=== PATIENT | male | born 1940 | race Caucasian/White ===

== ENCOUNTER 2022-02-28 14:50 | Emergency (ER) | payer MEDICARE, OTHER, SELFPAY ==
--- NOTE | ~2022-02-28 | XR_ITS ---
EXAMINATION: XR chest 2V DATE: 02/28/2022 16:00 INDICATION: Shortness of breath. TECHNIQUE: Frontal and lateral views of the chest were obtained. COMPARISON: Chest 2 views 06/04/2018, chest CT 06/19/2012 FINDINGS: There are airspace opacities in the lower lung zones. No pleural effusion or pneumothorax. The heart size is normal. IMPRESSION: 1. Airspace opacities in the lower lung zones, consistent with atelectasis/scarring versus pneumonia. Reviewed, dictated and finalized at location A. IMPRESSION: 1. Airspace opacities in the lower lung zones, consistent with atelectasis/scar ring versus pneumonia.
[2022-02-28 14:57] VITALS: BP 132/72; PULSE 86; RESP 20; TEMP 36.8; O2SAT 97
--- NOTE | 2022-02-28 15:02 | ECG_ITS ---
Measurements Intervals [place] Rate: 76 P: 51 MS: 159 QRS: -28 QRSD: 90 T: 28 QT: 392 QTc: 441 Interpretive Statements SINUS RHYTHM ATRIAL PREMATURE COMPLEXES BORDERLINE R WAVE PROGRESSION, ANTERIOR LEADS BASELINE WANDER- II, III, AVF, V1 BORDERLINE ECG NO PREVIOUS ECG AVAILABLE FOR COMPARISON Electronically Signed On 02-28-2022 21:31:55 CDT by Ed Ozuna D.O.
[2022-02-28 15:17] LABS: Basophils Percent Auto 0.5 % (0.2-1.2); Eosinophils Absolute Auto 0.5 K/mm3 (0-0.3); Eosinophils Percent Auto 7.2 % (0-4.4); Hematocrit 31.9 % (42.0-52.0); Hemoglobin 9.6 g/dL (14.0-18.0); Immature Granulocyte Absolute 0.03 K/mm3 (0.00-0.031); Immature Granulocyte Percent A 0.4 % (0-0.5); Lymphocytes Absolute Auto 1.89 K/mm3 (0.9-3.2); Lymphocytes Percent Auto 25.3 % (18.3-44.2); Mean Corpuscular HGB Conc 30.1 g/dl (32-36); Mean Corpuscular Hemoglobin 26.4 pg (26-34); Mean Corpuscular Volume 87.6 fl (80-100); Mean Platelet Volume 9.7 fl (7.4-10.4); Monocytes Absolute Auto 0.6 K/mm3 (0.1-0.6); Monocytes Percent Auto 7.6 % (2.6-8.5); Neutrophils Absolute Auto 4.4 K/mm3 (1.3-6.7); Platelet Count Result 254 k/mm3 (150-375); Red Blood Count 3.64 M/mm3 (4.6-6.20); Red Cell Distribution Width 15.7 % (11.5-14.5); White Blood Count 7.5 K/mm3 (4.5-10.0)
[2022-02-28 15:30] LABS: Alanine Aminotransferase 26 U/L (6-50); Albumin Level 3.5 g/dL (3.5-5.1); Alkaline Phosphatase 77 U/L (38-126); Anion Gap 11 mmol/L (8-16); Aspartate Amino Transferase 28 U/L (17-59); Bilirubin,Total 0.3 mg/dL (0.2-1.3); Blood Urea Nitrogen 19 mg/dL (9-20); Carbon Dioxide 23 mmol/L (22-30); Chloride 109 mmol/L (98-107); Estimated CRCL calculation 33 ml/min; Estimated Glomerular Filt Rate 34; Glucose 143 mg/dL (65-110); Potassium 4.4 mmol/L (3.4-5.0); Sodium 143 mmol/L (137-145)
--- NOTE | 2022-02-28 16:27 | ED.SOB ---
HPI - SOB/Dyspnea General Chief Complaint: Shortness of Breath/Dyspnea Stated Complaint: covid + with shortness of breath Time Seen by Provider: 02/28/22 16:27 History of Present Illness HPI Narrative: Patient is an 81-year-old male with a history of COPD (on 2L O2), hypertension, hyperlipidemia, CKD presenting with COVID-19. Patient states that he experienced nasal congestion yesterday so he tested himself for COVID-19 at home. This test came back positive. He tested himself again this morning and it was again positive so he called his PCP who advised he come in for evaluation. Other than nasal congestion and a scratchy throat, the patient denies complaints. States he is not more short of breath than normal. He denies cough or chest pain. No fevers. No lightheadedness. No headache, abdominal pain, nausea or vomiting, leg swelling, diarrhea, dysuria. Related Data Home Medications Medication Instructions Recorded Confirmed aripiprazole 2 mg tablet (Abilify) 2 mg PO DAILY 05/26/19 02/25/22 guaifenesin 600 mg tablet, 600 mg PO BID 05/26/19 02/25/22 extended release 12 hr (Mucinex) wheat dextrin 3 gram/3.8 gram oral 1.5 gm PO BID 05/26/19 02/25/22 powder (Benefiber Sugar Free (dextrin)) aspirin 81 mg tablet,delayed 81 mg PO DAILY 11/29/19 02/25/22 release (Adult Low Dose Aspirin) cholecalciferol (vitamin D3) 25 1,000 unit PO DAILY 06/04/20 02/25/22 mcg (1,000 unit) capsule (Vitamin D3) duloxetine 20 mg capsule,delayed 20 mg PO DAILY 12/12/20 02/25/22 release propylene glycol 0.6 % eye drops 1 drp EACH EYE DAILY PRN 08/16/21 02/25/22 (Systane Balance) Allergies Allergy/AdvReac Type Severity Reaction Status Date / Time No Known Allergies Allergy Verified 02/25/22 09:50 Review of Systems Review of Systems: All systems reviewed & are unremarkable except as noted in HPI and below PMFSH Past Medical History Medical History Colonoscopy planned Coronary stent patent Gastric ulcer Impaired glucose tolerance Sleep apnea Surgical History Surgical History H/O hernia repair H/O oral surgery Family History Family History Mother Family history of respiratory disorder, Onset Age: 82 Family history of diabetes mellitus in first degree relative Diabetes mellitus Father Malignant neoplasm of prostate, Onset Age: 83 Patient's father is Sibling Family history of heart disease in male family member before age 55 Family history of cardiovascular disease Social History Social History Smoking status: Former smoker Smoking end date: 06/15/79 Alcohol intake: never Exam Narrative: GENERAL: Well-appearing, well-nourished, and in no acute distress. HEAD: Normocephalic, atraumatic. EYES: PERRLA and EOMI. ENT: Nares clear, no rhinorrhea or epistaxis. Mucous membranes moist. NECK: Supple. CHEST: On 2L NC, diminished breath sounds bilaterally. No wheezing, crackles. HEART: Regular rate and rhythm. No murmur heard. Normal peripheral pulses. ABDOMEN: Soft, nontender, nondistended, normal active bowel sounds. EXTREMITIES: Normal range of motion. No edema. SKIN: Warm, dry, no rash. NEURO: No focal deficits. Alert and oriented x3. PSYCH: Normal mood and affect. Course Vital Signs Vital signs: Vital Signs Temperature 98.2 F 02/28/22 14:57 Pulse Rate 86 02/28/22 14:57 Respiratory Rate 02/28/22 14:57 Blood Pressure 132/72 02/28/22 14:57 Pulse Oximetry 97 02/28/22 14:57 Oxygen Delivery Nasal Cannula 02/28/22 14:57 Oxygen Flow Rate 2 02/28/22 14:57 Temperature 97.9 F 02/28/22 19:04 Pulse Rate 87 02/28/22 19:04 Respiratory Rate 20 02/28/22 19:04 Blood Pressure 133/89 02/28/22 19:04 Pulse Oximetry 95 09
[2022-02-28 17:52] VITALS: BP 127/65; PULSE 86; RESP 16; TEMP 36.6; O2SAT 99
[2022-02-28 18:18] VITALS: PULSE 73; O2SAT 96
[2022-02-28 19:04] VITALS: BP 133/89; PULSE 87; RESP 20; TEMP 36.6; O2SAT 95
== END 2022-02-28 19:07 | disposition home or self-care (01) ==
PROVIDERS: Emergency Provider Emergency Medicine; PCP Internal Medicine
DX: U07.1 COVID-19 (principal); J44.9 Chronic obstructive pulmonary disease, unspecified; I12.9 Hypertensive chronic kidney disease with stage 1 through stage 4 chronic kidney disease, or unspecified chronic kidney disease; N18.9 Chronic kidney disease, unspecified; E78.5 Hyperlipidemia, unspecified; G47.30 Sleep apnea, unspecified; Z99.81 Dependence on supplemental oxygen; Z95.5 Presence of coronary angioplasty implant and graft; Z79.82 Long term (current) use of aspirin; Z87.891 Personal history of nicotine dependence; I49.1 Atrial premature depolarization; R94.31 Abnormal electrocardiogram [ECG] [EKG]
CPT/HCPCS: 36415; 71046; 80053; 85025; 93005; 99284

== ENCOUNTER 2022-04-11 09:59 | Inpatient (IN) | payer MEDICARE, OTHER, SELFPAY ==
[2022-04-11] VITALS (20 sets, daily range): BP systolic 101–135; BP diastolic 34–91; PULSE 76–94; RESP 14–30; TEMP 36.1–36.8; O2SAT 94–100; BMI 38.5
--- NOTE | ~2022-04-11 | XR_ITS ---
EXAMINATION: XR chest 1V portable DATE: 04/11/2022 10:21 INDICATION: COPD. Shortness of breath, pale and weak. TECHNIQUE: frontal view of the chest was obtained. COMPARISON: Chest radiograph dated 02/28/2022 FINDINGS: Pulmonary vascular congestion and increased interstitial pattern in the bilateral lower lung zones co nsistent with mild pulmonary edema. Blunting at costophrenic angles consistent with small bilateral p leural effusions. The cardiomediastinal silhouette is normal. IMPRESSION: 1. Mild interstitial pattern in the bilateral lower lung zones in favor mild pulmonary edema over pne umonia. 2. Small bilateral pleural effusions. Reviewed, dictated and finalized at location A. IMPRESSION: 1. Mild interstitial pattern in the bilateral lower lung zones in favor mild pu lmonary edema over pneumonia. 2. Small bilateral pleural effusions.
--- NOTE | 2022-04-11 10:10 | ECG_ITS ---
Measurements Intervals [place] Rate: 81 P: 47 ND: 174 QRS: -15 QRSD: 85 T: 176 QT: 331 QTc: 385 Interpretive Statements SINUS RHYTHM ST DEVIATION AND MODERATE T-WAVE ABNORMALITY, CONSIDER ANTEROLATERAL ISCHEMIA ABNORMAL ECG COMPARED TO ECG 02/28/2022 18:01:34 NO SIGNIFICANT CHANGES Electronically Signed On 04-11-2022 16:46:08 CDT by Stephen Sevilla M.D.
[2022-04-11 10:23] LABS: Basophils Absolute Auto 0.1 K/mm3 (0.0-0.1); Basophils Percent Auto 0.6 % (0.2-1.2); Eosinophils Absolute Auto 0.2 K/mm3 (0-0.3); Eosinophils Percent Auto 1.2 % (0-4.4); Immature Granulocyte Absolute 0.06 K/mm3 (0.00-0.031); Immature Granulocyte Percent A 0.5 % (0-0.5); Lymphocytes Absolute Auto 1.56 K/mm3 (0.9-3.2); Lymphocytes Percent Auto 11.8 % (18.3-44.2); Mean Corpuscular HGB Conc 28.2 g/dl (32-36); Mean Corpuscular Hemoglobin 22.9 pg (26-34); Mean Platelet Volume 9.4 fl (7.4-10.4); Monocytes Absolute Auto 1.2 K/mm3 (0.1-0.6); Monocytes Percent Auto 9.1 % (2.6-8.5); Neutrophils Absolute Auto 10.2 K/mm3 (1.3-6.7); Neutrophils Percent Auto 76.8 % (45.5-73.1); Nucleated Red Blood Cells Perc 0.2 % (0.0-0.2); Platelet Count Result 314 k/mm3 (150-375); Red Blood Count 2.58 M/mm3 (4.6-6.20); Red Cell Distribution Width 17.2 % (11.5-14.5); White Blood Count 13.3 K/mm3 (4.5-10.0)
[2022-04-11 10:37] LABS: Alanine Aminotransferase 20 U/L (6-50); Albumin Level 3.7 g/dL (3.5-5.1); Alkaline Phosphatase 84 U/L (38-126); Anion Gap 9 mmol/L (8-16); Aspartate Amino Transferase 26 U/L (17-59); Bilirubin,Total 0.4 mg/dL (0.2-1.3); Blood Urea Nitrogen 31 mg/dL (9-20); Calcium 8.1 mg/dL (8.4-10.2); Carbon Dioxide 23 mmol/L (22-30); Chloride 110 mmol/L (98-107); Estimated CRCL calculation 29 ml/min; Estimated Glomerular Filt Rate 29; Glucose 114 mg/dL (65-110); Potassium 4.5 mmol/L (3.4-5.0); Sodium 142 mmol/L (137-145)
--- NOTE | 2022-04-11 10:45 | ED.SOB ---
HPI - SOB/Dyspnea General Chief Complaint: Shortness of Breath/Dyspnea Stated Complaint: sob, gi bleed? Time Seen by Provider: 04/11/22 10:40 Source: patient and family Mode of arrival: ambulatory Limitations: no limitations History of Present Illness HPI Narrative: 81 years old white male presents with increased shortness of breath over the last 3 weeks. Patient noticed that his stool is black 1 week ago. Patient had COVID February 2022, used to be on oxygen 2 L/min for COPD, has been on 3 L since been having COVID. Patient on aspirin and Plavix. Last colonoscopy [address] Vasquez, polypectomy Related Data Home Medications Medication Instructions Recorded Confirmed aripiprazole 2 mg tablet (Abilify) 2 mg PO DAILY 05/26/19 02/25/22 guaifenesin 600 mg tablet, 600 mg PO BID 05/26/19 02/25/22 extended release 12 hr (Mucinex) wheat dextrin 3 gram/3.8 gram oral 1.5 gm PO BID 05/26/19 02/25/22 powder (Benefiber Sugar Free (dextrin)) aspirin 81 mg tablet,delayed 81 mg PO DAILY 11/29/19 02/25/22 release (Adult Low Dose Aspirin) cholecalciferol (vitamin D3) 25 1,000 unit PO DAILY 06/04/20 02/25/22 mcg (1,000 unit) capsule (Vitamin D3) duloxetine 20 mg capsule,delayed 20 mg PO DAILY 12/12/20 02/25/22 release propylene glycol 0.6 % eye drops 1 drp EACH EYE DAILY PRN Dry Eye(S) 08/16/21 02/25/22 (Systane Balance) Allergies Allergy/AdvReac Type Severity Reaction Status Date / Time No Known Allergies Allergy Verified 04/11/22 08:55 Review of Systems Review of Systems: All systems reviewed & are unremarkable except as noted in HPI and below PMFSH Past Medical History Medical History Colonoscopy planned Coronary stent patent Gastric ulcer Impaired glucose tolerance Sleep apnea Surgical History Surgical History H/O hernia repair H/O oral surgery Family History Family History Mother Family history of respiratory disorder, Onset Age: 82 Family history of diabetes mellitus in first degree relative Diabetes mellitus Father Malignant neoplasm of prostate, Onset Age: 83 Patient's father is Sibling Family history of heart disease in male family member before age 55 Family history of cardiovascular disease Social History Social History Smoking status: Former smoker Smoking end date: 06/15/79 Alcohol intake: never Exam Narrative: General appearance: Well-developed, well-nourished Skin: Normal color Head: Normocephalic, nontraumatic Eyes: Clear conjunctiva ENT: Oropharynx normal, ears normal, nose normal Neck: Supple, nontender Chest and respiratory: Airway patent, no respiratory distress, no accessory muscle use Heart: Regular rate/rhythm Abdomen: Soft, nontender, no organomegaly, quiet bowel sounds, rectal exam showed dark stool, guaiac positive, no gross bleeding Vascular: Normal peripheral pulses, normal capillary refill. 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 Patient will be admitted, GI consult, blood transfusion. Consultations Consultation #1: Dr. Gupta Date: 04/11/22 Time: 11:04 Consultation #2: Dr. Brooke Date: 04/11/22 Time: 11:04 Vital Signs Vital signs: Vital Signs Temperature 36.5 C 04/11/22 10:07
[2022-04-11 10:50] LABS: Hematocrit 20.9 % (42.0-52.0); Hemoglobin 5.9 g/dL (14.0-18.0)
[2022-04-11 11:26] LABS: INR 1.4; Prothrombin Time 16.5 Seconds (11.1-14.7)
[2022-04-11] MEDS: TUBING, BLOOD PLUM PUMP TUBING 1 EACH XX ×2 (11:49→14:00)
[2022-04-11] MEDS: PANTOPRAZOLE SODIUM IV 40 MG VIAL IV PUSH ×2 (11:49→21:58)
[2022-04-11] MEDS: SODIUM CHLORIDE 0.9% IV 250 ML 30 ML IV CONT (11:49)
[2022-04-11 11:57] LABS: SARS-CoV-2 RNA PCR Positive
--- NOTE | 2022-04-11 12:29 | PM.IMHP ---
H&P: HPI History of Present Illness Date/Time: 04/11/22 12:29 Chief Complaint: Shortness of breath-dyspnea Narrative: This is an 81-year-old male patient who does have a history of having a anemia any is also chronically on oxygen at 2 L per nasal cannula for his COPD. The patient had an office visit today pulmonology today for increased worsening shortness of breath. The patient has a chronic cough since he has had COVID on 02/27/2022. There was some discussion in the office about his hemoglobin being 9.6 on his last ER visit and the patient stated that he had black stool Sheng's this morning with further prompting. Last colonoscopy was [address] Dorantes which showed some hemorrhoids at that time. The patient tells me also had some polyps removed in the past. His H&H today was 5.9 and 20.9 last month was 9.6 and 31.9. It was reported that the patient was guaiac positive he had a unit of packed red blood cells and his H&H come up to 6.[address] Gupta has been consulted. IV Protonix has been started. The patient's oxygen level was increased to 3 L per nasal cannula. Chest x-ray was read as mild interstitial pattern in the bilateral lower lungs and they for pulmonary edema over pneumonia. Patient's BUN is 31 creatinine 2.2. GFR is 29. His baseline GFR is typically in the 30s. Creatinine is typically 1.6-1.9. Small bilateral pleural effusions. The patient is being admitted to inpatient status on 04/11/2022. Review of Systems Review of Systems: See HPI All systems reviewed & are unremarkable except as noted in HPI and below Constitutional: Constitutional: Reports as per HPI and Reports no additional constitutional complaints Eyes: Eyes: Reports as per HPI and Reports no additional eye complaints ENT: Reports system reviewed and no additional complaints, except as documented and Reports Normal hearing present Cardiovascular: Cardiovascular: Reports no additional cardiovascular complaints Respiratory: Respiratory: Reports no additional respiratory complaints and Reports no additional respiratory complaints Gastrointestinal: Gastrointestinal: Reports as per HPI and Reports no additional gastrointestinal complaints Musculoskeletal: Musculoskeletal: Reports no additional musculoskeletal complaints Integumentary/Breasts: Skin/Breast: Reports system reviewed and no additional complaints, except as docu and Reports as per HPI Neurologic: Reports system reviewed and no additional complaints, except as documented, Reports as per HPI and Reports Normal hearing present Psychiatric: Psychiatric: Reports no additional psychiatric complaints and Reports as per HPI Endocrine: Endocrine: Reports no additional endocrine complaints Hematologic/Lymphatic: Hematologic/Lymphatic: Reports no additional hematologic/lymphatic complaints Allergic/Immunologic: Allergic/Immunologic: Reports no additional allergic/immunologic complaints [facility] Past Medical History Medical History (Updated 04/11/22 @ 15:25 by Marcy Gramajo NP) Acne rosacea CHF (congestive heart failure) Chronic heart failure with preserved ejection fraction Chronic hypoxemic respiratory failure CKD (chronic kidney disease) Colonoscopy planned COPD (chronic obstructive pulmonary disease) COPD (chronic obstructive pulmonary disease) Coronary stent patent COVID-19 Depression Enlarged prostate without lower urinary tract symptoms (luts) Essential (primary) hypertension Gastric ulcer Gastro-esophageal reflux disease without esophagitis GERD (gastroesophageal reflux disease) Heart failure Hypernatremia Impacted cerumen of both ears Impaired glucose tolerance Mixed hyperlipidemia Obstructive sleep apnea Sleep apnea Surgical History Surgical History H/O cataract extraction H/O heart artery stent H/O hernia repair H/O oral surgery History of removal of pigmented skin lesion Family History Family History (
[2022-04-11 13:20] LABS: Hematocrit 22.5 % (42.0-52.0)
[2022-04-11 13:25] LABS: Hemoglobin 6.4 g/dL (14.0-18.0)
[2022-04-11] MEDS: SODIUM CHLORIDE 0.9% IV 250 ML 30 ML (14:01)
[2022-04-11] MEDS: FUROSEMIDE INJ 40 MG/4 ML VIAL 20 MG IV PUSH (16:32)
[2022-04-11 18:38] LABS: Hematocrit 24.7 % (42.0-52.0); Hemoglobin 7.4 g/dL (14.0-18.0)
[2022-04-11] MEDS: FLUTICASONE/SALMETEROL 45-21 MCG INHALER 1 PUFF 2 PUFF INHALATION (21:10)
[2022-04-11] MEDS: IPRATROPIUM BR 0.02% INH SOLN 0.5 MG/2.5 ML VIAL 1 MG INHALATION (21:40)
[2022-04-11] MEDS: ALBUTEROL SULFATE NEB 2.5 MG/3 ML INH INHALATION (21:40)
[2022-04-11] MEDS: carvediloL 6.25 MG TABLET PO (21:58)
[2022-04-12] VITALS (17 sets, daily range): BP systolic 106–135; BP diastolic 47–59; PULSE 64–86; RESP 16–24; TEMP 36.3–37.1; O2SAT 90–97
--- NOTE | 2022-04-12 | ECHO_ITS ---
Patient Info Name: Zaheer Camarillo Age: 81 years : 1940 Gender: Male Ht: 68 in Wt: 253 lbs BSA: 2.40 m2 HR: 76 bpm BP: 106 / 59 mmHg Heart Rhythm: Sinus Rhythm Technical Quality: Fair Exam Date: 04/12/2022 2:02 PM Exam Location: [facility] Pul[facility] Patient Status: Inpatient Admit Date: 04/11/2022 Staff Ordering Physician: Marcy Gramajo NP Outside Machinist Apprentice: Sweta Darnell RDCS Attending Provider: Keegan Brooke MD Referring Physician: Rox NOVOA; Exam Type: CA echo dop color flow w con Study Info Indications I50.20 - Unspecified systolic (congestive) heart failure Complete two-dimensional, color flow and Doppler transthoracic echocardiogram is performed with contrast to opacify the left ventricle and to improve the deliniation of the left ventricle endocardial borders. Contrast/Agitated Saline Contrast/Ag. Saline: Definity Amount: 4.00 ml Administered By: Sweta Darnell [facility] Summary 1. Left ventricular systolic function is normal, estimated at 55-60%. 2. There is mildly increased left ventricular wall thickness. 3. The left ventricular diastolic function is grade I diastolic dysfunction. 4. Right ventricular systolic function is normal. 5. There is moderate aortic valve stenosis with a peak velocity of 345.09 cm/s, mean gradient of 33 mmHg, and aortic valve area of 1.37 cm2. 6. There is mild aortic valve calcification. 7. There is mild tricuspid valve regurgitation. Left Ventricle Left ventricular chamber dimension is normal. Left ventricular systolic function is normal, estimated at 55-60%. There is mildly increased left ventricular wall thickness. The left ventricular diastolic function is grade I diastolic dysfunction. Right Ventricle Right ventricular chamber dimension is normal. Right ventricular systolic function is normal. Left Atria Left atrial chamber dimension is normal. Right Atria Right atrial chamber dimension is normal. Atrial Septum Intact interatrial septum visualized by color flow imaging. Aortic Valve The aortic valve is not well visualized. There is moderate aortic valve stenosis with a peak velocity of 345.09 cm/s, mean gradient of 33 mmHg, and aortic valve area of 1.37 cm2. There is no aortic valve regurgitation. There is mild aortic valve calcification. Pulmonic Valve The pulmonic valve is not well visualized. Mitral Valve The mitral valve has normal leaflets. There is no mitral valve stenosis. There is no mitral valve regurgitation. The mitral valve annulus is mildly calcified. Tricuspid Valve The tricuspid valve leaflets are not well visualized. There is no significant tricuspid valve stenosis. There is mild tricuspid valve regurgitation. Pericardium/Pleural There is no pericardial effusion. Inferior Vena Cava Dilated inferior vena cava with <50% collapse upon inspiration consistent with elevated right atrial pressure, 15 mmHg. Left Ventricular Outflow Tract Name Value Normal LVOT 2D LVOT Diameter 2.22 cm LVOT Doppler LVOT Peak Gradient 7 mmHg LVOT Rachelle
[2022-04-12 06:50] LABS: Basophils Absolute Auto 0.1 K/mm3 (0.0-0.1); Basophils Percent Auto 0.7 % (0.2-1.2); Eosinophils Absolute Auto 0.2 K/mm3 (0-0.3); Eosinophils Percent Auto 2.3 % (0-4.4); Hematocrit 24.8 % (42.0-52.0); Hemoglobin 7.4 g/dL (14.0-18.0); Immature Granulocyte Absolute 0.03 K/mm3 (0.00-0.031); Immature Granulocyte Percent A 0.3 % (0-0.5); Lymphocytes Absolute Auto 1.53 K/mm3 (0.9-3.2); Lymphocytes Percent Auto 15.9 % (18.3-44.2); Mean Corpuscular HGB Conc 29.8 g/dl (32-36); Mean Corpuscular Hemoglobin 24.3 pg (26-34); Mean Corpuscular Volume 81.6 fl (80-100); Mean Platelet Volume 9.9 fl (7.4-10.4); Monocytes Percent Auto 10.3 % (2.6-8.5); Neutrophils Absolute Auto 6.8 K/mm3 (1.3-6.7); Neutrophils Percent Auto 70.5 % (45.5-73.1); Platelet Count Result 284 k/mm3 (150-375); Red Blood Count 3.04 M/mm3 (4.6-6.20); Red Cell Distribution Width 16.9 % (11.5-14.5); White Blood Count 9.6 K/mm3 (4.5-10.0)
[2022-04-12 07:04] LABS: Alanine Aminotransferase 16 U/L (6-50); Albumin Level 3.5 g/dL (3.5-5.1); Alkaline Phosphatase 86 U/L (38-126); Anion Gap 13 mmol/L (8-16); Aspartate Amino Transferase 27 U/L (17-59); Bilirubin,Total 0.6 mg/dL (0.2-1.3); Blood Urea Nitrogen 28 mg/dL (9-20); Calcium 8.3 mg/dL (8.4-10.2); Carbon Dioxide 25 mmol/L (22-30); Chloride 108 mmol/L (98-107); Estimated CRCL calculation 28 ml/min; Estimated Glomerular Filt Rate 27; Glucose 100 mg/dL (65-110); Magnesium 1.9 mg/dL (1.6-2.3); Potassium 3.9 mmol/L (3.4-5.0); Sodium 146 mmol/L (137-145)
[2022-04-12] MEDS: lamoTRIgine 50 MG TABLET PO (08:01)
[2022-04-12] MEDS: ARIPiprazole 2 MG TABLET PO (08:01)
[2022-04-12] MEDS: ATORVASTATIN 40 MG TABLET PO (08:01)
[2022-04-12] MEDS: amLODIPine BESYLATE 2.5 MG TABLET PO (08:01)
[2022-04-12] MEDS: PANTOPRAZOLE SODIUM IV 40 MG VIAL IV PUSH ×2 (08:01→21:23)
[2022-04-12] MEDS: carvediloL 6.25 MG TABLET PO ×2 (08:01→21:16)
[2022-04-12] MEDS: guaiFENesin 12 HR 600 MG TABCR PO ×2 (08:01→21:15)
[2022-04-12] MEDS: CHOLECALCIFEROL 1,000 UNITS TABLET 1000 UNITS PO (08:01)
[2022-04-12] MEDS: DULoxetine HCL 20 MG CAPSULE.DR PO (08:01)
[2022-04-12] MEDS: ALBUTEROL SULFATE NEB 2.5 MG/3 ML INH INHALATION ×2 (08:23→19:56)
[2022-04-12] MEDS: IPRATROPIUM BR 0.02% INH SOLN 0.5 MG/2.5 ML VIAL 1 MG INHALATION ×2 (08:23→19:58)
--- NOTE | 2022-04-12 08:23 | PM.IMPN ---
Progress Note: A&P Assessment and Plan (1) GI bleed: Code(s): K92.2 - Gastrointestinal hemorrhage, unspecified Status: Acute Assessment and Plan: monitor hemoglobin and fluid status closely, continue Protonix, GI consult appreciated plan is for EGD in the morning (2) (HFpEF) heart failure with preserved ejection fraction: Code(s): I50.30 - Unspecified diastolic (congestive) heart failure Status: Acute Assessment and Plan: repeat echo pending (3) Atherosclerotic heart disease of [place] coronary artery with angina pectoris: Code(s): I25.119 - Atherosclerotic heart disease of [place] coronary artery with unspecified angina pectoris Status: Acute Assessment and Plan: hold aspirin Plavix, restart when okay with GI (4) Chronic hypoxemic respiratory failure: Code(s): J96.11 - Chronic respiratory failure with hypoxia Status: Acute Assessment and Plan: 2 L at baseline, currently on 3 L, likely secondary to anemia, anticipate this will resolve with transfusion, do not suspect underlying exacerbation of COPD (5) CKD (chronic kidney disease): Code(s): N18.9 - Chronic kidney disease, unspecified Status: Acute Assessment and Plan: gentle IVF d/t worsening kidney function without fluid overload status (6) COPD (chronic obstructive pulmonary disease): Code(s): J44.9 - Chronic obstructive pulmonary disease, unspecified Status: Acute Assessment and Plan: continue home medications, stable (7) Depression: Code(s): F32.A - Depression, unspecified Status: Acute Assessment and Plan: continue home medications, stable (8) Essential (primary) hypertension: Code(s): I10 - Essential (primary) hypertension Status: Acute Assessment and Plan: somewhat on the low side, would consider discontinuing amlodipine, will reassess prior to discharge (9) Mixed hyperlipidemia: Code(s): E78.2 - Mixed hyperlipidemia Status: Acute Assessment and Plan: continue statin (10) Obstructive sleep apnea: Code(s): G47.33 - Obstructive sleep apnea (adult) (pediatric) Status: Acute Assessment and Plan: titrate CPAP to home setting. The patient has supplemental oxygen 24/7 he has CPAP settings 12 cm of water with the 3 liters/minute O2 bleed in. Plan DVT prophylaxis with SCDs GI prophylaxis with PPI Code status full code Subjective Date/time seen: 04/12/22 08:23 Interval history: No overnight events noted. No chest pain or shortness of breath. No nausea, vomiting or diarrhea. No fevers or chills. Patient states he does get dyspneic with exertion, worsening over the last 2-3 weeks. Denies blood in his stool or melena, although H&P does mention some black in his stools. Review of Systems Review of Systems: 12 point review of systems was assessed and was negative except as noted in the HPI Exam Narrative: General: No acute distress, alert and oriented per baseline, stable on 3 L nasal cannula HEENT: Atraumatic, normocephalic, mucous membranes moist CV: Regular rate and rhythm, S1, S2 Lungs: Clear to auscultation bilaterally, no rales or crackles noted, no wheezes, good air entry Abdomen: Soft, nontender, nondistended Extremities: Normal to inspection Skin: No rashes noted, no lesions or wounds seen Psych: Euthymic, normal affect Objective Data Vital Signs Vital Signs: Vital Signs - 24 hr 04/11/22 10:07 04/11/22 10:13 04/11/22 10:07 Temperature 97.7 F Pulse Rate 78 77 82 Respiratory Rate 18 29 H Blood Pressure 135/91 H 135/91 H Pulse Oximetry 99 99 Oxygen Delivery Nasal Cannula Oxygen Flow Rate 3 Fraction of Inspired Oxygen 04/11/22 11:07 04/11/22 11:46 04/11/22 12:02 Temperature 98.0 F 97 F L Pulse Rate 77 79 80 Respiratory Rate 19 21 H 22 H Blood Pressure 105/72 127/71 115/72 Pulse Oximetry 100 98 97 Oxygen Delivery
[2022-04-12] MEDS: FLUTICASONE/SALMETEROL 45-21 MCG INHALER 1 PUFF 2 PUFF INHALATION ×2 (08:24→19:59)
[2022-04-12] MEDS: SODIUM CHLORIDE 0.9% IV 1,000 ML 75 ML IV CONT (08:39)
--- NOTE | 2022-04-12 12:43 | WPDGICN ---
Assessment and Plan Assessment and plan (1) GI bleed: Code(s): K92.2 - Gastrointestinal hemorrhage, unspecified Status: Acute Assessment and Plan: melena and worsening anemia requiring blood transfusion he is hemodynamically stable egd in am iv protonix (2) Melena: Code(s): K92.1 - Melena Status: Acute Assessment and Plan: monitor for more signs of bleeding (3) Acute on chronic blood loss anemia: Code(s): D62 - Acute posthemorrhagic anemia Status: Acute Assessment and Plan: s/p prbc trend h/h (4) Gastro-esophageal reflux disease without esophagitis: Code(s): K21.9 - Gastro-esophageal reflux disease without esophagitis Status: Acute Assessment and Plan: never had egd (5) Chronic hypoxemic respiratory failure: Code(s): J96.11 - Chronic respiratory failure with hypoxia Status: Acute (6) Essential (primary) hypertension: Code(s): I10 - Essential (primary) hypertension Status: Acute (7) Acute on chronic renal failure: Code(s): N17.9 - Acute kidney failure, unspecified; N18.9 - Chronic kidney disease, unspecified Status: Acute Assessment and Plan: monitor (8) Blood thinned due to long-term anticoagulant use: Code(s): Z79.01 - half-way (current) use of anticoagulants Status: Acute Assessment and Plan: plavix on hold GI Consult Note Consult date/time: 04/12/22 12:43 Reason for consult: melena HPI: Zaheer Camarillo is a 81 year old male with history of CKD baseline creatinine 1.6-1.9, chronic anemia with last hb 9.6, last colonoscopy was [address] Dorantes which showed some hemorrhoids at that time.?Also HTN on baby aspirin and plavix, GERD on protonix daily but never had EGD. He came here with last few days noted dark stools and also more indigestion using tums but denies abdominal pain or nausea. noted that he has been more fatigue than usual and also getting dyspnea on exertion. His H&H was 5.9 and 20.9, given blood transfusion and IV Protonix.?Chest x-ray reviewed, mild interstitial pattern in the bilateral lower lungs. BUN 31 creatinine 2.2.?He is feeling better after transfusion. Review of Systems Constitutional: Constitutional: Reports fatigue Eyes: Eyes: Denies blurry vision ENT: Reports Normal hearing present Cardiovascular: Cardiovascular: Denies chest pain Respiratory: Respiratory: Reports dyspnea on exertion Gastrointestinal: Gastrointestinal: Reports melena Genitourinary: Genitourinary: Denies hematuria Musculoskeletal: Musculoskeletal: Denies back pain Integumentary/Breasts: Skin/Breast: Denies rash Neurologic: Denies Abnormal speech present Psychiatric: Psychiatric: Denies anxiety [facility] Past Medical History Medical History (Updated 04/12/22 @ 12:48 by Bharath Bourne MD) Acne rosacea Acute on chronic blood loss anemia Acute on chronic renal failure Blood thinned due to long-term anticoagulant use CHF (congestive heart failure) Chronic heart failure with preserved ejection fraction Chronic hypoxemic respiratory failure CKD (chronic kidney disease) Colonoscopy planned COPD (chronic obstructive pulmonary disease) COPD (chronic obstructive pulmonary disease) Coronary stent patent COVID-19 Depression Enlarged prostate without lower urinary tract symptoms (luts) Essential (primary) hypertension Gastric ulcer Gastro-esophageal reflux disease without esophagitis GERD (gastroesophageal reflux disease) Heart failure Hypernatremia Impacted cerumen of both ears Impaired glucose tolerance Melena Mixed hyperlipidemia Obstructive sleep apnea Sleep apnea Surgical History Surgical History H/O cataract extraction H/O heart artery stent H/O hernia repair H/O oral surgery History of removal of pigmented skin lesion Family History Family History (Reviewed 04/11/22 @ 15:09 b
[2022-04-12] MEDS: PERFLUTREN LIPID MICROSPHERES 1.5 ML VIAL DILUTED TO 10 ML TOTAL VOLUME IV PUSH (13:50)
[2022-04-13] VITALS (20 sets, daily range): BP systolic 104–147; BP diastolic 47–69; PULSE 66–90; RESP 18–22; TEMP 36.3–36.8; O2SAT 90–97
[2022-04-13 06:07] LABS: Basophils Absolute Auto 0.1 K/mm3 (0.0-0.1); Basophils Percent Auto 0.6 % (0.2-1.2); Eosinophils Absolute Auto 0.2 K/mm3 (0-0.3); Eosinophils Percent Auto 2.5 % (0-4.4); Hematocrit 25.4 % (42.0-52.0); Hemoglobin 7.7 g/dL (14.0-18.0); Immature Granulocyte Absolute 0.03 K/mm3 (0.00-0.031); Immature Granulocyte Percent A 0.3 % (0-0.5); Lymphocytes Absolute Auto 1.21 K/mm3 (0.9-3.2); Lymphocytes Percent Auto 13.8 % (18.3-44.2); Mean Corpuscular HGB Conc 30.3 g/dl (32-36); Mean Corpuscular Hemoglobin 24.4 pg (26-34); Mean Corpuscular Volume 80.6 fl (80-100); Mean Platelet Volume 9.8 fl (7.4-10.4); Monocytes Absolute Auto 0.8 K/mm3 (0.1-0.6); Monocytes Percent Auto 8.6 % (2.6-8.5); Neutrophils Absolute Auto 6.5 K/mm3 (1.3-6.7); Neutrophils Percent Auto 74.2 % (45.5-73.1); Platelet Count Result 302 k/mm3 (150-375); Red Blood Count 3.15 M/mm3 (4.6-6.20); Red Cell Distribution Width 17.3 % (11.5-14.5); White Blood Count 8.8 K/mm3 (4.5-10.0)
[2022-04-13 06:18] LABS: Alanine Aminotransferase 16 U/L (6-50); Albumin Level 3.4 g/dL (3.5-5.1); Alkaline Phosphatase 85 U/L (38-126); Anion Gap 15 mmol/L (8-16); Aspartate Amino Transferase 27 U/L (17-59); Bilirubin,Total 0.6 mg/dL (0.2-1.3); Blood Urea Nitrogen 23 mg/dL (9-20); Calcium 8.2 mg/dL (8.4-10.2); Carbon Dioxide 24 mmol/L (22-30); Chloride 111 mmol/L (98-107); Estimated CRCL calculation 29 ml/min; Estimated Glomerular Filt Rate 29; Glucose 116 mg/dL (65-110); Potassium 3.9 mmol/L (3.4-5.0); Sodium 150 mmol/L (137-145)
--- NOTE | 2022-04-13 07:38 | PC.NURSE ---
pt off floor at this time for procedure.
[2022-04-13] MEDS: LACTATED RINGERS 1,000 ML 150 ML IV CONT (07:58)
--- NOTE | 2022-04-13 08:17 | WPDANESEPPF ---
Anes - Initial Pre Proc Eval Procedure: Operation Date: 04/13/22 08:00 Proposed Procedures p Esophagogastroduodenoscopy - Bharath Bourne MD Date/Time: 04/13/22 08:17 Surgeon: Keegan Brooke MD Pre Op Diagnosis: GI Bleed/Anemia/COPD Patient Data Age: 81 Gender: M Height: 1.73 m Weight: 115 kg Last Vital Signs Temp 36.6 C 04/13/22 07:47 Pulse 90 04/13/22 07:47 Resp 22 H 04/13/22 07:47 BP 147/65 H 04/13/22 07:47 Pulse Ox 97 04/13/22 07:47 O2 Del Method Nasal Cannula 04/13/22 07:47 O2 Flow Rate 3 04/13/22 07:47 FiO2 32 04/12/22 20:40 Allergies Allergy/AdvReac Type Severity Reaction Status Date / Time No Known Allergies Allergy Verified 04/13/22 07:43 Home Medications Medication Instructions Recorded Confirmed Type aripiprazole 2 mg tablet (Abilify) 2 mg PO DAILY 05/26/19 04/11/22 History guaifenesin 600 mg tablet, 600 mg PO BID 05/26/19 04/11/22 History extended release 12 hr (Mucinex) wheat dextrin 3 gram/3.8 gram oral 1.5 gm PO BID 05/26/19 04/11/22 History powder (Benefiber Sugar Free (dextrin)) aspirin 81 mg tablet,delayed 81 mg PO DAILY 11/29/19 04/11/22 History release (Adult Low Dose Aspirin) lamotrigine 25 mg tablet 50 mg PO DAILY #30 tabs 11/29/19 04/11/22 Rx cholecalciferol (vitamin D3) 25 1,000 unit PO DAILY 06/04/20 04/11/22 History mcg (1,000 unit) capsule (Vitamin D3) duloxetine 20 mg capsule,delayed 20 mg PO DAILY 12/12/20 04/11/22 History release albuterol sulfate 2.5 mg/3 mL See Rx Instructions .Route 08/16/21 04/11/22 Rx (0.083 %) solution for nebulization .COMPLEX #60 vials pantoprazole 40 mg tablet,delayed 40 mg PO .COMPLEX #90 tabs 08/16/21 04/11/22 Rx release propylene glycol 0.6 % eye drops 1 drp EACH EYE DAILY PRN Dry Eye(S) 08/16/21 04/11/22 History (Systane Balance) clopidogrel 75 mg tablet See Rx Instructions .Route 11/05/21 04/11/22 Rx .COMPLEX #90 tabs atorvastatin 40 mg tablet 40 mg PO DAILY #90 tabs 11/18/21 04/11/22 Rx carvedilol 6.25 mg tablet 6.25 mg PO Q12H #180 tabs 11/18/21 04/11/22 Rx amlodipine 2.5 mg tablet 2.5 mg PO DAILY 04/11/22 04/11/22 History budesonide-formoterol HFA 80 2 puff inhalation Q12H 04/11/22 04/11/22 History mcg-4.5 mcg/actuation aerosol inhaler (Symbicort) ipratropium bromide 0.02 % 1 mg inhalation BID 04/11/22 04/11/22 History solution for inhalation Laboratory Tests 04/13/22 04/13/22 05:47 05:47 WBC 8.8 K/mm3 K/mm3 (4.5-10.0) RBC 3.15 M/mm3 L M/mm3 (4.6-6.20) Hgb 7.7 g/dL L g/dL (14.0-18.0) Hct 25.4 % L % (42.0-52.0) MCV 80.6 fl fl (80-100) MCH 24.4 pg L pg (26-34) MCHC 30.3 g/dl L g/dl (32-36) RDW 17.3 % H % (11.5-14.5) Plt Count 302 k/mm3 k/mm3 (150-375) MPV 9.8 fl fl (7.4-10.4) Immature Gran % (Auto) 0.3 % % (0-0.5) Neut % (Auto) 74.2 % H % (45.5-73.1) Lymph % (Auto) 13.8 % L % (18.3-44.2) [place] % (Auto) 8.6 % H % (2.6-8.5) Eos % (Auto) 2.5 % % (0-4.4) Baso % (Auto) 0.6 % % (0.2-1.2) Lymph # (Auto) 1.21 K/mm3 K/mm3 (0.9-3.2) [place] # (Auto) 0.8 K/mm3 H K/mm3 (0.1-0.6) Eos # (Auto) 0.2 K/mm3 K/mm3 (0-0.3) Baso # (Auto) 0.1 K/mm3 K/mm3 (0.0-0.1) Abs Immat Gran (auto) 0.03 K/mm3 K/mm3 (0.00-0.031) Absolute Neuts (auto) 6.5 K/mm3 K/mm3 (1.3-6.7) Absolute Nucleated RBC 0.0 K/mm3 K/mm3 (0.0-0.012) Nucleated RBC % 0.0 % % (0.0-0.2) Sodium 150 mmol/L H mmol/L (137-145) Potassium 3.9 mmol/L mmol/L (3.4-5.0) Chloride 111 mmol/L H mmol/L (98-107) Carbon Dioxide 24 mmol/L mmol/L (22-30) Anion Gap 15 mmol/L mmol/L (8-16) BUN 23 mg/dL H mg/dL (9-20) Creatinine 2.20 mg/dL H mg/dL (0.7-1.3) Estim Creat Clear Calc 29 ml/min ml/min Estimated GFR 29 L (59 - ) Glucose
--- NOTE | 2022-04-13 09:00 | PC.NURSE ---
pt back from procedure at this time.
[2022-04-13] MEDS: DULoxetine HCL 20 MG CAPSULE.DR PO (09:02)
[2022-04-13] MEDS: carvediloL 6.25 MG TABLET PO ×2 (09:02→20:26)
[2022-04-13] MEDS: lamoTRIgine 50 MG TABLET PO (09:02)
[2022-04-13] MEDS: ATORVASTATIN 40 MG TABLET PO (09:02)
[2022-04-13] MEDS: ARIPiprazole 2 MG TABLET PO (09:02)
[2022-04-13] MEDS: guaiFENesin 12 HR 600 MG TABCR PO ×2 (09:02→20:26)
[2022-04-13] MEDS: CHOLECALCIFEROL 1,000 UNITS TABLET 1000 UNITS PO (09:02)
[2022-04-13] MEDS: amLODIPine BESYLATE 2.5 MG TABLET PO (09:02)
[2022-04-13] MEDS: PANTOPRAZOLE SODIUM IV 40 MG VIAL IV PUSH (09:03)
--- NOTE | 2022-04-13 11:30 | PM.IMPN ---
Progress Note: A&P Assessment and Plan (1) GI bleed: Code(s): K92.2 - Gastrointestinal hemorrhage, unspecified Status: Acute Assessment and Plan: EGD today, hemoglobin is 7.7 today status post transfusion, continue to monitor Update: EGD report showed duodenal ulcer, okay to resume diet, will continue PPI twice daily, avoid NSAIDs, hold Plavix x1 week, monitor hemoglobin (2) (HFpEF) heart failure with preserved ejection fraction: Code(s): I50.30 - Unspecified diastolic (congestive) heart failure Status: Acute Assessment and Plan: repeat echo pending (3) Atherosclerotic heart disease of [place] coronary artery with angina pectoris: Code(s): I25.119 - Atherosclerotic heart disease of [place] coronary artery with unspecified angina pectoris Status: Acute Assessment and Plan: hold aspirin + Plavix x1 week (4) Chronic hypoxemic respiratory failure: Code(s): J96.11 - Chronic respiratory failure with hypoxia Status: Acute Assessment and Plan: 2 L at baseline, currently on 3 L, likely secondary to anemia, anticipate this will resolve with transfusion, do not suspect underlying exacerbation of COPD will transfuse 1 unit of pRBCs as patient's hgb is only 7.7 and unable to wean off 3L as well as h/o heart failure, not unreasonable to transfuse to a goal around 9 instead and see if resp failure improves (5) CKD (chronic kidney disease): Code(s): N18.9 - Chronic kidney disease, unspecified Status: Acute Assessment and Plan: creatinine and BUN improved with gentle IV fluid hydration, IV fluids now discontinued, appears to be fairly close to baseline (6) COPD (chronic obstructive pulmonary disease): Code(s): J44.9 - Chronic obstructive pulmonary disease, unspecified Status: Chronic Assessment and Plan: continue home medications, stable (7) Depression: Code(s): F32.A - Depression, unspecified Status: Chronic Assessment and Plan: continue home medications, stable (8) Essential (primary) hypertension: Code(s): I10 - Essential (primary) hypertension Status: Chronic Assessment and Plan: somewhat on the low side, would consider discontinuing amlodipine, will reassess prior to discharge (9) Mixed hyperlipidemia: Code(s): E78.2 - Mixed hyperlipidemia Status: Chronic Assessment and Plan: continue statin (10) Obstructive sleep apnea: Code(s): G47.33 - Obstructive sleep apnea (adult) (pediatric) Status: Chronic Assessment and Plan: titrate CPAP to home setting. The patient has supplemental oxygen 24/ he has CPAP settings 12 cm of water with the 3 liters/minute O2 bleed in. (11) Hypernatremia: Code(s): E87.0 - Hyperosmolality and hypernatremia Status: Acute Assessment and Plan: sodium worsened to 150 today, up from 146 yesterday, baseline appears to be on the higher side as patient runs between 141 and 145, will monitor for now, would give half-normal saline in the future if patient appears dehydrated Plan DVT prophylaxis with SCDs GI prophylaxis with PPI Code status full code Subjective Date/time seen: 04/13/22 11:30 Interval history: No overnight events noted. No chest pain or shortness of breath. No nausea, vomiting or diarrhea. No fevers or chills. Patient states he feels still is more short of breath with exertion than before. Review of Systems Review of Systems: 12 point review of systems was assessed and was negative except as noted in the HPI Exam Narrative: General: No acute distress, alert and oriented per baseline, stable on 3 L nasal cannula HEENT: Atraumatic, normocephalic, mucous membranes moist CV: Regular rate and rhythm, S1, S2 Lungs: Clear to auscultation bilaterally, no rales or crackles noted, no wheezes, good air entry Abdomen: Soft, nontender, nondistended Extremities: Normal to ins
[2022-04-13 12:11] LABS: Hematocrit 27.8 % (42.0-52.0); Hemoglobin 8.1 g/dL (14.0-18.0); Mean Corpuscular HGB Conc 29.1 g/dl (32-36); Mean Corpuscular Hemoglobin 24.1 pg (26-34); Mean Corpuscular Volume 82.7 fl (80-100); Mean Platelet Volume 9.6 fl (7.4-10.4); Platelet Count Result 302 k/mm3 (150-375); Red Blood Count 3.36 M/mm3 (4.6-6.20); Red Cell Distribution Width 17.2 % (11.5-14.5); White Blood Count 10.1 K/mm3 (4.5-10.0)
[2022-04-13] MEDS: SODIUM CHLORIDE 0.9% IV 250 ML 30 ML IV CONT (15:59)
[2022-04-13] MEDS: TUBING, BLOOD PLUM PUMP TUBING 1 EACH XX (15:59)
[2022-04-13 21:00] LABS: Hematocrit 28.6 % (42.0-52.0); Hemoglobin 8.6 g/dL (14.0-18.0); Mean Corpuscular HGB Conc 30.1 g/dl (32-36); Mean Corpuscular Hemoglobin 24.7 pg (26-34); Mean Corpuscular Volume 82.2 fl (80-100); Mean Platelet Volume 9.9 fl (7.4-10.4); Platelet Count Result 285 k/mm3 (150-375); Red Blood Count 3.48 M/mm3 (4.6-6.20); Red Cell Distribution Width 16.9 % (11.5-14.5); White Blood Count 10.2 K/mm3 (4.5-10.0)
[2022-04-13] MEDS: ALBUTEROL SULFATE NEB 2.5 MG/3 ML INH INHALATION (21:07)
[2022-04-13] MEDS: IPRATROPIUM BR 0.02% INH SOLN 0.5 MG/2.5 ML VIAL INHALATION (21:07)
[2022-04-13] MEDS: FLUTICASONE/SALMETEROL 45-21 MCG INHALER 1 PUFF 2 PUFF INHALATION (21:08)
[2022-04-14] VITALS (16 sets, daily range): BP systolic 93–134; BP diastolic 63–84; PULSE 70–93; RESP 18–20; TEMP 36.1–37; O2SAT 86–100
[2022-04-14] MEDS: PANTOPRAZOLE 40 MG TABLET PO ×2 (01:09→21:17)
[2022-04-14 07:02] LABS: Alanine Aminotransferase 20 U/L (6-50); Albumin Level 3.5 g/dL (3.5-5.1); Alkaline Phosphatase 87 U/L (38-126); Anion Gap 11 mmol/L (8-16); Aspartate Amino Transferase 30 U/L (17-59); Bilirubin,Total 0.7 mg/dL (0.2-1.3); Blood Urea Nitrogen 25 mg/dL (9-20); Calcium 8.1 mg/dL (8.4-10.2); Carbon Dioxide 26 mmol/L (22-30); Chloride 113 mmol/L (98-107); Estimated CRCL calculation 29 ml/min; Estimated Glomerular Filt Rate 29; Glucose 103 mg/dL (65-110); Potassium 3.8 mmol/L (3.4-5.0); Sodium 150 mmol/L (137-145)
[2022-04-14 07:09] LABS: Basophils Absolute Auto 0.1 K/mm3 (0.0-0.1); Basophils Percent Auto 0.6 % (0.2-1.2); Eosinophils Absolute Auto 0.3 K/mm3 (0-0.3); Eosinophils Percent Auto 3.1 % (0-4.4); Hemoglobin 8.5 g/dL (14.0-18.0); Immature Granulocyte Absolute 0.04 K/mm3 (0.00-0.031); Immature Granulocyte Percent A 0.4 % (0-0.5); Lymphocytes Absolute Auto 1.46 K/mm3 (0.9-3.2); Lymphocytes Percent Auto 14.5 % (18.3-44.2); Mean Corpuscular HGB Conc 29.3 g/dl (32-36); Mean Corpuscular Hemoglobin 24.2 pg (26-34); Mean Corpuscular Volume 82.6 fl (80-100); Mean Platelet Volume 9.8 fl (7.4-10.4); Monocytes Percent Auto 9.6 % (2.6-8.5); Neutrophils Absolute Auto 7.2 K/mm3 (1.3-6.7); Neutrophils Percent Auto 71.8 % (45.5-73.1); Platelet Count Result 292 k/mm3 (150-375); Red Blood Count 3.51 M/mm3 (4.6-6.20); Red Cell Distribution Width 17.2 % (11.5-14.5)
[2022-04-14] MEDS: ARIPiprazole 2 MG TABLET PO (08:15)
[2022-04-14] MEDS: ATORVASTATIN 40 MG TABLET PO (08:15)
[2022-04-14] MEDS: carvediloL 6.25 MG TABLET PO ×2 (08:15→21:17)
[2022-04-14] MEDS: lamoTRIgine 50 MG TABLET PO (08:15)
[2022-04-14] MEDS: amLODIPine BESYLATE 2.5 MG TABLET PO (08:15)
[2022-04-14] MEDS: guaiFENesin 12 HR 600 MG TABCR PO ×2 (08:15→21:17)
[2022-04-14] MEDS: PANTOPRAZOLE SODIUM IV 40 MG VIAL IV PUSH (08:15)
[2022-04-14] MEDS: DULoxetine HCL 20 MG CAPSULE.DR PO (08:15)
[2022-04-14] MEDS: CHOLECALCIFEROL 1,000 UNITS TABLET 1000 UNITS PO (08:15)
[2022-04-14 08:33] LABS: Platelet Estimate Adequate (Adequate); Target Cells 1+ (NORMAL)
[2022-04-14 08:34] LABS: Large Platelets Present; Platelet Clumps Present
[2022-04-14 08:35] LABS: Schistocytes None Seen (NORMAL); Spherocytes 1+ (NORMAL)
--- NOTE | 2022-04-14 08:43 | PCOTNOTE ---
Pt. is currently on Bedrest orders. Attempted to contact both hospitalist, Dr. Brooke and Nurse, Anita Junior, both unavailable at this time to discuss. Following.
--- NOTE | 2022-04-14 10:04 | PM.DS ---
DS: Admitting Diagnosis Discharge Date 04/14/22 Admitting Diagnosis GI bleed DS: Discharge Diagnosis Discharge Diagnosis (1) GI bleed: Code(s): K92.2 - Gastrointestinal hemorrhage, unspecified Status: Acute Assessment and Plan: EGD report showed duodenal ulcer, okay to resume diet, continue PPI, avoid NSAIDs, hold Plavix x1 week, monitor hemoglobin Hb was low yesterday. patient received 1 unit PRBC transfusion. Hb 8.6 this AM. (2) (HFpEF) heart failure with preserved ejection fraction: Code(s): I50.30 - Unspecified diastolic (congestive) heart failure Status: Acute Assessment and Plan: stable (3) Atherosclerotic heart disease of [place] coronary artery with angina pectoris: Code(s): I25.119 - Atherosclerotic heart disease of [place] coronary artery with unspecified angina pectoris Status: Acute Assessment and Plan: hold Plavix x1 week cont ASA (4) Chronic hypoxemic respiratory failure: Code(s): J96.11 - Chronic respiratory failure with hypoxia Status: Acute Assessment and Plan: 2 L at baseline (5) CKD (chronic kidney disease): Code(s): N18.9 - Chronic kidney disease, unspecified Status: Acute Assessment and Plan: creatinine and BUN improved with gentle IV fluid hydration, IV fluids now discontinued, appears to be fairly close to baseline (6) COPD (chronic obstructive pulmonary disease): Code(s): J44.9 - Chronic obstructive pulmonary disease, unspecified Status: Chronic Assessment and Plan: continue home medications, stable (7) Depression: Code(s): F32.A - Depression, unspecified Status: Chronic Assessment and Plan: continue home medications, stable (8) Essential (primary) hypertension: Code(s): I10 - Essential (primary) hypertension Status: Chronic Assessment and Plan: stable (9) Mixed hyperlipidemia: Code(s): E78.2 - Mixed hyperlipidemia Status: Chronic Assessment and Plan: continue statin (10) Obstructive sleep apnea: Code(s): G47.33 - Obstructive sleep apnea (adult) (pediatric) Status: Chronic Assessment and Plan: titrate CPAP to home setting. The patient has supplemental oxygen 24/7 he has CPAP settings 12 cm of water with the 3 liters/minute O2 bleed in. (11) Hypernatremia: Code(s): E87.0 - Hyperosmolality and hypernatremia Status: Acute Plan DVT prophylaxis with SCDs GI prophylaxis with PPI Code status full code DS: Summary Time Spent with Patient Time attestation: Total time spent providing and/or coordinating discharge services: Exam Narrative: General: No acute distress, alert and oriented per baseline, stable on 3 L nasal cannula HEENT: Atraumatic, normocephalic, mucous membranes moist CV: Regular rate and rhythm, S1, S2 Lungs: Clear to auscultation bilaterally, no rales or crackles noted, no wheezes, good air entry Abdomen: Soft, nontender, nondistended Extremities: Normal to inspection Skin: No rashes noted, no lesions or wounds seen Psych: Euthymic, normal affect DS: Data Data Completed and Pending Pending studies at discharge: Pending at discharge 04/13/22 08:20 Surgical [PTH] Routine Labs on day of discharge: Labs from last 24 hours 04/14/22 04/14/22 04/13/22 06:38 06:38 20:16 WBC 10.0 10.2 H RBC 3.51 L 3.48 L Hgb 8.5 L 8.6 L Hct 29.0 L 28.6 L MCV 82.6 82.2 MCH 24.2 L 24.7 L MCHC 29.3 L 30.1 L RDW 17.2 H 16.9 H Plt Count 292 285 MPV 9.8 9.9 Immature Gran % (Auto) 0.4 Neut % (Auto) 71.8 Lymph % (Auto) 14.5 L [place] % (Auto) 9.6 H Eos % (Auto) 3.1 Baso % (Auto) 0.6 Lymph # (Auto) 1.46 [place] # (Auto) 1.0 H Eos # (Auto) 0.3 Baso # (Auto) 0.1 Abs Immat Gran (auto) 0.04 H Absolute Neuts (auto) 7.2 H Absolute Nucleated RBC 0.0 Nucleated RBC % 0.0 Platelet Estimate Adequate
[2022-04-14] MEDS: DEXTROSE 5% 1,000 ML 1,000 ML 50 ML IV CONT (10:51)
--- NOTE | 2022-04-14 11:08 | PM.IMPN ---
Progress Note: A&P Assessment and Plan (1) GI bleed: Code(s): K92.2 - Gastrointestinal hemorrhage, unspecified Status: Acute Assessment and Plan: resolved. Hemoglobin stable after 1 unit PRBC transfusion. continue PPI oral (2) (HFpEF) heart failure with preserved ejection fraction: Code(s): I50.30 - Unspecified diastolic (congestive) heart failure Status: Acute Assessment and Plan: stable (3) Atherosclerotic heart disease of [place] coronary artery with angina pectoris: Code(s): I25.119 - Atherosclerotic heart disease of [place] coronary artery with unspecified angina pectoris Status: Acute Assessment and Plan: stable. Hold Plavix (4) Chronic hypoxemic respiratory failure: Code(s): J96.11 - Chronic respiratory failure with hypoxia Status: Acute Assessment and Plan: stable. Not on oxygen currently (5) CKD (chronic kidney disease): Code(s): N18.9 - Chronic kidney disease, unspecified Status: Acute Assessment and Plan: at baseline (6) COPD (chronic obstructive pulmonary disease): Code(s): J44.9 - Chronic obstructive pulmonary disease, unspecified Status: Chronic Assessment and Plan: at baseline (7) Depression: Code(s): F32.A - Depression, unspecified Status: Chronic (8) Essential (primary) hypertension: Code(s): I10 - Essential (primary) hypertension Status: Chronic (9) Hypernatremia: Code(s): E87.0 - Hyperosmolality and hypernatremia Status: Acute Assessment and Plan: will start on D5w. monitor BMP. Subjective Date/time seen: 04/14/22 11:08 Interval history: No overnight events noted. No chest pain or shortness of breath. No nausea, vomiting or diarrhea. No fevers or chills. no bleeding per rectum Exam Const: General: cooperative and comfortable Orientation/consciousness: patient oriented x3 HENMT: Head: normal to inspection Mouth: Yes Normal oral and palatal mucosa present Eyes: General: appearance normal, both eyes and all related structures Resp: Effort & Inspection: normal respiratory effort Auscultation: clear to auscultation bilaterally Cardio: Rate: regular rate Rhythm: regular rhythm Heart sounds: S1 normal heart sound present and S2 normal heart sound present GI: GI Palp: Yes Soft to palpation Auscultation: normal bowel sounds Skin: General skin exam: normal color and no rashes or lesions noted Neuro: General: patient oriented x3, no focal motor deficits and CN's II-XI intact bilaterally Speech: normal speech Extrem: General: full ROM Psych: Appearance: grossly normal Objective Data Vital Signs Vital Signs: Vital Signs - 24 hr 04/13/22 14:21 04/13/22 16:02 04/13/22 16:20 Temperature 98.3 F 97.4 F L 97.4 F L Pulse Rate 79 79 79 Respiratory Rate 18 20 20 Blood Pressure 104/69 126/65 126/65 Pulse Oximetry 90 93 93 Oxygen Delivery Oxygen Flow Rate 04/13/22 16:20 04/13/22 17:20 04/13/22 18:20 Temperature 97.4 F L 97.7 F 97.5 F L Pulse Rate 75 80 71 Respiratory Rate 20 22 H 20 Blood Pressure 130/68 123/52 L 108/55 L Pulse Oximetry 92 94 93 Oxygen Delivery Oxygen Flow Rate 04/13/22 20:26 04/13/22 21:10 04/13/22 21:10 Temperature Pulse Rate 80 78 Respiratory Rate 18 Blood Pressure Pulse Oximetry 91 Oxygen Delivery Nasal Cannula Oxygen Flow Rate 3 04/13/22 22:00 04/13/22 21:28 04/13/22 21:07 Temperature 97.8 F Pulse Rate 78 79 Respiratory Rate 20 18 Blood Pressure 113/54 L Pulse Oximetry 92 95 Oxygen Delivery High Flow Nasal Cannula Oxygen Flow Rate 3 04/13/22 21:30 04/14/22 02:20 04/14/22 05:00 Temperature 98.6 F Pulse Rate 78 74 80 Respiratory Rate 19 Blood Pressure 93/63 L Pulse Oximetry 92 92 95 Oxygen Delivery Autopap Autopap Oxygen Flow Rate 04/14/22 05:50 04/14/22 08:15 04/14/22 08:35 Temperature Pulse R
--- NOTE | 2022-04-14 14:27 | WPDANESPN ---
Anes - Prog Note Post-Op Date/Time: 04/14/22 14:27 Cardiovascular status: normal Respiratory status: normal Airway patency: baseline Mental status: baseline Post-Op hydration status: normal Vital Signs: Last Vital Signs Temp 36.2 C L 04/14/22 14:17 Pulse 74 04/14/22 14:17 Resp 18 04/14/22 14:17 BP 106/72 04/14/22 14:17 Pulse Ox 97 04/14/22 14:17 O2 Del Method Nasal Cannula 04/14/22 11:20 O2 Flow Rate 3 04/14/22 11:20 FiO2 32 04/12/22 20:40 Pain Score (VAS): 0 I/O: Intake & Output 04/13/22 04/14/22 04/14/22 23:59 07:59 15:59 Intake Total 1550 200 240 Output Total 1450 350 350 Balance 100 -150 -110 Laboratory Tests 04/14/22 06:38 04/14/22 06:38 04/11/22 04/13/22 04/14/22 10:15 20:16 06:38 WBC 10.2 H 10.0 RBC 3.48 L 3.51 L Hgb 8.6 L 8.5 L Hct 28.6 L 29.0 L MCV 82.2 82.6 MCH 24.7 L 24.2 L MCHC 30.1 L 29.3 L RDW 16.9 H 17.2 H Plt Count 285 292 MPV 9.9 9.8 Immature Gran % (Auto) 0.4 Neut % (Auto) 71.8 Lymph % (Auto) 14.5 L [place] % (Auto) 9.6 H Eos % (Auto) 3.1 Baso % (Auto) 0.6 Lymph # (Auto) 1.46 [place] # (Auto) 1.0 H Eos # (Auto) 0.3 Baso # (Auto) 0.1 Abs Immat Gran (auto) 0.04 H Absolute Neuts (auto) 7.2 H Absolute Nucleated RBC 0.0 Nucleated RBC % 0.0 Platelet Estimate Adequate Clumped Platelets Present Large Platelets Present Spherocytes 1+ Target Cells 1+ Schistocytes None seen Sodium Potassium Chloride Carbon Dioxide Anion Gap BUN Creatinine Estim Creat Clear Calc Estimated GFR Glucose Calcium Total Bilirubin AST ALT Alkaline Phosphatase Total Protein Albumin Blood Type A Positive Antibody Screen Negative Crossmatch See Detail 04/14/22 06:38 WBC RBC Hgb Hct MCV MCH MCHC RDW Plt Count MPV Immature Gran % (Auto) Neut % (Auto) Lymph % (Auto) [place] % (Auto) Eos % (Auto) Baso % (Auto) Lymph # (Auto) [place] # (Auto) Eos # (Auto) Baso # (Auto) Abs Immat Gran (auto) Absolute Neuts (auto) Absolute Nucleated RBC Nucleated RBC % Platelet Estimate Clumped Platelets Large Platelets Spherocytes Target Cells Schistocytes Sodium 150 H Potassium 3.8 Chloride 113 H Carbon Dioxide 26 Anion Gap 11 BUN 25 H Creatinine 2.20 H Estim Creat Clear Calc 29 Estimated GFR 29 L Glucose 103 Calcium 8.1 L Total Bilirubin 0.7 AST 30 ALT 20 Alkaline Phosphatase 87 Total Protein 7.0 Albumin 3.5 Blood Type Antibody Screen Crossmatch Post-procedural complaints: none Patient Feedback: Patient satisfied with anesthetic care. pt sitting up in a chair, denies any problems with anesthesia.
--- NOTE | 2022-04-14 14:56 | WPDGIPROGNO ---
Progress Note: A&P Assessment and Plan (1) GI bleed: Code(s): K92.2 - Gastrointestinal hemorrhage, unspecified Status: Acute Assessment and Plan: resolved h/h stable now (2) Melena: Code(s): K92.1 - Melena Status: Acute Assessment and Plan: egd yesterday stigmata of previous bleeding on duodenum ppi twice daily, hold plavix (3) Duodenal ulcer: Code(s): K26.9 - Duodenal ulcer, unspecified as acute or chronic, without hemorrhage or perforation Status: Acute Assessment and Plan: ppi (4) Hypernatremia: Code(s): E87.0 - Hyperosmolality and hypernatremia Status: Acute Assessment and Plan: by primary team (5) (HFpEF) heart failure with preserved ejection fraction: Code(s): I50.30 - Unspecified diastolic (congestive) heart failure Status: Acute (6) Acute on chronic renal failure: Code(s): N17.9 - Acute kidney failure, unspecified; N18.9 - Chronic kidney disease, unspecified Status: Acute (7) Acute on chronic blood loss anemia: Code(s): D62 - Acute posthemorrhagic anemia Status: Acute Subjective Date/time seen: 04/14/22 14:56 Interval history: egd yesterday found hematin in small bowel but no active bleeding, also duodenal ulcer. He has not had BM since admission Review of Systems Review of Systems: All systems reviewed & are unremarkable except as noted in HPI and below Exam Const: General: comfortable and no acute distress HENMT: Face/Nose/Sinus: Normal nares present Eyes: General: appearance normal, both eyes and all related structures Neck: Neck: no JVD Resp: Auscultation: clear to auscultation bilaterally Cardio: Rate: regular rate Rhythm: regular rhythm GI: Inspection: non-distended GI Palp: Yes Soft to palpation and No Tenderness to palpation present (GI) Auscultation: normal bowel sounds Skin: Other: pale Neuro: Speech: normal speech Motor exam (neuro): 5/5 motor strength present throughout Extrem: Other: leg edema Psych: Mental Status: mental status grossly normal Objective Data Vital Signs Vital Signs: Vital Signs - 24 hr 04/13/22 16:02 04/13/22 16:20 04/13/22 16:20 Temperature 97.4 F L 97.4 F L 97.4 F L Pulse Rate 79 79 75 Respiratory Rate 20 20 20 Blood Pressure 126/65 126/65 130/68 Pulse Oximetry 93 93 92 Oxygen Delivery Oxygen Flow Rate 04/13/22 17:20 04/13/22 18:20 04/13/22 20:26 Temperature 97.7 F 97.5 F L Pulse Rate 80 71 80 Respiratory Rate 22 H 20 Blood Pressure 123/52 L 108/55 L Pulse Oximetry 94 93 Oxygen Delivery Oxygen Flow Rate 04/13/22 21:10 04/13/22 21:10 04/13/22 22:00 Temperature 97.8 F Pulse Rate 78 78 Respiratory Rate 18 20 Blood Pressure 113/54 L Pulse Oximetry 91 92 Oxygen Delivery Nasal Cannula Oxygen Flow Rate 3 04/13/22 21:28 04/13/22 21:07 04/13/22 21:30 Temperature Pulse Rate 79 78 Respiratory Rate 18 Blood Pressure Pulse Oximetry 95 92 Oxygen Delivery High Flow Nasal Cannula Autopap Oxygen Flow Rate 3 04/14/22 02:20 04/14/22 05:00 04/14/22 05:50 Temperature 98.6 F Pulse Rate 74 80 Respiratory Rate 19 Blood Pressure 93/63 L 134/77 Pulse Oximetry 92 95 Oxygen Delivery Autopap Oxygen Flow Rate 04/14/22 08:15 04/14/22 08:35 04/14/22 10:50 Temperature Pulse Rate 84 Respiratory Rate Blood Pressure Pulse Oximetry 93 Oxygen Delivery Nasal Cannula Nasal Cannula Oxygen Flow Rate 3 3 04/14/22 11:20 04/14/22 14:17 Temperature 97.2 F L Pulse Rate 74 Respiratory Rate 18 Blood Pressure 106/72 Pulse Oximetry 97 Oxygen Delivery Nasal Cannula Oxygen Flow Rate 3 Intake/Output Intake/Output: Intake & Output 04/11/22 04/12/22 04/13/22 04/14/22 23:59 23:59 23:59 23:59 Intake Total 1300 3102 3950 440 Output Total 400 4130 2650 700 Balance 900 1027 1300 -260 Meds/Results Medications: Active Medications
--- NOTE | 2022-04-14 15:19 | HOMEO2EVAL ---
Evaluation was performed at [facility] Home Oxygen Evaluation RC: Home Oxygen (O2) Evaluation Start: 04/13/22 17:15 Freq: ONCE Status: Active Protocol: RPE Activity Type Activity Date Activity User E-sign Co-sign Detail Recorded Client Recorded Date Recorded By Document 04/14/22 15:00 MARQUES [email or web address] 04/14/22 15:19 MARQUES Document 04/14/22 15:01 MARQUES [email or web address] 04/14/22 15:19 MARQUES Document 04/14/22 15:05 MARQUES [email or web address] 04/14/22 15:19 MARQUES Document 04/14/22 15:06 MARQUES [email or web address] 04/14/22 15:19 MARQUES Document 04/14/22 15:15 MARQUES [email or web address] 04/14/22 15:19 MARQUES 04/14/22 04/14/22 04/14/22 15:00 15:01 15:05 Home O2 Evaluation [Oxygen] -Test Phase Resting Resting Exercise -Oxygen Delivery Room Air Nasal Cannula Nasal Cannula -Oxygen Flow Rate (L/min) 2 2 [Pulse Oximetry] -Pulse Oximetry (90-100 %) 87 L 94 86 L [Pulse Rate] -Pulse Rate (60-100 beats/min) 75 [Comments] -Home Oxygen Evaluation Comments [Charges] -Treatment Charges O2 Evaluation - Inpatient 04/14/22 04/14/22 15:06 15:15 Home O2 Evaluation [Oxygen] -Test Phase Exercise Resting -Oxygen Delivery Nasal Cannula Nasal Cannula -Oxygen Flow Rate (L/min) 3 2 [Pulse Oximetry] -Pulse Oximetry (90-100 %) 89 L 94 [Pulse Rate] -Pulse Rate (60-100 beats/min) 93 78 [Comments] -Home Oxygen Evaluation Comments PT REQUIRES 2 L AT REST AND 3 L WITH ACTIVITY [Charges] -Treatment Charges
--- NOTE | 2022-04-14 15:20 | PCRCNOTE ---
HOME O2 EVAL DONE, PT REQUIRES 2 L AT REST AND 3 L WITH ACTIVITY. PT HAS HOME O2 WITH [facility]. PT HAS ALL O2 EQUIPMENT FOR ACTIVITY. NO ADDITIONAL O2 NEEDED.
[2022-04-14 18:28] LABS: Anion Gap 16 mmol/L (8-16); Blood Urea Nitrogen 23 mg/dL (9-20); Calcium 7.9 mg/dL (8.4-10.2); Carbon Dioxide 24 mmol/L (22-30); Chloride 106 mmol/L (98-107); Estimated CRCL calculation 30 ml/min; Estimated Glomerular Filt Rate 30; Glucose 141 mg/dL (65-110); Potassium 3.9 mmol/L (3.4-5.0); Sodium 146 mmol/L (137-145)
[2022-04-14] MEDS: IPRATROPIUM BR 0.02% INH SOLN 0.5 MG/2.5 ML VIAL INHALATION (19:57)
[2022-04-14] MEDS: ALBUTEROL SULFATE NEB 2.5 MG/3 ML INH INHALATION (19:57)
[2022-04-14] MEDS: FLUTICASONE/SALMETEROL 45-21 MCG INHALER 1 PUFF 2 PUFF INHALATION (19:57)
[2022-04-15] VITALS (11 sets, daily range): BP systolic 125–144; BP diastolic 60–73; PULSE 72–94; RESP 18–20; TEMP 36.1–36.7; O2SAT 93–100
[2022-04-15 06:22] LABS: Basophils Absolute Auto 0.1 K/mm3 (0.0-0.1); Basophils Percent Auto 0.7 % (0.2-1.2); Eosinophils Absolute Auto 0.4 K/mm3 (0-0.3); Eosinophils Percent Auto 3.6 % (0-4.4); Hematocrit 29.3 % (42.0-52.0); Hemoglobin 8.6 g/dL (14.0-18.0); Immature Granulocyte Absolute 0.04 K/mm3 (0.00-0.031); Immature Granulocyte Percent A 0.4 % (0-0.5); Lymphocytes Absolute Auto 1.37 K/mm3 (0.9-3.2); Lymphocytes Percent Auto 14.2 % (18.3-44.2); Mean Corpuscular HGB Conc 29.4 g/dl (32-36); Mean Corpuscular Hemoglobin 24.6 pg (26-34); Mean Corpuscular Volume 83.7 fl (80-100); Mean Platelet Volume 9.5 fl (7.4-10.4); Monocytes Percent Auto 9.9 % (2.6-8.5); Neutrophils Absolute Auto 6.9 K/mm3 (1.3-6.7); Neutrophils Percent Auto 71.2 % (45.5-73.1); Platelet Count Result 296 k/mm3 (150-375); Red Cell Distribution Width 17.4 % (11.5-14.5); White Blood Count 9.7 K/mm3 (4.5-10.0)
[2022-04-15 06:41] LABS: Alanine Aminotransferase 17 U/L (6-50); Albumin Level 3.3 g/dL (3.5-5.1); Alkaline Phosphatase 80 U/L (38-126); Anion Gap 13 mmol/L (8-16); Aspartate Amino Transferase 24 U/L (17-59); Bilirubin,Total 0.6 mg/dL (0.2-1.3); Blood Urea Nitrogen 22 mg/dL (9-20); Calcium 7.8 mg/dL (8.4-10.2); Carbon Dioxide 25 mmol/L (22-30); Chloride 110 mmol/L (98-107); Estimated CRCL calculation 30 ml/min; Estimated Glomerular Filt Rate 30; Glucose 116 mg/dL (65-110); Potassium 3.9 mmol/L (3.4-5.0); Sodium 148 mmol/L (137-145)
[2022-04-15] MEDS: guaiFENesin 12 HR 600 MG TABCR PO ×2 (08:24→20:08)
[2022-04-15] MEDS: CHOLECALCIFEROL 1,000 UNITS TABLET 1000 UNITS PO (08:24)
[2022-04-15] MEDS: lamoTRIgine 50 MG TABLET PO (08:24)
[2022-04-15] MEDS: PANTOPRAZOLE 40 MG TABLET PO ×2 (08:24→20:08)
[2022-04-15] MEDS: ARIPiprazole 2 MG TABLET PO (08:25)
[2022-04-15] MEDS: DULoxetine HCL 20 MG CAPSULE.DR PO (08:25)
[2022-04-15] MEDS: amLODIPine BESYLATE 2.5 MG TABLET PO (08:25)
[2022-04-15] MEDS: ATORVASTATIN 40 MG TABLET PO (08:25)
[2022-04-15] MEDS: carvediloL 6.25 MG TABLET PO ×2 (08:25→20:08)
[2022-04-15] MEDS: ARTIFICIAL TEARS OPHTH SOLN 15 ML BOTTLE 1 DROP EACH EYE (08:25)
[2022-04-15] MEDS: IPRATROPIUM BR 0.02% INH SOLN 0.5 MG/2.5 ML VIAL INHALATION ×2 (09:02→22:35)
[2022-04-15] MEDS: ALBUTEROL SULFATE NEB 2.5 MG/3 ML INH INHALATION ×2 (09:03→22:35)
[2022-04-15] MEDS: FLUTICASONE/SALMETEROL 45-21 MCG INHALER 1 PUFF 2 PUFF INHALATION ×2 (09:13→22:35)
--- NOTE | 2022-04-15 12:46 | WPDGIPROGNO ---
Progress Note: A&P Assessment and Plan (1) GI bleed: Code(s): K92.2 - Gastrointestinal hemorrhage, unspecified Status: Acute Assessment and Plan: resolved h/h stable now on ppi daily path pending will follow from [place], call if questions (2) Melena: Code(s): K92.1 - Melena Status: Acute Assessment and Plan: egd with stigmata of previous bleeding on duodenum ppi twice daily, hold plavix for at least 1 week h/h stable (3) Duodenal ulcer: Code(s): K26.9 - Duodenal ulcer, unspecified as acute or chronic, without hemorrhage or perforation Status: Acute Assessment and Plan: ppi (4) Hypernatremia: Code(s): E87.0 - Hyperosmolality and hypernatremia Status: Acute Assessment and Plan: by primary team (5) (HFpEF) heart failure with preserved ejection fraction: Code(s): I50.30 - Unspecified diastolic (congestive) heart failure Status: Acute (6) Acute on chronic renal failure: Code(s): N17.9 - Acute kidney failure, unspecified; N18.9 - Chronic kidney disease, unspecified Status: Acute Assessment and Plan: monitor (7) Acute on chronic blood loss anemia: Code(s): D62 - Acute posthemorrhagic anemia Status: Acute Subjective Date/time seen: 04/15/22 12:46 Interval history: no report of more bleeding, he still has not had BM Review of Systems Review of Systems: All systems reviewed & are unremarkable except as noted in HPI and below Exam Const: General: comfortable and no acute distress Other: obese HENMT: Face/Nose/Sinus: Normal nares present Eyes: General: appearance normal, both eyes and all related structures Neck: Neck: no JVD Resp: Auscultation: clear to auscultation bilaterally Cardio: Rate: regular rate Rhythm: regular rhythm GI: Inspection: non-distended GI Palp: Yes Soft to palpation and No Tenderness to palpation present (GI) Auscultation: normal bowel sounds Neuro: Speech: normal speech Motor exam (neuro): 5/5 motor strength present throughout Extrem: Other: leg edema Psych: Mental Status: mental status grossly normal Objective Data Vital Signs Vital Signs: Vital Signs - 24 hr 04/14/22 14:17 04/14/22 15:00 04/14/22 15:01 Temperature 97.2 F L Pulse Rate 74 75 Respiratory Rate 18 Blood Pressure 106/72 Pulse Oximetry 97 87 L 94 Oxygen Delivery Room Air Nasal Cannula Oxygen Flow Rate 2 04/14/22 15:05 04/14/22 15:06 04/14/22 15:15 Temperature Pulse Rate 93 78 Respiratory Rate Blood Pressure Pulse Oximetry 86 L 89 L 94 Oxygen Delivery Nasal Cannula Nasal Cannula Nasal Cannula Oxygen Flow Rate 2 3 2 04/14/22 19:55 04/14/22 19:55 04/14/22 20:13 Temperature Pulse Rate 78 78 82 Respiratory Rate 20 20 Blood Pressure Pulse Oximetry 95 Oxygen Delivery Nasal Cannula Oxygen Flow Rate 3 04/14/22 21:17 04/14/22 22:00 04/14/22 22:55 Temperature 97 F L Pulse Rate 70 81 72 Respiratory Rate 20 Blood Pressure 119/84 Pulse Oximetry 100 98 Oxygen Delivery Autopap Oxygen Flow Rate 04/14/22 21:17 04/15/22 06:00 04/15/22 09:04 Temperature 96.9 F L Pulse Rate 80 83 Respiratory Rate 20 Blood Pressure 144/73 H Pulse Oximetry 96 95 Oxygen Delivery Nasal Cannula Oxygen Flow Rate 3 04/15/22 09:09 04/15/22 09:15 Temperature Pulse Rate 94 93 Respiratory Rate 20 Blood Pressure Pulse Oximetry 93 Oxygen Delivery Nasal Cannula Oxygen Flow Rate 3 Intake/Output Intake/Output: Intake & Output 04/12/22 04/13/22 04/14/22 04/15/22 23:59 23:59 23:59 23:59 Intake Total 3102 3950 1230 640 Output Total 4130 2650 1550 700 Balance -1028 1300 -320 -60 Meds/Results Medications: Active Medications Generic Name Dose Route Start Last Admin Trade Name Freq PRN Reason Stop Dose Admin Albuterol 2.5 mg 04/11/22 20:40 04/15/22 09:03 Albuterol Sulfate Neb 2.5 Mg/3 Ml Inh INHAL
--- NOTE | 2022-04-15 13:59 | PM.IMPN ---
Progress Note: A&P Assessment and Plan (1) GI bleed: Code(s): K92.2 - Gastrointestinal hemorrhage, unspecified Status: Acute Assessment and Plan: Resolved. Hemoglobin stable after 1 unit PRBC transfusion. continue PPI oral, Dc tomorrow (2) (HFpEF) heart failure with preserved ejection fraction: Code(s): I50.30 - Unspecified diastolic (congestive) heart failure Status: Acute Assessment and Plan: Stable (3) Atherosclerotic heart disease of [place] coronary artery with angina pectoris: Code(s): I25.119 - Atherosclerotic heart disease of [place] coronary artery with unspecified angina pectoris Status: Acute Assessment and Plan: Stable. Hold Plavix for 1 week (4) Chronic hypoxemic respiratory failure: Code(s): J96.11 - Chronic respiratory failure with hypoxia Status: Acute Assessment and Plan: Stable. Not on oxygen currently (5) CKD (chronic kidney disease): Code(s): N18.9 - Chronic kidney disease, unspecified Status: Acute Assessment and Plan: at baseline (6) COPD (chronic obstructive pulmonary disease): Code(s): J44.9 - Chronic obstructive pulmonary disease, unspecified Status: Chronic Assessment and Plan: at baseline (7) Depression: Code(s): F32.A - Depression, unspecified Status: Chronic (8) Essential (primary) hypertension: Code(s): I10 - Essential (primary) hypertension Status: Chronic (9) Hypernatremia: Code(s): E87.0 - Hyperosmolality and hypernatremia Status: Acute Assessment and Plan: sodium is 148 continue to monitor bmp Plan PT/ OT advance diet Subjective Date/time seen: 04/15/22 13:59 81-year-old male patient who does have a history of having a anemia any is also chronically on oxygen at 2 L per nasal cannula for his COPD.? The patient had an office visit today pulmonology today for increased worsening shortness of breath.? The patient has a chronic cough since he has had COVID on 02/27/2022.? There was some discussion in the office about his hemoglobin being 9.6 on his last ER visit and the patient stated that he had black stool Sheng's this morning with further prompting.? Last colonoscopy was [address] Dorantes which showed some hemorrhoids at that time.? The patient tells me also had some polyps removed in the past.? His H&H today was 5.9 and 20.9 last month was 9.6 and 31.9.? It was reported that the patient was guaiac positive he had a unit of packed red blood cells and his H&H come up to 6.4 and 22.5.? Dr. Gupta has been consulted.? IV Protonix has been started.? Pt had Egd seen by gi - pt to hold plavix for 1 week, Egd showed with stigmata of previous bleeding on duodenum transitioned to oral protonix Pt feels weak today wants to Dc tomorrow Exam Const: General: cooperative and comfortable Orientation/consciousness: patient oriented x3 HENMT: Head: normal to inspection Mouth: Yes Normal oral and palatal mucosa present Eyes: General: appearance normal, both eyes and all related structures Resp: Effort & Inspection: normal respiratory effort Auscultation: clear to auscultation bilaterally Cardio: Rate: regular rate Rhythm: regular rhythm Heart sounds: S1 normal heart sound present and S2 normal heart sound present GI: Auscultation: normal bowel sounds Skin: General skin exam: normal color and no rashes or lesions noted Neuro: General: patient oriented x3, no focal motor deficits and CN's II-XI intact bilaterally Speech: normal speech Extrem: General: full ROM Psych: Appearance: grossly normal Objective Data Vital Signs Vital Signs: Vital Signs - 24 hr 04/14/22 14:17 04/14/22 15:00 04/14/22 15:01 Temperature 36.2 C L Pulse Rate 74 75 Respiratory Rate 18 Blood Pressure 106/72 Pulse Oximetry 97 87 L 94 Oxygen Delivery Room Air Nasal Cannula Oxygen Flow Rate 2 04/14/22 15:05 04/14/22 15:06
--- NOTE | 2022-04-15 14:28 | P.CDI_ITS ---
CDI Query Clarification Request Please clarify the status of the patient's COVID-19 infection, if known. Risk Factors: initial positive COVID on 02/27/22. Retested on 04/11 and resulted positive Clinical Indicators: chronic cough, oxygen requirement. * COVID-19 is a current/active infection * Current condition is a sequela of COVID-19 * Past history of COVID-19 * Other explanation of clinical findings (please specify) * Unable to determine
--- NOTE | 2022-04-15 14:28 | WPDCDIQUERY2 ---
CDI Query Clarification Request Please clarify the status of the patient's COVID-19 infection, if known. Risk Factors: initial positive COVID on 02/27/22. Retested on 04/11 and resulted positive Clinical Indicators: chronic cough, oxygen requirement. COVID-19 is a current/active infection Current condition is a sequela of COVID-19 Past history of COVID-19 Other explanation of clinical findings (please specify) Unable to determine
[2022-04-15] MEDS: DEXTROSE 5% 1,000 ML 1,000 ML 100 ML IV CONT (16:49)
[2022-04-15] MEDS: SENNA/DOCUSATE SODIUM TABLET 1 TAB PO (16:49)
[2022-04-15 18:32] LABS: Appearance Urine Clear (Clear); Bilirubin Urine Negative (Negative); Blood Urine Negative (Negative); Color Urine Yellow (Yellow); Glucose Urine UA Negative (Negative); Ketones Urine Negative (Negative); Leukocyte Esterase Ur Negative LEU/UL (NEGATIVE); Nitrate Urine Negative (Negative); Protein Urine Negative (Negative)
[2022-04-15 18:34] LABS: Add Urine Microscopic? NO
[2022-04-16] MEDS: DEXTROSE 5% 1,000 ML 1,000 ML 100 ML IV CONT ×2 (02:16→11:44)
[2022-04-16 06:20] VITALS: BP 126/67; PULSE 84; RESP 18; TEMP 36.4; O2SAT 97
[2022-04-16 07:39] LABS: Basophils Absolute Auto 0.1 K/mm3 (0.0-0.1); Basophils Percent Auto 0.6 % (0.2-1.2); Eosinophils Absolute Auto 0.4 K/mm3 (0-0.3); Eosinophils Percent Auto 4.4 % (0-4.4); Hematocrit 29.8 % (42.0-52.0); Hemoglobin 8.6 g/dL (14.0-18.0); Immature Granulocyte Absolute 0.05 K/mm3 (0.00-0.031); Immature Granulocyte Percent A 0.5 % (0-0.5); Lymphocytes Absolute Auto 1.63 K/mm3 (0.9-3.2); Lymphocytes Percent Auto 16.7 % (18.3-44.2); Mean Corpuscular HGB Conc 28.9 g/dl (32-36); Mean Corpuscular Hemoglobin 23.8 pg (26-34); Mean Corpuscular Volume 82.3 fl (80-100); Mean Platelet Volume 9.7 fl (7.4-10.4); Monocytes Percent Auto 10.3 % (2.6-8.5); Neutrophils Absolute Auto 6.6 K/mm3 (1.3-6.7); Neutrophils Percent Auto 67.5 % (45.5-73.1); Platelet Count Result 310 k/mm3 (150-375); Red Blood Count 3.62 M/mm3 (4.6-6.20); Red Cell Distribution Width 17.7 % (11.5-14.5); White Blood Count 9.7 K/mm3 (4.5-10.0)
[2022-04-16 07:45] LABS: Alanine Aminotransferase 18 U/L (6-50); Albumin Level 3.5 g/dL (3.5-5.1); Alkaline Phosphatase 77 U/L (38-126); Anion Gap 12 mmol/L (8-16); Aspartate Amino Transferase 27 U/L (17-59); Bilirubin,Total 0.5 mg/dL (0.2-1.3); Blood Urea Nitrogen 23 mg/dL (9-20); Carbon Dioxide 27 mmol/L (22-30); Chloride 108 mmol/L (98-107); Estimated CRCL calculation 29 ml/min; Estimated Glomerular Filt Rate 29; Glucose 120 mg/dL (65-110); Phosphorus 4.3 mg/dL (2.5-4.5); Potassium 4.3 mmol/L (3.4-5.0); Sodium 147 mmol/L (137-145)
[2022-04-16 08:15] VITALS: PULSE 82; RESP 18; O2SAT 94
[2022-04-16 08:27] VITALS: PULSE 86; RESP 18
[2022-04-16] MEDS: FLUTICASONE/SALMETEROL 45-21 MCG INHALER 1 PUFF 2 PUFF INHALATION (08:30)
[2022-04-16] MEDS: ALBUTEROL SULFATE NEB 2.5 MG/3 ML INH INHALATION (08:30)
[2022-04-16] MEDS: IPRATROPIUM BR 0.02% INH SOLN 0.5 MG/2.5 ML VIAL INHALATION (08:30)
[2022-04-16 08:32] VITALS: O2SAT 94
[2022-04-16 08:37] VITALS: PULSE 82; RESP 18
[2022-04-16] MEDS: DULoxetine HCL 20 MG CAPSULE.DR PO (09:08)
[2022-04-16] MEDS: ATORVASTATIN 40 MG TABLET PO (09:08)
[2022-04-16] MEDS: CHOLECALCIFEROL 1,000 UNITS TABLET 1000 UNITS PO (09:08)
[2022-04-16 09:09] VITALS: PULSE 82
[2022-04-16] MEDS: amLODIPine BESYLATE 2.5 MG TABLET PO (09:09)
[2022-04-16] MEDS: lamoTRIgine 50 MG TABLET PO (09:09)
[2022-04-16] MEDS: ARIPiprazole 2 MG TABLET PO (09:09)
[2022-04-16] MEDS: guaiFENesin 12 HR 600 MG TABCR PO (09:09)
[2022-04-16] MEDS: SENNA/DOCUSATE SODIUM TABLET 1 TAB PO (09:09)
[2022-04-16] MEDS: carvediloL 6.25 MG TABLET PO (09:09)
[2022-04-16] MEDS: PANTOPRAZOLE 40 MG TABLET PO (09:09)
[2022-04-16 10:31] LABS: Large Platelets Present; Platelet Estimate Adequate (Adequate)
[2022-04-16 10:32] LABS: Anisocytosis 1+ (NORMAL); Hypochromasia 1+ (NORMAL)
[2022-04-16 10:34] LABS: Schistocytes None Seen (NORMAL)
--- NOTE | 2022-04-16 11:44 | PM.IMPN ---
Progress Note: A&P Assessment and Plan (1) GI bleed: Code(s): K92.2 - Gastrointestinal hemorrhage, unspecified Status: Acute Assessment and Plan: Resolved. Hemoglobin stable after 1 unit PRBC transfusion. continue PPI oral, Dc tomorrow (2) (HFpEF) heart failure with preserved ejection fraction: Code(s): I50.30 - Unspecified diastolic (congestive) heart failure Status: Acute Assessment and Plan: Stable (3) Atherosclerotic heart disease of [place] coronary artery with angina pectoris: Code(s): I25.119 - Atherosclerotic heart disease of [place] coronary artery with unspecified angina pectoris Status: Acute Assessment and Plan: Stable. Hold Plavix for 1 week (4) Chronic hypoxemic respiratory failure: Code(s): J96.11 - Chronic respiratory failure with hypoxia Status: Acute Assessment and Plan: Stable. Not on oxygen currently (5) CKD (chronic kidney disease): Code(s): N18.9 - Chronic kidney disease, unspecified Status: Acute Assessment and Plan: at baseline (6) COPD (chronic obstructive pulmonary disease): Code(s): J44.9 - Chronic obstructive pulmonary disease, unspecified Status: Chronic Assessment and Plan: at baseline (7) Depression: Code(s): F32.A - Depression, unspecified Status: Chronic (8) Essential (primary) hypertension: Code(s): I10 - Essential (primary) hypertension Status: Chronic (9) Hypernatremia: Code(s): E87.0 - Hyperosmolality and hypernatremia Status: Acute Assessment and Plan: sodium is 148 continue to monitor bmp Plan PT/ OT advance diet Subjective Date/time seen: 04/16/22 11:44 Interval history: No overnight events noted. No chest pain or shortness of breath. No nausea, vomiting or diarrhea. No fevers or chills. no bleeding per rectum Review of Systems Review of Systems: All systems reviewed & are unremarkable except as noted in HPI and below Objective Data Vital Signs Vital Signs: Vital Signs - 24 hr 04/15/22 14:15 04/15/22 20:08 04/15/22 22:37 Temperature 98.0 F Pulse Rate 72 87 81 Respiratory Rate 20 20 Blood Pressure 138/60 Pulse Oximetry 100 Oxygen Delivery Oxygen Flow Rate Fraction of Inspired Oxygen 04/15/22 22:38 04/15/22 22:52 04/15/22 22:54 Temperature Pulse Rate 88 88 Respiratory Rate 20 Blood Pressure Pulse Oximetry 93 93 Oxygen Delivery Nasal Cannula Autopap Oxygen Flow Rate 3 Fraction of Inspired Oxygen 04/15/22 22:59 04/16/22 03:04 04/16/22 06:20 Temperature 97.6 F 97.6 F Pulse Rate 83 84 Respiratory Rate 18 18 Blood Pressure 125/67 126/67 Pulse Oximetry 95 97 Oxygen Delivery Autopap Oxygen Flow Rate Fraction of Inspired Oxygen 04/16/22 08:27 04/16/22 08:32 04/16/22 08:37 Temperature Pulse Rate 86 82 Respiratory Rate 18 18 Blood Pressure Pulse Oximetry 94 Oxygen Delivery Nasal Cannula Oxygen Flow Rate 3 Fraction of Inspired Oxygen 04/16/22 09:09 04/16/22 08:15 Temperature Pulse Rate 82 82 Respiratory Rate 18 Blood Pressure Pulse Oximetry 94 Oxygen Delivery Nasal Cannula Oxygen Flow Rate 3 Fraction of Inspired Oxygen 32 Intake/Output Intake/Output: Intake & Output 04/13/22 04/14/22 04/15/22 04/16/22 23:59 23:59 23:59 23:59 Intake Total 3950 1230 2250 1490 Output Total 2650 1550 2350 2250 Balance 6556 -192 -429 -250 Meds/Results Medications: Active Medications Generic Name Dose Route Start Last Admin Trade Name Davidq PRN Reason Stop Dose Admin Albuterol 2.5 mg 04/11/22 20:40 04/16/22 08:30 Albuterol Sulfate Neb 2.5 Mg/3 Ml Inh INHALATION 2.5 mg Q12HRT ABELINO Administration Amlodipine Besylate 2.5 mg 04/12/22 09:00 04/16/22 09:09 Amlodipine Besylate 2.5 Mg Tablet PO 2.5 mg DAILY ABELINO Administration Aripiprazole 2 mg 04/12/22 09:00
--- NOTE | 2022-04-16 12:06 | PM.DS ---
DS: Admitting Diagnosis Discharge Date 04/16/2022 Admitting Diagnosis GI bleed DS: Discharge Diagnosis Discharge Diagnosis (1) GI bleed: Code(s): K92.2 - Gastrointestinal hemorrhage, unspecified Status: Acute (2) (HFpEF) heart failure with preserved ejection fraction: Code(s): I50.30 - Unspecified diastolic (congestive) heart failure Status: Acute (3) Atherosclerotic heart disease of [place] coronary artery with angina pectoris: Code(s): I25.119 - Atherosclerotic heart disease of [place] coronary artery with unspecified angina pectoris Status: Acute (4) Chronic hypoxemic respiratory failure: Code(s): J96.11 - Chronic respiratory failure with hypoxia Status: Acute (5) CKD (chronic kidney disease): Code(s): N18.9 - Chronic kidney disease, unspecified Status: Acute (6) COPD (chronic obstructive pulmonary disease): Code(s): J44.9 - Chronic obstructive pulmonary disease, unspecified Status: Chronic (7) Depression: Code(s): F32.A - Depression, unspecified Status: Chronic (8) Essential (primary) hypertension: Code(s): I10 - Essential (primary) hypertension Status: Chronic (9) Hypernatremia: Code(s): E87.0 - Hyperosmolality and hypernatremia Status: Acute DS: Summary Hospital Course Reason for hospitalization: This is an 81-year-old male patient who does have a history of having a anemia any is also chronically on oxygen at 2 L per nasal cannula for his COPD.? The patient had an office visit today pulmonology today for increased worsening shortness of breath.? The patient has a chronic cough since he has had COVID on 02/27/2022.? There was some discussion in the office about his hemoglobin being 9.6 on his last ER visit and the patient stated that he had black stool Sheng's this morning with further prompting.? Last colonoscopy was [address] Dorantes which showed some hemorrhoids at that time.? The patient tells me also had some polyps removed in the past.? His H&H today was 5.9 and 20.9 last month was 9.6 and 31.9.? It was reported that the patient was guaiac positive he had a unit of packed red blood cells and his H&H come up to 6.4 and 22.5.? Dr. Gupta has been consulted.? IV Protonix has been started.? The patient's oxygen level was increased to 3 L per nasal cannula.? Chest x-ray was read as mild interstitial pattern in the bilateral lower lungs and they for pulmonary edema over pneumonia.? Patient's BUN is 31 creatinine 2.2.? GFR is 29.? His baseline GFR is typically in the 30s.? Creatinine is typically 1.6-1.9.? Small bilateral pleural effusions.? The patient is being admitted to inpatient status on 04/11/2022. Hospital Course: # acute on chronic anemia hemoglobin on admission 5.9. Transfused. And continue to monitor. He noted dark stool which was guaiac positive in the ER. The started on Protonix IV b.i.d.. Last colonoscopy in 2014 with polyps and hemorrhoids. GI was consulted underwent EGD which showed duodenal ulcer without active bleeding. His lab Hold okay for aspirin but hold Plavix for 1 more week. #GI bleed EGD with duodenal ulcer on Protonix b.i.d. #Chronic hypoxemic respiratory failure 2 L at rest and 3 L with activity #CKD stage 3 baseline creatinine during the hospital stay #COPD: On albuterol Symbicort and Atrovent #Depression on Lamictal Abilify and duloxetine which was continued during the hospital stay #Hypertension on amlodipine Coreg which was continue #Hyperlipidemia: Atorvastatin #obstructive sleep apnea: On CPAP at night with 12 cm water with 3 liter/minute oxygen bled in. # hyponatremia: Sodium as high as 150 during the hospital stay. Was treated with D5 water with improvement. Continue to drink water and encouraged this at home discharge. Follow-up BMP in 1 week. Asymptomatic. Time Spent with Patient Time attestation: Total time spent providing and/or coordinating discharge ser
--- NOTE | 2022-04-16 16:36 | PM.CNNEP ---
Assessment and Plan Assessment and plan (1) Hypernatremia: Code(s): E87.0 - Hyperosmolality and hypernatremia Status: Acute Assessment and Plan: The patient has hypernatremia. The patient does make some urine, 2-3 L per day. He probably would not have central diabetes insipidus because his urine output would be much higher. He has been sick for a while and so may just be dehydrated and have pre water depletion. I suppose he could have partial diabetes insipidus. This could give him on higher than usual urine output and this could be why they told him to drink lots of fluid in the past. Then when NPO his sodium goes up because of the decreased intake verses the high output. He was placed on D5W last evening by Dr Bolton. will see how his labs look today. Will check urine and serum osmolality as well. (2) Duodenal ulcer: Code(s): K26.9 - Duodenal ulcer, unspecified as acute or chronic, without hemorrhage or perforation Status: Acute Assessment and Plan: The patient is getting a PPI (3) (HFpEF) heart failure with preserved ejection fraction: Code(s): I50.30 - Unspecified diastolic (congestive) heart failure Status: Acute Assessment and Plan: no sign of heart failure (4) Coronary artery disease: Code(s): I25.10 - Atherosclerotic heart disease of [place] coronary artery without angina pectoris Status: Acute Assessment and Plan: no chest pain (5) Chronic kidney disease, stage 3: Code(s): N18.3 - Chronic kidney disease, stage 3 (moderate) Status: Acute Assessment and Plan: his baseline creatinine seems to be anywhere from 1.7-2. It does rise and fall quite a bit. (6) Mixed hyperlipidemia: Code(s): E78.2 - Mixed hyperlipidemia Status: Chronic Assessment and Plan: He is on atorvastatin at home (7) Essential (primary) hypertension: Code(s): I10 - Essential (primary) hypertension Status: Chronic Assessment and Plan: he takes blood pressure medications. His blood pressure is under good control History of Present Illness Reason for Consult Consult date: 04/16/22 Chief Complaint Chief complaint: GI Bleed/Anemia/COPD History of Present Illness Narrative: The patient was seen this morning at 7:30 a.m. Mr. Camarillo is a very pleasant 81-year-old gentleman who Has multiple medical problems including congestive heart failure, coronary artery disease status post 2 stents many years ago, hyperlipidemia, sleep apnea, hypertension, GERD, CKD, BPH, and impaired glucose tolerance. He came in the hospital because of shortness of breath. He was evaluated in the emergency room.He was found to have black stools. Stool was guaiac positive. His hemoglobin was low. The patient was admitted. Dr. Gupta saw him. EGD was done; it was done which showed a duodenal ulcer. In the meantime the patient's labs showed that his sodium was elevated. Renal consultation was requested. The patient does not think he has had high sodium in the past. He says he is thirsty currently. He says that he was told by his doctors to drink plenty of fluid. Although he does not drink because of thirst at home. Review of Systems Constitutional: Constitutional: Reports no additional constitutional complaints Eyes: Eyes: Reports no additional eye complaints ENT: Reports system reviewed and no additional complaints, except as documented Cardiovascular: Cardiovascular: Reports no additional cardiovascular complaints Respiratory: Respiratory: Reports no additional respiratory complaints Gastrointestinal: Gastrointestinal: Reports no additional gastrointestinal complaints Genitourinary: Genitourinary: Reports no additional male genitourinary complaints Musculoskeletal: Musculoskeletal: Reports no additional musculoskeletal complaints Integumentary/Breasts: Skin/Breast: Reports system reviewed and
[2022-04-19 21:01] LABS: Osmolality, Urine 272 mOsm/kg (50-1200)
== END 2022-04-16 15:45 | disposition home or self-care (01) | DRG 378 ==
LOC: ANHED 12:00 → ANH3MEDSUR 14:42
PROVIDERS: Hospitalist; Internal Medicine Gastroenterology; Internal Medicine Nephrology; Nurse Practitioner; Student in an Organized Health Care Education/Training Program; Admitting Provider Family Medicine; Emergency Provider Emergency Medicine; PCP Internal Medicine; Visit Provider Internal Medicine
PROC: 0DJ08ZZ Inspection of Upper Intestinal Tract, Via Natural or Artificial Opening Endoscopic (ICD-10-PCS; CPT 43235; principal; 2022-04-13 08:00)
DX: K26.4 Chronic or unspecified duodenal ulcer with hemorrhage (principal); D62 Acute posthemorrhagic anemia; I13.0 Hypertensive heart and chronic kidney disease with heart failure and stage 1 through stage 4 chronic kidney disease, or unspecified chronic kidney disease; I50.32 Chronic diastolic (congestive) heart failure; J96.11 Chronic respiratory failure with hypoxia; E87.0 Hyperosmolality and hypernatremia; N18.30 Chronic kidney disease, stage 3 unspecified; I25.119 Atherosclerotic heart disease of native coronary artery with unspecified angina pectoris; J44.9 Chronic obstructive pulmonary disease, unspecified; N40.0 Benign prostatic hyperplasia without lower urinary tract symptoms; K25.9 Gastric ulcer, unspecified as acute or chronic, without hemorrhage or perforation; K21.9 Gastro-esophageal reflux disease without esophagitis; E78.2 Mixed hyperlipidemia; G47.33 Obstructive sleep apnea (adult) (pediatric); F32.A Depression, unspecified; Z86.010 Personal history of colon polyps; Z79.01 Long term (current) use of anticoagulants; Z79.82 Long term (current) use of aspirin; Z99.81 Dependence on supplemental oxygen; Z95.5 Presence of coronary angioplasty implant and graft; Z86.16 Personal history of COVID-19
CPT/HCPCS: 36415; 36430; 71045; 80048; 80053; 80069; 81003; 83735; 83930; 83935; 84443; 85014; 85018; 85025; 85027; 85610; 85730; 86850; 86900; 86901; 86920; 87081; 88305; 93005; 94618; 94640; 96374; 97161; 97165; 99285; A9270; C8929; C9113; J1940; J2001; J2704; J7030; J7050; J7070; J7120; P9016; Q9957; U0003; U0005

== ENCOUNTER 2022-05-13 13:28 | Outpatient (CLI) | payer MEDICARE, OTHER, SELFPAY ==
--- NOTE | ~2022-05-13 | CT_ITS ---
EXAMINATION: CT diagnostic chest wo con DATE: 05/13/2022 13:49 INDICATION: Hypoxia, chronic respiratory failure. TECHNIQUE: Computed tomography (CT) of the chest was performed without intravenous contrast. Automate d exposure control and iterative reconstruction technique were employed. Exam dose: 655.04 mGy-cm to matthias exam DLP. COMPARISON: 04/11/2022 portable AP chest 06/19/2012 CT chest high resolution scan FINDINGS: Examination is mildly limited by respiratory motion. Cardiomegaly. Coronary artery calcification. No pericardial effusion. There is thoracic aortic calcification . Mild thoracic aortic aneurysm, with approximately 3.2 cm di ameter of the posterior aortic arch, compared to 3.1 cm on 06/19/2012. The ascending aorta measures [place] roximately 3.2 cm diameter. The mid aortic arch measures approximately 2.5 cm diameter, the descendin g thoracic aorta up to 2.9 cm diameter. There are scattered nonenlarged nonspecific mediastinal lymph nodes, including prevascular lymph node with up to 5.9 mm short axis diameter, paratracheal lymph nodes with up to 8.7 mm cross-section diam eter, subcarinal node with up to 10 mm cross-section diameter. These are relatively stable since 2012. No hilar mass lesion or lymphadenopathy is noted. Stable mild bilateral apical scarring since 2012. Moderately prominent emphysematous changes of the lungs. There is mild atelectasis involving primarily both dependent lower lobes. No suspicious pulmonary mass lesion or consolidation is noted otherwise. No pleural effusion or pneum othorax. Small sliding hiatal hernia including some herniated fat, stable in appearance since 06/19/2012. Multilevel degenerative disc disease and prominent spurring of the thoracic spine. No suspicious oste olytic or osteoblastic lesions are noted. IMPRESSION: Moderate emphysema Mild posterior thoracic aortic arch aneurysm, not significantly changed since 06/19/2012 Mild bilateral lower lobe dependent atelectasis Small sliding hiatal hernia with fat herniation, stable since 06/19/2012 Reviewed, dictated and finalized at [facility] Reviewed, dictated and finalized at [facility]. [employer] IMPRESSION: Moderate emphysema Mild posterior thoracic aortic arch aneurysm, not significantly changed since Mild bilateral lower lobe dependent atelectasis Small sliding hiatal hernia with fat herniation, stable since 06/19/2012
--- NOTE | 2022-05-14 09:55 | P.PCNPFT_ITS ---
PFT Procedure Performed PFT Procedure Performed Spirometry with Pre/Post Bronchodilator Plethysmography (Lung Vol) Diffusing Cap (DLCO) Flow Vol Loop PFT Interpretation Lung volumes were measured with the body plethysmography method. The mild reduction in total lung capacity could be due to mild restrictive respiratory disease. The remaining lung volumes are unremarkable. Spirometry showed diminished expiratory flow rates and a diminished FEV1 to FVC ratio of 57 % indicative of obstructive airway disease. Following administration of a bronchodilator there was no significant increase in expiratory flow rates. Lung diffusion capacity is severely reduced at 34% predicted. The flow-volume loop is consistent with obstructive airway disease. Impression: Combined restrictive respiratory and obstructive airway disease with no response to bronchodilators on this testing. Severely reduced lung diff usion capacity.
== END 2022-05-13 13:29 | disposition home or self-care (01) ==
PROVIDERS: PCP Internal Medicine; Visit Provider Physician Assistant
DX: I50.9 Heart failure, unspecified (principal); J44.9 Chronic obstructive pulmonary disease, unspecified; J96.11 Chronic respiratory failure with hypoxia; R94.2 Abnormal results of pulmonary function studies; J43.9 Emphysema, unspecified; I71.20 Thoracic aortic aneurysm, without rupture, unspecified; K44.9 Diaphragmatic hernia without obstruction or gangrene
CPT/HCPCS: 71250; 94060; 94726; 94729

== ENCOUNTER 2022-06-13 12:29 | Outpatient (CLI) | payer MEDICARE, OTHER, SELFPAY ==
[2022-06-13 12:45] VITALS: PULSE 80; O2SAT 86
[2022-06-13 12:50] VITALS: PULSE 79; O2SAT 87
[2022-06-13 12:55] VITALS: PULSE 82; O2SAT 91
[2022-06-13 13:00] VITALS: PULSE 110; O2SAT 86
[2022-06-13 13:05] VITALS: PULSE 112; O2SAT 90
[2022-06-13 13:15] VITALS: PULSE 83; O2SAT 91
--- NOTE | 2022-06-13 13:22 | HOMEO2EVAL ---
Evaluation was performed at [facility] Home Oxygen Evaluation RC: Home Oxygen (O2) Evaluation Start: 06/13/22 13:19 Freq: Status: Active Protocol: RPE Activity Type Activity Date Activity User E-sign Co-sign Detail Recorded Client Recorded Date Recorded By Document 06/13/22 12:45 [email or web address] [email or web address] 06/13/22 13:22 DJO Document 06/13/22 12:50 [email or web address] [email or web address] 06/13/22 13:22 DJO Document 06/13/22 12:55 [email or web address] [email or web address] 06/13/22 13:22 DJO Document 06/13/22 13:00 [email or web address] [email or web address] 06/13/22 13:22 DJO Document 06/13/22 13:05 [email or web address] [email or web address] 06/13/22 13:22 DJO Document 06/13/22 13:15 [email or web address] [email or web address] 06/13/22 13:22 DJO 06/13/22 06/13/22 06/13/22 12:45 12:50 12:55 Home O2 Evaluation [Oxygen] -Test Phase Resting Resting Resting -Oxygen Delivery Room Air Nasal Cannula Nasal Cannula -Oxygen Flow Rate (L/min) 1 2 [Pulse Oximetry] -Pulse Oximetry (90-100 %) 86 L 87 L 91 [Pulse Rate] -Pulse Rate (60-100 beats/min) 80 79 82 [Evaluation] -Activity Tolerance 06/13/22 06/13/22 06/13/22 13:00 13:05 13:15 Home O2 Evaluation [Oxygen] -Test Phase Exercise Exercise Resting -Oxygen Delivery Nasal Cannula Nasal Cannula Nasal Cannula -Oxygen Flow Rate (L/min) 2 3 2 [Pulse Oximetry] -Pulse Oximetry (90-100 %) 86 L 90 91 [Pulse Rate] -Pulse Rate (60-100 beats/min) 110 H 112 H 83 [Evaluation] -Activity Tolerance Fair Fair
== END 2022-06-13 12:30 | disposition home or self-care (01) ==
LOC: ANHPFT 12:31
PROVIDERS: PCP Internal Medicine; Visit Provider Internal Medicine Pulmonary Disease
DX: Z87.891 Personal history of nicotine dependence (principal)
CPT/HCPCS: 94618

== ENCOUNTER 2022-07-24 11:15 | Outpatient (CLI) | payer MEDICARE, OTHER, SELFPAY ==
[2022-07-24 11:43] LABS: Basophils Absolute Auto 0.1 K/mm3 (0.0-0.1); Basophils Percent Auto 1.1 % (0.2-1.2); Eosinophils Absolute Auto 0.3 K/mm3 (0-0.3); Eosinophils Percent Auto 3.3 % (0-4.4); Hematocrit 30.4 % (42.0-52.0); Hemoglobin 8.2 g/dL (14.0-18.0); Immature Granulocyte Absolute 0.02 K/mm3 (0.00-0.031); Immature Granulocyte Percent A 0.2 % (0-0.5); Lymphocytes Absolute Auto 1.42 K/mm3 (0.9-3.2); Lymphocytes Percent Auto 16.7 % (18.3-44.2); Mean Corpuscular Hemoglobin 19.1 pg (26-34); Mean Corpuscular Volume 70.9 fl (80-100); Mean Platelet Volume 9.5 fl (7.4-10.4); Monocytes Absolute Auto 0.9 K/mm3 (0.1-0.6); Monocytes Percent Auto 10.8 % (2.6-8.5); Neutrophils Absolute Auto 5.8 K/mm3 (1.3-6.7); Neutrophils Percent Auto 67.9 % (45.5-73.1); Platelet Count Result 269 k/mm3 (150-375); Red Blood Count 4.29 M/mm3 (4.6-6.20); Red Cell Distribution Width 20.8 % (11.5-14.5); White Blood Count 8.5 K/mm3 (4.5-10.0)
[2022-07-24 11:49] LABS: Hypochromasia 1+ (NORMAL); Platelet Estimate Adequate (Adequate); Schistocytes None Seen (NORMAL)
[2022-07-24 11:50] LABS: Anisocytosis 1+ (NORMAL)
[2022-07-24 18:22] LABS: Alanine Aminotransferase 19 U/L (6-50); Alkaline Phosphatase 95 U/L (38-126); Anion Gap 8 mmol/L (8-16); Aspartate Amino Transferase 28 U/L (17-59); Bilirubin,Total 0.5 mg/dL (0.2-1.3); Blood Urea Nitrogen 21 mg/dL (9-20); Calcium 8.2 mg/dL (8.4-10.2); Carbon Dioxide 25 mmol/L (22-30); Chloride 112 mmol/L (98-107); Estimated Glomerular Filt Rate 32; Glucose 92 mg/dL (65-110); Potassium 4.5 mmol/L (3.4-5.0); Sodium 145 mmol/L (137-145)
[2022-07-24 18:48] LABS: Iron 18 ug/dL (49-181)
[2022-07-24 18:49] LABS: Percent Iron Saturation 4 % (20-50)
[2022-07-24 19:18] LABS: Ferritin 7.54 ng/mL (11.1-264)
[2022-07-24 19:34] LABS: Folic Acid 12.5 ng/mL (2.76->20)
== END 2022-07-24 11:16 | disposition home or self-care (01) ==
LOC: ANHLAB 11:17
PROVIDERS: PCP Internal Medicine; Visit Provider Internal Medicine Hematology & Oncology
DX: D64.9 Anemia, unspecified (principal)
CPT/HCPCS: 36415; 80053; 82607; 82728; 82746; 83540; 83550; 85025

== ENCOUNTER 2022-08-21 00:57 | Day surgery (SDC) | payer MEDICARE, OTHER, SELFPAY ==
[2022-08-12 13:39] VITALS: BMI 37.6
[2022-08-21 06:24] VITALS: BP 134/72; PULSE 83; RESP 23; TEMP 36.4; O2SAT 94
[2022-08-21] MEDS: LACTATED RINGERS 1,000 ML 150 ML IV CONT (06:38)
--- NOTE | 2022-08-21 07:18 | PM.HPGS ---
History of Present Illness History of Present Illness Consent: Risks, benefits, and alternatives have been discussed and questions answered. Patient agrees to proceed with procedure. Chief complaint: chronic anemia Narrative: Zaheer Camarillo is a 82 year old male I am asked to see for colonoscopy. Patient has rather extensive history. He has an underlying history of bipolar illness. He is on chronic anticoagulation. Chronic kidney disease. He is known to have B12 deficiency. Recently had an endoscopy which revealed duodenal ulcer in March 2022. He has been receiving B12 replacement along with iron infusions colonoscopy is recommended be thorough. Apparently had a colon polyp in 2009 2014 colonoscopy was unremarkable. Review of Systems Review of Systems: Review of systems unobtainable from the patient because of memory loss. FOR[facility]LY [facility] Past Medical History Medical History (HFpEF) heart failure with preserved ejection fraction Acne rosacea Acute on chronic blood loss anemia Acute on chronic renal failure Bipolar 1 disorder Blood thinned due to long-term anticoagulant use CHF (congestive heart failure) Chronic heart failure with preserved ejection fraction Chronic hypoxemic respiratory failure Chronic kidney disease, stage 3 Chronic respiratory failure CKD (chronic kidney disease) Colonoscopy planned COPD (chronic obstructive pulmonary disease) COPD (chronic obstructive pulmonary disease) Coronary artery disease Coronary stent patent COVID-19 Depression Duodenal ulcer Enlarged prostate without lower urinary tract symptoms (luts) Essential (primary) hypertension Gastric ulcer Gastro-esophageal reflux disease without esophagitis GERD (gastroesophageal reflux disease) GI bleed Heart failure Hypernatremia Impacted cerumen of both ears Impaired glucose tolerance Melena Mixed hyperlipidemia Obesity Obstructive sleep apnea Sleep apnea Surgical History Surgical History H/O cataract extraction H/O heart artery stent H/O hernia repair H/O oral surgery History of removal of pigmented skin lesion Family History Family History Mother Family history of respiratory disorder, Onset Age: 82 Family history of diabetes mellitus in first degree relative Diabetes mellitus Father Malignant neoplasm of prostate, Onset Age: 83 Patient's father is Sibling Family history of heart disease in male family member before age 55 Family history of cardiovascular disease Social History Social History Social History: He lives with his and they have no children. 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 He is a former smoker. He occasionally has an alcoholic beverage. He does not use any marijuana or illicit drugs. Code status full code Smoking packs per day: 2 Smoking cigarettes per day: 40.0 Years smoked: 40 Smoking pack-years: 80.00 Smoking status: Former smoker Tobacco type: cigarettes Second hand tobacco smoke exposure: No Smoking end date: 06/15/79 Alcohol intake: current Substance use: never Substance use type: does not use Other substance usage details: social beer every so often Lack of Transportation: No Lack of Food: Never True Current Housing: I Have Housing Concerned About Future Housing: No Difficulty Paying Gas/Electric Bills: No Difficulty Paying for Meds: No Currently Unemployed: No Education: High School Diploma/GED Difficulty w/ Childcare or Family Care: No Living arrangements: with family Occupation/Education: retired Gender identity (if verbalized by the patient): Male Spiritual care concerns: No Meds Home Medications and Allergies Home Medications Medication Instruct
--- NOTE | 2022-08-21 07:28 | WPDANESEPPF ---
Anes - Initial Pre Proc Eval Procedure: Operation Date: 08/21/22 07:30 Proposed Procedures p Colonoscopy - Hitesh Dorantes MD Date/Time: 08/21/22 07:28 Surgeon: Hitesh Dorantes MD Pre Op Diagnosis: chronic anemia Patient Data Age: 82 Gender: M Height: 1.7 m Weight: 111 kg Last Vital Signs Temp 97.5 F L 08/21/22 06:24 Pulse 83 08/21/22 06:24 Resp 23 H 08/21/22 06:24 BP 134/72 08/21/22 06:24 Pulse Ox 94 08/21/22 06:24 O2 Del Method Nasal Cannula 08/21/22 06:24 O2 Flow Rate 2 08/21/22 06:24 Allergies Allergy/AdvReac Type Severity Reaction Status Date / Time No Known Allergies Allergy Verified 08/21/22 06:21 Home Medications Medication Instructions Recorded Confirmed Type aripiprazole 2 mg tablet (Abilify) 2 mg PO DAILY 05/26/19 08/12/22 History guaifenesin 600 mg tablet, 600 mg PO BID 05/26/19 08/12/22 History extended release 12 hr (Mucinex) wheat dextrin 3 gram/3.8 gram oral 1.5 gm PO BID 05/26/19 08/12/22 History powder (Benefiber Sugar Free (dextrin)) duloxetine 20 mg capsule,delayed 20 mg PO DAILY 12/12/20 08/12/22 History release propylene glycol 0.6 % eye drops 1 drp EACH EYE BID PRN Dry Eye(S) 08/16/21 08/12/22 History (Systane Balance) inhalational spacing device #1 ea 05/02/22 08/05/22 Rx atorvastatin 40 mg tablet 40 mg PO DAILY #90 tabs 05/19/22 08/12/22 Rx carvedilol 6.25 mg tablet 6.25 mg PO Q12H #180 tabs 05/19/22 08/12/22 Rx albuterol sulfate 2.5 mg/3 mL See Rx Instructions .Route 06/17/22 08/12/22 Rx (0.083 %) solution for nebulization .COMPLEX #60 ea amlodipine 2.5 mg tablet 2.5 mg PO DAILY #90 tabs 07/14/22 08/12/22 Rx ipratropium bromide 0.02 % See Rx Instructions .Route 07/14/22 08/12/22 Rx solution for inhalation .COMPLEX #60 ea budesonide-formoterol HFA 80 2 puff inhalation Q12H #10.2 grams 07/22/22 08/12/22 Rx mcg-4.5 mcg/actuation aerosol inhaler (Symbicort) ascorbate calcium (vitamin C) 500 500 mg PO DAILY 08/05/22 08/12/22 History mg tablet ferrous sulfate 325 mg (65 mg 325 mg PO BID 08/05/22 08/12/22 History iron) tablet lamotrigine 25 mg tablet 50 mg PO DAILY 08/05/22 08/12/22 History lutein 25 mg-zeaxanthin 5 mg 1 cap PO DAILY 08/05/22 08/12/22 History capsule cholecalciferol (vitamin D3) 50 50 mcg PO DAILY 08/12/22 08/12/22 History mcg (2,000 unit) capsule (Vitamin D3) clopidogrel 75 mg tablet 75 mg PO DAILY 08/12/22 08/12/22 History pantoprazole 40 mg tablet,delayed 40 mg PO EVERY OTHER DAY 08/12/22 08/12/22 History release Patient hx anesthesia problems: none Family hx anesthesia problems: none Results Review: All pre-operative results and documents have been reviewed as part of the pre-operative evaluation. ON LICENSE OF [facility] Past Medical History Medical History (HFpEF) heart failure with preserved ejection fraction Acne rosacea Acute on chronic blood loss anemia Acute on chronic renal failure Bipolar 1 disorder Blood thinned due to long-term anticoagulant use CHF (congestive heart failure) Chronic heart failure with preserved ejection fraction Chronic hypoxemic respiratory failure Chronic kidney disease, stage 3 Chronic respiratory failure CKD (chronic kidney disease) Colonoscopy planned COPD (chronic obstructive pulmonary disease) COPD (chronic obstructive pulmonary disease) Coronary artery disease Coronary stent patent COVID-19 Depression Duodenal ulcer Enlarged prostate without lower urinary tract symptoms (luts) Essential (primary) hypertension Gastric ulcer Gastro-esophageal reflux disease without esophagitis GERD (gastroesophageal reflux disease) GI bleed Heart failure Hypernatremia Impacted cerumen of both ears Impaired glucose tolerance Melena Mixed hyperlipidemia Obesity Obstructive sleep apnea Sleep apnea Surgical History Surgical History H/O cataract ex
[2022-08-21 07:59] VITALS: BP 112/50; PULSE 76; RESP 22; O2SAT 95
[2022-08-21 08:09] VITALS: BP 131/55; PULSE 74; RESP 22; O2SAT 100
--- NOTE | 2022-08-21 08:13 | SUR.PHASEII ---
PT TO RESUME PLAVIX TOMORROW 08/22/[address] FRANZ VERBAL ORDER.
[2022-08-21 08:19] VITALS: BP 115/55; PULSE 70; RESP 20; O2SAT 100
== END 2022-08-21 08:31 | disposition home or self-care (01) ==
PROVIDERS: PCP Internal Medicine; Visit Provider Internal Medicine Gastroenterology
PROC: 0DJD8ZZ Inspection of Lower Intestinal Tract, Via Natural or Artificial Opening Endoscopic (ICD-10-PCS; CPT 45378; principal; 2022-08-21 07:30)
DX: D64.9 Anemia, unspecified (principal); D12.2 Benign neoplasm of ascending colon; D12.5 Benign neoplasm of sigmoid colon; K64.8 Other hemorrhoids; I13.0 Hypertensive heart and chronic kidney disease with heart failure and stage 1 through stage 4 chronic kidney disease, or unspecified chronic kidney disease; I50.9 Heart failure, unspecified; N18.32 Chronic kidney disease, stage 3b; J96.11 Chronic respiratory failure with hypoxia; J44.9 Chronic obstructive pulmonary disease, unspecified; I25.10 Atherosclerotic heart disease of native coronary artery without angina pectoris; N40.0 Benign prostatic hyperplasia without lower urinary tract symptoms; E53.8 Deficiency of other specified B group vitamins; K21.9 Gastro-esophageal reflux disease without esophagitis; K26.9 Duodenal ulcer, unspecified as acute or chronic, without hemorrhage or perforation; E78.2 Mixed hyperlipidemia; G47.33 Obstructive sleep apnea (adult) (pediatric); F31.9 Bipolar disorder, unspecified; E66.9 Obesity, unspecified; Z68.38 Body mass index [BMI] 38.0-38.9, adult; Z79.51 Long term (current) use of inhaled steroids; Z79.02 Long term (current) use of antithrombotics/antiplatelets; Z95.5 Presence of coronary angioplasty implant and graft; Z87.891 Personal history of nicotine dependence; Z79.01 Long term (current) use of anticoagulants
CPT/HCPCS: 45385; 88305; J2704; J7120

== ENCOUNTER 2022-09-11 10:10 | Outpatient (CLI) | payer MEDICARE, OTHER, SELFPAY ==
[2022-09-11 10:30] LABS: Basophils Absolute Auto 0.1 K/mm3 (0.0-0.1); Basophils Percent Auto 0.9 % (0.2-1.2); Eosinophils Absolute Auto 0.3 K/mm3 (0-0.3); Eosinophils Percent Auto 3.2 % (0-4.4); Hematocrit 43.7 % (42.0-52.0); Immature Granulocyte Absolute 0.02 K/mm3 (0.00-0.031); Immature Granulocyte Percent A 0.2 % (0-0.5); Lymphocytes Absolute Auto 1.75 K/mm3 (0.9-3.2); Lymphocytes Percent Auto 19.1 % (18.3-44.2); Mean Corpuscular HGB Conc 29.7 g/dl (32-36); Mean Corpuscular Hemoglobin 24.3 pg (26-34); Mean Corpuscular Volume 81.7 fl (80-100); Mean Platelet Volume 9.5 fl (7.4-10.4); Monocytes Absolute Auto 0.7 K/mm3 (0.1-0.6); Monocytes Percent Auto 8.1 % (2.6-8.5); Neutrophils Absolute Auto 6.3 K/mm3 (1.3-6.7); Neutrophils Percent Auto 68.5 % (45.5-73.1); Platelet Count Result 215 k/mm3 (150-375); Red Blood Count 5.35 M/mm3 (4.6-6.20); White Blood Count 9.1 K/mm3 (4.5-10.0)
[2022-09-11 10:35] LABS: Ovalocytes 1+ (NORMAL); Platelet Estimate Adequate (Adequate); Schistocytes None Seen (NORMAL)
[2022-09-11 10:36] LABS: Anisocytosis 1+ (NORMAL); Poikilocytosis 1+ (NORMAL)
[2022-09-11 12:33] LABS: Iron 59 ug/dL (49-181)
[2022-09-11 12:43] LABS: Percent Iron Saturation 20 % (20-50)
[2022-09-11 13:40] LABS: Folic Acid 17.7 ng/mL (2.76->20)
== END 2022-09-11 10:11 | disposition home or self-care (01) ==
LOC: ANHLAB 10:14
PROVIDERS: PCP Internal Medicine; Visit Provider Internal Medicine Hematology & Oncology
DX: D64.9 Anemia, unspecified (principal)
CPT/HCPCS: 36415; 82607; 82728; 82746; 83540; 83550; 85025

== ENCOUNTER 2023-06-25 11:17 | Outpatient (CLI) | payer OTHER, SELFPAY ==
[2023-06-25 11:34] LABS: Basophils Absolute Auto 0.1 K/mm3 (0.0-0.1); Basophils Percent Auto 0.7 % (0.2-1.2); Eosinophils Absolute Auto 0.3 K/mm3 (0-0.3); Eosinophils Percent Auto 2.5 % (0-4.4); Hematocrit 41.2 % (42.0-52.0); Hemoglobin 13.2 g/dL (14.0-18.0); Immature Granulocyte Absolute 0.03 K/mm3 (0.00-0.031); Immature Granulocyte Percent A 0.3 % (0-0.5); Lymphocytes Absolute Auto 2.01 K/mm3 (0.9-3.2); Lymphocytes Percent Auto 18.8 % (18.3-44.2); Mean Corpuscular Hemoglobin 28.8 pg (26-34); Mean Platelet Volume 9.1 fl (7.4-10.4); Monocytes Absolute Auto 1.1 K/mm3 (0.1-0.6); Monocytes Percent Auto 9.9 % (2.6-8.5); Neutrophils Absolute Auto 7.3 K/mm3 (1.3-6.7); Neutrophils Percent Auto 67.8 % (45.5-73.1); Platelet Count Result 215 k/mm3 (150-375); Red Blood Count 4.58 M/mm3 (4.6-6.20); Red Cell Distribution Width 13.3 % (11.5-14.5); White Blood Count 10.7 K/mm3 (4.5-10.0)
[2023-06-25 13:37] LABS: Iron 70 ug/dL (49-181)
[2023-06-25 13:40] LABS: Anion Gap 12 mmol/L (8-16); Blood Urea Nitrogen 31 mg/dL (9-20); Calcium 8.7 mg/dL (8.4-10.2); Carbon Dioxide 23 mmol/L (22-30); Chloride 108 mmol/L (98-107); Estimated Glomerular Filt Rate 30; Glucose 103 mg/dL (65-110); Potassium 4.6 mmol/L (3.4-5.0); Sodium 143 mmol/L (137-145)
[2023-06-25 13:46] LABS: Percent Iron Saturation 24 % (20-50)
[2023-06-25 14:49] LABS: Folic Acid > 20.0 ng/mL (2.76->20)
== END 2023-06-25 11:18 | disposition home or self-care (01) ==
LOC: ANHLAB 11:21
PROVIDERS: PCP Nurse Practitioner; Visit Provider Internal Medicine Hematology & Oncology
DX: D64.9 Anemia, unspecified (principal)
CPT/HCPCS: 36415; 80048; 82607; 82728; 82746; 83540; 83550; 85025

== ENCOUNTER 2023-10-21 09:38 | Outpatient (RCR) | payer MEDICARE, OTHER, SELFPAY ==
[2022-07-29 13:08] VITALS: BP 128/58; PULSE 80; TEMP 36.9; O2SAT 97
[2022-07-29] MEDS: ACETAMINOPHEN 325 MG TABLET 650 MG PO (13:22)
[2022-07-29] MEDS: diphenhydrAMINE HCl INJ 50 MG/ML VIAL 25 MG IV PUSH (13:22)
[2022-07-29] MEDS: CYANOCOBALAMIN INJ 1,000 MCG/ML VIAL 1000 MCG IM (13:22)
[2022-07-29] MEDS: ferumoxytoL 510 MG in SODIUM CHLORIDE 0.9% IV 83 ML 300 MG IVPB (13:39)
[2022-07-29 14:33] VITALS: BP 131/54
[2022-08-05 14:23] VITALS: BP 125/54; PULSE 81; TEMP 36.5; O2SAT 95
[2022-08-05] MEDS: CYANOCOBALAMIN INJ 1,000 MCG/ML VIAL 1000 MCG IM (14:36)
[2022-08-05] MEDS: ACETAMINOPHEN 325 MG TABLET 650 MG PO (14:36)
[2022-08-05] MEDS: diphenhydrAMINE HCl INJ 50 MG/ML VIAL 25 MG IV PUSH (14:36)
[2022-08-05] MEDS: ferumoxytoL 510 MG in SODIUM CHLORIDE 0.9% IV 83 ML 300 MG IVPB (14:46)
[2022-08-05 15:37] VITALS: BP 132/54
[2022-08-05 15:55] VITALS: BP 132/54
[2022-08-06 13:10] LABS: Basophils Absolute Auto 0.1 K/mm3 (0.0-0.1); Basophils Percent Auto 0.8 % (0.2-1.2); Eosinophils Absolute Auto 0.2 K/mm3 (0-0.3); Hematocrit 36.9 % (42.0-52.0); Hemoglobin 10.2 g/dL (14.0-18.0); Immature Granulocyte Absolute 0.03 K/mm3 (0.00-0.031); Immature Granulocyte Percent A 0.4 % (0-0.5); Lymphocytes Absolute Auto 1.43 K/mm3 (0.9-3.2); Lymphocytes Percent Auto 18.8 % (18.3-44.2); Mean Corpuscular HGB Conc 27.6 g/dl (32-36); Mean Corpuscular Volume 75.9 fl (80-100); Mean Platelet Volume 8.8 fl (7.4-10.4); Monocytes Absolute Auto 0.8 K/mm3 (0.1-0.6); Monocytes Percent Auto 10.1 % (2.6-8.5); Neutrophils Absolute Auto 5.1 K/mm3 (1.3-6.7); Neutrophils Percent Auto 66.9 % (45.5-73.1); Platelet Count Result 212 k/mm3 (150-375); Red Blood Count 4.86 M/mm3 (4.6-6.20); Red Cell Distribution Width 28.9 % (11.5-14.5); White Blood Count 7.6 K/mm3 (4.5-10.0)
[2022-08-06 13:16] LABS: Hypochromasia 1+ (NORMAL); Platelet Estimate Adequate (Adequate); Schistocytes None Seen (NORMAL)
[2022-08-06 13:16] LABS: Blood Urea Nitrogen 22 mg/dL (8-26); Carbon Dioxide 26 mmol/L (22-30); Chloride 107 mmol/L (98-109); Estimated Glomerular Filt Rate 30; Glucose 118 mg/dL (70-105); Ionized Calcium (POC) 1.19 mmol/L (1.11-1.31); Sodium 145 mmol/L (138-146)
[2022-08-06 13:17] LABS: Ovalocytes 1+ (NORMAL); Poikilocytosis 1+ (NORMAL)
[2022-08-06 14:18] LABS: Alanine Aminotransferase 26 U/L (6-50); Alkaline Phosphatase 98 U/L (38-126); Anion Gap 8 mmol/L (8-16); Aspartate Amino Transferase 29 U/L (17-59); Bilirubin,Total 0.6 mg/dL (0.2-1.3); Blood Urea Nitrogen 21 mg/dL (9-20); Calcium 8.6 mg/dL (8.4-10.2); Carbon Dioxide 26 mmol/L (22-30); Chloride 109 mmol/L (98-107); Estimated Glomerular Filt Rate 32; Glucose 111 mg/dL (65-110); Sodium 143 mmol/L (137-145)
[2022-08-06 15:07] LABS: Iron 1017 ug/dL (49-181); Percent Iron Saturation 272 % (20-50)
[2022-08-06 15:25] LABS: Folic Acid 19.2 ng/mL (2.76->20); Vitamin B12 > 1000.0 pg/mL (239-931)
[2022-12-18 10:04] LABS: Basophils Absolute Auto 0.1 K/mm3 (0.0-0.1); Basophils Percent Auto 0.7 % (0.2-1.2); Eosinophils Absolute Auto 0.3 K/mm3 (0-0.3); Eosinophils Percent Auto 2.7 % (0-4.4); Hematocrit 43.8 % (42.0-52.0); Hemoglobin 13.9 g/dL (14.0-18.0); Immature Granulocyte Absolute 0.05 K/mm3 (0.00-0.031); Immature Granulocyte Percent A 0.5 % (0-0.5); Lymphocytes Absolute Auto 1.88 K/mm3 (0.9-3.2); Lymphocytes Percent Auto 18.7 % (18.3-44.2); Mean Corpuscular HGB Conc 31.7 g/dl (32-36); Mean Corpuscular Hemoglobin 28.9 pg (26-34); Mean Corpuscular Volume 91.1 fl (80-100); Mean Platelet Volume 9.7 fl (7.4-10.4); Monocytes Absolute Auto 0.9 K/mm3 (0.1-0.6); Monocytes Percent Auto 8.7 % (2.6-8.5); Neutrophils Absolute Auto 6.9 K/mm3 (1.3-6.7); Neutrophils Percent Auto 68.7 % (45.5-73.1); Platelet Count Result 197 k/mm3 (150-375); Red Blood Count 4.81 M/mm3 (4.6-6.20); Red Cell Distribution Width 13.4 % (11.5-14.5); White Blood Count 10.1 K/mm3 (4.5-10.0)
[2022-12-18 12:12] LABS: Iron 78 ug/dL (49-181)
[2022-12-18 12:25] LABS: Percent Iron Saturation 25 % (20-50)
[2022-12-18 13:22] LABS: Folic Acid > 20.0 ng/mL (2.76->20)
[2023-10-21 09:57] LABS: Basophils Absolute Auto 0.1 K/mm3 (0.0-0.1); Basophils Percent Auto 0.7 % (0.2-1.2); Eosinophils Absolute Auto 0.3 K/mm3 (0-0.3); Eosinophils Percent Auto 2.6 % (0-4.4); Hematocrit 44.5 % (42.0-52.0); Hemoglobin 13.9 g/dL (14.0-18.0); Immature Granulocyte Absolute 0.05 K/mm3 (0.00-0.031); Immature Granulocyte Percent A 0.4 % (0-0.5); Lymphocytes Percent Auto 16.7 % (18.3-44.2); Mean Corpuscular HGB Conc 31.2 g/dl (32-36); Mean Corpuscular Hemoglobin 28.4 pg (26-34); Mean Platelet Volume 9.4 fl (7.4-10.4); Monocytes Absolute Auto 0.8 K/mm3 (0.1-0.6); Monocytes Percent Auto 6.7 % (2.6-8.5); Neutrophils Absolute Auto 8.3 K/mm3 (1.3-6.7); Neutrophils Percent Auto 72.9 % (45.5-73.1); Platelet Count Result 208 k/mm3 (150-375); Red Blood Count 4.89 M/mm3 (4.6-6.20); Red Cell Distribution Width 13.8 % (11.5-14.5); White Blood Count 11.4 K/mm3 (4.5-10.0)
[2023-10-21 10:55] LABS: Iron 72 ug/dL (49-181)
[2023-10-21 10:58] LABS: Anion Gap 6 mmol/L (4-12); Blood Urea Nitrogen 24 mg/dL (9-20); Calcium 9.1 mg/dL (8.4-10.2); Carbon Dioxide 27 mmol/L (22-30); Chloride 112 mmol/L (98-107); Estimated Glomerular Filt Rate 30; Glucose 122 mg/dL (65-110); Potassium 4.8 mmol/L (3.4-5.0); Sodium 145 mmol/L (137-145)
[2023-10-21 11:05] LABS: Percent Iron Saturation 25 % (20-50)
[2023-10-21 12:08] LABS: Folic Acid > 20.0 ng/mL (2.76->20)
== END 2023-10-30 10:05 ==
LOC: AMCINF 09:38
PROVIDERS: PCP Internal Medicine; Visit Provider Internal Medicine Hematology & Oncology
DX: D50.9 Iron deficiency anemia, unspecified (principal); N18.4 Chronic kidney disease, stage 4 (severe); I25.10 Atherosclerotic heart disease of native coronary artery without angina pectoris; J44.9 Chronic obstructive pulmonary disease, unspecified; E55.9 Vitamin D deficiency, unspecified; E78.5 Hyperlipidemia, unspecified; K26.9 Duodenal ulcer, unspecified as acute or chronic, without hemorrhage or perforation; Z85.820 Personal history of malignant melanoma of skin; Z79.02 Long term (current) use of antithrombotics/antiplatelets; Z99.81 Dependence on supplemental oxygen; Z95.5 Presence of coronary angioplasty implant and graft
CPT/HCPCS: 36415; 80047; 80048; 80053; 82607; 82728; 82746; 83540; 83550; 85025; 96365; 96372; 96375; A9270; J1200; J3420; Q0138

== ENCOUNTER 2024-02-16 12:08 | Outpatient (CLI) | payer OTHER, SELFPAY ==
[2024-02-16 12:23] LABS: Basophils Absolute Auto 0.1 K/mm3 (0.0-0.1); Basophils Percent Auto 0.7 % (0.2-1.2); Eosinophils Absolute Auto 0.3 K/mm3 (0-0.3); Eosinophils Percent Auto 2.6 % (0-4.4); Hematocrit 43.2 % (42.0-52.0); Hemoglobin 13.7 g/dL (14.0-18.0); Immature Granulocyte Absolute 0.03 K/mm3 (0.00-0.031); Immature Granulocyte Percent A 0.3 % (0-0.5); Lymphocytes Absolute Auto 1.95 K/mm3 (0.9-3.2); Lymphocytes Percent Auto 19.2 % (18.3-44.2); Mean Corpuscular HGB Conc 31.7 g/dl (32-36); Mean Corpuscular Volume 91.5 fl (80-100); Mean Platelet Volume 9.7 fl (7.4-10.4); Monocytes Absolute Auto 0.9 K/mm3 (0.1-0.6); Monocytes Percent Auto 8.9 % (2.6-8.5); Neutrophils Absolute Auto 6.9 K/mm3 (1.3-6.7); Neutrophils Percent Auto 68.3 % (45.5-73.1); Platelet Count Result 200 k/mm3 (150-375); Red Blood Count 4.72 M/mm3 (4.6-6.20); White Blood Count 10.1 K/mm3 (4.5-10.0)
[2024-02-16 16:56] LABS: Anion Gap 11 mmol/L (4-12); Blood Urea Nitrogen 33 mg/dL (9-20); Calcium 8.7 mg/dL (8.4-10.2); Carbon Dioxide 26 mmol/L (22-30); Chloride 105 mmol/L (98-107); Estimated Glomerular Filt Rate 26; Glucose 103 mg/dL (65-110); Potassium 4.5 mmol/L (3.4-5.0); Sodium 142 mmol/L (137-145)
[2024-02-16 17:00] LABS: Iron 66 ug/dL (49-181)
[2024-02-16 17:02] LABS: Percent Iron Saturation 23 % (20-50)
[2024-02-16 18:03] LABS: Folic Acid 19.7 ng/mL (2.76->20)
== END 2024-02-16 12:09 | disposition home or self-care (01) ==
LOC: ANHLAB 12:10
PROVIDERS: Nurse Practitioner Family; PCP Nurse Practitioner; Visit Provider Internal Medicine Hematology & Oncology
DX: D64.9 Anemia, unspecified (principal)
CPT/HCPCS: 36415; 80048; 82607; 82728; 82746; 83540; 83550; 85025

== ENCOUNTER 2024-08-22 12:02 | Outpatient (CLI) | payer OTHER, SELFPAY ==
--- NOTE | ~2024-08-22 | XR_ITS ---
Clinical Indication: Bronchitis PA and lateral views of the chest: Comparison: 04/11/2022 Findings: There is mild bibasilar chronic interstitial disease or COPD change.. Cardiomediastinal si lhouette is within normal limits. Bones and soft tissues are unremarkable. Impression: No acute abnormality. Bibasilar chronic interstitial change and/or COPD change. Reviewed, dictated and finalized at location M. Impression: No acute abnormality. Bibasilar chronic interstitial change and/or COPD change.
--- OUTSIDE RECORDS SUMMARY | 2024-08-22 13:59 | XMS_ITS | Clinical Summary ---
Author Organization [facility] Address [address] [place] [address] Care Team Providers Care Mothercraft Nurse Name Role Phone Libertad Pelon Soto DO Primary Care Provider [phone] Allergies No known active allergies Medications ARIPiprazole (ABILIFY) 2 mg tablet Take 2 mg by mouth daily at bedtime. 3 Active DULoxetine (CYMBALTA) 20 mg Capsule, Delayed Release(E.C.) Take 20 mg by mouth daily. 2 Active lamoTRIgine (LaMICtal) 25 mg tablet Take 50 mg by mouth daily. 3 Active amLODIPine (NORVASC) 2.5 mg tablet 3 Active carvediloL (COREG) 6.25 mg tablet Take 6.25 mg by mouth every 12 hours. 2 Active clopidogreL (PLAVIX) 75 mg Tablet Take 75 mg by mouth daily. 3 Active pantoprazole (PROTONIX) 40 mg Tablet, Delayed Release (E.C.) 3 Active atorvastatin (LIPITOR) 40 mg tablet Take 40 mg by mouth daily. 2 Active ipratropium bromide (ATROVENT) 0.02 % Solution USE 1 VIAL VIA NEBULIZER TWICE DAILY 3 Active ProChamber Spacer USE DIRECTED 2 Active wheat dextrin (BENEFIBER) 3 gram/3.5 gram Powder Take 10 mL by mouth. Active budesonide-form oteroL (SYMBICORT) 80-4.5 mcg/actuation HFA Aerosol Inhaler Take 2 Puffs by inhalation 2 times daily. Active Cholecalciferol , Vitamin D3, 50 mcg (2,000 unit) Capsule Take by mouth. A ctive vit A,C and W-nhikzp-ghjjin ls (OCUVITE) 300 mcg-200 mg-27 mg-2 mg Tablet Take by mouth. Activ e peg 400-propylene glycol (SYSTANE) 0.4-0.3 % solution 1 Drop every 2 hours. Active ascorbic acid, vitamin C, (VITAMIN C) 500 mg tablet Take 500 mg by mouth daily. Active ferrous sulfate 325 mg (65 mg iron) tablet Take 325 mg by mouth 2 times daily. Active Active Problems No known active problems Encounters Date Type Department Care Team Description 08/19/2024 External Device Data STL ABSTRACTION Provider, Abstract 08/02/2024 External Device Data STL ABSTRACTION Provider, Abstract 07/06/2024 External Device Data ST[facility] ABSTRACTION Provider, Abstract 07/06/2024 External Device Data STL ABSTRACTION Provider, Abstract from Last 3 Months Family History Medical History Relation Name Comments Heart Disease Brother 1 Heart Disease Brother 2 Prostate Cancer Brother 2 Prostate Cancer Father Diabetes Mother Relation Name Status Comments Brother 1 Brother 2 Alive Father Mother Sister Social History Tobacco Use Types Packs/Day Years Used Date Smoking Tobacco: Former Cigarettes 2 44 0 [birth year]/15/1945 - 06/15/1989 Smokeless Tobacco: Never Tobacco Cessation:Counseling Given: Not Answered Alcohol Use Standard Drinks/Week Comments Yes 1 (1 standard drink = 0.6 oz pure alcohol) only on occasion, usually less than 1 per week Sex and Gender Information Value Date Recorded Sex Assigned at Not on file 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 Gender Identity Not on file Sexual Orientation Not on file Last Filed Vital Signs Vital Sign Reading Time Taken Comments Blood Pressure 134/71 02/23/2024 10:22 AM CDT Pulse 69 02/23/2024 10:22 AM CDT Temperature 36.7 C (98 F) 02/23/2024 10:18 AM CDT Respiratory Rate 18 02/23/2024 10:18 AM CDT Oxygen Saturation 90% 02/23/2024 10:18 AM CDT Inhaled Oxygen Concentration - - Weight 111.6 kg (246 lb) 02/23/2024 10:18 AM CDT Height - - Body Mass Index - - Plan of Treatment Upcoming Encounters Date Type Department Care Team (Late st Contact Info) Description 10/18/2024 10:15 AM CDT Office Visit [facility] Oncology and Hematology - [place] [address] [place] [address] Issa Khan MD [address] [place] [address] Health Maintenance Due Date Last Done Comments DTAP/TDAP/TD VACCINES (1 - Tdap) 1958 ZOSTER VACCINE (1 of 2) 1989 RSV VACCINE (60+ or ) (1 - 1-dose 75+ series) 2014 PNEUMOCOCCAL VACCINE 50+ YEA RS (2 of 2 - PCV) 03/14/2020 03/14/2019, 12/13/2018 INFLUENZA VACCINE (#1) 2024 03/15/2019 Insurance [facility] PPO MCR Care Teams Mothercraft Nurse Relationship Specialty Start Date End Date Pelon Mauerr DO [address] [place] [address] PCP - General Internal Medicine 02/23/24
--- OUTSIDE RECORDS SUMMARY | 2024-08-22 13:59 | XMS_ITS | Clinical Summary ---
Author Organization [facility] [address] Address [address] [place] [address] Care Team Providers Care Drum Drier Operator Name Role Phone Pelon Maurer Primary Care Provider [phone] Allergies No known active allergies Medications carvedilol (COREG) 12.5 mg tablet take 1/2 Tablet (6.25MG) by oral route 2 times every day with food 0 3 Active albuterol (PROVENTIL,NICHOLAS CHRISS) 2.5 mg/0.5 mL solution for nebulization inhale 0.5 milliliter (2.5MG) by nebulization route 3 times every day 0 3 Active guar gum (BENEFIBER, GUAR GUM,) 1 gram tablet 0 3 Active atorvastatin (LIPITOR) 40 mg tablet take 1 tablet (40MG) by oral route every day 0 3 Active lamoTRIgine (LaMICtal) 25 mg tablet take 1 Tablet by oral route 2 times every day 0 [address] (CYMBALTA) 20 mg capsule take 1 capsule by oral route 2 times every day 0 0 4 Active Additional Information Patient taking differently:20 mgoral Daily, Reported on 05/02/2022 ARIPiprazole (ABILIFY) 2 mg tablet 2 mg. 0 7 Active lutein 20 mg tablet 20 mg. 0 7 Active amLODIPine (NORVASC) 2.5 mg tablet Take 1 tablet (2.5 mg total) by mouth daily 2 8 Active guaiFENesin ER (MUCINEX) 600 mg 12 hr tablet Take 2 tablets (1,200 mg total) by mouth 2 (two) times a day Active pantoprazole DR (PROTONIX) 40 mg EC tablet 1 Active ipratropium (ATROVENT) 0.02 % nebulizer solution USE 1 VIAL VIA NEBULIZER TWICE DAILY 2 Active ascorbic acid, vitamin C, (VITAMIN C) 500 mg capsule, extended release CR capsule 3 Active cyanocobalamin (Vitamin B-12) 1,000 mcg tablet 3 Active ferrous sulfate 325 mg (65 mg of elemental iron) tablet 3 Active budesonide-formo teroL (SYMBICORT) 160-4.5 mcg/actuation inhaler Inhale 2 puffs 2 (two) times a day 3 Active clopidogreL (PLAVIX) 75 mg tablet Take 1 tablet (75 mg total) by mouth daily 90 tablet 3 4 Active Active Problems Problem Noted Date Diagnosed Date Coronary artery disease invo lving augustine coronary artery of augustine heart without angina pectoris 09/09/2017 History of coronary artery stent placement 09/09 Resolved Problems Problem Noted Date Diagnosed Date Resolved Date Morbid (severe) obesity due to excess calories 03/20/2022 04/02/2023 Surgical History Surgery Date Site/Laterality Comments ANGIOPLASTY 1999, 2004 CATARACT EXTRACTION 2015 HERNIA REPAIR Medical History Medical History Date Comments Hypertension Hypertension Adiposity Obesity Hx Other Medical Sleep Apnea, CP AP GERD (gastroesophageal reflux disease) 1999 Depression 1975 Heart disease 1999 Sleep apnea 2012 Peptic ulceration ? Kidney stone 1970 Anemia 2021 Family History Medical History Relation Name Comments Cancer Brother 2 Kg Heart disease Brother 2 Kg Other Brother 2 Kg Implantable Def ibrillator; Heart disease Brother 3 Don Cancer Father [place] Hearing loss Father [place] Obesity Father [place] Diabetes Mother Marla Relation Name Status Comments Brother 1 Alive Brother 2 Kg Brother 3 Don Father [place] Mother Marla Social History Tobacco Use Types Packs/Day Years Used Date Smoking Tobacco: Former Cigarettes 2 34.6 0 1955 - 02/13/1990 Smokeless Tobacco: Never Tobacco Cessation:Counseling Given: Not Answered Alcohol Use Standard Drinks/Week Comments Yes 0 (1 standard drink = 0.6 oz pur e alcohol) Personal Safety Answer Date Recorded Getting School Help Needed Not on file 06/23 Sex and Gender Information Value Date Recorded Sex Assigned at Not on file 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 Gender Identity Male 03/10/2021 7:22 PM CDT Sexual Orientation Straight 03/10/2021 7: 22 PM CDT Obstetrics History Last Filed Vital Signs Vital Sign Reading Time Taken Comments Blood Pressure 116/72 12/16/2023 11:06 AM CDT Pulse 77 12/16/2023 11:06 AM CDT Temperature - - Respiratory Rate - - Oxygen Saturation 94% 12/16/2023 11:06 AM CDT Inhaled Oxygen Concentration - - Weight 111.6 kg (246 lb) 12/16/2023 11:06 AM CDT Height 172.7 cm (5' 8 ) 12/16/2023 11:06 AM CDT Body Mass Index 37.4 12/16/2023 11:06 AM CDT Plan of Treatment Health Maintenance Due Date Last Done Comments Depression Screening 1939 Fall Risk Assessment 1939 Hepatitis B Screening 1957 Zoster Vaccine (1 of 2) 1989 Well Visit 65+ 2004 Influenza Vaccine (#1) 2024 0, 03/15/2019, 03/14/2019, Additional history exists DTaP/Tdap/Td Vaccine (2 - Td or Tdap) 12/29/2027 12/28/2017 Pneumococcal vaccine 65+ Completed 019, 12/13/2018, 03/28/2015 Insurance [employer] PPO Care Teams Drum Drier Operator Relationship Specialty Start Date End Date Pelon Maurer DO PCP - General Internal Medicine 12/16/23
--- OUTSIDE RECORDS SUMMARY | 2024-08-22 13:59 | XMS_ITS | Clinical Summary ---
Author Organization [facility] Address [address] [place] [id number] Phone Care Team Providers Care Aquaculture Farm Manager Name Role Phone LibertadPelon Primary Care Provider [phone] Allergies No known active allergies Medications Medication Sig Dispensed Refills Start Date End Date Status Lutein-Zeaxanthin 25-5 MG capsule 1 qday 0 07/25/2018 Active aspirin 81 MG tablet 81 mg. 08/05/2012 Active Wheat Dextrin (BENEFIBER) chewable tablet 08/05/2012 Active albuterol (5 MG/ML) 0.5% nebulizer solution inhale 0.5 milliliter (2.5MG) by nebulization route 3 times every day 08/05/2012 Active ARIPiprazole (ABILIFY) 2 MG tablet 2 mg. 09/02/2016 Active guaiFENesin (MUCINEX) 600 MG 12 hr tablet Take 1,200 mg by mouth 2 times daily. Active amLODIPine (NORVASC) 2.5 MG tablet Take 2.5 mg by mouth daily. 07/29/2017 Active atorvastatin (LIPITOR) 40 MG tablet 40 mg. 08/05/2012 Active budesonide-formoter ol (SYMBICORT) 80-4.5 MCG/ACT inhaler INHALE 2 PUFFS BID 08/14/2017 Active cholecalciferol (VITAMIN D-[address]) 1000 units tablet Take 1,000 Units by mouth daily. Active clopidogrel (PLAVIX) 75 MG tablet 75 mg. 08/05/2012 Active DULoxetine (CYMBALTA) [address] capsule 20 mg. 12/12/2013 Active fluticasone (FLONASE) 50 MCG/ACT nasal spray Administer 1 spray into affected nostril(s) daily. Active lamoTRIgine (LaMICtal) 25 MG tablet 25 mg. 12/12/2013 Active Lutein 20 MG tablet 20 mg. 09/02/2016 Activ e carvedilol (COREG) 6.25 MG tablet TK 1 T PO BID WF 0 11/25/2018 Acti ve pantoprazole (PROTONIX) 40 MG EC tablet 02/15/2022 Active Active Problems Problem Noted Date Diagnosed Date Morbid (severe) obesity due to excess calories 1 Chronic kidney disease, stage 4 (severe) 019 Hypertensive chronic kidney disease with stage 1 through stage 4 chronic kidney disease, or unspecified chronic kidney disease 07/25/2018 Chronic kidney disease, stage 3 (moderate) 07/25 Gastro-esophageal reflux disease without esophag itis 07/25/2018 Other bipolar disorder 07/25/2018 Coronary arteriosclerosis in [place] artery 07/25 Mixed hyperlipidemia 07/25/2018 Chronic diastolic congestive heart failure 07/25 Obstructive sleep apnea 07/25/2018 Impaired oral glucose tolerance 07/25/2018 History of placement of stent for coronary arter y disease 09/09/2017 Immunizations Name Administration Dates Next Due Influenza, Injectable, Quadrivalent 03/15/2019 Pneumococcal Conjugate 12/13/2018 Pneumococcal Polysaccharide 03/14/2019 Family History Medical History Relation Comments Malignant neoplastic disease Father Diabetes mellitus Mother Kidney disease Neg Hx Kidney stone Neg Hx Relation Status Comments Father Mother Social History Tobacco Use Types Packs/Day Years Used Date Smoking Tobacco: Former Cigarettes Q uit: 06/15/1990 Smokeless Tobacco: Never Comments:Smoking History Pac ks/day: 2 ppd x 35 years Alcohol Use Standard Drinks/Week Comments Yes 0 (1 standard drink = 0.6 oz pure alcohol) Alcoholic Drinks/day: occasional beer Sex and Gender Information Value Date Recorded Sex Assigned at Not on file Gender Identity Not on file Sexual Orientation Not on file Last Filed Vital Signs Vital Sign Reading Time Taken Comments Blood Pressure 126/74 03/24/2022 11:23 AM CDT Pulse - - Temperature 36.6 C (97.8 F) 03/24/2022 11:23 AM CDT Respiratory Rate 18 03/24/2022 11:23 AM CDT Oxygen Saturation - - Inhaled Oxygen Concentration - - Weight 119 kg (263 lb) 03/24/2022 11:23 AM CDT Height 172.7 cm (5' 8 ) 05/09/2019 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
--- OUTSIDE RECORDS SUMMARY | 2024-08-22 13:59 | XMS_ITS | Clinical Summary ---
Author Organization [facility] Address [address] [place] [address] Care Team Providers Care Swimming Pool Maintenance Supervisor Name Role Phone Unavailable Primary Care Provider Unavailabl e Social History Tobacco Use Types Packs/Day Years Used Date Smoking Tobacco: Never Assessed Sex and Gender Information Value Date Recorded Sex Assigned at Not on file Legal Sex Male 10:49 AM CDT Gender Identity Not on file Sexual Orientation Not on file Plan of Treatment Health Maintenance Due Date Last Done Comments Hepatitis C Virus (HCV) Screening 1940 Zoster Immunization (1 of 2) 1989 Respiratory Syncytial Virus (RSV) Immunization (Adult) (1 - 1-dose 75+ series) 2014 Influenza Immunization (#1) 02/14/202402/13, 03/14/2019, 02/25/2017, Additional history exists SARS-COV-2 Immunization ( season) 2024 08/22/2020, 07/24/2020 DTaP/Tdap/Td Immunization Discontinued 12/28/2017 TdaP Immunization Completed 12/28/2017 Pneumococcal Immunization (50+ years) Completed 03/14/2019, 03/28/2015 Hepatitis B Immunization Aged Out No longer eligible based on patient's age to complete this topic Meningococcal Immunization (ACWY) Aged Out No longer eligible based on patient's age to complete this topic Rotavirus Immunization Aged Out No lo nger eligible based on patient's age to complete this topic
--- OUTSIDE RECORDS SUMMARY | 2024-08-22 13:59 | XMS_ITS | Referral Summary ---
Author Organization [facility] [place] [address] Address [address] [place] [address] Care Team Providers Care Horse Racer Name Role Phone Pelon Maurer Primary Care Provider [phone] Allergies No known active allergies Medications carvedilol [...] Diagnosed Date Coronary artery disease invo lving [place] coronary artery of [place] heart without angina pectoris 09/09/2017 History of coronary artery stent placement 09/09 Resolved Problems Problem Noted Date Diagnosed Date Resolved Date Morbid (severe) obesity due to excess calories 03/20/2022 04/02/2023 Social History Tobacco Use Types Packs/Day Years [...] on file 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
== END 2024-08-22 12:03 | disposition home or self-care (01) ==
PROVIDERS: PCP Internal Medicine; Visit Provider Internal Medicine
DX: J40 Bronchitis, not specified as acute or chronic (principal)
CPT/HCPCS: 71046

== ENCOUNTER 2024-09-17 22:53 | Inpatient (IN) | payer OTHER, SELFPAY ==
[2024-09-17] VITALS (7 sets, daily range): BP systolic 95–107; BP diastolic 46–69; PULSE 100–108; RESP 20–29; TEMP 36.2; O2SAT 95
--- NOTE | ~2024-09-17 | XR_ITS ---
XR chest PICC line Ordering provider: Dionicio Mireles MD History: 84 years Male with . picc placement . Comparison: August 22, 2024 FINDINGS: MEDIASTINUM: The cardiac silhouette is slightly enlarged. Congestive tiffanie. LUNGS: No pneumothorax. Opacification the left lung base suggestive of atelectasis versus pneumonia w ith possible minimal effusion. Interstitial thickening seen in the lung bases. Underlying emphysemato us changes. OTHER: No free air under the diaphragm. IMPRESSION: Left basilar atelectasis versus pneumonia with possible minimal effusion. Cardiomegaly with congestive tiffanie and bilateral interstitial thickening which may indicate cardiac de compensation and pulmonary edema. Reviewed, dictated and finalized at location A. IMPRESSION: Left basilar atelectasis versus pneumonia with possible minimal effusion. Cardiomegaly with congestive tiffanie and bilateral interstitial thickening which m ay indicate cardiac decompensation and pulmonary edema.
--- NOTE | ~2024-09-17 | US_ITS ---
EXAM: ABDOMEN ULTRASOUND HISTORY: kidney and liver mass found on CT COMPARISON: Reference is made to a CT examination of the abdomen and pelvis dated 09/18/2024 Reference is also made to a noncontrast enhanced CT examination of the chest dated 06/19/2012 (which in cluded the dome of the liver). FINDINGS: LIVER: The liver is sonographically unremarkable in echogenicity and size. The 9 mm cyst at the dome of the liver) within segment 8) will not be able to be visualized with ultr asound, secondary to its location. However, this focus was faintly present on CT examination performed in 2012. Given that time course, it is benign. The portal vein is patent, demonstrating hepatopedal flow. The portal vein wave form is phasic, sugge sting a component of early portal hypertension. GALLBLADDER: Multiple punctate mobile stones are identified within the gallbladder. No gallbladder wall thickening or pericholecystic fluid. BILE DUCTS: Common bile duct measures 1.9mm. PANCREAS: Limited evaluation of the pancreas secondary to overlying bowel gas SPLEEN: The spleen is unremarkable in echogenicity and size. RIGHT KIDNEY: 9.7 cm. In length. No hydronephrosis or bulky renal calculi. Corresponding to the finding on recent CT examination there is a well-circumscribed focus of decrease d echogenicity measuring 19 x 18 x 17 mm. This focus is avascular and consistent with a simple cyst, for which no further follow-up is needed. LEFT KIDNEY: 10.4cm in length. No hydronephrosis or renal calculi. Indeterminate focus of decreased echogenicity along the medial margin of the upper pole of the left k idney, which corresponds to a focus of fluid attenuation on recent CT examination. This focus measure s 4.0 x 3.7 x 3.9 cm and is indeterminate based on ultrasound characteristics. Contrast-enhanced CT o r MRI with renal mass protocol is recommended for further evaluation. VASCULATURE : Limited evaluation of the abdominal aorta is nonaneurysmal. The IVC is patent. IMPRESSION: Evaluation of the pancreas is limited by overlying bowel gas. Simple cyst within the dome of the liver as well as within the right kidney, for which no further fol low-up is needed. Findings within the medial margin of the upper pole of the left kidney which are indeterminate based on ultrasound characteristics for which contrast enhanced CT or MRI is recommended (with renal mass p rotocol). Cholelithiasis. Reviewed, dictated and finalized at location A. IMPRESSION: Evaluation of the pancreas is limited by overlying bowel gas. Simple cyst within the dome of the liver as well as within the right kidney, fo r which no further follow-up is needed. Findings within the medial margin of the upper pole of the left kidney which ar e indeterminate based on ultrasound characteristics for which contrast enhanced CT or MRI is recommended (with renal mass protocol). Cholelithiasis.
--- NOTE | ~2024-09-17 | XR_ITS ---
CHEST RADIOGRAPH CLINICAL HISTORY: shortness of breath, wheezing, elevated wbc . COMPARISON: 09/18/2024 TECHNIQUE: Single portable view of the chest. FINDINGS Right upper extremity PICC line identified with its tip projecting over the cavoatrial junction. The remainder of the cardiomediastinal silhouette is otherwise unremarkable. Blunting of the left costophrenic sulcus, increased from previous examination for which a left-sided pleural effusion is suspected. The right hemithorax is primarily clear. IMPRESSION: Increasing left-sided pleural effusion, as detailed above. Reviewed, dictated and finalized at location A.
--- NOTE | ~2024-09-17 | CT_ITS ---
CT abdomen pelvis w con Ordering provider: Haley Aguiar MD History: 84 years Male with . Gi bleed . Comparison: None. Technique: CT abdomen and pelvis with IV and without oral contrast. Automated exposure control and it erative reconstruction technique were employed. The dose-length product was 1539.84 mGy-cm. 100 mL Om nipaque 350 was given IV. Findings: VISUALIZED LOWER CHEST: Dependent atelectatic changes. Underlying fibrotic changes. UPPER ABDOMINAL ORGANS: Liver: 9 mm Tiny hypodensity in segment #8 is seen most likely tiny cyst. Further evaluation with ult rasound and follow-up advised. Gallbladder: Cholelithiasis. Spleen: Normal. Stomach/duodenum: Small sliding hiatus hernia. Pancreas: Normal. Adrenals: Normal. Kidneys: Small size right kidney measuring 5.5 cm. Slightly small size left kidney measuring 7.8 cm. Bilateral renal cysts with the largest in the left side measuring 2.9 cm. Soft tissue density seen in the right kidney lower pole which may be complex cyst or a mass. Follow-up ultrasound advised. This is measuring 2 cm. PELVIC ORGANS: The bladder is normal. BOWEL AND MESENTERY: Colon: No evidence of diverticulitis. Normal appendix. Small Bowel: Normal. No obstruction. Peritoneum/mesentery: No free air or free fluid. No mesenteric lymphadenopathy. RETROPERITONEUM: Mild atheromatous disease of the abdominal aorta. No retroperitoneal lymphadenopat hy. MUSCULOSKELETAL: Superficial soft tissues: Bilateral fat containing inguinal hernias. Otherwise, The superficial soft tissues are normal. Bones: Age appropriate degenerative changes of the spine. IMPRESSION: 1. Small right kidney. Slightly small left kidney. Bilateral renal cysts. Hyperdense area seen in th e right kidney lower pole which may be complex cyst or mass. Ultrasound confirmation advised. 2. Small hypodensity in the liver dome which may be a cyst. Ultrasound evaluation advised. 3. Cholelithiasis. 4. No evidence of appendicitis, diverticulitis or intestinal obstruction. 5. No definite active bleeding seen in the bowel. Reviewed, dictated and finalized at location A. IMPRESSION: 1. Small right kidney. Slightly small left kidney. Bilateral renal cysts. Hype rdense area seen in the right kidney lower pole which may be complex cyst or ma ss. Ultrasound confirmation advised. 2. Small hypodensity in the liver dome which may be a cyst. Ultrasound evaluat ion advised. 3. Cholelithiasis. 4. No evidence of appendicitis, diverticulitis or intestinal obstruction. 5. No definite active bleeding seen in the bowel.
--- NOTE | ~2024-09-17 | US_ITS ---
EXAMINATION:US venous doppler LE BI INDICATION:Lower extremity edema TECHNIQUE: Multiple grayscale, color flow and Doppler images of the right and left lower extremity de ep venous systems were obtained and reviewed. COMPARISON:No prior studies for comparison. FINDINGS: The common femoral, superficial femoral and popliteal veins demonstrate normal respiratory variation, augmentation and compressibility. Color flow is also seen within the posterior tibial, pe roneal, greater saphenous and profunda veins. IMPRESSION: 1: No lower extremity deep venous thrombosis. Reviewed, dictated and finalized at location A.
--- OUTSIDE RECORDS SUMMARY | 2024-09-17 22:55 | XMS_ITS | Referral Summary ---
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
--- OUTSIDE RECORDS SUMMARY | 2024-09-17 22:55 | XMS_ITS | Clinical Summary ---
Author Organization [facility] Address [address] [place] [address] Care Team Providers Care Supervisor Advertising Dispatch Clerks Name Role Phone Unavailable Primary Care Provider [...]
--- OUTSIDE RECORDS SUMMARY | 2024-09-17 22:55 | XMS_ITS | Clinical Summary ---
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
--- OUTSIDE RECORDS SUMMARY | 2024-09-17 22:55 | XMS_ITS | Clinical Summary ---
Author Organization [facility] Address [address] [facility] [place] [address] Care Team Providers Care Harpsichord Maker Name Role Phone Libertad Pelon Soto DO Primary Care Provider [phone] Allergies No known active allergies Medications ARIPiprazole [...] by mouth. 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 Gender Identity Not on file Sexual Orientation [...] Description 10/18/2024 10:15 AM CDT Office Visit [facility] Oncology and Hematology - [place] [address] [facility] [address] [place] [address] Issa Khan MD [address] [facility] [address] [place] [address] Health Maintenance Due Date Last Done Comments DTAP/TDAP/TD VACCINES (1 - Tdap) 1958 ZOSTER VACCINE (1 of 2) 1989 RSV VACCINE (60+ or ) (1 - 1-dose 75+ series) 2014 PNEUMOCOCCAL VACCINE 50+ YEA RS (2 of 2 - PCV) 03/14/2020 03/14/2019, 12/13/2018 INFLUENZA VACCINE (#1) 2024 03/15/2019 [facility] Care Teams Harpsichord Maker Relationship Specialty Start Date End Date Pelon Maurer DO [address] [facility] [address] [place] [address] PCP - General Internal Medicine 02/23/24
--- OUTSIDE RECORDS SUMMARY | 2024-09-17 22:55 | XMS_ITS | Clinical Summary ---
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
--- NOTE | 2024-09-17 23:42 | ECG_ITS ---
Test Date: 2024-09-17 23:50:34 Measurements Intervals [place] Rate: 101 P: 92 [place]: 171 QRS: -45 QRSD: 85 T: 64 QT: 361 QTc: 470 Interpretive Statements SINUS TACHYCARDIA LEFT ANTERIOR FASCICULAR BLOCK LEFT VENTRICULAR HYPERTROPHY AND ST-T CHANGE ST-T WAVE ABNORMALITY IN ANTEROLATERAL LEADS- CONSIDER ISCHEMIA BASELINE WANDER- AVR, AVL, AVF ABNORMAL ECG No previous ECG available for comparison Electronically Signed On 09-18-2024 07:29:34 CDT by Ed Ozuna D.O.
[2024-09-18] VITALS (38 sets, daily range): BP systolic 106–135; BP diastolic 43–74; PULSE 70–108; RESP 16–26; TEMP 36.4–37.1; O2SAT 93–100; BMI 33.4
[2024-09-18 00:25] LABS: Hematocrit 22.9 % (42.0-52.0); Immature Platelet Fraction Pct 2.8 % (0.9-11.2); Mean Corpuscular HGB Conc 30.1 g/dl (32-36); Mean Corpuscular Hemoglobin 29.1 pg (26-34); Mean Corpuscular Volume 96.6 fl (80-100); Mean Platelet Volume 10.9 fl (7.4-10.4); Platelet Count Result 250 k/mm3 (150-375); Red Blood Count 2.37 M/mm3 (4.6-6.20); Red Cell Distribution Width 16.3 % (11.5-14.5); White Blood Count 16.7 K/mm3 (4.5-10.0)
[2024-09-18 00:27] LABS: Hemoglobin 6.9 g/dL (14.0-18.0)
[2024-09-18 00:30] LABS: Alanine Aminotransferase 17 U/L (6-50); Albumin Level 3.1 g/dL (3.5-5.1); Alkaline Phosphatase 66 U/L (38-126); Anion Gap 13 mmol/L (4-12); Aspartate Amino Transferase 26 U/L (17-59); Bilirubin,Total 0.3 mg/dL (0.2-1.3); Blood Urea Nitrogen 58 mg/dL (9-20); Calcium 8.1 mg/dL (8.4-10.2); Carbon Dioxide 19 mmol/L (22-30); Chloride 112 mmol/L (98-107); Estimated CRCL calculation 24 ml/min; Estimated Glomerular Filt Rate 26; Glucose 112 mg/dL (65-110); INR 1.1; Potassium 4.3 mmol/L (3.4-5.0); Prothrombin Time 14.3 Seconds (11.1-14.7); Sodium 144 mmol/L (137-145)
[2024-09-18 00:41] LABS: Partial Thromboplastin Time < 20.0 Seconds (22.3-36.8)
[2024-09-18 00:52] LABS: Anisocytosis 1+; Band Neutrophils Percent 2 % (0-6); Basophils Absolute Manual 0.33 K/mm3 (0.0-0.1); Basophils Percent Manual 2 % (0-1); Eosinophils Absolute Manual 0.16 K/mm3 (0.02-0.50); Eosinophils Percent Manual 1 % (0-4); Monocytes Percent Manual 3 % (3-9); Neutrophils Absolute Manual 13.52 K/mm3 (1.3-6.7); Neutrophils Percent Manual 79 % (46-73); Platelet Estimate Adequate (Adequate); Promyelocytes Percent 1 %; Total Cells Counted 100
[2024-09-18 00:53] LABS: Atypical Lymphocytes Present; Hypochromasia 1+; Schistocytes None Seen; Smudge Cells PRESENT
--- OUTSIDE RECORDS SUMMARY | 2024-09-18 02:14 | XMS_ITS | Referral Summary ---
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
--- OUTSIDE RECORDS SUMMARY | 2024-09-18 02:14 | XMS_ITS | Clinical Summary ---
Author Organization [facility] Address [address] [place] [address] Care Team Providers Care Data Scientist Name Role Phone Libertad Pelon Soto DO Primary Care Provider Allergies No known active allergies Medications ARIPiprazole [...] by mouth. 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 [address] [place] [address] Health Maintenance Due Date Last Done Comments DTAP/TDAP/TD VACCINES (1 - Tdap) 1958 ZOSTER VACCINE (1 of 2) 1989 RSV VACCINE (60+ or ) (1 - 1-dose 75+ series) 2014 PNEUMOCOCCAL VACCINE 50+ YEA RS (2 of 2 - PCV) 03/14/2020 03/14/2019, 12/13/2018 INFLUENZA VACCINE (#1) 2024 03/15/2019 Insurance [facility] Care Teams Data Scientist Relationship Specialty Start Date End Date Pelon Maurer DO [address] [facility] [address] [place] [address] PCP - General Internal Medicine 02/23/24
--- OUTSIDE RECORDS SUMMARY | 2024-09-18 02:14 | XMS_ITS | Clinical Summary ---
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
--- OUTSIDE RECORDS SUMMARY | 2024-09-18 02:14 | XMS_ITS | Clinical Summary ---
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
--- OUTSIDE RECORDS SUMMARY | 2024-09-18 02:14 | XMS_ITS | Clinical Summary ---
Author Organization [facility] Address [address] [place] [address] Care Team Providers Care Fashion Supervisor Name Role Phone Unavailable Primary Care [...]
--- NOTE | 2024-09-18 02:16 | PC.NURSE ---
rn attempts x 4 to obtain iv access with no luck
--- NOTE | 2024-09-18 02:28 | PC.NURSE ---
this rn unable to obtain IV access x2 attempts. RN CADNIE unable to obtain IV access x2 attempts. cutting room supervisor SB unable to obtain IV access x2 attempts with IV ultrasound at bedside.
--- NOTE | 2024-09-18 02:44 | ED_ITS ---
HPI - GI Bleed General Chief complaint: GI Bleed Stated complaint: GI bleed, gasping, weak Time Seen by Provider: 09/18/24 01:53 Source: patient and family Limitations: no limitations History of Present Illness HPI Narrative: Patient presents with concern for GI bleed. He noted an episode dark red bloody stool this AM followed by he subsequent episodes of dark black stool this evening. He states there was a lot of this and even to the point where it ran down his leg when he was having an accident when he stood. He states he was having some left upper quadrant abdominal pain earlier but not now. He is not steroid. He is on clopidogrel but no other anticoagulation he denies any other NSAID use. He does take an iron supplement. Not been using Pepto-Bismol. He denies any history of a GI bleed. He has a history of anemia and for this he follows with Dr. Khan for his low hemoglobin. He wants required multiple units of blood due to degree of his anemia. This was identified after he had seen cardiology and pulmonology for being out of breath and was eventually discovered that this was likely due to the profound anemia. He has a history of COPD and is on 3 L nasal cannula at baseline. He has seen instant printer operator Dr. Gupta who said that he had an ulcer. Patient and do not know if he has undergone EGD and/or colonoscopy. Related Data Home Medications ?Medication ?Instructions ?Recorded ?Confirmed ?Last Taken ?Type aripiprazole 2 mg tablet (Abilify) 2 mg PO DAILY 05/26/19 09/18/24 09/17/24 History duloxetine 20 mg capsule,delayed 20 mg PO DAILY 12/12/20 09/18/24 09/17/24 History release ascorbate calcium (vitamin C) 500 500 mg PO DAILY 08/05/22 09/18/24 09/17/24 History mg tablet ferrous sulfate 325 mg (65 mg 325 mg PO BID 08/05/22 09/18/24 09/17/24 History iron) tablet lamotrigine 25 mg tablet 50 mg PO DAILY 08/05/22 09/18/24 09/17/24 History lutein 25 mg-zeaxanthin 5 mg 1 cap PO DAILY 08/05/22 09/18/24 09/17/24 History capsule cholecalciferol (vitamin D3) 50 50 mcg PO DAILY 08/12/22 09/18/24 09/17/24 History mcg (2,000 unit) capsule (Vitamin D3) mecobalamin (vitamin B12) 1,000 1,000 mcg PO DAILY 10/30/22 09/18/24 09/17/24 History mcg chewable tablet ketoconazole 2 % shampoo 1 applic topical PRN 12/29/23 09/18/24 Unknown History dextromethorphan-guaifenesin ER 60 1 tablet PO Q12H PRN cough 09/14/24 09/18/24 09/17/24 History mg-1,200 mg tab,extend release,12hr (Mucinex DM) Allergies Allergy/AdvReac Type Severity Reaction Status Date / Time No Known Allergies Allergy Verified 09/19/24 14:00 [facility] Past Medical History Medical History Chronic respiratory failure Duodenal ulcer Obesity Blood thinned due to long-term anticoagulant use Acute on chronic renal failure Acute on chronic blood loss anemia Melena GI bleed Depression COVID-19 Impacted cerumen of both ears (HFpEF) heart failure with preserved ejection fraction Chronic heart failure with preserved ejection fraction COPD (chronic obstructive pulmonary disease) Enlarged prostate without lower urinary tract symptoms (luts) Essential (primary) hypertension Gastro-esophageal reflux disease without esophagitis Mixed hyperlipidemia Sleep apnea Colonoscopy planned Coronary stent patent Gastric ulcer Impaired glucose tolerance Acne rosacea Coronary artery disease Bipolar 1 disorder Chronic kidney disease, stage 3 Hypernatremia Chronic hypoxemic respiratory failure Obstructive sleep apnea Surgical History Surgical History H/O heart artery stent History of removal of pigmented skin lesion H/O cataract extraction H/O hernia repair H/O oral surgery Family History Family History (Updated 09/18/24 @ 11:51 by Eileen Mendez RN) Mother Family history of respiratory disorder, Onset Age: 82 Diabetes mellitus Family history of diabetes mellitus in first degree relative Father Malignant neoplasm of prostate, Onset Age: 83 Patient's father is Sibling Family history of heart disease in male family member before age 55 Family history of cardiovascular disease Prostate carcinoma Social History Social History Social History: He lives with his and they have no children. 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 He is a former smoker. He occasionally has an alcoholic beverage. He does not use any marijuana or illicit drugs. Code status full code Smoking packs per day: 2 Smoking cigarettes per day: 40.0 Years smoked: 40 Smoking pack-years: 80.00 Smoking status: Former smoker Tobacco type: cigarettes Second hand tobacco smoke exposure: No Smoking end date: 06/15/79 Alcohol intake: former Substance use: never Substance use type: does not use Other substance usage details: social beer every so often Do You Feel Safe in your Home?: Yes Lack of Transportation: No Lack of Food: Never True Current Housing: I Have Housing Concerned About Future Housing: No Difficulty Paying Gas/Electric Bills: No Difficulty Paying for Meds: No Currently Unemployed: No Education: High School Diploma/GED Difficulty w/ Childcare or Family Care: No Living arrangements: with family Occupation/Education: retired Gender identity (if verbalized by the patient): Male Sexual Orientation (if Verbalized by the Patient): Straight or Heterosexual Spiritual care concerns: No Exam 2 Narrative: GENERAL: Well-appearing, well-nourished, and in no acute distress. HEAD: Normocephalic, atraumatic. EYES: Non injected, non icteric. ENT: Nares clear, no rhinorrhea or epistaxis. NECK: Supple. CHEST: Speaking in full sentences but Tachypneic, labored. Lungs clear to auscultation without appreciable wheezes crackles, or consolidation. HEART: Tachycardic rate and rhythm. . ABDOMEN: Protuberant/obese but Soft, nondistended. No tenderness to palpation throughout. Not peritoneal. No rigidity or guarding. Digital rectal exam performed -normal rectal tone. No palpable masses. FOBT/guiaic positive. EXTREMITIES: Normal range of motion. No lower extremity edema. SKIN: Warm, dry, no rash. NEURO: No focal deficits. Alert and oriented x3. PSYCH: Normal mood and affect. Course Vital Signs Vital signs: Vital Signs Temperature 97.1 F L 09/17/24 22:54 Pulse Rate 107 H 09/17/24 22:54 Respiratory Rate 26 H 09/17/24 22:54 Blood Pressure 95/46 L 09/17/24 22:54 Pulse Oximetry 95 09/17/24 22:54 Oxygen Delivery Nasal Cannula 04/05/25 22:54 Oxygen Flow Rate 3 09/17/24 22:54 Temperature 98.9 F 09/20/24 04:00 Pulse Rate 90 09/20/24 04:00 Respiratory Rate 22 H 09/20/24 04:00 Blood Pressure 110/68 09/20/24 04:00 Pulse Oximetry 98 09/20/24 04:00 Oxygen Delivery Autopap 09/20/24 03:45 Oxygen Flow Rate 3 09/19/24 20:20 Fraction of Inspired Oxygen 32.5 09/19/24 19:53 MDM - GI Bleed MDM Narrative Medical decision making narrative: This is an exceedingly pleasant 84 year male who presents with concern for GI bleed. He had an episode of dark red bloody stool followed by 4 episodes of dark black stool. He has seen Dr. Khan for history of anemia requiring several units of blood at one point but denies any prior GI bleed. He does not know if he has ever had an EGD or colonoscopy however he does state that Dr. Gupta has told him he has an ulcer. He is on clopidogrel. In the emergency department he is initially mildly tachycardic, mildly tachypneic, hypotensive, and on the nasal cannula saturating appropriately at his home rate 3LPM. Creatinine is at baseline, consistent with end-stage renal disease. He has hypoalbuminemia. His calcium corrects to normal in the setting of this. Leukocytosis and normocytic anemia. Hgb <7. Blood product transfusion I have discussed the proposed blood product transfusion with the patient. I have informed the patient regarding potential risks of blood product transfusion which, though rare, include transfusion reaction, hepatitis, and HIV. The patient has been given the opportunity to ask questions about the need to be transfused and possible outcomes of not receiving this treatment. Patient has verbally agreed to undergo transfusion. Nurse will obtain signed consent and place it in the patient's chart. Order was placed for transfusion of 1 unit of packed red blood cells. FOBT /guaic positive. Urinalysis normal. There is a delay in obtaining some lab work as well as giving IV fluids and blood product due to significant issues with obtaining vascular access. Multiple attempts by several nurses. I attempted US guided IVs on the R arm, an EJ at the L neck, and considered placing a central line by evaluating L femoral vein which ultimately appeared smaller than anticipated. Procedure Note: Ultrasound-guided peripheral venous catheter insertion An ultrasound-guided peripheral venous catheter is required in order to obtain vascular access in this patient. Alcohol prep pad is used to sterilize the area and a 20 gauge catheter was successfully inserted into the L AC under ultrasound visualization. The catheter flushes and draws back without difficulty or signs of extravasation. Catheter secured in place with Tegaderm. Patient has an elevated troponin. There is a delay in being able to obtain 3 hour given vascular access. 6 hour ordered instead. Will defer giving aspirin or heparin due to GI bleed. Discussed with Dr Alonso Sahu. Discussed with and admitted to hospitalist. He requests I discuss with non interventional cardiology which I did. Differential Diagnosis Differential diagnosis: Likely infectious diarrhea, gastritis, Upper gastrointestinal hemorrhage, Lower gastrointestinal hemorrhage, hematochezia, melena and anal fissure Lab Data Attestation: I reviewed the patient's lab results. 09/19/24 23:03 09/19/24 04:48 Labs: Lab Results 09/18/24 09/18/24 09/18/24 Range/Units 00:07 00:17 04:49 WBC 16.7 H (4.5-10.0) K/mm3 RBC 2.37 L (4.6-6.20) M/mm3 Hgb 6.9 L* D (14.0-18.0) g/dL Hct 22.9 L (42.0-52.0) % MCV 96.6 (80-100) fl MCH 29.1 (26-34) pg MCHC 30.1 L (32-36) g/dl RDW 16.3 H (11.5-14.5) % Plt Count 250 (150-375) k/mm3 MPV 10.9 H (7.4-10.4) fl Immature Gran % (Auto) Not Reportable Neut % (Auto) Not Reportable Lymph % (Auto) Not Reportable Cottle % (Auto) Not Reportable Eos % (Auto) Not Reportable Baso % (Auto) Not Reportable Lymph # (Auto) Not Reportable Cottle # (Auto) Not Reportable Eos # (Auto) Not Reportable Baso # (Auto) Not Reportable Abs Immat Gran (auto) Not Reportable Absolute Neuts (auto) Not Reportable Absolute Nucleated RBC Not Reportable Total Counted 100 Neutrophils % (Manual) 79 H (46-73) % Band Neutrophils % 2 (0-6) % Lymphocytes % (Manual) 12.0 L (18-44) % Monocytes % (Manual) 3 (3-9) % Eosinophils % (Manual) 1 (0-4) % Basophils % (Manual) 2 H (0-1) % Promyelocytes % (Man) 1 % Nucleated RBC % Not Reportable Abs Neuts (Manual) 13.52 H (1.3-6.7) K/mm3 Abs Lymphs (Manual) 2.00 (1.1-4.5) K/mm3 Abs Monocytes (Manual) 0.50 (0.1-0.90) K/mm3 Absolute Eos (Manual) 0.16 (0.02-0.50) K/mm3 Abs Basophils (Manual) 0.33 H (0.0-0.1) K/mm3 Atypical Lymphocytes Present Smudge Cells Present Platelet Estimate Adequate (Adequate) % Immature Plt Fraction 2.8 (0.9-11.2) % Hypochromasia 1+ Anisocytosis 1+ Schistocytes None seen PT 14.3 (11.1-14.7) Seconds INR 1.1 APTT < 20.0 L (22.3-36.8) Seconds Sodium 144 (137-145) mmol/L Potassium 4.3 (3.4-5.0) mmol/L Chloride 112 H (98-107) mmol/L Carbon Dioxide 19 L (22-30) mmol/L Anion Gap 13 H (4-12) mmol/L BUN 58 H D (9-20) mg/dL Creatinine 2.42 H (0.7-1.3) mg/dL Estim Creat Clear Calc 24 ml/min Estimated GFR 26 L (59 - ) Glucose 112 H (65-110) mg/dL Lactic Acid (0.7-2.0) mmol/L Calcium 8.1 L (8.4-10.2) mg/dL Total Bilirubin 0.3 (0.2-1.3) mg/dL AST 26 (17-59) U/L ALT 17 (6-50) U/L Alkaline Phosphatase 66 (38-126) U/L Troponin I 0.041 H* (0.000-0.034) ng/mL Total Protein 6.0 L (6.3-8.2) g/dL Albumin 3.1 L (3.5-5.1) g/dL Urine Color Yellow (Yellow) Urine Appearance Clear (Clear) Urine pH 5.5 (5.0-9.0) Ur Specific [place] 1.010 (1.001-1.035) Urine Protein Negative (Negative) mg/dL Urine Glucose (UA) Negative (Negative) mg/dL Urine Ketones Negative (Negative) mg/dL Ur Blood (Man) Negative (Negative) Urine Nitrate Negative (Negative) Urine Bilirubin Negative (Negative) Urine Urobilinogen 0.2 (<2.0) mg/dL Leukocyte Esterase Rfl Negative (Negative) GIULIANO/UL Blood Type A Positive Antibody Screen Negative Crossmatch See Detail 09/18/24 09/18/24 09/18/24 Range/Units 05:37 07:17 12:30 WBC (4.5-10.0) K/mm3 RBC (4.6-6.20) M/mm3 Hgb 6.8 L* (14.0-18.0) g/dL Hct 22.4 L (42.0-52.0) % MCV (80-100) fl MCH (26-34) pg MCHC (32-36) g/dl RDW (11.5-14.5) % Plt Count (150-375) k/mm3 MPV (7.4-10.4) fl Immature Gran % (Auto) Neut % (Auto) Lymph % (Auto) Cottle % (Auto) Eos % (Auto) Baso % (Auto) Lymph # (Auto) Cottle # (Auto) Eos # (Auto) Baso # (Auto) Abs Immat Gran (auto) Absolute Neuts (auto) Absolute Nucleated RBC Total Counted Neutrophils % (Manual) (46-73) % Band Neutrophils % (0-6) % Lymphocytes % (Manual) (18-44) % Monocytes % (Manual) (3-9) % Eosinophils % (Manual) (0-4) % Basophils % (Manual) (0-1) % Promyelocytes % (Man) % Nucleated RBC % Abs Neuts (Manual) (1.3-6.7) K/mm3 Abs Lymphs (Manual) (1.1-4.5) K/mm3 Abs Monocytes (Manual) (0.1-0.90) K/mm3 Absolute Eos (Manual) (0.02-0.50) K/mm3 Abs Basophils (Manual) (0.0-0.1) K/mm3 Atypical Lymphocytes Smudge Cells Platelet Estimate (Adequate) % Immature Plt Fraction (0.9-11.2) % Hypochromasia Anisocytosis Schistocytes PT (11.1-14.7) Seconds INR APTT (22.3-36.8) Seconds Sodium (137-145) mmol/L Potassium (3.4-5.0) mmol/L Chloride (98-107) mmol/L Carbon Dioxide (22-30) mmol/L Anion Gap (4-12) mmol/L BUN (9-20) mg/dL Creatinine (0.7-1.3) mg/dL Estim Creat Clear Calc ml/min Estimated GFR (59 - ) Glucose (65-110) mg/dL Lactic Acid 1.3 (0.7-2.0) mmol/L Calcium (8.4-10.2) mg/dL Total Bilirubin (0.2-1.3) mg/dL AST (17-59) U/L ALT (6-50) U/L Alkaline Phosphatase (38-126) U/L Troponin I 1.830 H* D (0.000-0.034) ng/mL Total Protein (6.3-8.2) g/dL Albumin (3.5-5.1) g/dL Urine Color (Yellow) Urine Appearance (Clear) Urine pH (5.0-9.0) Ur Specific [place] (1.001-1.035) Urine Protein (Negative) mg/dL Urine Glucose (UA) (Negative) mg/dL Urine Ketones (Negative) mg/dL Ur Blood (Man) (Negative) Urine Nitrate (Negative) Urine Bilirubin (Negative) Urine Urobilinogen (<2.0) mg/dL Leukocyte Esterase Rfl (Negative) GIULIANO/UL Blood Type Antibody Screen Crossmatch 09/18/24 09/19/24 Range/Units 21:50 04:48 WBC 12.5 H (4.5-10.0) K/mm3 RBC 2.56 L (4.6-6.20) M/mm3 Hgb 7.6 L 7.4 L (14.0-18.0) g/dL Hct 24.6 L 24.5 L (42.0-52.0) % MCV 95.7 (80-100) fl MCH 28.9 (26-34) pg MCHC 30.2 L (32-36) g/dl RDW 18.5 H (11.5-14.5) % Plt Count 204 (150-375) k/mm3 MPV 10.5 H (7.4-10.4) fl Immature Gran % (Auto) Neut % (Auto) Lymph % (Auto) Cottle % (Auto) Eos % (Auto) Baso % (Auto) Lymph # (Auto) Cottle # (Auto) Eos # (Auto) Baso # (Auto) Abs Immat Gran (auto) Absolute Neuts (auto) Absolute Nucleated RBC Total Counted Neutrophils % (Manual) (46-73) % Band Neutrophils % (0-6) % Lymphocytes % (Manual) (18-44) % Monocytes % (Manual) (3-9) % Eosinophils % (Manual) (0-4) % Basophils % (Manual) (0-1) % Promyelocytes % (Man) % Nucleated RBC % Abs Neuts (Manual) (1.3-6.7) K/mm3 Abs Lymphs (Manual) (1.1-4.5) K/mm3 Abs Monocytes (Manual) (0.1-0.90) K/mm3 Absolute Eos (Manual) (0.02-0.50) K/mm3 Abs Basophils (Manual) (0.0-0.1) K/mm3 Atypical Lymphocytes Smudge Cells Platelet Estimate (Adequate) % Immature Plt Fraction (0.9-11.2) % Hypochromasia Anisocytosis Schistocytes PT (11.1-14.7) Seconds INR APTT (22.3-36.8) Seconds Sodium 147 H (137-145) mmol/L Potassium 3.5 (3.4-5.0) mmol/L Chloride 118 H (98-107) mmol/L Carbon Dioxide 21 L (22-30) mmol/L Anion Gap 8 (4-12) mmol/L BUN 55 H (9-20) mg/dL Creatinine 2.44 H (0.7-1.3) mg/dL Estim Creat Clear Calc 22 ml/min Estimated GFR 25 L (59 - ) Glucose 110 (65-110) mg/dL Lactic Acid (0.7-2.0) mmol/L Calcium 7.9 L (8.4-10.2) mg/dL Total Bilirubin (0.2-1.3) mg/dL AST (17-59) U/L ALT (6-50) U/L Alkaline Phosphatase (38-126) U/L Troponin I (0.000-0.034) ng/mL Total Protein (6.3-8.2) g/dL Albumin (3.5-5.1) g/dL Urine Color (Yellow) Urine Appearance (Clear) Urine pH (5.0-9.0) Ur Specific [place] (1.001-1.035) Urine Protein (Negative) mg/dL Urine Glucose (UA) (Negative) mg/dL Urine Ketones (Negative) mg/dL Ur Blood (Man) (Negative) Urine Nitrate (Negative) Urine Bilirubin (Negative) Urine Urobilinogen (<2.0) mg/dL Leukocyte Esterase Rfl (Negative) GIUILANO/UL Blood Type Antibody Screen Crossmatch Imaging Data Radiologist's impression: Impressions Abdomen/Pelvis CT 09/18/24 07:06 IMPRESSION: 1. Small right kidney. Slightly small left kidney. Bilateral renal cysts. Hyperdense area seen in the right kidney lower pole which may be complex cyst or mass. Ultrasound confirmation advised. 2. Small hypodensity in the liver dome which may be a cyst. Ultrasound evaluation advised. 3. Cholelithiasis. 4. No evidence of appendicitis, diverticulitis or intestinal obstruction. 5. No definite active bleeding seen in the bowel. ECG Data EKG #1: Attestation: I personally reviewed and interpreted this ECG as follows: ECG completion date: 09/17/24 ECG completion time: 23:50 Interpretation: Sinus tachycardia at a rate of 101 beats per minute. AR interval 171. QRS 85. QT/QTC 361/419. There are slight ST depressions in precordial leads V4 V5 and V6. Left anterior fascicular block with rS complexes in leads II, III, aVF (small R waves, deep S waves), qR complexes in lead I , avL (small Q waves and tall R waves) and left axis deviation with Leads II, III and aVF negative and leads I and aVL positive. Attempted to review old EKGs. The printing quality of the EKG from 02/28/2022 prohibits interpretation. Discharge Plan Discharge Clinical Impression: CKD (chronic kidney disease), Hypoalbuminemia, Leukocytosis, Normocytic anemia, Non-ST elevation ND (NSTEMI), GI bleed, Bilateral renal cysts, Cholelithiasis Patient Disposition: Still a Patient Condition: Stable
--- NOTE | 2024-09-18 03:02 | PC.NURSE ---
edp dr. martinez at bedside to attempt iv access with ultrasound.
--- NOTE | 2024-09-18 03:22 | PC.NURSE ---
edp dr. martinez unable to obtain IV access x2 attempts with IV ultrasound.
--- NOTE | 2024-09-18 04:53 | PC.NURSE ---
edp dr. martinez at bedside to attempt access x3. edp dr. martinez attempted EJ access in the left neck. EDP unsuccessful
[2024-09-18 04:57] LABS: Add Urine Microscopic? NO; Appearance Urine Clear (Clear); Bilirubin Urine Negative (Negative); Blood Urine Negative (Negative); Color Urine Yellow (Yellow); Glucose Urine UA Negative (Negative); Ketones Urine Negative (Negative); Leukocyte Esterase Ur Negative LEU/UL (Negative); Nitrate Urine Negative (Negative); Protein Urine Negative (Negative); Urobilinogen Urine 0.2 mg/dL (<2.0); pH Urine 5.5 (5.0-9.0)
[2024-09-18 05:18] LABS: Troponin I 0.041 ng/mL (0.000-0.034)
[2024-09-18 06:00] LABS: Lactic Acid Reflex 1.3 mmol/L (0.7-2.0)
[2024-09-18] MEDS: SODIUM CHLORIDE 0.9% IV 1,000 ML 999 ML IV CONT (06:04)
[2024-09-18] MEDS: SODIUM CHLORIDE 0.9% IV 250 ML 30 ML IV CONT ×2 (06:04→16:08)
[2024-09-18] MEDS: TUBING, BLOOD PLUM PUMP TUBING 1 EACH XX ×2 (06:05→16:09)
--- NOTE | 2024-09-18 06:05 | PC.NURSE ---
edp dr. martinez able to obtain iv access peripherally in left ac with iv ultrasound. lactic acid order blood draw obtain from iv initation.
--- NOTE | 2024-09-18 07:56 | ECG_ITS ---
Test Date: 2024-09-18 08:11:51 Measurements Intervals [place] Rate: 89 P: 0 WA: 0 QRS: -38 QRSD: 88 T: 28 QT: 372 QTc: 454 Interpretive Statements SINUS RHYTHM LEFT AXIS DEVIATION VOLTAGE CIRTERIA FOR LVH NONSPECIFIC ST & T-WAVE ABNORMALITY- ANTEROLATERAL LEADS BASELINE ARTIFACT- I, II, AVR BORDERLINE ECG Compared to ECG 09/17/2024 23:50:34 HEART RATE HAS DECREASED Electronically Signed On 09-18-2024 12:14:16 CDT by Ed Ozuna D.O.
[2024-09-18] MEDS: PANTOPRAZOLE SODIUM IV 80 MG in SODIUM CHLORIDE 0.9% IV 500 ML 50 MG IV CONT ×2 (11:22→22:20)
[2024-09-18] MEDS: LACTATED RINGERS 1,000 ML 125 ML IV CONT (11:24)
--- NOTE | 2024-09-18 11:43 | P.CONCA_ITS ---
Assessment and Plan Assessment and plan (1) Coronary artery disease: Code(s): I25.10 - Atherosclerotic heart disease of [place] coronary artery without angina pectoris Status: Acute (2) Acute GI bleeding: Code(s): K92.2 - Gastrointestinal hemorrhage, unspecified Status: Acute Plan This is an 84-year-old man with coronary disease with history of RCA intervention most recently 25 years ago. He has done well in the intervening 25 years. He has had 2 episodes of significant GI bleeding 1 was several years ago and again to today. In this setting for reasons that are not completely explained in the chart troponin levels are sampled and as expected they are not normal. This is the so-called type 2 myocardial infarction related to significant bleeding and acute anemia. Obviously clopidogrel which has been his anti-platelet agent has appropriately been stopped. GI consultation has been requested and is pending. We will follow him with you but at this point specific ischemia workup is otherwise not indicated or planned Johan Crane MD [facility] History of Present Illness History of Present Illness Consult date/time: 09/18/24 11:43 Reason For Visit: GI bleed, anemia requiring transfusion, NSTEMI Narrative: This is an 84-year-old man I am seeing at the request of the hospitalist today because of a troponin elevation. There is no evidence of an acute coronary syndrome clinically. The reason that troponin levels were sampled is not explained in the chart obviously with significant GI bleeding, significant anemia 1 would not expect this gentleman's troponin levels to be normal. He says that he has been feeling well cardiac-curtis he does not have any symptoms of chest pain pressure or heaviness. I followed this man in my office regularly for his general cardiology care. He has a history of coronary disease with stenting of his right coronary artery on 2 occasions in the year 1999 and again in 2004. In the last 20 years he has had no clinical coronary problems and has not required a coronary angiogram in the intervening years. He did have a history of significant GI bleed several years ago worse hemoglobin came down to a 5.5 g. I do not know the specific reason for that hemorrhage was identified back then. The patient states that his current episode of bleeding began yesterday morning with symptoms of frankly melanotic stool stool mixed with red blood. He was not having any hematemesis. Hemoglobin level was 6.5 he received a unit of packed red cells in the emergency room and is now in the IMU. Review of Systems 2 Constitutional: Constitutional: Reports no additional constitutional complaints Eyes: Eyes: Reports no additional eye complaints ENT: Reports system reviewed and no additional complaints, except as documented Cardiovascular: Cardiovascular: Reports no additional cardiovascular complaints Respiratory: Respiratory: Reports no additional respiratory complaints Gastrointestinal: Gastrointestinal: Reports as per HPI, Reports melena and Reports hematochezia Genitourinary: Genitourinary: Reports no additional male genitourinary complaints Musculoskeletal: Musculoskeletal: Reports no additional musculoskeletal complaints Integumentary/Breasts: Skin/Breast: Reports system reviewed and no additional complaints, except as docu Neurologic: Reports system reviewed and no additional complaints, except as documented Endocrine: Endocrine: Reports no additional endocrine complaints Hematologic/Lymphatic: Hematologic/Lymphatic: Reports no additional hematologic/lymphatic complaints Allergic/Immunologic: Allergic/Immunologic: Reports no additional allergic/immunologic complaints [facility] Past Medical History Medical History Chronic respiratory failure Duodenal ulcer Obesity Blood thinned due to long-term anticoagulant use Acute on chronic renal failure Acute on chronic blood loss anemia Melena GI bleed Depression COPD (chronic obstructive pulmonary disease) COVID-19 CKD (chronic kidney disease) Impacted cerumen of both ears (HFpEF) heart failure with preserved ejection fraction Chronic heart failure with preserved ejection fraction COPD (chronic obstructive pulmonary disease) Enlarged prostate without lower urinary tract symptoms (luts) Essential (primary) hypertension Gastro-esophageal reflux disease without esophagitis Mixed hyperlipidemia Sleep apnea Colonoscopy planned Coronary stent patent Gastric ulcer Impaired glucose tolerance CHF (congestive heart failure) Acne rosacea Coronary artery disease Bipolar 1 disorder Chronic kidney disease, stage 3 GERD (gastroesophageal reflux disease) Hypernatremia Chronic hypoxemic respiratory failure Heart failure Obstructive sleep apnea Surgical History Surgical History H/O heart artery stent History of removal of pigmented skin lesion H/O cataract extraction H/O hernia repair H/O oral surgery Family History Family History Mother Family history of respiratory disorder, Onset Age: 82 Diabetes mellitus Family history of diabetes mellitus in first degree relative Father Malignant neoplasm of prostate, Onset Age: 83 Patient's father is Sibling Family history of heart disease in male family member before age 55 Family history of cardiovascular disease Prostate carcinoma Social History Social History Social History: He lives with his and they have no children. 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 He is a former smoker. He occasionally has an alcoholic beverage. He does not use any marijuana or illicit drugs. Code status full code Smoking packs per day: 2 Smoking cigarettes per day: 40.0 Years smoked: 40 Smoking pack-years: 80.00 Smoking status: Former smoker Tobacco type: cigarettes Second hand tobacco smoke exposure: No Smoking end date: 06/15/79 Alcohol intake: never Substance use: never Substance use type: does not use Other substance usage details: social beer every so often Do You Feel Safe in your Home?: Yes Lack of Transportation: No Lack of Food: Never True Current Housing: I Have Housing Concerned About Future Housing: No Difficulty Paying Gas/Electric Bills: No Difficulty Paying for Meds: No Currently Unemployed: No Education: High School Diploma/GED Difficulty w/ Childcare or Family Care: No Living arrangements: with family Occupation/Education: retired Gender identity (if verbalized by the patient): Male Sexual Orientation (if Verbalized by the Patient): Straight or Heterosexual Spiritual care concerns: No Meds Home Medications and Allergies Home Medications ?Medication ?Instructions ?Recorded ?Confirmed ?Type aripiprazole 2 mg tablet (Abilify) 2 mg PO DAILY 05/26/19 09/14/24 History duloxetine 20 mg capsule,delayed 20 mg PO DAILY 12/12/20 09/14/24 History release inhalational spacing device #1 ea 05/02/22 09/14/24 Rx ascorbate calcium (vitamin C) 500 500 mg PO DAILY 08/05/22 09/14/24 History mg tablet ferrous sulfate 325 mg (65 mg 325 mg PO BID 08/05/22 09/14/24 History iron) tablet lamotrigine 25 mg tablet 50 mg PO DAILY 08/05/22 09/14/24 History lutein 25 mg-zeaxanthin 5 mg 1 cap PO DAILY 08/05/22 09/14/24 History capsule cholecalciferol (vitamin D3) 50 50 mcg PO DAILY 08/12/22 09/14/24 History mcg (2,000 unit) capsule (Vitamin D3) mecobalamin (vitamin B12) 1,000 1,000 mcg PO DAILY 10/30/22 09/14/24 History mcg chewable tablet albuterol sulfate 90 mcg/actuation 1 - 2 puff inhalation Q4-6H PRN 12/29/23 09/14/24 Rx aerosol inhaler shortness of breath or wheezing #8.5 grams ketoconazole 2 % shampoo topical 12/29/23 09/14/24 History budesonide-formoterol HFA 160 See Rx Instructions .Route 05/02/24 09/14/24 Rx mcg-4.5 mcg/actuation aerosol .COMPLEX #10.2 ea inhaler atorvastatin 40 mg tablet 40 mg PO DAILY #90 tabs 05/16/24 09/14/24 Rx amlodipine 2.5 mg tablet See Rx Instructions .Route 07/13/24 09/14/24 Rx .COMPLEX #90 tabs ipratropium bromide 0.02 % See Rx Instructions .Route 07/13/24 09/14/24 Rx solution for inhalation .COMPLEX #437.5 mL benzonatate 200 mg capsule 200 mg PO TID PRN cough #60 caps 08/11/24 09/14/24 Rx carvedilol 6.25 mg tablet See Rx Instructions .Route 08/22/24 09/14/24 Rx .COMPLEX #180 tabs cefdinir 300 mg capsule 300 mg PO Q12H #20 caps 08/22/24 09/14/24 Rx clopidogrel 75 mg tablet See Rx Instructions .Route 08/22/24 09/14/24 Rx .COMPLEX #90 tabs pantoprazole 40 mg tablet,delayed See Rx Instructions .Route 08/22/24 09/14/24 Rx release .COMPLEX #90 tabs dextromethorphan-guaifenesin ER 60 1 tablet PO Q12H PRN 09/14/24 09/14/24 History mg-1,200 mg tab,extend release,12hr (Mucinex DM) Allergies Allergy/AdvReac Type Severity Reaction Status Date / Time No Known Allergies Allergy Verified 09/14/24 09:02 Vital Signs Vital Signs - 24 hr 09/17/24 22:54 09/17/24 23:08 09/17/24 23:15 Temperature 36.2 C L Pulse Rate 107 H 108 H 101 H Respiratory Rate 26 H 29 H 22 H Blood Pressure 95/46 L Pulse Oximetry 95 Oxygen Delivery Nasal Cannula Oxygen Flow Rate 3 09/17/24 23:16 09/17/24 23:30 09/17/24 23:54 Temperature Pulse Rate 100 102 H Respiratory Rate 20 21 H Blood Pressure 107/69 Pulse Oximetry 95 95 Oxygen Delivery Nasal Cannula Oxygen Flow Rate 3 09/17/24 23:56 09/18/24 00:00 09/18/24 00:41 Temperature Pulse Rate 100 101 H 102 H Respiratory Rate 21 H 18 19 Blood Pressure Pulse Oximetry Oxygen Delivery Oxygen Flow Rate 09/18/24 01:18 09/18/24 01:30 09/18/24 01:45 Temperature Pulse Rate 103 H 101 H 102 H Respiratory Rate 18 19 19 Blood Pressure Pulse Oximetry Oxygen Delivery Oxygen Flow Rate 09/18/24 02:33 09/18/24 03:01 09/18/24 03:29 Temperature Pulse Rate 102 H 99 Respiratory Rate 21 H 18 Blood Pressure 135/74 114/73 Pulse Oximetry 97 97 97 Oxygen Delivery Nasal Cannula Oxygen Flow Rate 3 09/18/24 04:00 09/18/24 05:58 09/18/24 06:01 Temperature 36.8 C Pulse Rate 97 95 100 Respiratory Rate 23 H 23 H 21 H Blood Pressure 120/73 123/43 L 122/60 Pulse Oximetry 97 100 97 Oxygen Delivery Oxygen Flow Rate 09/18/24 06:04 09/18/24 06:14 09/18/24 06:52 Temperature 36.8 C 36.8 C Pulse Rate 94 96 70 Respiratory Rate 21 H 20 20 Blood Pressure 122/60 122/60 124/50 L Pulse Oximetry 97 99 97 Oxygen Delivery Oxygen Flow Rate 09/18/24 07:14 09/18/24 07:52 09/18/24 08:14 Temperature 36.8 C 36.8 C Pulse Rate 94 95 88 Respiratory Rate 20 22 H 20 Blood Pressure 120/58 L 120/58 L 106/62 Pulse Oximetry 99 97 99 Oxygen Delivery Oxygen Flow Rate 09/18/24 08:34 09/18/24 10:50 Temperature 37.1 C Pulse Rate 91 Respiratory Rate 20 Blood Pressure 120/65 Pulse Oximetry 98 93 Oxygen Delivery Nasal Cannula Oxygen Flow Rate 3 Exam 2 Const: General: comfortable and no acute distress HENMT: Mouth: Yes moist mucous membranes Eyes: Sclera: sclerae normal Neck: Neck: supple and no JVD Resp: Effort & Inspection: normal respiratory effort Auscultation: clear to auscultation bilaterally Cardio: Rate: regular rate Rhythm: regular rhythm Other: Systolic crescendo decrescendo murmur grade 2/6 audible at the left sternal border which does not radiate GI: GI Palp: Yes Soft to palpation Auscultation: normal bowel sounds Skin: General skin exam: normal color Neuro: Other: Alert and oriented x3 Results Labs and Meds 09/18/24 00:17 09/18/24 00:07 Lab results: Cardiac Enzymes 09/18/24 09/18/24 Range/Units 00:07 07:17 AST 26 (17-59) U/L Troponin I 0.041 H* 1.830 H* D (0.000-0.034) ng/mL Coagulation 09/18/24 Range/Units 00:07 PT 14.3 (11.1-14.7) Seconds APTT < 20.0 L (22.3-36.8) Seconds CBC 09/18/24 Range/Units 00:17 WBC 16.7 H (4.5-10.0) K/mm3 RBC 2.37 L (4.6-6.20) M/mm3 Hgb 6.9 L* D (14.0-18.0) g/dL Hct 22.9 L (42.0-52.0) % Plt Count 250 (150-375) k/mm3 Lymph # (Auto) Not Reportable Leslie # (Auto) Not Reportable Eos # (Auto) Not Reportable Baso # (Auto) Not Reportable Comprehensive Metabolic Panel 09/18/24 Range/Units 00:07 Sodium 144 (137-145) mmol/L Potassium 4.3 (3.4-5.0) mmol/L Chloride 112 H (98-107) mmol/L Carbon Dioxide 19 L (22-30) mmol/L BUN 58 H D (9-20) mg/dL Creatinine 2.42 H (0.7-1.3) mg/dL Glucose 112 H (65-110) mg/dL Calcium 8.1 L (8.4-10.2) mg/dL AST 26 (17-59) U/L ALT 17 (6-50) U/L Alkaline Phosphatase 66 (38-126) U/L Total Protein 6.0 L (6.3-8.2) g/dL Albumin 3.1 L (3.5-5.1) g/dL Intake and Output 09/17/24 09/18/24 09/18/24 23:59 07:59 15:59 Intake Total 0 1350 Balance 0 1350 Intake: IV 1000 Sodium Chloride 0.9% IV 1,000 1000 ml @ 999 mls/hr IV CONT .Q1H1M STA Rx#:[id number] Intake (Blood Product) Amt 0 350 Leukocyte Reduced Rbc Unit 0 350 [id number]
--- NOTE | 2024-09-18 12:16 | ADMGEN ---
This patient, Zaheer Camarillo, was admitted to IMU Room 205-01. Patient/family oriented to hospital policies and general routines including ID bracelet, bed and alarms, visiting hours, pain management, procedures, bathroom and other care routines, personal items, smoking policy, room service/diet, and visiting hours. Information on how to activate the Rapid Response Team has been discussed. Patient/Family are encouraged to report perceived risks to care and to ask questions if they do not understand what they are told or what they should do. Admission assessment completed with pt and at bedside. Pt voiced no complaints or concerns at this time. Pt denies pain at this time. Head to toe assessment completed and charted in the chart. Call light and personal items in reach. Will continue to monitor. Mihai Mendez RN
[2024-09-18 12:36] LABS: Hematocrit 22.4 % (42.0-52.0)
[2024-09-18 12:41] LABS: Hemoglobin 6.8 g/dL (14.0-18.0)
--- NOTE | 2024-09-18 12:57 | P.HP_ITS ---
H&P: HPI History of Present Illness Date/Time: 09/18/24 12:57 Chief Complaint: Lower GI bleeding/black stool, nausea Narrative: Patient with history of CKD, anemia, CAD status post stent placement about 25 years ago, chronic hypoxia on 3 L oxygen, HTN, depression presented with 1 week history of black stool and also 1 episode of bright red blood per rectum yesterday. Patient also complaining of left upper quadrant burning pain since yesterday which improved after getting pain medication. He denies any chest pain, shortness of breath, nausea vomiting. Denies any fever or chills. . Denies taking NSAIDs/pain medications recently. Patient notes he has similar problem about 3 years ago and since then has been on iron pills. Last colonoscopy was 10 years ago. Patient presents to ER for chronic In the ER patient was found to have hemoglobin 6.8 1 unit of blood was ordered. JT was consulted. Patient had elevated troponin. Cardiology was contacted. Likely demand ischemia. No intervention needed. Patient was admitted for further management. Review of Systems Constitutional: Constitutional: Reports no additional constitutional complaints Eyes: Eyes: Reports no additional eye complaints ENT: Reports system reviewed and no additional complaints, except as documented Cardiovascular: Cardiovascular: Reports no additional cardiovascular complaints Respiratory: Respiratory: Reports no additional respiratory complaints Gastrointestinal: Gastrointestinal: Reports as per HPI, Reports melena and Reports hematochezia Genitourinary: Genitourinary: Reports no additional male genitourinary compl aints Musculoskeletal: Musculoskeletal: Reports no additional musculoskeletal complaints Integumentary/Breasts: Skin/Breast: Reports system reviewed and no additional complaints, except as docu Neurologic: Reports system reviewed and no additional complaints, except as documented Endocrine: Endocrine: Reports no additional endocrine complaints Hematologic/Lymphatic: Hematologic/Lymphatic: Reports no additional hematologic/lymphatic complaints Allergic/Immunologic: Allergic/Immunologic: Reports no additional allergic/immunologic complaints [facility] Past Medical History Medical History (Reviewed 07/12/24 @ 08:33 by Racheal Fenton [facility]) Chronic respiratory failure Duodenal ulcer Obesity Blood thinned due to long-term anticoagulant use Acute on chronic renal failure Acute on chronic blood loss anemia Melena GI bleed Depression COPD (chronic obstructive pulmonary disease) COVID-19 CKD (chronic kidney disease) Impacted cerumen of both ears (HFpEF) heart failure with preserved ejection fraction Chronic heart failure with preserved ejection fraction COPD (chronic obstructive pulmonary disease) Enlarged prostate without lower urinary tract symptoms (luts) Essential (primary) hypertension Gastro-esophageal reflux disease without esophagitis Mixed hyperlipidemia Sleep apnea Colonoscopy planned Coronary stent patent Gastric ulcer Impaired glucose tolerance CHF (congestive heart failure) Acne rosacea Coronary artery disease Bipolar 1 disorder Chronic kidney disease, stage 3 GERD (gastroesophageal reflux disease) Hypernatremia Chronic hypoxemic respiratory failure Heart failure Obstructive sleep apnea Surgical History Surgical History H/O heart artery stent History of removal of pigmented skin lesion H/O cataract extraction H/O hernia repair H/O oral surgery Family History Family History (Updated 09/18/24 @ 11:51 by Eileen Mendez RN) Mother Family history of respiratory disorder, Onset Age: 82 Diabetes mellitus Family history of diabetes mellitus in first degree relative Father Malignant neoplasm of prostate, Onset Age: 83 Patient's father is Sibling Family history of heart disease in male family member before age 55 Family history of cardiovascular disease Prostate carcinoma Social History Social History Social History: He lives with his and they have no children. Retired from being the [employer]. He is a former smoker. He occasionally has an alcoholic beverage. He does not use any marijuana or illicit drugs. Code status full code Smoking packs per day: 2 Smoking cigarettes per day: 40.0 Years smoked: 40 Smoking pack-years: 80.00 Smoking status: Former smoker Tobacco type: cigarettes Second hand tobacco smoke exposure: No Smoking end date: 06/15/79 Alcohol intake: former Substance use: never Substance use type: does not use Other substance usage details: social beer every so often Do You Feel Safe in your Home?: Yes Lack of Transportation: No Lack of Food: Never True Current Housing: I Have Housing Concerned About Future Housing: No Difficulty Paying Gas/Electric Bills: No Difficulty Paying for Meds: No Currently Unemployed: No Education: High School Diploma/GED Difficulty w/ Childcare or Family Care: No Living arrangements: with family Occupation/Education: retired Gender identity (if verbalized by the patient): Male Sexual Orientation (if Verbalized by the Patient): Straight or Heterosexual Spiritual care concerns: No Meds Home Medications and Allergies Home Medications ?Medication ?Instructions ?Recorded ?Confirmed ?Type aripiprazole 2 mg tablet (Abilify) 2 mg PO DAILY 05/26/19 09/18/24 History duloxetine 20 mg capsule,delayed 20 mg PO DAILY 12/12/20 09/18/24 History release inhalational spacing device #1 ea 05/02/22 09/18/24 Rx ascorbate calcium (vitamin C) 500 500 mg PO DAILY 08/05/22 09/18/24 History mg tablet ferrous sulfate 325 mg (65 mg 325 mg PO BID 08/05/22 09/18/24 History iron) tablet lamotrigine 25 mg tablet 50 mg PO DAILY 08/05/22 09/18/24 History lutein 25 mg-zeaxanthin 5 mg 1 cap PO DAILY 08/05/22 09/18/24 History capsule cholecalciferol (vitamin D3) 50 50 mcg PO DAILY 08/12/22 09/18/24 History mcg (2,000 unit) capsule (Vitamin D3) mecobalamin (vitamin B12) 1,000 1,000 mcg PO DAILY 10/30/22 09/18/24 History mcg chewable tablet albuterol sulfate 90 mcg/actuation 1 - 2 puff inhalation Q4-6H PRN 12/29/23 09/18/24 Rx aerosol inhaler shortness of breath or wheezing #8.5 grams ketoconazole 2 % shampoo 1 applic topical PRN 12/29/23 09/18/24 History budesonide-formoterol HFA 160 See Rx Instructions .Route 05/02/24 09/18/24 Rx mcg-4.5 mcg/actuation aerosol .COMPLEX #10.2 ea inhaler atorvastatin 40 mg tablet 40 mg PO DAILY #90 tabs 05/16/24 09/18/24 Rx amlodipine 2.5 mg tablet See Rx Instructions .Route 07/13/24 09/18/24 Rx .COMPLEX #90 tabs ipratropium bromide 0.02 % See Rx Instructions .Route 07/13/24 09/18/24 Rx solution for inhalation .COMPLEX #437.5 mL benzonatate 200 mg capsule 200 mg PO TID PRN cough #60 caps 08/11/24 09/18/24 Rx carvedilol 6.25 mg tablet See Rx Instructions .Route 08/22/24 09/18/24 Rx .COMPLEX #180 tabs cefdinir 300 mg capsule 300 mg PO Q12H #20 caps 08/22/24 09/18/24 Rx clopidogrel 75 mg tablet See Rx Instructions .Route 08/22/24 09/18/24 Rx .COMPLEX #90 tabs pantoprazole 40 mg tablet,delayed See Rx Instructions .Route 08/22/24 09/18/24 Rx release .COMPLEX #90 tabs dextromethorphan-guaifenesin ER 60 1 tablet PO Q12H PRN cough 09/14/24 09/18/24 History mg-1,200 mg tab,extend release,12hr (Mucinex DM) Allergies Allergy/AdvReac Type Severity Reaction Status Date / Time No Known Allergies Allergy Verified 09/14/24 09:02 Vital Signs Vital Signs - 24 hr 09/17/24 22:54 09/17/24 23:08 09/17/24 23:15 Temperature 97.1 F L Pulse Rate 107 H 108 H 101 H Respiratory Rate 26 H 29 H 22 H Blood Pressure 95/46 L Pulse Oximetry 95 Oxygen Delivery Nasal Cannula Oxygen Flow Rate 3 09/17/24 23:16 09/17/24 23:30 09/17/24 23:54 Temperature Pulse Rate 100 102 H Respiratory Rate 20 21 H Blood Pressure 107/69 Pulse Oximetry 95 95 Oxygen Delivery Nasal Cannula Oxygen Flow Rate 3 09/17/24 23:56 09/18/24 00:00 09/18/24 00:41 Temperature Pulse Rate 100 101 H 102 H Respiratory Rate 21 H 18 19 Blood Pressure Pulse Oximetry Oxygen Delivery Oxygen Flow Rate 09/18/24 01:18 09/18/24 01:30 09/18/24 01:45 Temperature Pulse Rate 103 H 101 H 102 H Respiratory Rate 18 19 19 Blood Pressure Pulse Oximetry Oxygen Delivery Oxygen Flow Rate 09/18/24 02:33 09/18/24 03:01 09/18/24 03:29 Temperature Pulse Rate 102 H 99 Respiratory Rate 21 H 18 Blood Pressure 135/74 114/73 Pulse Oximetry 97 97 97 Oxygen Delivery Nasal Cannula Oxygen Flow Rate 3 09/18/24 04:00 09/18/24 05:58 09/18/24 06:01 Temperature 98.2 F Pulse Rate 97 95 100 Respiratory Rate 23 H 23 H 21 H Blood Pressure 120/73 123/43 L 122/60 Pulse Oximetry 97 100 97 Oxygen Delivery Oxygen Flow Rate 09/18/24 06:04 09/18/24 06:14 09/18/24 06:52 Temperature 98.2 F 98.3 F Pulse Rate 94 96 70 Respiratory Rate 21 H 20 20 Blood Pressure 122/60 122/60 124/50 L Pulse Oximetry 97 99 97 Oxygen Delivery Oxygen Flow Rate 09/18/24 07:14 09/18/24 07:52 09/18/24 08:14 Temperature 98.2 F 98.2 F Pulse Rate 94 95 88 Respiratory Rate 20 22 H 20 Blood Pressure 120/58 L 120/58 L 106/62 Pulse Oximetry 99 97 99 Oxygen Delivery Oxygen Flow Rate 09/18/24 08:34 09/18/24 10:50 Temperature 98.7 F Pulse Rate 91 Respiratory Rate 20 Blood Pressure 120/65 Pulse Oximetry 98 93 Oxygen Delivery Nasal Cannula Oxygen Flow Rate 3 Exam Narrative: GENERAL: Well-appearing, well-nourished, and in no acute distress. HEAD: Normocephalic, atraumatic. EYES: Non injected, non icteric ENT: Nares clear, no rhinorrhea or epistaxis. NECK: Supple. CHEST: Speaking in full sentences. No respiratory distress. HEART: Regular rate and rhythm. . ABDOMEN: Soft, nondistended. EXTREMITIES: Normal range of motion. No lower extremity edema. SKIN: Warm, dry, no rash. NEURO: No focal deficits. Alert and oriented x3. PSYCH: Normal mood and affect. Const: General: comfortable and no acute distress HENMT: Mouth: Yes moist mucous membranes Eyes: Sclera: sclerae normal Neck: Neck: supple and no JVD Resp: Effort & Inspection: normal respiratory effort Auscultation: clear to auscultation bilaterally Cardio: Rate: regular rate Rhythm: regular rhythm Other: Systolic crescendo decrescendo murmur grade 2/6 audible at the left sternal border which does not radiate GI: Auscultation: normal bowel sounds Skin: General skin exam: normal color Neuro: Other: Alert and oriented x3 H&P: Results Labs Labs: Short CBC 09/18/24 09/18/24 Range/Units 00:17 12:30 WBC 16.7 H (4.5-10.0) K/mm3 Hgb 6.9 L* D 6.8 L* (14.0-18.0) g/dL Hct 22.9 L 22.4 L (42.0-52.0) % Plt Count 250 (150-375) k/mm3 BMP 09/18/24 00:07 Sodium 144 Potassium 4.3 Chloride 112 H Carbon Dioxide 19 L BUN 58 H D Creatinine 2.42 H Glucose 112 H Calcium 8.1 L Cardiac Enzymes 09/18/24 09/18/24 Range/Units 00:07 07:17 Troponin I 0.041 H* 1.830 H* D (0.000-0.034) ng/mL Liver Function 09/18/24 Range/Units 00:07 Total Bilirubin 0.3 (0.2-1.3) mg/dL AST 26 (17-59) U/L ALT 17 (6-50) U/L Alkaline Phosphatase 66 (38-126) U/L Albumin 3.1 L (3.5-5.1) g/dL Urine 09/18/24 Range/Units 04:49 Urine Color Yellow (Yellow) Urine Appearance Clear (Clear) Urine pH 5.5 (5.0-9.0) Ur Specific [place] 1.010 (1.001-1.035) Urine Protein Negative (Negative) mg/dL Urine Glucose (UA) Negative (Negative) mg/dL Assessment and Plan Assessment and plan (1) Coronary artery disease: Code(s): I25.10 - Atherosclerotic heart disease of [place] coronary artery without angina pectoris Status: Acute (2) Acute GI bleeding: Code(s): K92.2 - Gastrointestinal hemorrhage, unspecified Status: Acute Plan Acute on chronic anemia secondary to GI bleeding Received 1 unit of blood, hemoglobin 6.9. 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
--- NOTE | 2024-09-18 13:59 | WPDGICN ---
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 Status: Acute Assessment and Plan: on hold (4) Non-ST elevation [place] (NSTEMI): Code(s): I21.4 - Non-ST elevation (NSTEMI) myocardial infarction Status: Acute Assessment and Plan: probably elevated troponin from symptomatic anemia cardiology on board (5) MILLER (dyspnea on exertion): Code(s): R06.09 - Other forms of dyspnea Status: Acute (6) Stage 3b chronic kidney disease: Code(s): N18.32 - Chronic kidney disease, stage 3b Status: Acute GI Consult Note Consult date/time: 09/18/24 13:59 Reason for consult: gib, melena HPI: Zaheer Camarillo is a 84 year old male with history of CKD stage 3b, chronic anemia for which he is seeing Dr Khan- had iv iron in the past (EGD 2021 showed DU with stigmata of bleeding, colonoscopy 2022 only polyps and hemorrhoids). Also history CAD status post stent placement about 25 years ago on plavix, chronic hypoxia on 3 L oxygen, HTN. Here with one week black stool and yesterday noted one episode of bright red blood per rectum. is here and noted that he has been having more MILLER after using stairs. Denies taking NSAIDs, he is using plavix. Hgb was low and received blood transfusion. Review of Systems Constitutional: Constitutional: Reports fatigue and Reports weakness Eyes: Eyes: Denies blurry vision ENT: Reports Normal hearing present Cardiovascular: Cardiovascular: Denies chest pain Respiratory: Respiratory: Reports dyspnea on exertion Gastrointestinal: Gastrointestinal: Reports melena Genitourinary: Genitourinary: Denies hematuria Musculoskeletal: Musculoskeletal: Denies neck pain Integumentary/Breasts: Skin/Breast: Denies rash Neurologic: Denies Abnormal speech present Psychiatric: Psychiatric: Denies behavioral changes [facility] Past Medical History Medical History Chronic respiratory failure Duodenal ulcer Obesity Blood thinned due to long-term anticoagulant use Acute on chronic renal failure Acute on chronic blood loss anemia Melena GI bleed Depression COPD (chronic obstructive pulmonary disease) COVID-19 CKD (chronic kidney disease) Impacted cerumen of both ears (HFpEF) heart failure with preserved ejection fraction Chronic heart failure with preserved ejection fraction COPD (chronic obstructive pulmonary disease) Enlarged prostate without lower urinary tract symptoms (luts) Essential (primary) hypertension Gastro-esophageal reflux disease without esophagitis Mixed hyperlipidemia Sleep apnea Colonoscopy planned Coronary stent patent Gastric ulcer Impaired glucose tolerance CHF (congestive heart failure) Acne rosacea Coronary artery disease Bipolar 1 disorder Chronic kidney disease, stage 3 GERD (gastroesophageal reflux disease) Hypernatremia Chronic hypoxemic respiratory failure Heart failure Obstructive sleep apnea Surgical History Surgical History H/O heart artery stent History of removal of pigmented skin lesion H/O cataract extraction H/O hernia repair H/O oral surgery Family History Family History (Updated 09/18/24 @ 11:51 by Eileen Mendez RN) Mother Family history of respiratory disorder, Onset Age: 82 Diabetes mellitus Family history of diabetes mellitus in first degree relative Father Malignant neoplasm of prostate, Onset Age: 83 Patient's father is Sibling Family history of heart disease in male family member before age 55 Family history of cardiovascular disease Prostate carcinoma Social History Social History Social History: He lives with his and they have no children. 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 He is a former smoker. He occasionally has an alcoholic beverage. He does not use any marijuana or illicit drugs. Code status full code Smoking packs per day: 2 Smoking cigarettes per day: 40.0 Years smoked: 40 Smoking pack-years: 80.00 Smoking status: Former smoker Tobacco type: cigarettes Second hand tobacco smoke exposure: No Smoking end date: 06/15/79 Alcohol intake: former Substance use: never Substance use type: does not use Other substance usage details: social beer every so often Do You Feel Safe in your Home?: Yes Lack of Transportation: No Lack of Food: Never True Current Housing: I Have Housing Concerned About Future Housing: No Difficulty Paying Gas/Electric Bills: No Difficulty Paying for Meds: No Currently Unemployed: No Education: High School Diploma/GED Difficulty w/ Childcare or Family Care: No Living arrangements: with family Occupation/Education: retired Gender identity (if verbalized by the patient): Male Sexual Orientation (if Verbalized by the Patient): Straight or Heterosexual Spiritual care concerns: No Meds Home Medications and Allergies Home Medications ?Medication ?Instructions ?Recorded ?Confirmed ?Type aripiprazole 2 mg tablet (Abilify) 2 mg PO DAILY 05/26/19 09/18/24 History duloxetine 20 mg capsule,delayed 20 mg PO DAILY 12/12/20 09/18/24 History release inhalational spacing device #1 ea 05/02/22 09/18/24 Rx ascorbate calcium (vitamin C) 500 500 mg PO DAILY 08/05/22 09/18/24 History mg tablet ferrous sulfate 325 mg (65 mg 325 mg PO BID 08/05/22 09/18/24 History iron) tablet lamotrigine 25 mg tablet 50 mg PO DAILY 08/05/22 09/18/24 History lutein 25 mg-zeaxanthin 5 mg 1 cap PO DAILY 08/05/22 09/18/24 History capsule cholecalciferol (vitamin D3) 50 50 mcg PO DAILY 08/12/22 09/18/24 History mcg (2,000 unit) capsule (Vitamin D3) mecobalamin (vitamin B12) 1,000 1,000 mcg PO DAILY 10/30/22 09/18/24 History mcg chewable tablet albuterol sulfate 90 mcg/actuation 1 - 2 puff inhalation Q4-6H PRN 12/29/23 09/18/24 Rx aerosol inhaler shortness of breath or wheezing #8.5 grams ketoconazole 2 % shampoo 1 applic topical PRN 12/29/23 09/18/24 History budesonide-formoterol HFA 160 See Rx Instructions .Route 05/02/24 09/18/24 Rx mcg-4.5 mcg/actuation aerosol .COMPLEX #10.2 ea inhaler atorvastatin 40 mg tablet 40 mg PO DAILY #90 tabs 05/16/24 09/18/24 Rx amlodipine 2.5 mg tablet See Rx Instructions .Route 07/13/24 09/18/24 Rx .COMPLEX #90 tabs ipratropium bromide 0.02 % See Rx Instructions .Route 07/13/24 09/18/24 Rx solution for inhalation .COMPLEX #437.5 mL benzonatate 200 mg capsule 200 mg PO TID PRN cough #60 caps 08/11/24 09/18/24 Rx carvedilol 6.25 mg tablet See Rx Instructions .Route 08/22/24 09/18/24 Rx .COMPLEX #180 tabs cefdinir 300 mg capsule 300 mg PO Q12H #20 caps 08/22/24 09/18/24 Rx clopidogrel 75 mg tablet See Rx Instructions .Route 08/22/24 09/18/24 Rx .COMPLEX #90 tabs pantoprazole 40 mg tablet,delayed See Rx Instructions .Route 08/22/24 09/18/24 Rx release .COMPLEX #90 tabs dextromethorphan-guaifenesin ER 60 1 tablet PO Q12H PRN cough 09/14/24 09/18/24 History mg-1,200 mg tab,extend release,12hr (Mucinex DM) Allergies Allergy/AdvReac Type Severity Reaction Status Date / Time No Known Allergies Allergy Verified 09/14/24 09:02 Vital Signs Vital Signs - 24 hr 09/17/24 22:54 09/17/24 23:08 09/17/24 23:15 Temperature 97.1 F L Pulse Rate 107 H 108 H 101 H Respiratory Rate 26 H 29 H 22 H Blood Pressure 95/46 L Pulse Oximetry 95 Oxygen Delivery Nasal Cannula Oxygen Flow Rate 3 09/17/24 23:16 09/17/24 23:30 09/17/24 23:54 Temperature Pulse Rate 100 102 H Respiratory Rate 20 21 H Blood Pressure 107/69 Pulse Oximetry 95 95 Oxygen Delivery Nasal Cannula Oxygen Flow Rate 3 09/17/24 23:56 09/18/24 00:00 09/18/24 00:41 Temperature Pulse Rate 100 101 H 102 H Respiratory Rate 21 H 18 19 Blood Pressure Pulse Oximetry Oxygen Delivery Oxygen Flow Rate 09/18/24 01:18 09/18/24 01:30 09/18/24 01:45 Temperature Pulse Rate 103 H 101 H 102 H Respiratory Rate 18 19 19 Blood Pressure Pulse Oximetry Oxygen Delivery Oxygen Flow Rate 09/18/24 02:33 09/18/24 03:01 09/18/24 03:29 Temperature Pulse Rate 102 H 99 Respiratory Rate 21 H 18 Blood Pressure 135/74 114/73 Pulse Oximetry 97 97 97 Oxygen Delivery Nasal Cannula Oxygen Flow Rate 3 09/18/24 04:00 09/18/24 05:58 09/18/24 06:01 Temperature 98.2 F Pulse Rate 97 95 100 Respiratory Rate 23 H 23 H 21 H Blood Pressure 120/73 123/43 L 122/60 Pulse Oximetry 97 100 97 Oxygen Delivery Oxygen Flow Rate 09/18/24 06:04 09/18/24 06:14 09/18/24 06:52 Temperature 98.2 F 98.3 F Pulse Rate 94 96 70 Respiratory Rate 21 H 20 20 Blood Pressure 122/60 122/60 124/50 L Pulse Oximetry 97 99 97 Oxygen Delivery Oxygen Flow Rate 09/18/24 07:14 09/18/24 07:52 09/18/24 08:14 Temperature 98.2 F 98.2 F Pulse Rate 94 95 88 Respiratory Rate 20 22 H 20 Blood Pressure 120/58 L 120/58 L 106/62 Pulse Oximetry 99 97 99 Oxygen Delivery Oxygen Flow Rate 09/18/24 08:34 09/18/24 10:50 09/18/24 12:00 Temperature 98.7 F Pulse Rate 91 Respiratory Rate 20 Blood Pressure 120/65 Pulse Oximetry 98 93 100 Oxygen Delivery Nasal Cannula Nasal Cannula Oxygen Flow Rate 3 3 Exam Const: General: comfortable and no acute distress HENMT: Mouth: Yes moist mucous membranes Eyes: Sclera: sclerae normal Neck: Neck: supple Resp: Effort & Inspection: normal respiratory effort Auscultation: clear to auscultation bilaterally Cardio: Rate: regular rate Rhythm: regular rhythm GI: GI Palp: Yes Soft to palpation and No Tenderness to palpation present (GI) Auscultation: normal bowel sounds Skin: Other: pallor Neuro: Speech: normal speech Other: Alert and oriented x3 Extrem: General: normal to inspection Psych: Mental Status: mental status grossly normal Results Labs 09/18/24 12:30 09/18/24 00:07 Labs: Short CBC 09/18/24 09/18/24 Range/Units 00:17 12:30 WBC 16.7 H (4.5-10.0) K/mm3 Hgb 6.9 L* D 6.8 L* (14.0-18.0) g/dL Hct 22.9 L 22.4 L (42.0-52.0) % Plt Count 250 (150-375) k/mm3 BMP 09/18/24 00:07 Sodium 144 Potassium 4.3 Chloride 112 H Carbon Dioxide 19 L BUN 58 H D Creatinine 2.42 H Glucose 112 H Calcium 8.1 L Cardiac Enzymes 09/18/24 09/18/24 Range/Units 00:07 07:17 Troponin I 0.041 H* 1.830 H* D (0.000-0.034) ng/mL Liver Function 09/18/24 Range/Units 00:07 Total Bilirubin 0.3 (0.2-1.3) mg/dL AST 26 (17-59) U/L ALT 17 (6-50) U/L Alkaline Phosphatase 66 (38-126) U/L Albumin 3.1 L (3.5-5.1) g/dL Urine 09/18/24 Range/Units 04:49 Urine Color Yellow (Yellow) Urine Appearance Clear (Clear) Urine pH 5.5 (5.0-9.0) Ur Specific [place] 1.010 (1.001-1.035) Urine Protein Negative (Negative) mg/dL Urine Glucose (UA) Negative (Negative) mg/dL
[2024-09-18] MEDS: CENTRAL LINE FLUSH 10 ML IV PUSH ×2 (16:08→23:27)
[2024-09-18] MEDS: FERROUS SULFATE 325 MG TABLET DR BY MOUTH (16:24)
[2024-09-18] MEDS: FLUTICASONE/SALMETEROL 115-21 MCG (*SP) INHALER 2 PUFF INHALATION (19:50)
[2024-09-18 21:58] LABS: Hematocrit 24.6 % (42.0-52.0); Hemoglobin 7.6 g/dL (14.0-18.0)
[2024-09-18] MEDS: carvediloL 6.25 MG TABLET PO (22:52)
[2024-09-19] VITALS (23 sets, daily range): BP systolic 105–142; BP diastolic 33–81; PULSE 75–98; RESP 16–24; TEMP 36.3–37.2; O2SAT 90–100
[2024-09-19 05:09] LABS: Hematocrit 24.5 % (42.0-52.0); Hemoglobin 7.4 g/dL (14.0-18.0); Mean Corpuscular HGB Conc 30.2 g/dl (32-36); Mean Corpuscular Hemoglobin 28.9 pg (26-34); Mean Corpuscular Volume 95.7 fl (80-100); Mean Platelet Volume 10.5 fl (7.4-10.4); Platelet Count Result 204 k/mm3 (150-375); Red Blood Count 2.56 M/mm3 (4.6-6.20); Red Cell Distribution Width 18.5 % (11.5-14.5); White Blood Count 12.5 K/mm3 (4.5-10.0)
[2024-09-19 05:20] LABS: Anion Gap 8 mmol/L (4-12); Blood Urea Nitrogen 55 mg/dL (9-20); Calcium 7.9 mg/dL (8.4-10.2); Carbon Dioxide 21 mmol/L (22-30); Chloride 118 mmol/L (98-107); Estimated CRCL calculation 22 ml/min; Estimated Glomerular Filt Rate 25; Glucose 110 mg/dL (65-110); Potassium 3.5 mmol/L (3.4-5.0); Sodium 147 mmol/L (137-145)
[2024-09-19] MEDS: FLUTICASONE/SALMETEROL 115-21 MCG (*SP) INHALER 2 PUFF INHALATION ×2 (07:45→19:48)
[2024-09-19] MEDS: PANTOPRAZOLE SODIUM IV 80 MG in SODIUM CHLORIDE 0.9% IV 500 ML 50 MG IV CONT (09:07)
[2024-09-19] MEDS: LACTATED RINGERS 1,000 ML 125 ML IV CONT (09:08)
[2024-09-19] MEDS: lamoTRIgine 50 MG TABLET PO (09:12)
[2024-09-19] MEDS: CHOLECALCIFEROL 1,000 UNITS TABLET 2000 UNITS PO (09:12)
[2024-09-19] MEDS: FERROUS SULFATE 325 MG TABLET DR BY MOUTH ×2 (09:12→16:53)
[2024-09-19] MEDS: ATORVASTATIN 40 MG TABLET PO (09:12)
[2024-09-19] MEDS: ARIPiprazole 2 MG TABLET PO (09:12)
[2024-09-19] MEDS: carvediloL 6.25 MG TABLET PO ×2 (09:12→20:27)
[2024-09-19] MEDS: ASCORBIC ACID 500 MG TABLET PO (09:13)
[2024-09-19] MEDS: CYANOCOBALAMIN 1,000 MCG TABLET 1000 MCG PO (09:13)
[2024-09-19] MEDS: DULoxetine HCL 20 MG CAPSULE.DR PO (09:15)
[2024-09-19] MEDS: LACTATED RINGERS 1,000 ML 150 ML IV CONT (14:17)
--- NOTE | 2024-09-19 14:23 | PM.IMPN ---
Progress Note: A&P Assessment and Plan (1) Coronary artery disease: Code(s): I25.10 - Atherosclerotic heart disease of [place] coronary artery without angina pectoris Status: Acute (2) Acute GI bleeding: Code(s): K92.2 - Gastrointestinal hemorrhage, unspecified Status: Acute Plan Acute on chronic anemia secondary to GI bleeding Received 2 units of blood, Hb 7.4 Monitor H&h Continue with PPI Hold off Plavix GI team on board Plan for EGD today Continue monitor Elevated troponin Demand ischemia in setting of anemia History of CAD hold Plavix in the setting of GI bleed Continued Coreg, statin Cardiology team on board HTN Blood pressure soft hold Amlodipin Continue to monitor leucocytosis reactive monitor CKD renally adjust meds continue to monitor depression: [employer] meds mildhypernatremia: NPO for EGD monitor for now Subjective Date/time seen: 09/19/24 14:23 Interval history: per HPI: Narrative: Patient with history of CKD, anemia, CAD status post stent placement about 25 years ago, chronic hypoxia on 3 L oxygen, HTN, depression presented with 1 week history of black stool and also 1 episode of bright red blood per rectum yesterday. Patient also complaining of left upper quadrant burning pain since yesterday which improved after getting pain medication. He denies any chest pain, shortness of breath, nausea vomiting. Denies any fever or chills. . Denies taking NSAIDs/pain medications recently. Patient notes he has similar problem about 3 years ago and since then has been on iron pills. Last colonoscopy was 10 years ago. Patient presents to ER for chronic In the ER patient was found to have hemoglobin 6.8 1 unit of blood was ordered. JT was consulted. Patient had elevated troponin. Cardiology was contacted. Likely demand ischemia. No intervention needed. Patient was admitted for further management. 09/19/24 Patient was seen and examined at bedside. He is comfortable denies any chest pain, shortness of breath, Abd pain,N/V. Hb 7.4 after getting blood yesterday. plan for EGD today Review of Systems Constitutional: Constitutional: Reports no additional constitutional complaints Eyes: Eyes: Reports no additional eye complaints ENT: Reports system reviewed and no additional complaints, except as documented Cardiovascular: Cardiovascular: Reports no additional cardiovascular complaints Respiratory: Respiratory: Reports no additional respiratory complaints Gastrointestinal: Gastrointestinal: Reports as per HPI, Reports melena and Reports hematochezia Genitourinary: Genitourinary: Reports no additional male genitourinary complaints Musculoskeletal: Musculoskeletal: Reports no additional musculoskeletal complaints Integumentary/Breasts: Skin/Breast: Reports system reviewed and no additional complaints, except as docu Neurologic: Reports system reviewed and no additional complaints, except as documented Endocrine: Endocrine: Reports no additional endocrine complaints Hematologic/Lymphatic: Hematologic/Lymphatic: Reports no additional hematologic/lymphatic complaints Allergic/Immunologic: Allergic/Immunologic: Reports no additional allergic/immunologic complaints Exam Narrative: GENERAL: Well-appearing, well-nourished, and in no acute distress. HEAD: Normocephalic, atraumatic. EYES: Non injected, non icteric ENT: Nares clear, no rhinorrhea or epistaxis. NECK: Supple. CHEST: Speaking in full sentences. No respiratory distress. HEART: Regular rate and rhythm. . ABDOMEN: Soft, nondistended. EXTREMITIES: Normal range of motion. No lower extremity edema. SKIN: Warm, dry, no rash. NEURO: No focal deficits. Alert and oriented x3. PSYCH: Normal mood and affect. Const: General: comfortable and no acute distress HENMT: Mouth: Yes moist mucous membranes Eyes: Sclera: sclerae normal Neck: Neck: supple and no JVD Resp: Effort & Inspection: normal respiratory effort Auscultation: clear to auscultation bilaterally Cardio: Rate: regular rate Rhythm: regular rhythm Other: Systolic crescendo decrescendo murmur grade 2/6 audible at the left sternal border which does not radiate GI: Auscultation: normal bowel sounds Skin: General skin exam: normal color Neuro: Other: Alert and oriented x3 Objective Data Vital Signs Vital Signs: Vital Signs - 24 hr 09/18/24 16:00 09/18/24 16:00 09/18/24 16:00 Temperature 98.1 F Pulse Rate 101 H 99 Respiratory Rate 24 H Blood Pressure 127/57 L Pulse Oximetry 95 95 Oxygen Delivery Nasal Cannula Oxygen Flow Rate 3 Fraction of Inspired Oxygen 09/18/24 16:17 09/18/24 16:35 09/18/24 17:35 Temperature 98.2 F 98.2 F 98.1 F Pulse Rate 108 H 100 95 Respiratory Rate 18 22 H 16 Blood Pressure 126/73 120/63 122/49 L Pulse Oximetry 93 94 100 Oxygen Delivery Oxygen Flow Rate Fraction of Inspired Oxygen 09/18/24 18:00 09/18/24 18:35 09/18/24 19:30 Temperature 98.0 F 98.3 F Pulse Rate 99 98 93 Respiratory Rate 20 18 Blood Pressure 118/65 108/51 L Pulse Oximetry 98 99 Oxygen Delivery Oxygen Flow Rate Fraction of Inspired Oxygen 09/18/24 19:35 09/18/24 20:00 09/18/24 20:00 Temperature 98.0 F Pulse Rate 95 99 95 Respiratory Rate 20 16 Blood Pressure 124/73 Pulse Oximetry 100 100 Oxygen Delivery Nasal Cannula Oxygen Flow Rate 2 Fraction of Inspired Oxygen 09/18/24 20:00 09/18/24 20:39 09/18/24 20:41 Temperature 97.5 F L Pulse Rate 94 95 Respiratory Rate 20 16 Blood Pressure 125/68 Pulse Oximetry 98 100 Oxygen Delivery Nasal Cannula Oxygen Flow Rate 3 Fraction of Inspired Oxygen 09/18/24 22:00 09/18/24 22:36 09/18/24 22:52 Temperature Pulse Rate 90 95 95 Respiratory Rate 26 H Blood Pressure Pulse Oximetry 100 Oxygen Delivery Autopap Oxygen Flow Rate Fraction of Inspired Oxygen 09/18/24 23:19 09/18/24 23:21 09/19/24 00:00 Temperature 99 F Pulse Rate 84 84 89 Respiratory Rate 20 20 Blood Pressure 126/64 Pulse Oximetry 100 92 Oxygen Delivery Autopap Oxygen Flow Rate 3 Fraction of Inspired Oxygen 09/19/24 02:00 09/19/24 02:16 09/19/24 04:00 Temperature Pulse Rate 76 95 75 Respiratory Rate 20 20 Blood Pressure Pulse Oximetry 100 100 Oxygen Delivery Autopap Autopap Oxygen Flow Rate Fraction of Inspired Oxygen 09/19/24 04:00 09/19/24 04:00 09/19/24 06:00 Temperature 97.6 F Pulse Rate 79 89 86 Respiratory Rate 18 Blood Pressure 135/57 L Pulse Oximetry 95 Oxygen Delivery Oxygen Flow Rate Fraction of Inspired Oxygen 09/19/24 07:45 09/19/24 07:45 09/19/24 08:00 Temperature 98.1 F Pulse Rate 85 78 Respiratory Rate 16 22 H Blood Pressure 128/64 Pulse Oximetry 98 95 Oxygen Delivery Nasal Cannula Oxygen Flow Rate 3 Fraction of Inspired Oxygen 32 09/19/24 08:00 09/19/24 09:12 09/19/24 10:00 Temperature Pulse Rate 84 87 84 Respiratory Rate Blood Pressure Pulse Oximetry Oxygen Delivery Oxygen Flow Rate Fraction of Inspired Oxygen 09/19/24 12:00 09/19/24 13:50 Temperature 97.7 F 97.3 F L Pulse Rate 81 85 Respiratory Rate 24 H 20 Blood Pressure 124/61 142/49 H Pulse Oximetry 92 92 Oxygen Delivery Nasal Cannula Oxygen Flow Rate 2 Fraction of Inspired Oxygen Intake/Output Intake/Output: Intake & Output 09/16/24 09/17/24 09/18/24 09/19/24 23:59 23:59 23:59 23:59 Intake Total 3990 920 Output Total 1000 2200 Balance 2990 -1280 Meds/Results Medications: Active Medications Generic Name Dose Route Start Last Admin Trade Name Freq PRN Reason Stop Dose Admin Acetaminophen 650 mg 09/18/24 07:51 Acetaminophen 325 Mg Tablet PO Q4H PRN Mild Pain (1-3) or Fever Albuterol 1 - 2 puff 09/18/24 12:52 Albuterol Sulfate (*Sp) Aerosol 1 Puff INHALATION Q4-6H PRN shortness of breath or wheezing Aripiprazole 2 mg 09/19/24 09:00 09/19/24 09:12 Aripiprazole 2 Mg Tablet PO 2 mg DAILY ABELINO Administration Ascorbic Acid 500 mg 09/19/24 09:00 09/19/24 09:13 Ascorbic Acid 500 Mg Tablet PO 500 mg DAILY ABELINO Administration Atorvastatin Calcium 40 mg 09/19/24 09:00 09/19/24 09:12 Atorvastatin 40 Mg Tablet PO 40 mg DAILY ABELINO Administration Benzonatate 200 mg 09/18/24 13:03 Benzonatate 100 Mg Capsule PO TID PRN cough Carvedilol 6.25 mg 09/18/24 21:00 09/19/24 09:12 Carvedilol 6.25 Mg Tablet PO 6.25 mg Q12HR ABELINO Administration Cyanocobalamin 1,000 mcg 09/19/24 09:00 09/19/24 09:13 Cyanocobalamin 1,000 Mcg Tablet PO 1,000 mcg QAM ABELINO Administration Duloxetine HCl 20 mg 09/19/24 09:00 09/19/24 09:15 Duloxetine Hcl 20 Mg Capsule.Dr PO 20 mg DAILY ABELINO Administration Ferrous Sulfate 325 mg 09/18/24 17:00 09/19/24 09:12 Ferrous Sulfate [address] BY MOUTH 325 mg BID ABELINO Administration Guaifenesin/Dextromethorphan 2 tab 09/18/24 13:04 Guaifenesin 600 Mg/Dextromethorphan 30 Mg Sr Tab 12 Hr PO Q12H PRN cough Lactated Ringer's 1,000 mls @ 125 mls/hr 09/18/24 07:55 09/19/24 09:08 Lr - Lactated Ringers Iv IV CONT 125 mls/hr .Q8H ABELINO Administration Pantoprazole Sodium 80 mg/ 500 mls @ 50 mls/hr 09/18/24 10:45 09/19/24 09:07 Sodium Chloride IV CONT 50 mls/hr .Q10H ABELINO Administration Lactated Ringer's 1,000 mls @ 150 mls/hr 09/19/24 14:15 09/19/24 14:17 Lr - Lactated Ringers Iv IV CONT 150 mls/hr .Q6H40M ABELINO Administration Lamotrigine 50 mg 09/19/24 09:00 09/19/24 09:12 Lamotrigine 50 Mg Tablet PO 50 mg DAILY ABELINO Administration Morphine Sulfate 2 mg 09/18/24 07:51 Morphine Sulfate (*Crx) 2 Mg/Ml Inj IV PUSH Q2H PRN Pain Rated 7-10 Ondansetron HCl 4 mg 09/18/24 07:51 Ondansetron Inj 4 Mg/2 Ml Vial IV PUSH Q4H PRN Nausea Fluticasone/Salmeterol 2 puff 09/18/24 20:00 09/19/24 07:45 Fluticasone/Salmeterol 115-21 Mcg (*Sp) Inhaler INHALATION 2 puff Q12HRT ABELINO Administration Sodium Chloride 20 ml 09/18/24 10:44 Central Line Flush IV PUSH PRN PRN after blood draws Sodium Chloride 10 ml 09/18/24 10:44 Central Line Flush IV PUSH PRN PRN with TPN bag changes Sodium Chloride 10 ml 09/18/24 14:00 09/18/24 23:27 Central Line Flush IV PUSH 10 ml Q8HR ABELINO Administration Vitamin D 2,000 units 09/19/24 09:00 09/19/24 09:12 Cholecalciferol 1,000 Units Tablet PO 2,000 units DAILY ABELINO Administration Radiology Results: ITS Impressions Abdomen/Pelvis CT 09/18/24 07:06 IMPRESSION: 1. Small right kidney. Slightly small left kidney. Bilateral renal cysts. Hyperdense area seen in the right kidney lower pole which may be complex cyst or mass. Ultrasound confirmation advised. 2. Small hypodensity in the liver dome which may be a cyst. Ultrasound evaluation advised. 3. Cholelithiasis. 4. No evidence of appendicitis, diverticulitis or intestinal obstruction. 5. No definite active bleeding seen in the bowel. Chest X-Ray 09/18/24 10:29 IMPRESSION: Left basilar atelectasis versus pneumonia with possible minimal effusion. Cardiomegaly with congestive tiffanie and bilateral interstitial thickening which may indicate cardiac decompensation and pulmonary edema. ADDENDUM: 09/18/24 1043 Right PICC line is seen with the tip overlying the superior vena cava. Labs Labs: Laboratory Results - last 24 hr 09/18/24 09/18/24 09/19/24 00:17 21:50 04:48 WBC 12.5 H RBC 2.56 L Hgb 7.6 L 7.4 L Hct 24.6 L 24.5 L MCV 95.7 MCH 28.9 MCHC 30.2 L RDW 18.5 H Plt Count 204 MPV 10.5 H Sodium 147 H Potassium 3.5 Chloride 118 H Carbon Dioxide 21 L Anion Gap 8 BUN 55 H Creatinine 2.44 H Estim Creat Clear Calc 22 Estimated GFR 25 L Glucose 110 Calcium 7.9 L Blood Type A Positive Antibody Screen Negative Crossmatch See Detail
[2024-09-19] MEDS: EPINEPHrine INJ 1 MG/10 ML SYRINGE XX (15:19)
[2024-09-19] MEDS: CENTRAL LINE FLUSH 10 ML IV PUSH ×3 (16:24→20:27)
[2024-09-19 17:13] LABS: Hematocrit 25.5 % (42.0-52.0); Hemoglobin 7.7 g/dL (14.0-18.0)
[2024-09-19] MEDS: PANTOPRAZOLE 40 MG TABLET PO (20:27)
[2024-09-19 23:09] LABS: Hematocrit 26.1 % (42.0-52.0); Hemoglobin 7.9 g/dL (14.0-18.0)
[2024-09-20] VITALS (26 sets, daily range): BP systolic 92–127; BP diastolic 45–69; PULSE 76–107; RESP 16–28; TEMP 36.4–37.2; O2SAT 85–98
[2024-09-20] MEDS: CENTRAL LINE FLUSH 10 ML IV PUSH ×3 (05:44→20:17)
[2024-09-20 05:54] LABS: Hematocrit 25.1 % (42.0-52.0); Hemoglobin 7.6 g/dL (14.0-18.0); Mean Corpuscular HGB Conc 30.3 g/dl (32-36); Mean Corpuscular Hemoglobin 28.9 pg (26-34); Mean Corpuscular Volume 95.4 fl (80-100); Mean Platelet Volume 9.8 fl (7.4-10.4); Platelet Count Result 202 k/mm3 (150-375); Red Blood Count 2.63 M/mm3 (4.6-6.20); Red Cell Distribution Width 18.8 % (11.5-14.5); White Blood Count 19.2 K/mm3 (4.5-10.0)
[2024-09-20 06:22] LABS: Anion Gap 6 mmol/L (4-12); Blood Urea Nitrogen 42 mg/dL (9-20); Calcium 7.9 mg/dL (8.4-10.2); Carbon Dioxide 23 mmol/L (22-30); Chloride 118 mmol/L (98-107); Estimated CRCL calculation 23 ml/min; Estimated Glomerular Filt Rate 24; Glucose 123 mg/dL (65-110); Potassium 3.5 mmol/L (3.4-5.0); Sodium 147 mmol/L (137-145)
[2024-09-20] MEDS: carvediloL 6.25 MG TABLET PO ×2 (08:48→20:17)
[2024-09-20] MEDS: CHOLECALCIFEROL 1,000 UNITS TABLET 2000 UNITS PO (08:48)
[2024-09-20] MEDS: ATORVASTATIN 40 MG TABLET PO (08:48)
[2024-09-20] MEDS: lamoTRIgine 50 MG TABLET PO (08:48)
[2024-09-20] MEDS: CYANOCOBALAMIN 1,000 MCG TABLET 1000 MCG PO (08:48)
[2024-09-20] MEDS: ARIPiprazole 2 MG TABLET PO (08:48)
[2024-09-20] MEDS: FERROUS SULFATE 325 MG TABLET DR BY MOUTH ×2 (08:49→17:06)
[2024-09-20] MEDS: PANTOPRAZOLE 40 MG TABLET PO ×2 (08:49→20:17)
[2024-09-20] MEDS: ASCORBIC ACID 500 MG TABLET PO (08:49)
[2024-09-20] MEDS: DULoxetine HCL 20 MG CAPSULE.DR PO (09:00)
[2024-09-20] MEDS: FLUTICASONE/SALMETEROL 115-21 MCG (*SP) INHALER 2 PUFF INHALATION ×2 (09:09→20:08)
--- NOTE | 2024-09-20 10:06 | WPDANESPN ---
Anes - Prog Note Post-Op Date/Time: 09/20/24 10:06 Cardiovascular status: other (anemia) Respiratory status: normal Airway patency: baseline Mental status: baseline Post-Op hydration status: normal Vital Signs: Last Vital Signs Temp 97.9 F 09/20/24 08:00 Pulse 92 09/20/24 08:48 Resp 28 H 09/20/24 08:00 BP 127/68 09/20/24 08:00 Pulse Ox 92 09/20/24 09:09 O2 Del Method Nasal Cannula 09/20/24 09:09 O2 Flow Rate 3.5 09/20/24 09:09 FiO2 32.5 09/19/24 19:53 Pain Score (VAS): 0/10 I/O: Intake & Output 09/19/24 09/20/24 09/20/24 23:59 07:59 15:59 Intake Total 1500 550 360 Output Total 1950 300 Balance -450 250 360 Laboratory Tests 09/20/24 05:43 09/20/24 05:43 09/19/24 09/19/24 09/20/24 17:07 23:03 05:43 WBC 19.2 H RBC 2.63 L Hgb 7.7 L 7.9 L 7.6 L Hct 25.5 L 26.1 L 25.1 L MCV 95.4 MCH 28.9 MCHC 30.3 L RDW 18.8 H Plt Count 202 MPV 9.8 Sodium 147 H Potassium 3.5 Chloride 118 H Carbon Dioxide 23 Anion Gap 6 BUN 42 H D Creatinine 2.54 H Estim Creat Clear Calc 23 Estimated GFR 24 L Glucose 123 H Calcium 7.9 L Post-procedural complaints: none Patient Feedback: Patient satisfied with anesthetic care.
[2024-09-20 12:51] LABS: Basophils Absolute Auto 0.1 K/mm3 (0.0-0.1); Basophils Percent Auto 0.3 % (0.2-1.2); Eosinophils Absolute Auto 0.2 K/mm3 (0-0.3); Eosinophils Percent Auto 1.3 % (0-4.4); Hematocrit 25.8 % (42.0-52.0); Hemoglobin 7.8 g/dL (14.0-18.0); Immature Granulocyte Absolute 0.09 K/mm3 (0.00-0.031); Immature Granulocyte Percent A 0.5 % (0-0.5); Lymphocytes Absolute Auto 1.95 K/mm3 (0.9-3.2); Lymphocytes Percent Auto 10.9 % (18.3-44.2); Mean Corpuscular HGB Conc 30.2 g/dl (32-36); Mean Corpuscular Hemoglobin 28.9 pg (26-34); Mean Corpuscular Volume 95.6 fl (80-100); Mean Platelet Volume 9.8 fl (7.4-10.4); Monocytes Absolute Auto 1.6 K/mm3 (0.1-0.6); Monocytes Percent Auto 9.1 % (2.6-8.5); Neutrophils Absolute Auto 13.9 K/mm3 (1.3-6.7); Neutrophils Percent Auto 77.9 % (45.5-73.1); Nucleated Red Blood Cells Perc 0.1 % (0.0-0.2); Platelet Count Result 206 k/mm3 (150-375); Red Cell Distribution Width 18.9 % (11.5-14.5); White Blood Count 17.9 K/mm3 (4.5-10.0)
[2024-09-20 13:14] LABS: Anion Gap 9 mmol/L (4-12); Blood Urea Nitrogen 37 mg/dL (9-20); Calcium 7.7 mg/dL (8.4-10.2); Carbon Dioxide 21 mmol/L (22-30); Chloride 111 mmol/L (98-107); Estimated CRCL calculation 24 ml/min; Estimated Glomerular Filt Rate 25; Glucose 140 mg/dL (65-110); Potassium 3.5 mmol/L (3.4-5.0); Sodium 141 mmol/L (137-145)
--- NOTE | 2024-09-20 13:51 | PM.IMPN ---
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 COPD exacerbation versus pneumonia vs diastolic CHF exacerbation Chronic hypoxic respiratory failure on 3 L at baseline Will start Rocephin, Zithromax will get CXR, probnp,procalcitonin Continue with albuterol, Leuckocytosis ?pneumonia, aspiration vs reactive plan as above Elevated troponin Demand ischemia in setting of anemia History of CAD hold Plavix in the setting of GI bleed Continued Coreg, statin Cardiology team on board HTN Blood pressure soft hold Amlodipin Continue to monitor leucocytosis reactive monitor CKD renally adjust meds continue to monitor depression: [employer]ER meds mild hypernatremia: NPO for EGD monitor for now Subjective Date/time seen: 09/20/24 13:51 Interval history: per HPI: Narrative: Patient with history of CKD, anemia, CAD status post stent placement about 25 years ago, chronic hypoxia on 3 L oxygen, HTN, depression presented with 1 week history of black stool and also 1 episode of bright red blood per rectum yesterday. Patient also complaining of left upper quadrant burning pain since yesterday which improved after getting pain medication. He denies any chest pain, shortness of breath, nausea vomiting. Denies any fever or chills. . Denies taking NSAIDs/pain medications recently. Patient notes he has similar problem about 3 years ago and since then has been on iron pills. Last colonoscopy was 10 years ago. Patient presents to ER for chronic In the ER patient was found to have hemoglobin 6.8 1 unit of blood was ordered. JT was consulted. Patient had elevated troponin. Cardiology was contacted. Likely demand ischemia. No intervention needed. Patient was admitted for further management. 09/19/24 Patient was seen and examined at bedside. He is comfortable denies any chest pain, shortness of breath, Abd pain,N/V. Hb 7.4 after getting blood yesterday. 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 needs to hold plavix for 7 days and continue PPI Review of Systems Constitutional: Constitutional: Reports no additional constitutional complaints Eyes: Eyes: Reports no additional eye complaints ENT: Reports system reviewed and no additional complaints, except as documented Cardiovascular: Cardiovascular: Reports no additional cardiovascular complaints Respiratory: Respiratory: Reports no additional respiratory complaints Gastrointestinal: Gastrointestinal: Reports as per HPI, Reports melena and Reports hematochezia Genitourinary: Genitourinary: Reports no additional male genitourinary complaints Musculoskeletal: Musculoskeletal: Reports no additional musculoskeletal complaints Integumentary/Breasts: Skin/Breast: Reports system reviewed and no additional complaints, except as docu Neurologic: Reports system reviewed and no additional complaints, except as documented Endocrine: Endocrine: Reports no additional endocrine complaints Hematologic/Lymphatic: Hematologic/Lymphatic: Reports no additional hematologic/lymphatic complaints Allergic/Immunologic: Allergic/Immunologic: Reports no additional allergic/immunologic complaints Exam Narrative: GENERAL: Well-appearing, well-nourished, and in no acute distress. HEAD: Normocephalic, atraumatic. EYES: Non injected, non icteric ENT: Nares clear, no rhinorrhea or epistaxis. NECK: Supple. CHEST: Speaking in full sentences. has some respiratory distress/wheezing HEART: Regular rate and rhythm. . ABDOMEN: Soft, nondistended. EXTREMITIES: Normal range of motion. No lower extremity edema. SKIN: Warm, dry, no rash. NEURO: No focal deficits. Alert and oriented x3. PSYCH: Normal mood and affect. Const: General: comfortable and no acute distress HENMT: Mouth: Yes moist mucous membranes Eyes: Sclera: sclerae normal Neck: Neck: supple and no JVD Resp: Effort & Inspection: normal respiratory effort Auscultation: clear to auscultation bilaterally Cardio: Rate: regular rate Rhythm: regular rhythm Other: Systolic crescendo decrescendo murmur grade 2/6 audible at the left sternal border which does not radiate GI: Auscultation: normal bowel sounds Skin: General skin exam: normal color Neuro: Other: Alert and oriented x3 Objective Data Vital Signs Vital Signs: Vital Signs - 24 hr 09/19/24 15:25 09/19/24 15:35 09/19/24 15:45 Temperature Pulse Rate 88 91 94 Respiratory Rate 21 H 21 H 22 H Blood Pressure 116/33 L 107/77 105/81 Pulse Oximetry 90 93 92 Oxygen Delivery Simple Face Mask Nasal Cannula Nasal Cannula Oxygen Flow Rate 8 4 4 Fraction of Inspired Oxygen 09/19/24 16:00 09/19/24 16:00 09/19/24 18:00 Temperature 97.8 F Pulse Rate 80 81 89 Respiratory Rate 22 H Blood Pressure 129/70 Pulse Oximetry 94 Oxygen Delivery Oxygen Flow Rate Fraction of Inspired Oxygen 09/19/24 19:51 09/19/24 19:53 09/19/24 20:00 Temperature 98 F Pulse Rate 96 87 Respiratory Rate 19 22 H Blood Pressure 125/59 L Pulse Oximetry 91 95 Oxygen Delivery Nasal Cannula Oxygen Flow Rate 3.5 Fraction of Inspired Oxygen 32.5 09/19/24 20:00 09/19/24 20:20 09/19/24 20:27 Temperature Pulse Rate 98 96 89 Respiratory Rate 19 Blood Pressure Pulse Oximetry 91 Oxygen Delivery Nasal Cannula Oxygen Flow Rate 3 Fraction of Inspired Oxygen 09/19/24 22:00 09/19/24 22:00 09/19/24 23:52 Temperature 98 F Pulse Rate 86 85 92 Respiratory Rate 19 22 H Blood Pressure 118/61 Pulse Oximetry 90 94 Oxygen Delivery Autopap Oxygen Flow Rate Fraction of Inspired Oxygen 09/20/24 00:00 09/20/24 00:20 09/20/24 00:41 Temperature Pulse Rate 90 89 105 H Respiratory Rate 20 19 Blood Pressure Pulse Oximetry 94 85 L Oxygen Delivery Autopap Autopap Oxygen Flow Rate Fraction of Inspired Oxygen 09/20/24 02:00 09/20/24 03:45 09/20/24 04:00 Temperature 98.9 F Pulse Rate 95 86 101 H Respiratory Rate 20 22 H Blood Pressure 110/68 Pulse Oximetry 98 98 Oxygen Delivery Autopap Oxygen Flow Rate Fraction of Inspired Oxygen 09/20/24 04:00 09/20/24 05:56 09/20/24 08:00 Temperature 97.9 F Pulse Rate 90 90 103 H Respiratory Rate 28 H Blood Pressure 127/68 Pulse Oximetry 93 Oxygen Delivery Oxygen Flow Rate Fraction of Inspired Oxygen 09/20/24 08:00 09/20/24 08:00 09/20/24 08:48 Temperature Pulse Rate 107 H 92 Respiratory Rate Blood Pressure Pulse Oximetry Oxygen Delivery CPAP Oxygen Flow Rate Fraction of Inspired Oxygen 09/20/24 09:09 09/20/24 10:00 09/20/24 11:57 Temperature 97.7 F Pulse Rate 97 83 Respiratory Rate 16 Blood Pressure 97/49 L Pulse Oximetry 92 95 Oxygen Delivery Nasal Cannula Oxygen Flow Rate 3.5 Fraction of Inspired Oxygen Intake/Output Intake/Output: Intake & Output 09/17/24 09/18/24 09/19/24 09/20/24 23:59 23:59 23:59 23:59 Intake Total 3990 2420 910 Output Total 1000 4550 300 Balance 2990 -2130 610 Meds/Results Medications: Active Medications Generic Name Dose Route Start Last Admin Trade Name Freq PRN Reason Stop Dose Admin Acetaminophen 650 mg 09/18/24 07:51 Acetaminophen 325 Mg Tablet PO Q4H PRN Mild Pain (1-3) or Fever Albuterol 1 - 2 puff 09/18/24 12:52 Albuterol Sulfate (*Sp) Aerosol 1 Puff INHALATION Q4-6H PRN shortness of breath or wheezing Aripiprazole 2 mg 09/19/24 09:00 09/20/24 08:48 Aripiprazole 2 Mg Tablet PO 2 mg DAILY ABELINO Administration Ascorbic Acid 500 mg 09/19/24 09:00 09/20/24 08:49 Ascorbic Acid 500 Mg Tablet PO 500 mg DAILY ABELINO Administration Atorvastatin Calcium 40 mg 09/19/24 09:00 09/20/24 08:48 Atorvastatin 40 Mg Tablet PO 40 mg DAILY ABELINO Administration Benzonatate 200 mg 09/18/24 13:03 Benzonatate 100 Mg Capsule PO TID PRN cough Carvedilol 6.25 mg 09/18/24 21:00 09/20/24 08:48 Carvedilol 6.25 Mg Tablet PO 6.25 mg Q12HR ABELINO Administration Cyanocobalamin 1,000 mcg 09/19/24 09:00 09/20/24 08:48 Cyanocobalamin 1,000 Mcg Tablet PO 1,000 mcg QAM ABELINO Administration Duloxetine HCl 20 mg 09/19/24 09:00 09/20/24 09:00 Duloxetine Hcl 20 Mg Capsule.Dr PO 20 mg DAILY ABELINO Administration Ferrous Sulfate 325 mg 09/18/24 17:00 09/20/24 08:49 Ferrous Sulfate [address] BY MOUTH 325 mg BID ABELINO Administration Guaifenesin/Dextromethorphan 2 tab 09/18/24 13:04 Guaifenesin 600 Mg/Dextromethorphan 30 Mg Sr Tab 12 Hr PO Q12H PRN cough Lamotrigine 50 mg 09/19/24 09:00 09/20/24 08:48 Lamotrigine 50 Mg Tablet PO 50 mg DAILY ABELINO Administration Morphine Sulfate 2 mg 09/18/24 07:51 Morphine Sulfate (*Crx) 2 Mg/Ml Inj IV PUSH Q2H PRN Pain Rated 7-10 Ondansetron HCl 4 mg 09/18/24 07:51 Ondansetron Inj 4 Mg/2 Ml Vial IV PUSH Q4H PRN Nausea Pantoprazole Sodium 40 mg 09/19/24 21:00 09/20/24 08:49 Pantoprazole 40 Mg Tablet PO 40 mg Q12HR ABELINO Administration Fluticasone/Salmeterol 2 puff 09/18/24 20:00 09/20/24 09:09 Fluticasone/Salmeterol 115-21 Mcg (*Sp) Inhaler INHALATION 2 puff Q12HRT ABELINO Administration Sodium Chloride 20 ml 09/18/24 10:44 Central Line Flush IV PUSH PRN PRN after blood draws Sodium Chloride 10 ml 09/18/24 10:44 Central Line Flush IV PUSH PRN PRN with TPN bag changes Sodium Chloride 10 ml 09/18/24 14:00 09/20/24 05:44 Central Line Flush IV PUSH 10 ml Q8HR ABELINO Administration Vitamin D 2,000 units 09/19/24 09:00 09/20/24 08:48 Cholecalciferol 1,000 Units Tablet PO 2,000 units DAILY ABELINO Administration Radiology Results: ITS Impressions Abdomen/Pelvis CT 09/18/24 07:06 IMPRESSION: 1. Small right kidney. Slightly small left kidney. Bilateral renal cysts. Hyperdense area seen in the right kidney lower pole which may be complex cyst or mass. Ultrasound confirmation advised. 2. Small hypodensity in the liver dome which may be a cyst. Ultrasound evaluation advised. 3. Cholelithiasis. 4. No evidence of appendicitis, diverticulitis or intestinal obstruction. 5. No definite active bleeding seen in the bowel. Chest X-Ray 09/18/24 10:29 IMPRESSION: Left basilar atelectasis versus pneumonia with possible minimal effusion. Cardiomegaly with congestive tiffanie and bilateral interstitial thickening which may indicate cardiac decompensation and pulmonary edema. ADDENDUM: 09/18/24 1043 Right PICC line is seen with the tip overlying the superior vena cava. Labs Labs: Laboratory Results - last 24 hr 09/19/24 09/19/24 09/20/24 17:07 23:03 05:43 WBC 19.2 H RBC 2.63 L Hgb 7.7 L 7.9 L 7.6 L Hct 25.5 L 26.1 L 25.1 L MCV 95.4 MCH 28.9 MCHC 30.3 L RDW 18.8 H Plt Count 202 MPV 9.8 Immature Gran % (Auto) Neut % (Auto) Lymph % (Auto) [place] % (Auto) Eos % (Auto) Baso % (Auto) Lymph # (Auto) [place] # (Auto) Eos # (Auto) Baso # (Auto) Abs Immat Gran (auto) Absolute Neuts (auto) Absolute Nucleated RBC Nucleated RBC % Sodium 147 H Potassium 3.5 Chloride 118 H Carbon Dioxide 23 Anion Gap 6 BUN 42 H D Creatinine 2.54 H Estim Creat Clear Calc 23 Estimated GFR 24 L Glucose 123 H Calcium 7.9 L 09/20/24 12:42 WBC 17.9 H RBC 2.70 L Hgb 7.8 L Hct 25.8 L MCV 95.6 MCH 28.9 MCHC 30.2 L RDW 18.9 H Plt Count 206 MPV 9.8 Immature Gran % (Auto) 0.5 Neut % (Auto) 77.9 H Lymph % (Auto) 10.9 L Johnston % (Auto) 9.1 H Eos % (Auto) 1.3 Baso % (Auto) 0.3 Lymph # (Auto) 1.95 [place] # (Auto) 1.6 H Eos # (Auto) 0.2 Baso # (Auto) 0.1 Abs Immat Gran (auto) 0.09 H Absolute Neuts (auto) 13.9 H Absolute Nucleated RBC 0.020 H Nucleated RBC % 0.1 Sodium 141 Potassium 3.5 Chloride 111 H Carbon Dioxide 21 L Anion Gap 9 BUN 37 H Creatinine 2.47 H Estim Creat Clear Calc 24 Estimated GFR 25 L Glucose 140 H Calcium 7.7 L
--- NOTE | 2024-09-20 14:00 | PM.IMPN ---
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 COPD exacerbation versus pneumonia vs diastolic CHF exacerbation Chronic hypoxic respiratory failure on 3 L at baseline Will start Rocephin, Zithromax will get CXR, probnp,procalcitonin Continue with albuterol, Leuckocytosis ?pneumonia, aspiration vs reactive plan as above Elevated troponin Demand ischemia in setting of anemia History of CAD hold Plavix in the setting of GI bleed Continued Coreg, statin Cardiology team on board HTN Blood pressure soft hold Amlodipin Continue to monitor leucocytosis reactive monitor CKD renally adjust meds continue to monitor depression: [employer] meds mild hypernatremia: NPO for EGD monitor for now Subjective Date/time seen: 09/20/24 14:00 Interval history: per HPI: Narrative: Patient with history of CKD, anemia, CAD status post stent placement about 25 years ago, chronic hypoxia on 3 L oxygen, HTN, depression presented with 1 week history of black stool and also 1 episode of bright red blood per rectum yesterday. Patient also complaining of left upper quadrant burning pain since yesterday which improved after getting pain medication. He denies any chest pain, shortness of breath, nausea vomiting. Denies any fever or chills. . Denies taking NSAIDs/pain medications recently. Patient notes he has similar problem about 3 years ago and since then has been on iron pills. Last colonoscopy was 10 years ago. Patient presents to ER for chronic In the ER patient was found to have hemoglobin 6.8 1 unit of blood was ordered. JT was consulted. Patient had elevated troponin. Cardiology was contacted. Likely demand ischemia. No intervention needed. Patient was admitted for further management. 09/19/24 Hb 7.4 after getting blood yesterday. 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 needs to hold plavix for 7 days and continue PPI 09/20/24 Patient was seen and examined at bedside. He is comfortable denies any chest pain, shortness of breath, Abd pain,N/V.. On exam patient has some difficulty breathing. WBC elevated. will get cXR. started on Abx. will follow BNP/Procalcitonin level. Review of Systems Constitutional: Constitutional: Reports no additional constitutional complaints Eyes: Eyes: Reports no additional eye complaints ENT: Reports system reviewed and no additional complaints, except as documented Cardiovascular: Cardiovascular: Reports no additional cardiovascular complaints Respiratory: Respiratory: Reports no additional respiratory complaints Gastrointestinal: Gastrointestinal: Reports as per HPI, Reports melena and Reports hematochezia Genitourinary: Genitourinary: Reports no additional male genitourinary complaints Musculoskeletal: Musculoskeletal: Reports no additional musculoskeletal complaints Integumentary/Breasts: Skin/Breast: Reports system reviewed and no additional complaints, except as docu Neurologic: Reports system reviewed and no additional complaints, except as documented Endocrine: Endocrine: Reports no additional endocrine complaints Hematologic/Lymphatic: Hematologic/Lymphatic: Reports no additional hematologic/lymphatic complaints Allergic/Immunologic: Allergic/Immunologic: Reports no additional allergic/immunologic complaints Exam Narrative: GENERAL: Well-appearing, well-nourished, and in no acute distress. HEAD: Normocephalic, atraumatic. EYES: Non injected, non icteric ENT: Nares clear, no rhinorrhea or epistaxis. NECK: Supple. CHEST: Speaking in full sentences. has some respiratory distress/wheezing HEART: Regular rate and rhythm. . ABDOMEN: Soft, nondistended. EXTREMITIES: Normal range of motion. No lower extremity edema. SKIN: Warm, dry, no rash. NEURO: No focal deficits. Alert and oriented x3. PSYCH: Normal mood and affect. Const: General: comfortable and no acute distress HENMT: Mouth: Yes moist mucous membranes Eyes: Sclera: sclerae normal Neck: Neck: supple and no JVD Resp: Effort & Inspection: normal respiratory effort Auscultation: clear to auscultation bilaterally Cardio: Rate: regular rate Rhythm: regular rhythm Other: Systolic crescendo decrescendo murmur grade 2/6 audible at the left sternal border which does not radiate GI: Auscultation: normal bowel sounds Skin: General skin exam: normal color Neuro: Other: Alert and oriented x3 Objective Data Vital Signs Vital Signs: Vital Signs - 24 hr 09/19/24 15:25 09/19/24 15:35 09/19/24 15:45 Temperature Pulse Rate 88 91 94 Respiratory Rate 21 H 21 H 22 H Blood Pressure 116/33 L 107/77 105/81 Pulse Oximetry 90 93 92 Oxygen Delivery Simple Face Mask Nasal Cannula Nasal Cannula Oxygen Flow Rate 8 4 4 Fraction of Inspired Oxygen 09/19/24 16:00 09/19/24 16:00 09/19/24 18:00 Temperature 97.8 F Pulse Rate 80 81 89 Respiratory Rate 22 H Blood Pressure 129/70 Pulse Oximetry 94 Oxygen Delivery Oxygen Flow Rate Fraction of Inspired Oxygen 09/19/24 19:51 09/19/24 19:53 09/19/24 20:00 Temperature 98 F Pulse Rate 96 87 Respiratory Rate 19 22 H Blood Pressure 125/59 L Pulse Oximetry 91 95 Oxygen Delivery Nasal Cannula Oxygen Flow Rate 3.5 Fraction of Inspired Oxygen 32.5 09/19/24 20:00 09/19/24 20:20 09/19/24 20:27 Temperature Pulse Rate 98 96 89 Respiratory Rate 19 Blood Pressure Pulse Oximetry 91 Oxygen Delivery Nasal Cannula Oxygen Flow Rate 3 Fraction of Inspired Oxygen 09/19/24 22:00 09/19/24 22:00 09/19/24 23:52 Temperature 98 F Pulse Rate 86 85 92 Respiratory Rate 19 22 H Blood Pressure 118/61 Pulse Oximetry 90 94 Oxygen Delivery Autopap Oxygen Flow Rate Fraction of Inspired Oxygen 09/20/24 00:00 09/20/24 00:20 09/20/24 00:41 Temperature Pulse Rate 90 89 105 H Respiratory Rate 20 19 Blood Pressure Pulse Oximetry 94 85 L Oxygen Delivery Autopap Autopap Oxygen Flow Rate Fraction of Inspired Oxygen 09/20/24 02:00 09/20/24 03:45 09/20/24 04:00 Temperature 98.9 F Pulse Rate 95 86 101 H Respiratory Rate 20 22 H Blood Pressure 110/68 Pulse Oximetry 98 98 Oxygen Delivery Autopap Oxygen Flow Rate Fraction of Inspired Oxygen 09/20/24 04:00 09/20/24 05:56 09/20/24 08:00 Temperature 97.9 F Pulse Rate 90 90 103 H Respiratory Rate 28 H Blood Pressure 127/68 Pulse Oximetry 93 Oxygen Delivery Oxygen Flow Rate Fraction of Inspired Oxygen 09/20/24 08:00 09/20/24 08:00 09/20/24 08:48 Temperature Pulse Rate 107 H 92 Respiratory Rate Blood Pressure Pulse Oximetry Oxygen Delivery CPAP Oxygen Flow Rate Fraction of Inspired Oxygen 09/20/24 09:09 09/20/24 10:00 09/20/24 11:57 Temperature 97.7 F Pulse Rate 97 83 Respiratory Rate 16 Blood Pressure 97/49 L Pulse Oximetry 92 95 Oxygen Delivery Nasal Cannula Oxygen Flow Rate 3.5 Fraction of Inspired Oxygen Intake/Output Intake/Output: Intake & Output 09/17/24 09/18/24 09/19/24 09/20/24 23:59 23:59 23:59 23:59 Intake Total 3990 2420 910 Output Total 1000 4550 300 Balance 2990 -2130 610 Meds/Results Medications: Active Medications Generic Name Dose Route Start Last Admin Trade Name Freq PRN Reason Stop Dose Admin Acetaminophen 650 mg 09/18/24 07:51 Acetaminophen 325 Mg Tablet PO Q4H PRN Mild Pain (1-3) or Fever Albuterol 1 - 2 puff 09/18/24 12:52 Albuterol Sulfate (*Sp) Aerosol 1 Puff INHALATION Q4-6H PRN shortness of breath or wheezing Aripiprazole 2 mg 09/19/24 09:00 09/20/24 08:48 Aripiprazole 2 Mg Tablet PO 2 mg DAILY ABELINO Administration Ascorbic Acid 500 mg 09/19/24 09:00 09/20/24 08:49 Ascorbic Acid 500 Mg Tablet PO 500 mg DAILY ABELINO Administration Atorvastatin Calcium 40 mg 09/19/24 09:00 09/20/24 08:48 Atorvastatin 40 Mg Tablet PO 40 mg DAILY ABELINO Administration Benzonatate 200 mg 09/18/24 13:03 Benzonatate 100 Mg Capsule PO TID PRN cough Carvedilol 6.25 mg 09/18/24 21:00 09/20/24 08:48 Carvedilol 6.25 Mg Tablet PO 6.25 mg Q12HR ABELINO Administration Cyanocobalamin 1,000 mcg 09/19/24 09:00 09/20/24 08:48 Cyanocobalamin 1,000 Mcg Tablet PO 1,000 mcg QAM ABELINO Administration Duloxetine HCl 20 mg 09/19/24 09:00 09/20/24 09:00 Duloxetine Hcl 20 Mg Capsule.Dr PO 20 mg DAILY ABELINO Administration Ferrous Sulfate 325 mg 09/18/24 17:00 09/20/24 08:49 Ferrous Sulfate [address] BY MOUTH 325 mg BID ABELINO Administration Guaifenesin/Dextromethorphan 2 tab 09/18/24 13:04 Guaifenesin 600 Mg/Dextromethorphan 30 Mg Sr Tab 12 Hr PO Q12H PRN cough Ceftriaxone Sodium 2 gm in 100 mls @ 200 mls/hr 09/20/24 14:00 Rocephin 2 Gm/Ns 100 Ml IVPB Q24H ABELINO Azithromycin 500 mg in 250 mls @ 250 mls/hr 09/20/24 13:58 Zithromax IVPB 09/20/24 14:57 ONCE ONE Lamotrigine 50 mg 09/19/24 09:00 09/20/24 08:48 Lamotrigine 50 Mg Tablet PO 50 mg DAILY ABELINO Administration Morphine Sulfate 2 mg 09/18/24 07:51 Morphine Sulfate (*Crx) 2 Mg/Ml Inj IV PUSH Q2H PRN Pain Rated 7-10 Ondansetron HCl 4 mg 09/18/24 07:51 Ondansetron Inj 4 Mg/2 Ml Vial IV PUSH Q4H PRN Nausea Pantoprazole Sodium 40 mg 09/19/24 21:00 09/20/24 08:49 Pantoprazole 40 Mg Tablet PO 40 mg Q12HR ABELINO Administration Fluticasone/Salmeterol 2 puff 09/18/24 20:00 09/20/24 09:09 Fluticasone/Salmeterol 115-21 Mcg (*Sp) Inhaler INHALATION 2 puff Q12HRT ABELINO Administration Sodium Chloride 20 ml 09/18/24 10:44 Central Line Flush IV PUSH PRN PRN after blood draws Sodium Chloride 10 ml 09/18/24 10:44 Central Line Flush IV PUSH PRN PRN with TPN bag changes Sodium Chloride 10 ml 09/18/24 14:00 09/20/24 05:44 Central Line Flush IV PUSH 10 ml Q8HR ABELINO Administration Vitamin D 2,000 units 09/19/24 09:00 09/20/24 08:48 Cholecalciferol 1,000 Units Tablet PO 2,000 units DAILY ABELINO Administration Radiology Results: ITS Impressions Abdomen/Pelvis CT 09/18/24 07:06 IMPRESSION: 1. Small right kidney. Slightly small left kidney. Bilateral renal cysts. Hyperdense area seen in the right kidney lower pole which may be complex cyst or mass. Ultrasound confirmation advised. 2. Small hypodensity in the liver dome which may be a cyst. Ultrasound evaluation advised. 3. Cholelithiasis. 4. No evidence of appendicitis, diverticulitis or intestinal obstruction. 5. No definite active bleeding seen in the bowel. Chest X-Ray 09/18/24 10:29 IMPRESSION: Left basilar atelectasis versus pneumonia with possible minimal effusion. Cardiomegaly with congestive [place] and bilateral interstitial thickening which may indicate cardiac decompensation and pulmonary edema. ADDENDUM: 09/18/24 1043 Right PICC line is seen with the tip overlying the superior vena cava. Labs Labs: Laboratory Results - last 24 hr 09/19/24 09/19/24 09/20/24 17:07 23:03 05:43 WBC 19.2 H RBC 2.63 L Hgb 7.7 L 7.9 L 7.6 L Hct 25.5 L 26.1 L 25.1 L MCV 95.4 MCH 28.9 MCHC 30.3 L RDW 18.8 H Plt Count 202 MPV 9.8 Immature Gran % (Auto) Neut % (Auto) Lymph % (Auto) [place] % (Auto) Eos % (Auto) Baso % (Auto) Lymph # (Auto) [place] # (Auto) Eos # (Auto) Baso # (Auto) Abs Immat Gran (auto) Absolute Neuts (auto) Absolute Nucleated RBC Nucleated RBC % Sodium 147 H Potassium 3.5 Chloride 118 H Carbon Dioxide 23 Anion Gap 6 BUN 42 H D Creatinine 2.54 H Estim Creat Clear Calc 23 Estimated GFR 24 L Glucose 123 H Calcium 7.9 L 09/20/24 12:42 WBC 17.9 H RBC 2.70 L Hgb 7.8 L Hct 25.8 L MCV 95.6 MCH 28.9 MCHC 30.2 L RDW 18.9 H Plt Count 206 MPV 9.8 Immature Gran % (Auto) 0.5 Neut % (Auto) 77.9 H Lymph % (Auto) 10.9 L [place] % (Auto) 9.1 H Eos % (Auto) 1.3 Baso % (Auto) 0.3 Lymph # (Auto) 1.95 [place] # (Auto) 1.6 H Eos # (Auto) 0.2 Baso # (Auto) 0.1 Abs Immat Gran (auto) 0.09 H Absolute Neuts (auto) 13.9 H Absolute Nucleated RBC 0.020 H Nucleated RBC % 0.1 Sodium 141 Potassium 3.5 Chloride 111 H Carbon Dioxide 21 L Anion Gap 9 BUN 37 H Creatinine 2.47 H Estim Creat Clear Calc 24 Estimated GFR 25 L Glucose 140 H Calcium 7.7 L
[2024-09-20] MEDS: AZITHROMYCIN 500 MG/NS 250 ML 500 MG/250 ML BAG 250 MG IVPB (14:28)
[2024-09-20] MEDS: cefTRIAXone 2 GM/NS 100 ML 2 GM/100 ML BAG IVPB (14:28)
--- NOTE | 2024-09-20 14:47 | P.PNGI_ITS ---
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 Status: Acute Assessment and Plan: on hold (5) Acute on chronic blood loss anemia: Code(s): D62 - Acute posthemorrhagic anemia Status: Acute (6) Chronic kidney disease, stage 3: Qualifiers: Chronic kidney disease stage 3 subtype: unspecified whether 3a or 3b Qualified Code(s): N18.30 - Chronic kidney disease, stage 3 unspecified Code(s): N18.3 - Chronic kidney disease, stage 3 (moderate) Status: Acute (7) Leukocytosis: Code(s): D72.829 - Elevated white blood cell count, unspecified Status: Acute Assessment and Plan: cxr pending noted leukocytosis today, per primary Subjective Date/time seen: 09/20/24 14:47 Interval history: egd yesterday with bleeding avm, treated with apc, clip and epi had some dark stool today but overall better Review of Systems Review of Systems: All systems reviewed & are unremarkable except as noted in HPI and below Exam Const: General: comfortable and no acute distress HENMT: Mouth: Yes moist mucous membranes Eyes: Sclera: sclerae normal Neck: Neck: supple Resp: Effort & Inspection: normal respiratory effort Auscultation: no crackles and diminished lung sounds Cardio: Rate: regular rate Rhythm: regular rhythm GI: GI Palp: Yes Soft to palpation and No Tenderness to palpation present (GI) Auscultation: normal bowel sounds Skin: Other: pallor Neuro: Speech: normal speech Other: Alert and oriented x3 Extrem: General: normal to inspection Psych: Mental Status: mental status grossly normal Objective Data Vital Signs Vital Signs: Vital Signs - 24 hr 09/19/24 15:25 09/19/24 15:35 09/19/24 15:45 Temperature Pulse Rate 88 91 94 Respiratory Rate 21 H 21 H 22 H Blood Pressure 116/33 L 107/77 105/81 Pulse Oximetry 90 93 92 Oxygen Delivery Simple Face Mask Nasal Cannula Nasal Cannula Oxygen Flow Rate 8 4 4 Fraction of Inspired Oxygen 09/19/24 16:00 09/19/24 16:00 09/19/24 18:00 Temperature 97.8 F Pulse Rate 80 81 89 Respiratory Rate 22 H Blood Pressure 129/70 Pulse Oximetry 94 Oxygen Delivery Oxygen Flow Rate Fraction of Inspired Oxygen 09/19/24 19:51 09/19/24 19:53 09/19/24 20:00 Temperature 98 F Pulse Rate 96 87 Respiratory Rate 19 22 H Blood Pressure 125/59 L Pulse Oximetry 91 95 Oxygen Delivery Nasal Cannula Oxygen Flow Rate 3.5 Fraction of Inspired Oxygen 32.5 09/19/24 20:00 09/19/24 20:20 09/19/24 20:27 Temperature Pulse Rate 98 96 89 Respiratory Rate 19 Blood Pressure Pulse Oximetry 91 Oxygen Delivery Nasal Cannula Oxygen Flow Rate 3 Fraction of Inspired Oxygen 09/19/24 22:00 09/19/24 22:00 09/19/24 23:52 Temperature 98 F Pulse Rate 86 85 92 Respiratory Rate 19 22 H Blood Pressure 118/61 Pulse Oximetry 90 94 Oxygen Delivery Autopap Oxygen Flow Rate Fraction of Inspired Oxygen 09/20/24 00:00 09/20/24 00:20 09/20/24 00:41 Temperature Pulse Rate 90 89 105 H Respiratory Rate 20 19 Blood Pressure Pulse Oximetry 94 85 L Oxygen Delivery Autopap Autopap Oxygen Flow Rate Fraction of Inspired Oxygen 09/20/24 02:00 09/20/24 03:45 09/20/24 04:00 Temperature 98.9 F Pulse Rate 95 86 101 H Respiratory Rate 20 22 H Blood Pressure 110/68 Pulse Oximetry 98 98 Oxygen Delivery Autopap Oxygen Flow Rate Fraction of Inspired Oxygen 09/20/24 04:00 09/20/24 05:56 09/20/24 08:00 Temperature 97.9 F Pulse Rate 90 90 103 H Respiratory Rate 28 H Blood Pressure 127/68 Pulse Oximetry 93 Oxygen Delivery Oxygen Flow Rate Fraction of Inspired Oxygen 09/20/24 08:00 09/20/24 08:00 09/20/24 08:48 Temperature Pulse Rate 107 H 92 Respiratory Rate Blood Pressure Pulse Oximetry Oxygen Delivery CPAP Oxygen Flow Rate Fraction of Inspired Oxygen 09/20/24 09:09 09/20/24 10:00 09/20/24 11:57 Temperature 97.7 F Pulse Rate 97 83 Respiratory Rate 16 Blood Pressure 97/49 L Pulse Oximetry 92 95 Oxygen Delivery Nasal Cannula Oxygen Flow Rate 3.5 Fraction of Inspired Oxygen 09/20/24 12:00 09/20/24 14:00 Temperature Pulse Rate 78 82 Respiratory Rate Blood Pressure Pulse Oximetry Oxygen Delivery Oxygen Flow Rate Fraction of Inspired Oxygen Intake/Output Intake/Output: Intake & Output 09/17/24 09/18/24 09/19/24 09/20/24 23:59 23:59 23:59 23:59 Intake Total 3990 2420 910 Output Total 1000 4550 300 Balance 2990 -2130 610 Meds/Results Medications: Active Medications Generic Name Dose Route Start Last Admin Trade Name Freq PRN Reason Stop Dose Admin Acetaminophen 650 mg 09/18/24 07:51 Acetaminophen 325 Mg Tablet PO Q4H PRN Mild Pain (1-3) or Fever Albuterol 1 - 2 puff 09/18/24 12:52 Albuterol Sulfate (*Sp) Aerosol 1 Puff INHALATION Q4-6H PRN shortness of breath or wheezing Aripiprazole 2 mg 09/19/24 09:00 09/20/24 08:48 Aripiprazole 2 Mg Tablet PO 2 mg DAILY ABELINO Administration Ascorbic Acid 500 mg 09/19/24 09:00 09/20/24 08:49 Ascorbic Acid 500 Mg Tablet PO 500 mg DAILY ABELINO Administration Atorvastatin Calcium 40 mg 09/19/24 09:00 09/20/24 08:48 Atorvastatin 40 Mg Tablet PO 40 mg DAILY ABELINO Administration Benzonatate 200 mg 09/18/24 13:03 Benzonatate 100 Mg Capsule PO TID PRN cough Carvedilol 6.25 mg 09/18/24 21:00 09/20/24 08:48 Carvedilol 6.25 Mg Tablet PO 6.25 mg Q12HR ABELINO Administration Cyanocobalamin 1,000 mcg 09/19/24 09:00 09/20/24 08:48 Cyanocobalamin 1,000 Mcg Tablet PO 1,000 mcg QAM ABELINO Administration Duloxetine HCl 20 mg 09/19/24 09:00 09/20/24 09:00 Duloxetine Hcl 20 Mg Capsule.Dr PO 20 mg DAILY ABELINO Administration Ferrous Sulfate 325 mg 09/18/24 17:00 09/20/24 08:49 Ferrous Sulfate [address] BY MOUTH 325 mg BID ABELINO Administration Guaifenesin/Dextromethorphan 2 tab 09/18/24 13:04 Guaifenesin 600 Mg/Dextromethorphan 30 Mg Sr Tab 12 Hr PO Q12H PRN cough Ceftriaxone Sodium 2 gm in 100 mls @ 200 mls/hr 09/20/24 14:00 09/20/24 14:28 Rocephin 2 Gm/Ns 100 Ml IVPB 200 mls/hr Q24H ABELINO Administration Azithromycin 500 mg in 250 mls @ 250 mls/hr 09/20/24 14:00 09/20/24 14:28 Zithromax IVPB 09/20/24 14:59 250 mls/hr ONCE ONE Administration Lamotrigine 50 mg 09/19/24 09:00 09/20/24 08:48 Lamotrigine 50 Mg Tablet PO 50 mg DAILY ABELINO Administration Morphine Sulfate 2 mg 09/18/24 07:51 Morphine Sulfate (*Crx) 2 Mg/Ml Inj IV PUSH Q2H PRN Pain Rated 7-10 Ondansetron HCl 4 mg 09/18/24 07:51 Ondansetron Inj 4 Mg/2 Ml Vial IV PUSH Q4H PRN Nausea Pantoprazole Sodium 40 mg 09/19/24 21:00 09/20/24 08:49 Pantoprazole 40 Mg Tablet PO 40 mg Q12HR ABELINO Administration Fluticasone/Salmeterol 2 puff 09/18/24 20:00 09/20/24 09:09 Fluticasone/Salmeterol 115-21 Mcg (*Sp) Inhaler INHALATION 2 puff Q12HRT ABELINO Administration Sodium Chloride 20 ml 09/18/24 10:44 Central Line Flush IV PUSH PRN PRN after blood draws Sodium Chloride 10 ml 09/18/24 10:44 Central Line Flush IV PUSH PRN PRN with TPN bag changes Sodium Chloride 10 ml 09/18/24 14:00 09/20/24 14:28 Central Line Flush IV PUSH 10 ml Q8HR ABELINO Administration Vitamin D 2,000 units 09/19/24 09:00 09/20/24 08:48 Cholecalciferol 1,000 Units Tablet PO 2,000 units DAILY ABELINO Administration Radiology Results: ITS Impressions Abdomen/Pelvis CT 09/18/24 07:06 IMPRESSION: 1. Small right kidney. Slightly small left kidney. Bilateral renal cysts. Hyperdense area seen in the right kidney lower pole which may be complex cyst or mass. Ultrasound confirmation advised. 2. Small hypodensity in the liver dome which may be a cyst. Ultrasound evaluation advised. 3. Cholelithiasis. 4. No evidence of appendicitis, diverticulitis or intestinal obstruction. 5. No definite active bleeding seen in the bowel. Labs Labs: Laboratory Results - last 24 hr 09/19/24 09/19/24 09/20/24 17:07 23:03 05:43 WBC 19.2 H RBC 2.63 L Hgb 7.7 L 7.9 L 7.6 L Hct 25.5 L 26.1 L 25.1 L MCV 95.4 MCH 28.9 MCHC 30.3 L RDW 18.8 H Plt Count 202 MPV 9.8 Immature Gran % (Auto) Neut % (Auto) Lymph % (Auto) [place] % (Auto) Eos % (Auto) Baso % (Auto) Lymph # (Auto) [place] # (Auto) Eos # (Auto) Baso # (Auto) Abs Immat Gran (auto) Absolute Neuts (auto) Absolute Nucleated RBC Nucleated RBC % Sodium 147 H Potassium 3.5 Chloride 118 H Carbon Dioxide 23 Anion Gap 6 BUN 42 H D Creatinine 2.54 H Estim Creat Clear Calc 23 Estimated GFR 24 L Glucose 123 H Calcium 7.9 L 09/20/24 12:42 WBC 17.9 H RBC 2.70 L Hgb 7.8 L Hct 25.8 L MCV 95.6 MCH 28.9 MCHC 30.2 L RDW 18.9 H Plt Count 206 MPV 9.8 Immature Gran % (Auto) 0.5 Neut % (Auto) 77.9 H Lymph % (Auto) 10.9 L [place] % (Auto) 9.1 H Eos % (Auto) 1.3 Baso % (Auto) 0.3 Lymph # (Auto) 1.95 [place] # (Auto) 1.6 H Eos # (Auto) 0.2 Baso # (Auto) 0.1 Abs Immat Gran (auto) 0.09 H Absolute Neuts (auto) 13.9 H Absolute Nucleated RBC 0.020 H Nucleated RBC % 0.1 Sodium 141 Potassium 3.5 Chloride 111 H Carbon Dioxide 21 L Anion Gap 9 BUN 37 H Creatinine 2.47 H Estim Creat Clear Calc 24 Estimated GFR 25 L Glucose 140 H Calcium 7.7 L
[2024-09-20 15:27] LABS: NT Pro B Type Natriuretic Pept 7130 pg/mL (19.9-100)
[2024-09-20 16:06] LABS: Procalcitonin 0.2 ng/mL
[2024-09-20] MEDS: POTASSIUM CHLORIDE 20 MEQ ER TABLET PO (17:06)
[2024-09-21] VITALS (15 sets, daily range): BP systolic 104–121; BP diastolic 37–67; PULSE 67–91; RESP 16–22; TEMP 36.3–36.8; O2SAT 92–99
--- NOTE | 2024-09-21 | ECHO_ITS ---
Patient Info Name: Zaheer Camarillo Age: 84 years : 1940 Gender: Male Ht: 67 in Wt: 243 lbs BSA: 2.33 m2 HR: 82 bpm BP: 111 / 58 mmHg Technical Quality: Fair Exam Date: 09/21/2024 1:43 PM Exam Location: Echo Lab Patient Status: Inpatient Admit Date: 09/19/2024 Staff Ordering Physician: Van Niño MD Marble Mason: Natalie Ojeda RDCS Attending Provider: Dionicio Mireles MD Exam Type: CA echo dop bubble study w con Study Info Indications - Hypoxia Complete two-dimentional, color flow and Doppler transthoracic echocardiogram is performed with agitated saline and with contrast to opacify the left ventricle and to improve the delineation of the left ventricle endocardial borders. Contrast/Agitated Saline Contrast/Ag. Saline: Definity Amount: 2.00 ml Existing IV Access: Yes IV Access Condition: patent with no signs of infiltration Contrast/Ag. Saline: Agitated Saline Amount: 18.00 ml Existing IV Access: Yes IV Access Condition: patent with no signs of infiltration Summary 1. Left ventricular chamber dimension is normal. 2. Left ventricular systolic function is normal, estimated at 60-65%. 3. There is moderate concentric increased left ventricular wall thickness. 4. The left ventricular diastolic function is grade I diastolic dysfunction. 5. E/e' 14 is mildly elevated. 6. Left atrial chamber dimension is mildly enlarged. 7. Right atrial chamber dimension is mildly enlarged. 8. The aortic valve is not well visualized. Cannot determine number of aortic valve leaflets. 9. There is severe aortic valve sclerosis. 10. There is severe aortic valve stenosis based on a peak velocity of 581 cm/s, mean gradient of 96 mmHg, and aortic valve area of 0.7 cm2. 11. There is trace aortic valve regurgitation. 12. The mitral valve has moderately calcified annulus. 13. There is mild tricuspid valve regurgitation. 14. Moderate pulmonary hypertension, estimated pulmonary arterial systolic pressure is 51 mmHg. Left Ventricle E/e' 14 is mildly elevated. Left ventricular chamber dimension is normal. Left ventricular systolic function is normal, estimated at 60-65%. There is moderate concentric increased left ventricular wall thickness. The left ventricular diastolic function is grade I diastolic dysfunction. Right Ventricle Right ventricular systolic function is normal and with normal TAPSE 2.2 cm. Right ventricular chamber dimension is normal. Left Atria Left atrial chamber dimension is mildly enlarged. Right Atria Right atrial chamber dimension is mildly enlarged. Atrial Septum Agitated saline injection with and without valsalva maneuver opacified right side cardiac chambers without obvious shunt to left side cardiac chambers. Interatrial septum not well visualized by 2D and agitated saline imaging. Aortic Valve The aortic valve is not well visualized. Cannot determine number of aortic valve leaflets. There is severe aortic valve stenosis based on a peak velocity of 581 cm/s, mean gradient of 96 mmHg, and aortic valve area of 0.7 cm2. There is severe aortic valve sclerosis. There is trace aortic valve regurgitation. Pulmonic Valve There is no pulmonic regurgitation. Mitral Valve The mitral valve has moderately calcified annulus. There is no mitral valve stenosis. There is no mitral valve regurgitation. Tricuspid Valve There is mild tricuspid valve regurgitation. Moderate pulmonary hypertension, estimated pulmonary arterial systolic pressure is 51 mmHg. Pericardium/Pleural There is no pericardial effusion. Inferior Vena Cava Normal inferior vena cava with >50% collapse upon inspiration consistent with normal right atrial pressure, 5 mmHg. Aorta The aortic root size at the sinus of Valsalva is normal. Left Ventricular Outflow Tract Name Value Normal LVOT 2D LVOT Diameter 2.0 cm LVOT Doppler LVOT Peak Gradient 6 mmHg LVOT Mean Gradient 3 mmHg LVOT VTI 33 cm LVOT VTI/AV VTI Ratio 0.2 LVOT Stroke Volume 100 ml LVOT CO 15.5 l/min LVOT CI 6.7 l/min/m2 Pulmonic Valve Name Value Normal PV Doppler PV Peak Gradient 8 mmHg Mitral Valve Name Value Normal MV Doppler MV Decel [place] 866 cm/s2 MV PHT 45 ms MV Area (PHT) 4.9 cm2 4.0-5.0 MV Diastolic Function MV E Peak Velocity 135 cm/s MV A Peak Velocity 144 cm/s MV E/A 0.9 MV Decel Time 156 ms MV Annular TDI MV E/e' (Septal) 15.1 <=8.0 MV E/e' (Lateral) 14.3 <=8.0 MV E/e' (Average) 14.7 Tricuspid Valve Name Value Normal TV Regurgitation Doppler TR Peak Velocity 337 cm/s TR Peak Gradient 46 mmHg Estimated PAP/RSVP RA Pressure 5 mmHg <=5 PA Systolic Pressure 51 mmHg <36 RV Systolic Pressure 51 mmHg <36 Aorta Name Value Normal Ascending Aorta Ao Root Diameter (MM) 3.1 cm Ao Root Diam Index (MM) 1.3 cm/m2 Aortic Valve Name Value Normal AV Doppler AV Peak Velocity 581 cm/s AV Peak Gradient 135 mmHg AV Mean Gradient 96 mmHg AV VTI 152 cm AV Area (Cont Eq VTI) 0.7 cm2 >=3.0 AV Area (Cont Eq Jorge) 0.6 cm2 AV Regurgitation 2D LVOT Area 3.0 cm2 Ventricles Name Value Normal LV Dimensions 2D/MM IVS Diastolic Thickness (2D) 1.7 cm 0.6-1.0 LVID Diastole (2D) 3.9 cm 4.2-5.8 LVIW Diastolic Thickness (2D) 1.4 cm 0.6-1.0 LVID Systole (2D) 2.6 cm 2.5-4.0 LVOT Diameter 2.0 cm LV Mass (2D Cubed) 236.18 g 88.00-224.00 LV Mass Index (2D Cubed) 101 g/m2 49-115 Relative Wall Thickness (2D) 0.70 LV Fractional Shortening/Ejection Fraction 2D/MM LV Fractional Shortening (2D) 33 % 25-43 LV EF (2D Teicholz) 63 % 52-72 LV Diastolic Volume (4C MOD) 112 ml LV EF (4C MOD) 52 % LV Diastolic Volume (2C MOD) 65 ml LV EF (2C MOD) 70 % LV Diastolic Volume (BP MOD) 91 ml 62-150 LV Diastolic Volume Index (BP MOD) 39 ml/m2 34-74 LV Systolic Volume (BP MOD) 37 ml 21-61 LV Systolic Volume Index (BP MOD) 16 ml/m2 11-31 LV EF (BP MOD) 60 % 52-72 LV Diastolic Length (4C) 8.7 cm LV Systolic Length (4C) 7.7 cm LV Stroke Volume (4C MOD) 58 ml RV Dimensions 2D/MM RVID Diastole (2D) 5.0 cm 2.5-3.5 Atria Name Value Normal LA Dimensions LA Dimension (MM) 4.1 cm 3.0-4.1 LA Volume (4C A-L) 73 ml RA Dimensions RA Area (4C) 21.9 cm2 <=18.0 Report Signatures
[2024-09-21 04:39] LABS: Hematocrit 24.1 % (42.0-52.0); Hemoglobin 7.4 g/dL (14.0-18.0); Mean Corpuscular HGB Conc 30.7 g/dl (32-36); Mean Corpuscular Hemoglobin 29.6 pg (26-34); Mean Corpuscular Volume 96.4 fl (80-100); Mean Platelet Volume 10.3 fl (7.4-10.4); Platelet Count Result 186 k/mm3 (150-375); Red Cell Distribution Width 18.8 % (11.5-14.5); White Blood Count 12.3 K/mm3 (4.5-10.0)
[2024-09-21 04:49] LABS: Anion Gap 7 mmol/L (4-12); Blood Urea Nitrogen 35 mg/dL (9-20); Calcium 7.7 mg/dL (8.4-10.2); Carbon Dioxide 22 mmol/L (22-30); Chloride 113 mmol/L (98-107); Estimated CRCL calculation 22 ml/min; Estimated Glomerular Filt Rate 23; Glucose 118 mg/dL (65-110); Potassium 3.7 mmol/L (3.4-5.0); Sodium 142 mmol/L (137-145)
[2024-09-21] MEDS: CENTRAL LINE FLUSH 10 ML IV PUSH ×3 (06:28→20:39)
[2024-09-21] MEDS: FLUTICASONE/SALMETEROL 115-21 MCG (*SP) INHALER 2 PUFF INHALATION ×2 (07:58→20:59)
[2024-09-21] MEDS: CHOLECALCIFEROL 1,000 UNITS TABLET 2000 UNITS PO (10:02)
[2024-09-21] MEDS: ATORVASTATIN 40 MG TABLET PO (10:02)
[2024-09-21] MEDS: ARIPiprazole 2 MG TABLET PO (10:03)
[2024-09-21] MEDS: lamoTRIgine 50 MG TABLET PO (10:03)
[2024-09-21] MEDS: carvediloL 6.25 MG TABLET PO ×2 (10:03→20:38)
[2024-09-21] MEDS: CYANOCOBALAMIN 1,000 MCG TABLET 1000 MCG PO (10:03)
[2024-09-21] MEDS: ASCORBIC ACID 500 MG TABLET PO (10:03)
[2024-09-21] MEDS: DULoxetine HCL 20 MG CAPSULE.DR PO (10:03)
[2024-09-21] MEDS: FERROUS SULFATE 325 MG TABLET DR BY MOUTH ×2 (10:03→16:59)
[2024-09-21] MEDS: PANTOPRAZOLE 40 MG TABLET PO ×2 (10:03→20:39)
--- NOTE | 2024-09-21 13:06 | PM.IMPN ---
Progress Note: A&P Assessment and Plan (1) Acute GI bleeding: Code(s): K92.2 - Gastrointestinal hemorrhage, unspecified Status: Acute Assessment and Plan: Patient presents with black stools and nausea. He did have 1 episode of bright red blood per rectum. Denies taking NSAIDs. He is on Plavix. Hemoglobin was 6.8 on admission. He was guaiac positive by ER exam. He was typed and crossed and transfused 2 units of packed red blood cells on 09/18/2024. He tolerated this well. Hemoglobin climbed to the 7 range and has been stable. GI was consulted and patient underwent EGD which showed duodenal AVM with bleeding. The lesion was cauterized with APC and then injected with epinephrine. A clip was placed. Patient tolerated the procedure well. Appreciate GI input. Continue to monitor H&H. Plavix remains on hold. He remains on PPI therapy. (2) AVM (arteriovenous malformation) of duodenum, acquired: Code(s): K31.819 - Angiodysplasia of stomach and duodenum without bleeding Status: Acute Assessment and Plan: As above (3) Acute blood loss anemia: Code(s): D62 - Acute posthemorrhagic anemia Status: Acute Assessment and Plan: Hemoglobin was essentially normal last year in the 13-14 range. Last hemoglobin in February was 13.7. As above. [place] the abrupt drop in the hemoglobin was related to acute blood loss anemia. Follow H&H (4) Chronic respiratory failure: Code(s): J96.10 - Chronic respiratory failure, unspecified whether with hypoxia or hypercapnia Status: Acute Assessment and Plan: Patient has chronic respiratory failure on 3 L nasal cannula at all times. He wears BiPAP with 3 L bleed in at night. He had increasing oxygen requirement overnight requiring up to 6 L bleed in. Also with requiring 4 L at rest while awake. Chest x-ray yesterday showing increasing left-sided pleural effusion. BNP is 7130. PCT is 0.2. Suspect worsening hypoxia related to mild fluid overload related to blood transfusion. Consider also occult pneumonia in the right lower lobe. Rocephin has been started. Will add azithromycin. Check sputum Consider also COPD exacerbation. Will add steroids for brief course. Had nebulizers Check echocardiogram. Consider thoracentesis. Will add low-dose IV diuretics to try to improve his fluid status. Monitor renal function closely. Pulmonary consult. (5) CKD (chronic kidney disease): Qualifiers: Chronic kidney disease stage: unspecified stage Qualified Code(s): N18.9 - Chronic kidney disease, unspecified Code(s): N18.9 - Chronic kidney disease, unspecified Status: Acute Assessment and Plan: Creatinine last year ran 2.1-2.4 range. Creatinine on admission was 2.4 and has climbed to 2.6. Will monitor closely on diuretic therapy. (6) COPD (chronic obstructive pulmonary disease): Qualifiers: COPD type: unspecified COPD Qualified Code(s): J44.9 - Chronic obstructive pulmonary disease, unspecified Code(s): J44.9 - Chronic obstructive pulmonary disease, unspecified Status: Chronic Assessment and Plan: Patient does have mild expiratory wheezes noted. As above (7) Obstructive sleep apnea: Code(s): G47.33 - Obstructive sleep apnea (adult) (pediatric) Status: Chronic Assessment and Plan: Patient compliant with BiPAP therapy. Continue the same. Oxygen bleed in to keep SpO2 greater than 90%. (8) Coronary artery disease: Code(s): I25.10 - Atherosclerotic heart disease of [place] coronary artery without angina pectoris Status: Acute Assessment and Plan: Patient with history of coronary disease. Plavix on hold. Continue Coreg. Continue Lipitor. Plan DVT prophylaxis -SCDs Code status -full Subjective Date/time seen: 09/21/24 13:06 Interval history: 84yo male with CKD, CAD, chronic respiratory failure (3L) and HTN here for black stools and nausea. Assuming care. Chart reviewed. No problems overnight. No abdominal pain. No nausea or vomiting. He his having bowel movements. He feels hungry today. Last night, patient required increasing O2 bleeding in for bipap. He wears bipap at night at home. Exam Narrative: AF 97.5 111/58 89 20 99% 4L Gen - NARD Chest - end expiratory wheezes CV - RRR S1/S2 with murmur appreciated LSB. Tele showing PACs, brief run ATach Abd - Soft, obese NT Ext - No pedal edema Neuro - Alert and appropriate Psych - Nml mood and affect Skin - Warm and dry Objective Data Vital Signs Vital Signs: Vital Signs - 24 hr 09/20/24 14:00 09/20/24 15:55 09/20/24 16:00 Temperature 97.5 F L Pulse Rate 82 77 Respiratory Rate 16 Blood Pressure 92/47 L Pulse Oximetry 95 95 Oxygen Delivery Nasal Cannula Oxygen Flow Rate 3 09/20/24 16:00 09/20/24 16:11 09/20/24 16:28 Temperature Pulse Rate 83 76 Respiratory Rate Blood Pressure 126/69 110/55 L Pulse Oximetry Oxygen Delivery Oxygen Flow Rate 09/20/24 16:30 09/20/24 18:00 09/20/24 18:04 Temperature Pulse Rate 82 88 Respiratory Rate Blood Pressure 100/45 L Pulse Oximetry Oxygen Delivery Oxygen Flow Rate 09/20/24 19:30 09/20/24 20:00 09/20/24 20:09 Temperature 97.5 F L Pulse Rate 90 90 Respiratory Rate 16 16 Blood Pressure 121/55 L Pulse Oximetry 90 88 L 89 L Oxygen Delivery Nasal Cannula Nasal Cannula Oxygen Flow Rate 4 4 09/20/24 20:17 09/20/24 22:00 09/21/24 00:00 Temperature 97.6 F Pulse Rate 82 86 70 Respiratory Rate 18 16 Blood Pressure 106/65 Pulse Oximetry 94 96 Oxygen Delivery Autopap Oxygen Flow Rate 09/21/24 00:00 09/21/24 01:40 09/21/24 04:00 Temperature 97.7 F Pulse Rate 71 80 90 Respiratory Rate 21 H 16 Blood Pressure 112/37 L Pulse Oximetry 92 92 Oxygen Delivery Autopap Oxygen Flow Rate 09/21/24 04:00 09/21/24 07:58 09/21/24 08:00 Temperature 97.3 F L Pulse Rate 67 86 Respiratory Rate 20 Blood Pressure 106/64 Pulse Oximetry 97 97 Oxygen Delivery Nasal Cannula Oxygen Flow Rate 4 09/21/24 08:00 09/21/24 10:03 09/21/24 11:51 Temperature 97.5 F L Pulse Rate 85 89 Respiratory Rate 20 Blood Pressure 111/58 L Pulse Oximetry 97 99 Oxygen Delivery Nasal Cannula Oxygen Flow Rate 4 Intake/Output Intake/Output: Intake & Output 09/18/24 09/19/24 09/20/24 09/21/24 23:59 23:59 23:59 23:59 Intake Total 3990 2420 4070 240 Output Total 1000 4550 1300 1350 Balance 2990 -2130 2770 -1110 Meds/Results Medications: Active Medications Generic Name Dose Route Start Last Admin Trade Name Freq PRN Reason Stop Dose Admin Acetaminophen 650 mg 09/18/24 07:51 Acetaminophen 325 Mg Tablet PO Q4H PRN Mild Pain (1-3) or Fever Albuterol 1 - 2 puff 09/18/24 12:52 Albuterol Sulfate (*Sp) Aerosol 1 Puff INHALATION Q4-6H PRN shortness of breath or wheezing Aripiprazole 2 mg 09/19/24 09:00 09/21/24 10:03 Aripiprazole 2 Mg Tablet PO 2 mg DAILY ABELINO Administration Ascorbic Acid 500 mg 09/19/24 09:00 09/21/24 10:03 Ascorbic Acid 500 Mg Tablet PO 500 mg DAILY ABELINO Administration Atorvastatin Calcium 40 mg 09/19/24 09:00 09/21/24 10:02 Atorvastatin 40 Mg Tablet PO 40 mg DAILY ABELINO Administration Benzonatate 200 mg 09/18/24 13:03 Benzonatate 100 Mg Capsule PO TID PRN cough Carvedilol 6.25 mg 09/18/24 21:00 09/21/24 10:03 Carvedilol 6.25 Mg Tablet PO 6.25 mg Q12HR ABELINO Administration Cyanocobalamin 1,000 mcg 09/19/24 09:00 09/21/24 10:03 Cyanocobalamin 1,000 Mcg Tablet PO 1,000 mcg QAM ABELINO Administration Duloxetine HCl 20 mg 09/19/24 09:00 09/21/24 10:03 Duloxetine Hcl 20 Mg Capsule. PO 20 mg DAILY ABELINO Administration Ferrous Sulfate 325 mg 09/18/24 17:00 09/21/24 10:03 Ferrous Sulfate [address] BY MOUTH 325 mg BID ABELINO Administration Guaifenesin/Dextromethorphan 2 tab 09/18/24 13:04 Guaifenesin 600 Mg/Dextromethorphan 30 Mg Sr Tab 12 Hr PO Q12H PRN cough Ceftriaxone Sodium 2 gm in 100 mls @ 200 mls/hr 09/20/24 14:00 09/20/24 14:28 Rocephin 2 Gm/Ns 100 Ml IVPB 200 mls/hr Q24H ABELINO Administration Lamotrigine 50 mg 09/19/24 09:00 09/21/24 10:03 Lamotrigine 50 Mg Tablet PO 50 mg DAILY ABELINO Administration Morphine Sulfate 2 mg 09/18/24 07:51 Morphine Sulfate (*Crx) 2 Mg/Ml Inj IV PUSH Q2H PRN Pain Rated 7-10 Ondansetron HCl 4 mg 09/18/24 07:51 Ondansetron Inj 4 Mg/2 Ml Vial IV PUSH Q4H PRN Nausea Pantoprazole Sodium 40 mg 09/19/24 21:00 09/21/24 10:03 Pantoprazole 40 Mg Tablet PO 40 mg Q12HR ABELINO Administration Fluticasone/Salmeterol 2 puff 09/18/24 20:00 09/21/24 07:58 Fluticasone/Salmeterol 115-21 Mcg (*Sp) Inhaler INHALATION 2 puff Q12HRT ABELINO Administration Sodium Chloride 20 ml 09/18/24 10:44 Central Line Flush IV PUSH PRN PRN after blood draws Sodium Chloride 10 ml 09/18/24 10:44 Central Line Flush IV PUSH PRN PRN with TPN bag changes Sodium Chloride 10 ml 09/18/24 14:00 09/21/24 06:28 Central Line Flush IV PUSH 10 ml Q8HR ABELINO Administration Vitamin D 2,000 units 09/19/24 09:00 09/21/24 10:02 Cholecalciferol 1,000 Units Tablet PO 2,000 units DAILY ABELINO Administration Radiology Results: ITS Impressions Abdomen/Pelvis CT 09/18/24 07:06 IMPRESSION: 1. Small right kidney. Slightly small left kidney. Bilateral renal cysts. Hyperdense area seen in the right kidney lower pole which may be complex cyst or mass. Ultrasound confirmation advised. 2. Small hypodensity in the liver dome which may be a cyst. Ultrasound evaluation advised. 3. Cholelithiasis. 4. No evidence of appendicitis, diverticulitis or intestinal obstruction. 5. No definite active bleeding seen in the bowel. Chest X-Ray 09/20/24 15:18 IMPRESSION: Increasing left-sided pleural effusion, as detailed above. Abdomen Ultrasound 09/21/24 10:21 IMPRESSION: Evaluation of the pancreas is limited by overlying bowel gas. Simple cyst within the dome of the liver as well as within the right kidney, for which no further follow-up is needed. Findings within the medial margin of the upper pole of the left kidney which are indeterminate based on ultrasound characteristics for which contrast enhanced CT or MRI is recommended (with renal mass protocol). Cholelithiasis. Labs Labs: Laboratory Results - last 24 hr 09/20/24 09/20/24 09/21/24 12:38 12:42 04:34 WBC 12.3 H RBC 2.50 L Hgb 7.4 L Hct 24.1 L MCV 96.4 MCH 29.6 MCHC 30.7 L RDW 18.8 H Plt Count 186 MPV 10.3 Sodium 141 142 Potassium 3.5 3.7 Chloride 111 H 113 H Carbon Dioxide 21 L 22 Anion Gap 9 7 BUN 37 H 35 H Creatinine 2.47 H 2.64 H Estim Creat Clear Calc 24 22 Estimated GFR 25 L 23 L Glucose 140 H 118 H Calcium 7.7 L 7.7 L NT-Pro-B Natriuret Pep 7130 H Procalcitonin 0.2
[2024-09-21] MEDS: AZITHROMYCIN 250 MG TABLET 500 MG PO (14:00)
[2024-09-21] MEDS: cefTRIAXone 2 GM/NS 100 ML 2 GM/100 ML BAG IVPB (14:01)
[2024-09-21] MEDS: PERFLUTREN LIPID MICROSPHERES 1.5 ML VIAL DILUTED TO 10 ML TOTAL VOLUME IV PUSH (14:30)
--- NOTE | 2024-09-21 15:00 | IVDEFINITY ---
Prior to administration of IV Definity the patient was educated on the risks and benefits of the imaging enhancing agent including potential adverse side effects. The patient verbalized understanding. Allergies were verified. No exclusion criteria were identified and at least one of the following inclusion criteria were met: 1) physician request, 2) patient technically difficult to image (per the [place] [employer] guidelines of two or more segments not discernable within the apical view), or 3) questionable left ventricular function. ?
[2024-09-21] MEDS: FUROSEMIDE INJ 40 MG/4 ML VIAL 20 MG IV PUSH (16:59)
[2024-09-21] MEDS: methylPREDNISolone SOD SUCC 125 MG VIAL 60 MG IV PUSH (17:00)
--- NOTE | 2024-09-21 17:00 | P.PNGI_ITS ---
Progress Note: A&P Assessment and Plan (1) AVM (arteriovenous malformation) of duodenum, acquired: Code(s): K31.819 - Angiodysplasia of stomach and duodenum without bleeding Status: Acute Assessment and Plan: treated with egd, this was cause of gib hold blood thinner ppi daily he will see hem-onc as outpatient for chronic anemia, if hgb drops again then we can repeat another EGD as needed advance diet as tolerated (2) Acute GI bleeding: Code(s): K92.2 - Gastrointestinal hemorrhage, unspecified Status: Acute Assessment and Plan: resvoled (3) Melena: Code(s): K92.1 - Melena Status: Acute (4) Blood thinned due to long-term anticoagulant use: Code(s): Z79.01 - [facility] (current) use of anticoagulants Status: Acute Assessment and Plan: on hold (5) Acute on chronic blood loss anemia: Code(s): D62 - Acute posthemorrhagic anemia Status: Acute Assessment and Plan: hgb low but stable will follow-up with dr melendez (6) Chronic kidney disease, stage 3: Qualifiers: Chronic kidney disease stage 3 subtype: unspecified whether 3a or 3b Qualified Code(s): N18.30 - Chronic kidney disease, stage 3 unspecified Code(s): N18.3 - Chronic kidney disease, stage 3 (moderate) Status: Acute (7) Leukocytosis: Code(s): D72.829 - Elevated white blood cell count, unspecified Status: Acute Assessment and Plan: improved (8) Chronic hypoxemic respiratory failure: Code(s): J96.11 - Chronic respiratory failure with hypoxia Status: Acute Assessment and Plan: pleural effusion pulmonary will see Subjective Date/time seen: 09/21/24 17:00 Interval history: no more bleeding still requiring oxygen, CXR noted pleural effusion Review of Systems Review of Systems: All systems reviewed & are unremarkable except as noted in HPI and below Exam Const: General: comfortable and no acute distress HENMT: Mouth: Yes moist mucous membranes Eyes: Sclera: sclerae normal Neck: Neck: supple Resp: Effort & Inspection: normal respiratory effort Auscultation: no crackles, wheezes and diminished lung sounds Cardio: Rate: regular rate Rhythm: regular rhythm GI: GI Palp: Yes Soft to palpation and No Tenderness to palpation present (GI) Auscultation: normal bowel sounds Skin: Other: pallor Neuro: Speech: normal speech Other: Alert and oriented x3 Extrem: General: normal to inspection Psych: Mental Status: mental status grossly normal Objective Data Vital Signs Vital Signs: Vital Signs - 24 hr 09/20/24 18:00 09/20/24 18:04 09/20/24 19:30 Temperature 97.5 F L Pulse Rate 82 88 90 Respiratory Rate 16 Blood Pressure 121/55 L Pulse Oximetry 90 Oxygen Delivery Oxygen Flow Rate 09/20/24 20:00 09/20/24 20:09 09/20/24 20:17 Temperature Pulse Rate 90 82 Respiratory Rate 16 Blood Pressure Pulse Oximetry 88 L 89 L Oxygen Delivery Nasal Cannula Nasal Cannula Oxygen Flow Rate 4 4 09/20/24 22:00 09/21/24 00:00 09/21/24 00:00 Temperature 97.6 F Pulse Rate 86 70 71 Respiratory Rate 18 16 Blood Pressure 106/65 Pulse Oximetry 94 96 Oxygen Delivery Autopap Oxygen Flow Rate 09/21/24 01:40 09/21/24 04:00 09/21/24 04:00 Temperature 97.7 F Pulse Rate 80 90 67 Respiratory Rate 21 H 16 Blood Pressure 112/37 L Pulse Oximetry 92 92 Oxygen Delivery Autopap Oxygen Flow Rate 09/21/24 07:58 09/21/24 08:00 09/21/24 08:00 Temperature 97.3 F L Pulse Rate 86 Respiratory Rate 20 Blood Pressure 106/64 Pulse Oximetry 97 97 97 Oxygen Delivery Nasal Cannula Nasal Cannula Oxygen Flow Rate 4 4 09/21/24 08:00 09/21/24 10:03 09/21/24 11:51 Temperature 97.5 F L Pulse Rate 81 85 89 Respiratory Rate 20 Blood Pressure 111/58 L Pulse Oximetry 99 Oxygen Delivery Oxygen Flow Rate 09/21/24 12:00 09/21/24 16:00 Temperature 97.9 F Pulse Rate 86 87 Respiratory Rate 22 H Blood Pressure 118/53 L Pulse Oximetry 93 Oxygen Delivery Oxygen Flow Rate Intake/Output Intake/Output: Intake & Output 09/18/24 09/19/24 09/20/24 09/21/24 23:59 23:59 23:59 23:59 Intake Total 3990 2420 4170 600 Output Total 1000 4550 1300 1350 Balance 2990 -2130 2870 -750 Meds/Results Medications: Active Medications Generic Name Dose Route Start Last Admin Trade Name Davidq PRN Reason Stop Dose Admin Acetaminophen 650 mg 09/18/24 07:51 Acetaminophen 325 Mg Tablet PO Q4H PRN Mild Pain (1-3) or Fever Albuterol 1 - 2 puff 09/18/24 12:52 Albuterol Sulfate (*Sp) Aerosol 1 Puff INHALATION Q4-6H PRN shortness of breath or wheezing Albuterol/Ipratropium 3 ml 09/21/24 20:00 Ipratropium 0.5 Mg/Albuterol Sulfate 2.5 Mg Ampul.Neb 3 Ml INHALATION Q6HRT [facility] Aripiprazole 2 mg 09/19/24 09:00 09/21/24 10:03 Aripiprazole 2 Mg Tablet PO 2 mg DAILY ABELINO Administration Ascorbic Acid 500 mg 09/19/24 09:00 09/21/24 10:03 Ascorbic Acid 500 Mg Tablet PO 500 mg DAILY ABELINO Administration Atorvastatin Calcium 40 mg 09/19/24 09:00 09/21/24 10:02 Atorvastatin 40 Mg Tablet PO 40 mg DAILY ABELINO Administration Azithromycin 250 mg 09/22/24 09:00 Azithromycin 250 Mg Tablet PO 09/25/24 09:01 DAILY ABELINO Benzonatate 200 mg 09/18/24 13:03 Benzonatate 100 Mg Capsule PO TID PRN cough Carvedilol 6.25 mg 09/18/24 21:00 09/21/24 10:03 Carvedilol 6.25 Mg Tablet PO 6.25 mg Q12HR ABELINO Administration Cyanocobalamin 1,000 mcg 09/19/24 09:00 09/21/24 10:03 Cyanocobalamin 1,000 Mcg Tablet PO 1,000 mcg QAM ABELINO Administration Duloxetine HCl 20 mg 09/19/24 09:00 09/21/24 10:03 Duloxetine Hcl 20 Mg Capsule.Dr PO 20 mg DAILY ABELINO Administration Ferrous Sulfate 325 mg 09/18/24 17:00 09/21/24 16:59 Ferrous Sulfate [address] BY MOUTH 325 mg BID ABELINO Administration Furosemide 20 mg 09/21/24 17:00 09/21/24 16:59 Furosemide Inj 40 Mg/4 Ml Vial IV PUSH 20 mg BID ABELINO Administration Guaifenesin/Dextromethorphan 2 tab 09/18/24 13:04 Guaifenesin 600 Mg/Dextromethorphan 30 Mg Sr Tab 12 Hr PO Q12H PRN cough Ceftriaxone Sodium 2 gm in 100 mls @ 200 mls/hr 09/20/24 14:00 09/21/24 14:01 Rocephin 2 Gm/Ns 100 Ml IVPB 200 mls/hr Q24H ABELINO Administration Lamotrigine 50 mg 09/19/24 09:00 09/21/24 10:03 Lamotrigine 50 Mg Tablet PO 50 mg DAILY ABELINO Administration Methylprednisolone Sodium Succinate 60 mg 09/21/24 18:00 09/21/24 17:00 Methylprednisolone Sod Succ 125 Mg Vial IV PUSH 60 mg Q6HR ABELINO Administration Morphine Sulfate 2 mg 09/18/24 07:51 Morphine Sulfate (*Crx) 2 Mg/Ml Inj IV PUSH Q2H PRN Pain Rated 7-10 Pantoprazole Sodium 40 mg 09/19/24 21:00 09/21/24 10:03 Pantoprazole 40 Mg Tablet PO 40 mg Q12HR ABELINO Administration Fluticasone/Salmeterol 2 puff 09/18/24 20:00 09/21/24 07:58 Fluticasone/Salmeterol 115-21 Mcg (*Sp) Inhaler INHALATION 2 puff Q12HRT ABELINO Administration Sodium Chloride 20 ml 09/18/24 10:44 Central Line Flush IV PUSH PRN PRN after blood draws Sodium Chloride 10 ml 09/18/24 10:44 Central Line Flush IV PUSH PRN PRN with TPN bag changes Sodium Chloride 10 ml 09/18/24 14:00 09/21/24 14:01 Central Line Flush IV PUSH 10 ml Q8HR ABELINO Administration Vitamin D 2,000 units 09/19/24 09:00 09/21/24 10:02 Cholecalciferol 1,000 Units Tablet PO 2,000 units DAILY ABELINO Administration Radiology Results: ITS Impressions Abdomen/Pelvis CT 09/18/24 07:06 IMPRESSION: 1. Small right kidney. Slightly small left kidney. Bilateral renal cysts. Hyperdense area seen in the right kidney lower pole which may be complex cyst or mass. Ultrasound confirmation advised. 2. Small hypodensity in the liver dome which may be a cyst. Ultrasound evaluation advised. 3. Cholelithiasis. 4. No evidence of appendicitis, diverticulitis or intestinal obstruction. 5. No definite active bleeding seen in the bowel. Chest X-Ray 09/20/24 15:18 IMPRESSION: Increasing left-sided pleural effusion, as detailed above. Abdomen Ultrasound 09/21/24 10:21 IMPRESSION: Evaluation of the pancreas is limited by overlying bowel gas. Simple cyst within the dome of the liver as well as within the right kidney, for which no further follow-up is needed. Findings within the medial margin of the upper pole of the left kidney which are indeterminate based on ultrasound characteristics for which contrast enhanced CT or MRI is recommended (with renal mass protocol). Cholelithiasis. Labs Labs: Laboratory Results - last 24 hr 09/21/24 04:34 WBC 12.3 H RBC 2.50 L Hgb 7.4 L Hct 24.1 L MCV 96.4 MCH 29.6 MCHC 30.7 L RDW 18.8 H Plt Count 186 MPV 10.3 Sodium 142 Potassium 3.7 Chloride 113 H Carbon Dioxide 22 Anion Gap 7 BUN 35 H Creatinine 2.64 H Estim Creat Clear Calc 22 Estimated GFR 23 L Glucose 118 H Calcium 7.7 L
--- NOTE | 2024-09-21 17:24 | P.CONPL_ITS ---
Assessment and Plan Assessment and plan (1) COPD (chronic obstructive pulmonary disease): Qualifiers: COPD type: unspecified COPD Qualified Code(s): J44.9 - Chronic obstructive pulmonary disease, unspecified Code(s): J44.9 - Chronic obstructive pulmonary disease, unspecified Status: Chronic Assessment and Plan: Patient has a history of COPD on Symbicort 160-4.5 at 2 puffs b.i.d., chronic hypoxemic respiratory failure on 3 L with rest and activity. 09/21/24: Currently the patient was on 3 L nasal cannula with saturations 100% and I decreased him to 2 L nasal cannula his saturations remain 97%. The patient tells me he has no breathing issues today, he has no change in his chronic cough, no change in his chronic yellow phlegm production, no wheezing and no shortness of breath at rest. He has not been ambulating. He denies fever, chills, rigors. Plan: The patient has no symptoms consistent with a COPD exacerbation. I will discontinue Solu-Medrol. I will discontinue nebulizers and continue Advair 115-21 at 2 puffs b.i.d. He has no symptoms consistent with pneumonia, he is afebrile, his leukocytosis is improving, chest x-ray on 09/20/2024 with possible left pleural effusion with minimal change compared to chest x-ray on 09/18/2024 and he had a CT scan of the abdomen at that time with no left pleural effusion. currently on ceftriaxone day 2 and azithromycin day 1. will continue for now. COVID, RSV, influenza RT PCR study ordered. Will follow with you. (2) Chronic hypoxemic respiratory failure: Code(s): J96.11 - Chronic respiratory failure with hypoxia Status: Acute Assessment and Plan: Patient wears 3 L nasal cannula with rest, with activity and bleed in at night. His home saturations are usually 92-94%. Yesterday was 2.8 L positive and is 2.9 L positive since admission and did not receive Lasix. Patient is on 20 Lasix IV BID now 09/21/2024: Currently the patient was on 3 L nasal cannula with saturations 100% and I decreased him to 2 L nasal cannula his saturations remain 97%. Plan: Goal saturation 90-94%, wean as tolerated. agree with as aggressive diuresis as tolerated per his cardiac and renal systems per hospitalist team. (3) Obstructive sleep apnea: Code(s): G47.33 - Obstructive sleep apnea (adult) (pediatric) Status: Chronic Assessment and Plan: Patient is on CPAP 12 with 3 L bleed in at night. In the hospital he has been on auto PAP 10-18 and required 8 L bleed in last night. Plan: I will place the patient on CPAP 12 with 3 L bleed in tonight and perform an overnight oximetry. History of Present Illness History of Present Illness Consult date: 09/21/24 Chief complaint: GI bleed, anemia requiring transfusion, NSTEMI Narrative: 09/21/2024: This is a new pulmonary consult for hypoxemia. 84-year-old with a history of COPD on home oxygen 3 L at rest, with activity, obstructive sleep apnea on CPAP 12 with 3 L bleed in, CKD, anemia, coronary artery disease status post stents about 25 years ago, hypertension. Patient is followed in the [facility] in last seen on 07/12/2024 here is the note Last visit 12/2023 Ed is here for follow up regarding COPD. He is here today with his , Shai, who is also our patient. * Hx HTN, CAD s/p stent, dyslipidemia - Follows with Dr Crane. Hx CKD, prediabetes, COPD on home oxygen therapy at 3L/min, TSERING on CPAP with 3L O2 bleed in. * ER visit 02/28/22 - COVID positive 02/27/22, stated only symptoms were nasal congestion and scratchy throat, vitals were stable and saturations were adequate on his home O2 requirement 2L/min. Chest XR with airspace opacities in the lower lobes. * Our visit in March 2022 I sent him to ER for SOB, weakness, acute on chronic respiratory failure, anemia, reported dark stool. Upon arrival to ER hemoglobin found to be 5.9. He was admitted to [place] for 6 days and received 3 blood transfusions. * Also follows with nephrology, Dr Muir, and hematology for his anemia, Dr Khan. Reports he had iron infusions through Dr Khan's office and has been stable since then. COPD: His helps supplement history. States overall his breathing feels stable compared to last visit, about the same. No ER/UC visits or hospitalizations recently. Chronic productive cough of yellowish sputum, mostly in the morning when he wakes up. Denies wheezing. Denies feeling chest congestion, mostly phlegm just gets stuck in his throat. previously tried a triple inhaler and noticed no difference compared to Symbicort. He reports compliance with Symbicort 160 at 2 puffs BID. Uses ipratropium- albuterol in the nebulizer which he uses around twice per day (in the morning at breakfast and again around noon). Again some confusion today as wants to know if he should keep using this twice daily or just as needed - discussed it can be used PRN for shortness of breath/wheezing. O2: He is on supplemental oxygen 05/01. He was previously on 2L/min O2 at all times up until Feb 2022. Home oxygen evaluation 04/14/22 day of discharge states 2L/min with rest and 3L/min with exertion, and repeat home O2 eval 06/13/22 confirms same requirements. states it is difficult to titrate between 2 and 3L/min during the day because the concentrator is in the lower level of their home and he goes up and down the stairs, so often times he is keeping his concentrator on 3L/min all the time. States his oxygen saturations at home have been in the 90s%. Sleep: He is compliant with CPAP [id number] with 3L/min O2 bleed-in. States he is sleeping well. Nocturia 3x per night. He often dozes off watching TV during the day, naps a lot. Denies morning headaches. Using a full face mask with CPAP and doing well with this. Download 04/06/24 - 07/04/24 shows excellent compliance at 100%, worn nightly for avg usage 8h23m per night. Overall AHI is 2.2. With goal AHI of less than 5.0, this suggests the patient's sleep apnea events are well- controlled on current PAP settings. Tobacco: Former smoker, smoked up to 2ppd from age 15yo and quit smoking around 1989. Around 68 pack-year history. Follow-up in 6 months. 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 He had no respiratory complaints when he presented. 09/21/2024: Patient has been on 4 L nasal cannula saturations 100%. yesterday the patient did not receive Lasix because of soft blood pressures. Last night the placed in required auto PAP 10-18 and required 8 L oxygen for low saturations. Patient was started on ceftriaxone and azithromycin for possible left lower lobe pneumonia and started on IV steroids for possible COPD exacerbations as patient had some wheezing. At baseline tells me he has 2 block dyspnea on exertion and is able to use a pedal or 30 minutes each day. He produces yellow phlegm 5 times in the 1st hour in the morning, he has no wheezing. Currently the patient was on 3 L nasal cannula with saturations 100% and I decreased him to 2 L nasal cannula his saturations remain 97%. The patient tells me he has no breathing issues today, he has no change in his chronic cough, no change in his chronic yellow phlegm production, no wheezing and no shortness of breath at rest. He has not been ambulating. He denies fever, chills, rigors. DATA: 08/13/22 - Overnight oximetry on CPAP with 3L/min O2 bleed in - showed 1.1 min at or below 88% saturation. High SpO2 98%, basal SpO2 94.2%, low SpO2 85%. * 07/23/22 - Overnight oximetry on CPAP with 2L/min O2 bleed in - showed 22.3 min at or below 88% saturation. High SpO2 99%, basal 94.2%, low 75% at the very end of the test and may have been artifactual. Advised to increase liter flow to 3L/min with CPAP. * 06/13/22 - Home O2 eval - Needed 2L/min at rest and 3L/min with walking. * 05/13/22 - PFT - showed moderate obstructive airway disease with no response to bronchodilators. ?Lung diffusion capacity was severely reduced at 34% predicted. * 04/14/22 - Home oxygen evaluation on hospital discharge states 2L/min with rest and 3L/min with exertion. * 04/12/22 - Echo - Grade I diastolic dysfunction. EF 55-60%. Moderate aortic stenosis. * 04/11/22 - CXR - Pulmonary vascular congestion and increased interstitial pattern in the bilateral lower lung zones consistent with mild pulmonary edema. Blunting at costophrenic angles consistent with small bilateral pleural effusions. * 02/28/22 - Chest XR - Airspace opacities in the lower lungs, consistent with atelectasis/scarring vs. pneumonia related to COVID + home test. * 10/2015 - Home oxygen eval - Patient required 2L/min with ambulation and none at rest. Appears this is when he was initially set up wit oxygen. * 10/2015 - PFT - Mild obstructive ventilatory defect primarily in the small airways. No acute bronchodilator response. Moderately decreased DLCO. * 2012 - High Res CT chest - There is symmetric scarring at the lung apices. There is mild centrilobular emphysema. There are small pleural effusions, left greater than right. Mild dependent atelectasis. Moderate-sized pericardial effusion. Review of Systems 2 Constitutional: Constitutional: Reports no additional constitutional complaints Eyes: Eyes: Reports no additional eye complaints ENT: Reports system reviewed and no additional complaints, except as documented Cardiovascular: Cardiovascular: Reports no additional cardiovascular complaints Respiratory: Respiratory: Reports no additional respiratory complaints Gastrointestinal: Gastrointestinal: Reports no additional gastrointestinal complaints Musculoskeletal: Musculoskeletal: Reports no additional musculoskeletal complaints Neurologic: Reports system reviewed and no additional complaints, except as documented Psychiatric: Psychiatric: Reports no additional psychiatric complaints Endocrine: Endocrine: Reports no additional endocrine complaints Hematologic/Lymphatic: Hematologic/Lymphatic: Reports no additional hematologic/lymphatic complaints Allergic/Immunologic: Allergic/Immunologic: Reports no additional allergic/immunologic complaints [facility] Past Medical History Medical History (Updated 09/21/24 @ 16:39 by Van Niño MD) AVM (arteriovenous malformation) of duodenum, acquired Chronic respiratory failure Duodenal ulcer Obesity Blood thinned due to long-term anticoagulant use Acute on chronic renal failure Acute on chronic blood loss anemia Melena GI bleed Depression COVID-19 Impacted cerumen of both ears (HFpEF) heart failure with preserved ejection fraction Chronic heart failure with preserved ejection fraction COPD (chronic obstructive pulmonary disease) Enlarged prostate without lower urinary tract symptoms (luts) Essential (primary) hypertension Gastro-esophageal reflux disease without esophagitis Mixed hyperlipidemia Sleep apnea Colonoscopy planned Coronary stent patent Gastric ulcer Impaired glucose tolerance Acne rosacea Coronary artery disease Bipolar 1 disorder Chronic kidney disease, stage 3 Hypernatremia Chronic hypoxemic respiratory failure Obstructive sleep apnea Surgical History Surgical History H/O heart artery stent History of removal of pigmented skin lesion H/O cataract extraction H/O hernia repair H/O oral surgery Family History Family History (Updated 09/18/24 @ 11:51 by Eileen Mendez RN) Mother Family history of respiratory disorder, Onset Age: 82 Diabetes mellitus Family history of diabetes mellitus in first degree relative Father Malignant neoplasm of prostate, Onset Age: 83 Patient's father is Sibling Family history of heart disease in male family member before age 55 Family history of cardiovascular disease Prostate carcinoma Social History Social History Social History: He lives with his and they have no children. 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 He is a former smoker. He occasionally has an alcoholic beverage. He does not use any marijuana or illicit drugs. Code status full code Smoking packs per day: 2 Smoking cigarettes per day: 40.0 Years smoked: 40 Smoking pack-years: 80.00 Smoking status: Former smoker Tobacco type: cigarettes Second hand tobacco smoke exposure: No Smoking end date: 06/15/79 Alcohol intake: former Substance use: never Substance use type: does not use Other substance usage details: social beer every so often Do You Feel Safe in your Home?: Yes Lack of Transportation: No Lack of Food: Never True Current Housing: I Have Housing Concerned About Future Housing: No Difficulty Paying Gas/Electric Bills: No Difficulty Paying for Meds: No Currently Unemployed: No Education: High School Diploma/GED Difficulty w/ Childcare or Family Care: No Living arrangements: with family Occupation/Education: retired Gender identity (if verbalized by the patient): Male Sexual Orientation (if Verbalized by the Patient): Straight or Heterosexual Spiritual care concerns: No Meds Home Medications and Allergies Home Medications ?Medication ?Instructions ?Recorded ?Confirmed ?Type aripiprazole 2 mg tablet (Abilify) 2 mg PO DAILY 05/26/19 09/18/24 History duloxetine 20 mg capsule,delayed 20 mg PO DAILY 12/12/20 09/18/24 History release inhalational spacing device #1 ea 05/02/22 09/18/24 Rx ascorbate calcium (vitamin C) 500 500 mg PO DAILY 08/05/22 09/18/24 History mg tablet ferrous sulfate 325 mg (65 mg 325 mg PO BID 08/05/22 09/18/24 History iron) tablet lamotrigine 25 mg tablet 50 mg PO DAILY 08/05/22 09/18/24 History lutein 25 mg-zeaxanthin 5 mg 1 cap PO DAILY 08/05/22 09/18/24 History capsule cholecalciferol (vitamin D3) 50 50 mcg PO DAILY 08/12/22 09/18/24 History mcg (2,000 unit) capsule (Vitamin D3) mecobalamin (vitamin B12) 1,000 1,000 mcg PO DAILY 10/30/22 09/18/24 History mcg chewable tablet albuterol sulfate 90 mcg/actuation 1 - 2 puff inhalation Q4-6H PRN 12/29/23 09/18/24 Rx aerosol inhaler shortness of breath or wheezing #8.5 grams ketoconazole 2 % shampoo 1 applic topical PRN 12/29/23 09/18/24 History budesonide-formoterol HFA 160 See Rx Instructions .Route 05/02/24 09/18/24 Rx mcg-4.5 mcg/actuation aerosol .COMPLEX #10.2 ea inhaler atorvastatin 40 mg tablet 40 mg PO DAILY #90 tabs 05/16/24 09/18/24 Rx amlodipine 2.5 mg tablet See Rx Instructions .Route 07/13/24 09/18/24 Rx .COMPLEX #90 tabs ipratropium bromide 0.02 % See Rx Instructions .Route 07/13/24 09/18/24 Rx solution for inhalation .COMPLEX #437.5 mL benzonatate 200 mg capsule 200 mg PO TID PRN cough #60 caps 08/11/24 09/18/24 Rx carvedilol 6.25 mg tablet See Rx Instructions .Route 08/22/24 09/18/24 Rx .COMPLEX #180 tabs cefdinir 300 mg capsule 300 mg PO Q12H #20 caps 08/22/24 09/18/24 Rx clopidogrel 75 mg tablet See Rx Instructions .Route 08/22/24 09/18/24 Rx .COMPLEX #90 tabs pantoprazole 40 mg tablet,delayed See Rx Instructions .Route 08/22/24 09/18/24 Rx release .COMPLEX #90 tabs dextromethorphan-guaifenesin ER 60 1 tablet PO Q12H PRN cough 09/14/24 09/18/24 History mg-1,200 mg tab,extend release,12hr (Mucinex DM) Allergies Allergy/AdvReac Type Severity Reaction Status Date / Time No Known Allergies Allergy Verified 09/19/24 14:00 Vital Signs Vital Signs - 24 hr 09/20/24 18:00 09/20/24 18:04 09/20/24 19:30 Temperature 36.4 C L Pulse Rate 82 88 90 Respiratory Rate 16 Blood Pressure 121/55 L Pulse Oximetry 90 Oxygen Delivery Oxygen Flow Rate 09/20/24 20:00 09/20/24 20:09 09/20/24 20:17 Temperature Pulse Rate 90 82 Respiratory Rate 16 Blood Pressure Pulse Oximetry 88 L 89 L Oxygen Delivery Nasal Cannula Nasal Cannula Oxygen Flow Rate 4 4 09/20/24 22:00 09/21/24 00:00 09/21/24 00:00 Temperature 36.4 C Pulse Rate 86 70 71 Respiratory Rate 18 16 Blood Pressure 106/65 Pulse Oximetry 94 96 Oxygen Delivery Autopap Oxygen Flow Rate 09/21/24 01:40 09/21/24 04:00 09/21/24 04:00 Temperature 36.5 C Pulse Rate 80 90 67 Respiratory Rate 21 H 16 Blood Pressure 112/37 L Pulse Oximetry 92 92 Oxygen Delivery Autopap Oxygen Flow Rate 09/21/24 07:58 09/21/24 08:00 09/21/24 08:00 Temperature 36.3 C L Pulse Rate 86 Respiratory Rate 20 Blood Pressure 106/64 Pulse Oximetry 97 97 97 Oxygen Delivery Nasal Cannula Nasal Cannula Oxygen Flow Rate 4 4 09/21/24 08:00 09/21/24 10:03 09/21/24 11:51 Temperature 36.4 C L Pulse Rate 81 85 89 Respiratory Rate 20 Blood Pressure 111/58 L Pulse Oximetry 99 Oxygen Delivery Oxygen Flow Rate 09/21/24 12:00 09/21/24 16:00 Temperature 36.6 C Pulse Rate 86 87 Respiratory Rate 22 H Blood Pressure 118/53 L Pulse Oximetry 93 Oxygen Delivery Oxygen Flow Rate Exam 2 Const: General: cooperative and comfortable Orientation/consciousness: o riented to person, oriented to place and oriented to time Other: obese HENMT: Head: normal to inspection Ears: hearing grossly normal bilaterally Eyes: General: appearance normal, both eyes and all related structures Neck: Neck: normal visual inspection Chest: Chest palpation & inspection: normal inspection of the chest Resp: Effort & Inspection: normal respiratory effort and able to speak in complete sentences Auscultation: no crackles, no rales, no rhonchi, no wheezes and diminished lung sounds Other: Diminished breath sounds Throughout. Morbidly obese. Cardio: Jugular venous distension: no JVD GI: Inspection: normal to inspection GI Palp: No abdominal tenderness Skin: General skin exam: normal color Neuro: General: oriented to person, oriented to place and oriented to time Extrem: General: normal to inspection and no edema Psych: Appearance: grossly normal Results Laboratory Findings 09/21/24 04:34 09/21/24 04:34 ABG, PT/INR, D-dimer: PT/INR, D-dimer PT 14.3 Seconds (11.1-14.7) 09/18/24 00:07 INR 1.1 09/18/24 00:07 Abnormal lab findings: Abnormal Labs 09/18/24 09/18/24 09/18/24 00:07 00:17 07:17 WBC 16.7 H RBC 2.37 L Hgb 6.9 L* D Hct 22.9 L MCHC 30.1 L RDW 16.3 H MPV 10.9 H Neut % (Auto) Lymph % (Auto) Walker % (Auto) Walker # (Auto) Abs Immat Gran (auto) Absolute Neuts (auto) Absolute Nucleated RBC Neutrophils % (Manual) 79 H Lymphocytes % (Manual) 12.0 L Basophils % (Manual) 2 H Abs Neuts (Manual) 13.52 H Abs Basophils (Manual) 0.33 H APTT < 20.0 L Sodium Chloride 112 H Carbon Dioxide 19 L Anion Gap 13 H BUN 58 H D Creatinine 2.42 H Estimated GFR 26 L Glucose 112 H Calcium 8.1 L Troponin I 0.041 H* 1.830 H* D NT-Pro-B Natriuret Pep Total Protein 6.0 L Albumin 3.1 L Crossmatch See Detail 09/18/24 09/18/24 09/19/24 12:30 21:50 04:48 WBC 12.5 H RBC 2.56 L Hgb 6.8 L* 7.6 L 7.4 L Hct 22.4 L 24.6 L 24.5 L MCHC 30.2 L RDW 18.5 H MPV 10.5 H Neut % (Auto) Lymph % (Auto) Walker % (Auto) Walker # (Auto) Abs Immat Gran (auto) Absolute Neuts (auto) Absolute Nucleated RBC Neutrophils % (Manual) Lymphocytes % (Manual) Basophils % (Manual) Abs Neuts (Manual) Abs Basophils (Manual) APTT Sodium 147 H Chloride 118 H Carbon Dioxide 21 L Anion Gap BUN 55 H Creatinine 2.44 H Estimated GFR 25 L Glucose Calcium 7.9 L Troponin I NT-Pro-B Natriuret Pep Total Protein Albumin Crossmatch 09/19/24 09/19/24 09/20/24 17:07 23:03 05:43 WBC 19.2 H RBC 2.63 L Hgb 7.7 L 7.9 L 7.6 L Hct 25.5 L 26.1 L 25.1 L MCHC 30.3 L RDW 18.8 H MPV Neut % (Auto) Lymph % (Auto) Walker % (Auto) Walker # (Auto) Abs Immat Gran (auto) Absolute Neuts (auto) Absolute Nucleated RBC Neutrophils % (Manual) Lymphocytes % (Manual) Basophils % (Manual) Abs Neuts (Manual) Abs Basophils (Manual) APTT Sodium 147 H Chloride 118 H Carbon Dioxide Anion Gap BUN 42 H D Creatinine 2.54 H Estimated GFR 24 L Glucose 123 H Calcium 7.9 L Troponin I NT-Pro-B Natriuret Pep Total Protein Albumin Crossmatch 09/20/24 09/20/24 09/21/24 12:38 12:42 04:34 WBC 17.9 H 12.3 H RBC 2.70 L 2.50 L Hgb 7.8 L 7.4 L Hct 25.8 L 24.1 L MCHC 30.2 L 30.7 L RDW 18.9 H 18.8 H MPV Neut % (Auto) 77.9 H Lymph % (Auto) 10.9 L Walker % (Auto) 9.1 H Walker # (Auto) 1.6 H Abs Immat Gran (auto) 0.09 H Absolute Neuts (auto) 13.9 H Absolute Nucleated RBC 0.020 H Neutrophils % (Manual) Lymphocytes % (Manual) Basophils % (Manual) Abs Neuts (Manual) Abs Basophils (Manual) APTT Sodium Chloride 111 H 113 H Carbon Dioxide 21 L Anion Gap BUN 37 H 35 H Creatinine 2.47 H 2.64 H Estimated GFR 25 L 23 L Glucose 140 H 118 H Calcium 7.7 L 7.7 L Troponin I NT-Pro-B Natriuret Pep 7130 H Total Protein Albumin Crossmatch Diagnostic Findings Additional studies: ITS Impressions Abdomen/Pelvis CT 09/18/24 07:06 IMPRESSION: 1. Small right kidney. Slightly small left kidney. Bilateral renal cysts. Hyperdense area seen in the right kidney lower pole which may be complex cyst or mass. Ultrasound confirmation advised. 2. Small hypodensity in the liver dome which may be a cyst. Ultrasound evaluation advised. 3. Cholelithiasis. 4. No evidence of appendicitis, diverticulitis or intestinal obstruction. 5. No definite active bleeding seen in the bowel. Chest X-Ray 09/18/24 10:29 IMPRESSION: Left basilar atelectasis versus pneumonia with possible minimal effusion. Cardiomegaly with congestive tiffanie and bilateral interstitial thickening which may indicate cardiac decompensation and pulmonary edema. ADDENDUM: 09/18/24 1043 Right PICC line is seen with the tip overlying the superior vena cava. Chest X-Ray 09/20/24 15:18 IMPRESSION: Increasing left-sided pleural effusion, as detailed above. Abdomen Ultrasound 09/21/24 10:21 IMPRESSION: Evaluation of the pancreas is limited by overlying bowel gas. Simple cyst within the dome of the liver as well as within the right kidney, for which no further follow-up is needed. Findings within the medial margin of the upper pole of the left kidney which are indeterminate based on ultrasound characteristics for which contrast enhanced CT or MRI is recommended (with renal mass protocol). Cholelithiasis.
[2024-09-21 19:39] LABS: Influenza A QL RT-PCR Negative (Negative); Influenza B QL RT-PCR Negative (Negative); RSV RNA, RT-PCR Negative (Negative); SARS-CoV-2 RNA PCR Negative (Negative)
--- NOTE | 2024-09-21 20:01 | PC.NURSE ---
This patient, Zaheer Camarillo, was transferred to [facility] on 09/21/24 at 1950. Personal belongings sent with patient. Report given to YURIY Gill. Appropriate documentation sent with patient.
[2024-09-22] VITALS (19 sets, daily range): BP systolic 98–111; BP diastolic 59–66; PULSE 67–113; RESP 14–20; TEMP 36.3–36.5; O2SAT 88–96
[2024-09-22] MEDS: CENTRAL LINE FLUSH 10 ML IV PUSH ×3 (05:49→20:20)
[2024-09-22 06:04] LABS: Basophils Percent Auto 0.1 % (0.2-1.2); Hematocrit 25.8 % (42.0-52.0); Hemoglobin 7.8 g/dL (14.0-18.0); Immature Granulocyte Absolute 0.08 K/mm3 (0.00-0.031); Immature Granulocyte Percent A 0.8 % (0-0.5); Lymphocytes Percent Auto 7.6 % (18.3-44.2); Mean Corpuscular HGB Conc 30.2 g/dl (32-36); Mean Corpuscular Hemoglobin 28.7 pg (26-34); Mean Corpuscular Volume 94.9 fl (80-100); Mean Platelet Volume 10.6 fl (7.4-10.4); Monocytes Absolute Auto 0.2 K/mm3 (0.1-0.6); Monocytes Percent Auto 1.7 % (2.6-8.5); Neutrophils Absolute Auto 9.5 K/mm3 (1.3-6.7); Neutrophils Percent Auto 89.8 % (45.5-73.1); Platelet Count Result 220 k/mm3 (150-375); Red Blood Count 2.72 M/mm3 (4.6-6.20); Red Cell Distribution Width 18.9 % (11.5-14.5); White Blood Count 10.6 K/mm3 (4.5-10.0)
[2024-09-22 06:16] LABS: Alanine Aminotransferase 25 U/L (6-50); Albumin Level 3.1 g/dL (3.5-5.1); Alkaline Phosphatase 66 U/L (38-126); Anion Gap 8 mmol/L (4-12); Aspartate Amino Transferase 36 U/L (17-59); Bilirubin,Total 0.2 mg/dL (0.2-1.3); Blood Urea Nitrogen 38 mg/dL (9-20); Calcium 7.8 mg/dL (8.4-10.2); Carbon Dioxide 22 mmol/L (22-30); Chloride 116 mmol/L (98-107); Estimated CRCL calculation 21 ml/min; Estimated Glomerular Filt Rate 21; Glucose 154 mg/dL (65-110); Potassium 3.7 mmol/L (3.4-5.0); Sodium 146 mmol/L (137-145)
[2024-09-22 07:29] LABS: NT Pro B Type Natriuretic Pept 4940 pg/mL (19.9-100)
[2024-09-22] MEDS: FLUTICASONE/SALMETEROL 115-21 MCG (*SP) INHALER 2 PUFF INHALATION ×2 (08:50→20:50)
[2024-09-22] MEDS: ATORVASTATIN 40 MG TABLET PO (08:53)
[2024-09-22] MEDS: ARIPiprazole 2 MG TABLET PO (08:53)
[2024-09-22] MEDS: FERROUS SULFATE 325 MG TABLET DR BY MOUTH ×2 (08:53→17:25)
[2024-09-22] MEDS: carvediloL 6.25 MG TABLET PO ×2 (08:53→20:19)
[2024-09-22] MEDS: lamoTRIgine 50 MG TABLET PO (08:54)
[2024-09-22] MEDS: AZITHROMYCIN 250 MG TABLET PO (08:54)
[2024-09-22] MEDS: CHOLECALCIFEROL 1,000 UNITS TABLET 2000 UNITS PO (08:54)
[2024-09-22] MEDS: DULoxetine HCL 20 MG CAPSULE.DR PO (08:54)
[2024-09-22] MEDS: ASCORBIC ACID 500 MG TABLET PO (08:54)
[2024-09-22] MEDS: CYANOCOBALAMIN 1,000 MCG TABLET 1000 MCG PO (08:54)
[2024-09-22] MEDS: PANTOPRAZOLE 40 MG TABLET PO ×2 (08:54→20:19)
[2024-09-22 08:58] LABS: Procalcitonin 0.1 ng/mL
--- NOTE | 2024-09-22 09:39 | P.PNPL_ITS ---
Progress Note: A&P Assessment and Plan (1) COPD (chronic obstructive pulmonary disease): Qualifiers: COPD type: unspecified COPD Qualified Code(s): J44.9 - Chronic obstructive pulmonary disease, unspecified Code(s): J44.9 - Chronic obstructive pulmonary disease, unspecified Status: Chronic Assessment and Plan: Patient has a history of COPD on Symbicort 160-4.5 at 2 puffs b.i.d., chronic hypoxemic respiratory failure on 3 L with rest and activity. 09/21/24: Currently the patient was on 3 L nasal cannula with saturations 100% and I decreased him to 2 L nasal cannula his saturations remain 97%. The patient tells me he has no breathing issues today, he has no change in his chronic cough, no change in his chronic yellow phlegm production, no wheezing and no shortness of breath at rest. He has not been ambulating. He denies fever, chills, rigors. Plan: The patient has no symptoms consistent with a COPD exacerbation. I will discontinue Solu-Medrol. I will discontinue nebulizers and continue Advair 115-21 at 2 puffs b.i.d. He has no symptoms consistent with pneumonia, he is afebrile, his leukocytosis is improving, chest x-ray on 09/20/2024 with possible left pleural effusion with minimal change compared to chest x-ray on 09/18/2024 and he had a CT scan of the abdomen at that time with no left pleural effusion. currently on ceftriaxone day 2 and azithromycin day 2. will continue for now. COVID, RSV, influenza RT PCR study ordered. 09/22/2024: The patient tells me he is breathing normal and has no respiratory issues. He he says his phlegm production is normal. He has no wheezing. He is afebrile. His white blood cell count is 10.6, creatinine 2.86. BNP is 4940 improved from 7130. His procalcitonin is 0.1. COVID, RSV, influenza RT PCR negative. Currently on ceftriaxone day 3 and azithromycin day 3. I am not convinced the patient has a pneumonia at this time. From a pulmonary perspective patient is ready to be discharged on these pulmonary medications: Symbicort 160-4.5 at 2 puffs q.12 hours. Rescue albuterol 2 puffs q.4 hours p.r.n. shortness of breath or wheezing oxygen at rest and with activity per formal home O2 assessment which I have ordered when he naps or sleeps CPAP 12 with 5 L bleed in. Patient is followed in the Pulmonary Clinic and he should keep his scheduled appointment on 12/28/2024 at 9:00 a.m.. If the patient is discharged today, I will do an overnight oximetry on 5 L at home and follow-up with the results. Discussed with Dr. Niño, will follow with you. (2) Chronic hypoxemic respiratory failure: Code(s): J96.11 - Chronic respiratory failure with hypoxia Status: Acute Assessment and Plan: Patient wears 3 L nasal cannula with rest, with activity and bleed in at night. His home saturations are usually 92-94%. Yesterday was 2.8 L positive and is 2.9 L positive since admission and did not receive Lasix. Patient is on 20 Lasix IV BID now 09/21/2024: Currently the patient was on 3 L nasal cannula with saturations 100% and I decreased him to 2 L nasal cannula his saturations remain 97%. Plan: Goal saturation 90-94%, wean as tolerated. agree with as aggressive diuresis as tolerated per his cardiac and renal systems per hospitalist team. 09/22/24: When at the room the patient was on 4 L nasal cannula saturations 97%. I decreased him to 2 L nasal cannula saturations were 94%. Plan: Formal home O2 assessment today to determine his oxygen needs at rest and with ambulation. (3) Obstructive sleep apnea: Code(s): G47.33 - Obstructive sleep apnea (adult) (pediatric) Status: Chronic Assessment and Plan: Patient is on CPAP 12 with 3 L bleed in at night. In the hospital he has been on auto PAP 10-18 and required 8 L bleed in last night. Plan: I will place the patient on CPAP 12 with 3 L bleed in [facility] and perform an overnight oximetry. 09/22/24: Patient wore the hospital CPAP 12 with 3 L bleed in at night and said that he slept well and felt like his home settings. Patient had an overnight oximetry with recording duration of 7 hours and 5 minutes, average saturation 87%. Low saturation 82%. Time with saturation less than or equal to 88% was 30 6 minutes. Oxygen desaturation index 1.6. Plan: If patient is discharged I will arrange for an overnight oximetry on 5 L at home and follow-up with these results. If the patient remains in the h ospital tonight will perform overnight oximetry on CPAP 12 with 5 L bleed in. Subjective Date/time seen: 09/22/24 09:39 Interval history: 09/21/2024: This is a new pulmonary consult for hypoxemia. 84-year-old with a history of COPD on home oxygen 3 L at rest, with activity, obstructive sleep apnea on CPAP 12 with 3 L bleed in, CKD, anemia, coronary artery disease status post stents about 25 years ago, hypertension. Patient is followed in the Pulmonary Clinic in last seen on 07/12/2024 here is the note Last visit 12/2023 Ed is here for follow up regarding COPD. He is here today with his , Shai, who is also our patient. * Hx HTN, CAD s/p stent, dyslipidemia - Follows with Dr Crane. Hx CKD, prediabetes, COPD on home oxygen therapy at 3L/min, TSERING on CPAP with 3L O2 bleed in. * ER visit 02/28/22 - COVID positive 02/27/22, stated only symptoms were nasal congestion and scratchy throat, vitals were stable and saturations were adequate on his home O2 requirement 2L/min. Chest XR with airspace opacities in the lower lobes. * Our visit in March 2022 I sent him to ER for SOB, weakness, acute on chronic respiratory failure, anemia, reported dark stool. Upon arrival to ER hemoglobin found to be 5.9. He was admitted to [facility] for 6 days and received 3 blood transfusions. * Also follows with nephrology, Dr Muir, and hematology for his anemia, Dr Khan. Reports he had iron infusions through Dr Khan's office and has been stable since then.COPD: His helps supplement history. States overall his breathing feels stable compared to last visit, about the same. No ER/UC visits or hospitalizations recently. Chronic productive cough of yellowish sputum, mostly in the morning when he wakes up. Denies wheezing. Denies feeling chest congestion, mostly phlegm just gets stuck in his throat. previously tried a triple inhaler and noticed no difference compared to Symbicort. He reports compliance with Symbicort 160 at 2 puffs BID. Uses ipratropium- albuterol in the nebulizer which he uses around twice per day (in the morning at breakfast and again around noon). Again some confusion today as wants to know if he should keep using this twice daily or just as needed - discussed it can be used PRN for shortness of breath/wheezing. O2: He is on supplemental oxygen 05/01. He was previously on 2L/min O2 at all times up until Feb 2022. Home oxygen evaluation 04/14/22 day of discharge states 2L/min with rest and 3L/min with exertion, and repeat home O2 eval 06/13/22 confirms same requirements. states it is difficult to titrate between 2 and 3L/min during the day because the concentrator is in the lower level of their home and he goes up and down the stairs, so often times he is keeping his concentrator on 3L/min all the time. States his oxygen saturations at home have been in the 90s%. Sleep: He is compliant with CPAP [id number] with 3L/min O2 bleed-in. States he is sleeping well. Nocturia 3x per night. He often dozes off watching TV during the day, naps a lot. Denies morning headaches. Using a full face mask with CPAP and doing well with this. Download 04/06/24 - 07/04/24 shows excellent compliance at 100%, worn nightly for avg usage 8h23m per night. Overall AHI is 2.2. With goal AHI of less than 5.0, this suggests the patient's sleep apnea events are well- controlled on current PAP settings. Tobacco: Former smoker, smoked up to 2ppd from age 15yo and quit smoking around 1989. Around 68 pack-year history. Follow-up in 6 months. 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 He had no respiratory complaints when he presented. 09/21/2024: Patient has been on 4 L nasal cannula saturations 100%. yesterday the patient did not receive Lasix because of soft blood pressures. Last night the placed in required auto PAP 10-18 and required 8 L oxygen for low saturations. Patient was started on ceftriaxone and azithromycin for possible left lower lobe pneumonia and started on IV steroids for possible COPD exacerbations as patient had some wheezing. At baseline tells me he has 2 block dyspnea on exertion and is able to use a pedal or 30 minutes each day. He produces yellow phlegm 5 times in the 1st hour in the morning, he has no wheezing. Currently the patient was on 3 L nasal cannula with saturations 100% and I decreased him to 2 L nasal cannula his saturations remain 97%. The patient tells me he has no breathing issues today, he has no change in his chronic cough, no change in his chronic yellow phlegm production, no wheezing and no shortness of breath at rest. He has not been ambulating. He denies fever, chills, rigors. 09/22/2024: The patient tells me he is breathing normal and has no respiratory issues. He he says his phlegm production is normal. He has no wheezing. He is afebrile. When at the room the patient was on 4 L nasal cannula saturations 97%. I decreased him to 2 L nasal cannula saturations were 94%. His white blood cell count is 10.6, creatinine 2.86. BNP is 4940 improved from 7130. His procalcitonin is 0.1. Patient wore the hospital CPAP 12 with 3 L bleed in at night and said that he slept well and felt like his home settings. Patient had an overnight oximetry with recording duration of 7 hours and 5 minutes, average saturation 87%. Low saturation 82%. Time with saturation less than or equal to 88% was 306 minutes. Oxygen desaturation index 1.6. DATA: 08/13/22 - Overnight oximetry on CPAP with 3L/min O2 bleed in - showed 1.1 min at or below 88% saturation. High SpO2 98%, basal SpO2 94.2%, low SpO2 85%. * 07/23/22 - Overnight oximetry on CPAP with 2L/min O2 bleed in - showed 22.3 min at or below 88% saturation. High SpO2 99%, basal 94.2%, low 75% at the very end of the test and may have been artifactual. Advised to increase liter flow to 3L/min with CPAP. * 06/13/22 - Home O2 eval - Needed 2L/min at rest and 3L/min with walking. * 05/13/22 - PFT - showed moderate obstructive airway disease with no response to bronchodilators. ?Lung diffusion capacity was severely reduced at 34% predicted. * 04/14/22 - Home oxygen evaluation on hospital discharge states 2L/min with rest and 3L/min with exertion. * 04/12/22 - Echo - Grade I diastolic dysfunction. EF 55-60%. Moderate aortic stenosis. * 04/11/22 - CXR - Pulmonary vascular congestion and increased interstitial pattern in the bilateral lower lung zones consistent with mild pulmonary edema. Blunting at costophrenic angles consistent with small bilateral pleural effusions. * 02/28/22 - Chest XR - Airspace opacities in the lower lungs, consistent with atelectasis/scarring vs. pneumonia related to COVID + home test. * 10/2015 - Home oxygen eval - Patient required 2L/min with ambulation and none at rest. Appears this is when he was initially set up wit oxygen. * 10/2015 - PFT - Mild obstructive ventilatory defect primarily in the small airways. No acute bronchodilator response. Moderately decreased DLCO. * 2012 - High Res CT chest - There is symmetric scarring at the lung apices. There is mild centrilobular emphysema. There are small pleural effusions, left greater than right. Mild dependent atelectasis. Moderate-sized pericardial effusion. Review of Systems Constitutional: Constitutional: Reports no additional constitutional complaints Eyes: Eyes: Reports no additional eye complaints ENT: Reports system reviewed and no additional complaints, except as documented Cardiovascular: Cardiovascular: Reports no additional cardiovascular complaints Respiratory: Respiratory: Reports no additional respiratory complaints Gastrointestinal: Gastrointestinal: Reports no additional gastrointestinal complaints Musculoskeletal: Musculoskeletal: Reports no additional musculoskeletal complaints Neurologic: Reports system reviewed and no additional complaints, except as documented Psychiatric: Psychiatric: Reports no additional psychiatric complaints Endocrine: Endocrine: Reports no additional endocrine complaints Hematologic/Lymphatic: Hematologic/Lymphatic: Reports no additional hematologic/lymphatic complaints Allergic/Immunologic: Allergic/Immunologic: Reports no additional allergic/immunologic complaints Exam Const: General: cooperative and comfortable Orientation/consciousness: oriented to person, oriented to place and oriented to time Other: obese HENMT: Head: normal to inspection Ears: hearing grossly normal bilaterally Eyes: General: appearance normal, both eyes and all related structures Neck: Neck: normal visual inspection Chest: Chest palpation & inspection: normal inspection of the chest Resp: Effort & Inspection: normal respiratory effort and able to speak in complete sentences Auscultation: no crackles, no rales, no rhonchi, no wheezes and diminished lung sounds Other: Diminished breath sounds. Morbidly obese. Cardio: Jugular venous distension: no JVD GI: Inspection: normal to inspection Skin: General skin exam: normal color Neuro: General: oriented to person, oriented to place and oriented to time Extrem: General: normal to inspection and no edema Psych: Appearance: grossly normal Objective Data Vital Signs Vital Signs: Vital Signs - 24 hr 09/21/24 10:03 09/21/24 11:51 09/21/24 12:00 Temperature 36.4 C L Pulse Rate 85 89 86 Respiratory Rate 20 Blood Pressure 111/58 L Pulse Oximetry 99 Oxygen Delivery Oxygen Flow Rate Fraction of Inspired Oxygen 09/21/24 16:00 09/21/24 16:00 09/21/24 19:30 Temperature 36.6 C 36.6 C Pulse Rate 87 88 88 Respiratory Rate 22 H 18 Blood Pressure 118/53 L 104/51 L Pulse Oximetry 93 93 Oxygen Delivery Oxygen Flow Rate Fraction of Inspired Oxygen 09/21/24 19:54 09/21/24 20:00 09/21/24 20:00 Temperature 36.8 C Pulse Rate 86 88 Respiratory Rate 22 H Blood Pressure 121/67 Pulse Oximetry 94 93 Oxygen Delivery Nasal Cannula Oxygen Flow Rate 4 Fraction of Inspired Oxygen 09/21/24 20:38 09/21/24 20:59 09/21/24 21:59 Temperature Pulse Rate 91 82 79 Respiratory Rate 20 17 Blood Pressure Pulse Oximetry 95 Oxygen Delivery CPAP Oxygen Flow Rate Fraction of Inspired Oxygen 09/21/24 21:59 09/22/24 00:00 09/22/24 04:00 Temperature Pulse Rate 79 72 73 Respiratory Rate 17 Blood Pressure Pulse Oximetry 95 Oxygen Delivery CPAP Oxygen Flow Rate 3 Fraction of Inspired Oxygen 32 09/22/24 05:01 09/22/24 05:03 09/22/24 08:00 Temperature 36.3 C L Pulse Rate 67 70 89 Respiratory Rate 14 16 20 Blood Pressure 109/59 L Pulse Oximetry 89 L 94 94 Oxygen Delivery CPAP Nasal Cannula Oxygen Flow Rate 1.5 Fraction of Inspired Oxygen 32 09/22/24 08:51 09/22/24 08:51 09/22/24 08:53 Temperature Pulse Rate 80 80 89 Respiratory Rate 20 20 Blood Pressure Pulse Oximetry 95 Oxygen Delivery Nasal Cannula Oxygen Flow Rate 2 Fraction of Inspired Oxygen Intake/Output Intake/Output: Intake & Output 09/19/24 09/20/24 09/21/24 09/22/24 23:59 23:59 23:59 23:59 Intake Total 2420 4170 1040 390 Output Total 4550 1300 3400 600 Balance -2130 2870 -2360 -210 Meds/Results Medications: Active Medications Generic Name Dose Route Start Last Admin Trade Name Freq PRN Reason Stop Dose Admin Acetaminophen 650 mg 09/18/24 07:51 Acetaminophen 325 Mg Tablet PO Q4H PRN Mild Pain (1-3) or Fever Albuterol 1 - 2 puff 09/18/24 12:52 Albuterol Sulfate (*Sp) Aerosol 1 Puff INHALATION Q4-6H PRN shortness of breath or wheezing Aripiprazole 2 mg 09/19/24 09:00 09/22/24 08:53 Aripiprazole 2 Mg Tablet PO 2 mg DAILY ABELINO Administration Ascorbic Acid 500 mg 09/19/24 09:00 09/22/24 08:54 Ascorbic Acid 500 Mg Tablet PO 500 mg DAILY ABELINO Administration Atorvastatin Calcium 40 mg 09/19/24 09:00 09/22/24 08:53 Atorvastatin 40 Mg Tablet PO 40 mg DAILY ABELINO Administration Azithromycin 250 mg 09/22/24 09:00 09/22/24 08:54 Azithromycin 250 Mg Tablet PO 09/25/24 09:01 250 mg DAILY ABELINO Administration Benzonatate 200 mg 09/18/24 13:03 Benzonatate 100 Mg Capsule PO TID PRN cough Carvedilol 6.25 mg 09/18/24 21:00 09/22/24 08:53 Carvedilol 6.25 Mg Tablet PO 6.25 mg Q12HR ABELINO Administration Cyanocobalamin 1,000 mcg 09/19/24 09:00 09/22/24 08:54 Cyanocobalamin 1,000 Mcg Tablet PO 1,000 mcg QAM ABELINO Administration Duloxetine HCl 20 mg 09/19/24 09:00 09/22/24 08:54 Duloxetine Hcl 20 Mg Capsule.Dr PO 20 mg DAILY ABELINO Administration Ferrous Sulfate 325 mg 09/18/24 17:00 09/22/24 08:53 Ferrous Sulfate [address] BY MOUTH 325 mg BID ABELINO Administration Guaifenesin/Dextromethorphan 2 tab 09/18/24 13:04 Guaifenesin 600 Mg/Dextromethorphan 30 Mg Sr Tab 12 Hr PO Q12H PRN cough Ceftriaxone Sodium 2 gm in 100 mls @ 200 mls/hr 09/20/24 14:00 09/21/24 14:01 Rocephin 2 Gm/Ns 100 Ml IVPB 200 mls/hr Q24H ABELINO Administration Lamotrigine 50 mg 09/19/24 09:00 09/22/24 08:54 Lamotrigine 50 Mg Tablet PO 50 mg DAILY ABELINO Administration Morphine Sulfate 2 mg 09/18/24 07:51 Morphine Sulfate (*Crx) 2 Mg/Ml Inj IV PUSH Q2H PRN Pain Rated 7-10 Pantoprazole Sodium 40 mg 09/19/24 21:00 09/22/24 08:54 Pantoprazole 40 Mg Tablet PO 40 mg Q12HR ABELINO Administration Fluticasone/Salmeterol 2 puff 09/18/24 20:00 09/22/24 08:50 Fluticasone/Salmeterol 115-21 Mcg (*Sp) Inhaler INHALATION 2 puff Q12HRT ABELINO Administration Sodium Chloride 20 ml 09/18/24 10:44 Central Line Flush IV PUSH PRN PRN after blood draws Sodium Chloride 10 ml 09/18/24 10:44 Central Line Flush IV PUSH PRN PRN with TPN bag changes Sodium Chloride 10 ml 09/18/24 14:00 09/22/24 05:49 Central Line Flush IV PUSH 10 ml Q8HR ABELINO Administration Vitamin D 2,000 units 09/19/24 09:00 09/22/24 08:54 Cholecalciferol 1,000 Units Tablet PO 2,000 units DAILY ABELINO Administration Radiology Results: ITS Impressions Abdomen/Pelvis CT 09/18/24 07:06 IMPRESSION: 1. Small right kidney. Slightly small left kidney. Bilateral renal cysts. Hyperdense area seen in the right kidney lower pole which may be complex cyst or mass. Ultrasound confirmation advised. 2. Small hypodensity in the liver dome which may be a cyst. Ultrasound evaluation advised. 3. Cholelithiasis. 4. No evidence of appendicitis, diverticulitis or intestinal obstruction. 5. No definite active bleeding seen in the bowel. Chest X-Ray 09/20/24 15:18 IMPRESSION: Increasing left-sided pleural effusion, as detailed above. Abdomen Ultrasound 09/21/24 10:21 IMPRESSION: Evaluation of the pancreas is limited by overlying bowel gas. Simple cyst within the dome of the liver as well as within the right kidney, for which no further follow-up is needed. Findings within the medial margin of the upper pole of the left kidney which are indeterminate based on ultrasound characteristics for which contrast enhanced CT or MRI is recommended (with renal mass protocol). Cholelithiasis. Labs Labs: Laboratory Results - last 24 hr 09/21/24 09/22/24 18:55 05:52 WBC 10.6 H RBC 2.72 L Hgb 7.8 L Hct 25.8 L MCV 94.9 MCH 28.7 MCHC 30.2 L RDW 18.9 H Plt Count 220 MPV 10.6 H Immature Gran % (Auto) 0.8 H Neut % (Auto) 89.8 H Lymph % (Auto) 7.6 L [place] % (Auto) 1.7 L Eos % (Auto) 0.0 Baso % (Auto) 0.1 L Lymph # (Auto) 0.80 L [place] # (Auto) 0.2 Eos # (Auto) 0.0 Baso # (Auto) 0.0 Abs Immat Gran (auto) 0.08 H Absolute Neuts (auto) 9.5 H Absolute Nucleated RBC 0.000 Nucleated RBC % 0.0 Sodium 146 H Potassium 3.7 Chloride 116 H Carbon Dioxide 22 Anion Gap 8 BUN 38 H Creatinine 2.86 H Estim Creat Clear Calc 21 Estimated GFR 21 L Glucose 154 H Calcium 7.8 L Total Bilirubin 0.2 AST 36 ALT 25 Alkaline Phosphatase 66 NT-Pro-B Natriuret Pep 4940 H Total Protein 6.0 L Albumin 3.1 L Procalcitonin 0.1 Influenza A (RT-PCR) Negative Influenza B (RT-PCR) Negative RSV (RT-PCR) Negative SARS-CoV-2 RNA (RT-PCR) Negative
--- NOTE | 2024-09-22 11:52 | HOMEO2EVAL ---
Evaluation was performed at [facility] Home Oxygen Evaluation RC: Home Oxygen (O2) Evaluation Start: 09/22/24 09:44 Freq: ONCE Status: Active Protocol: RPE Activity Type Activity Date Activity User E-sign Co-sign Detail Recorded Client Recorded Date Recorded By Document 09/22/24 11:15 MARQUES [email or web address] 09/22/24 11:52 MARQUES Document 09/22/24 11:20 MARQUES [email or web address] 09/22/24 11:52 MARQUES Document 09/22/24 11:25 MARQUES [email or web address] 09/22/24 11:52 MARQUES Document 09/22/24 11:30 MARQUES [email or web address] 09/22/24 11:52 MARQUES Document 09/22/24 11:45 MARQUES [email or web address] 09/22/24 11:52 MARQUES 09/22/24 09/22/24 09/22/24 11:15 11:20 11:25 Home O2 Evaluation [Oxygen] -Test Phase Resting Resting Exercise -Oxygen Delivery Room Air Nasal Cannula Nasal Cannula -Oxygen Flow Rate (L/min) 1.5 1.5 [Pulse Oximetry] -Pulse Oximetry (90-100 %) 88 L 92 88 L [Pulse Rate] -Pulse Rate (60-100 beats/min) 85 82 110 H [Evaluation] -Activity Tolerance [Exercise] -Ambulation Distance (feet) -Ambulation Distance (meters) [Charges] -Evaluation Charges O2 Evaluation by Pulmonary 09/22/24 09/22/24 11:30 11:45 Home O2 Evaluation [Oxygen] -Test Phase Exercise Resting -Oxygen Delivery Nasal Cannula Nasal Cannula -Oxygen Flow Rate (L/min) 3 1.5 [Pulse Oximetry] -Pulse Oximetry (90-100 %) 91 92 [Pulse Rate] -Pulse Rate (60-100 beats/min) 113 H 83 [Evaluation] -Activity Tolerance Good [Exercise] -Ambulation Distance (feet) 250 -Ambulation Distance (meters) 76.19 [Charges] -Evaluation Charges
--- NOTE | 2024-09-22 11:52 | PCRTNOTE ---
HOME O2 EVAL COMPLETE, 1.5L AT REST AND 3L WITH ACTIVITY. PT HAS HOME O2 WITH [facility]. HIS WILL BRING IN PORTABLE FOR DISCHARGE.
[2024-09-22] MEDS: cefTRIAXone 2 GM/NS 100 ML 2 GM/100 ML BAG IVPB (13:08)
--- NOTE | 2024-09-22 16:16 | ECG_ITS ---
Test Date: 2024-09-22 16:29:58 Measurements Intervals [place] Rate: 87 P: 79 [place]: 183 QRS: -34 QRSD: 95 T: 60 QT: 381 QTc: 460 Interpretive Statements SINUS RHYTHM WITH OCCASIONAL SUPRAVENTRICULAR PREMATURE COMPLEXES MARKED LEFT AXIS DEVIATION [QRS AXIS < -30] LEFT VENTRICULAR HYPERTROPHY AND ST-T CHANGE BORDERLINE ST-T WAVE ABNORMALITY- ANTEROLAT/INF LEADS BASELINE ARTIFACT- I, III, AVR, AVL, AVF, V1-V3 BORDERLINE ECG Compared to ECG 09/18/2024 08:11:51 NO SIGNIFICANT CHANGE Electronically Signed On 09-22-2024 16:40:49 CDT by Ed Ozuna D.O.
--- NOTE | 2024-09-22 17:49 | P.PNIM_ITS ---
Progress Note: A&P Assessment and Plan (1) Acute GI bleeding: Code(s): K92.2 - Gastrointestinal hemorrhage, unspecified Status: Acute Assessment and Plan: Patient presents with black stools and nausea. He did have 1 episode of bright red blood per rectum. Denies taking NSAIDs. He is on Plavix. Hemoglobin was 6.8 on admission. He was guaiac positive by ER exam. He was typed and crossed and transfused 2 units of packed red blood cells on 09/18/2024. He tolerated this well. Hemoglobin climbed to the 7 range and has been stable. GI was consulted and patient underwent EGD which showed duodenal AVM with bleeding. The lesion was cauterized with APC and then injected with epinephrine. A clip was placed. Patient tolerated the procedure well. Appreciate GI input. Continue to monitor H&H. Plavix remains on hold. He remains on PPI therapy. he will followup with Hematology after discharge. (2) AVM (arteriovenous malformation) of duodenum, acquired: Code(s): K31.819 - Angiodysplasia of stomach and duodenum without bleeding Status: Acute Assessment and Plan: As above (3) Acute blood loss anemia: Code(s): D62 - Acute posthemorrhagic anemia Status: Acute Assessment and Plan: Hemoglobin was essentially normal last year in the 13-14 range. Last hemoglobin in February was 13.7. As above. [place] the abrupt drop in the hemoglobin was related to acute blood loss anemia. Follow H&H (4) Chronic respiratory failure: Code(s): J96.10 - Chronic respiratory failure, unspecified whether with hypoxia or hypercapnia Status: Acute Assessment and Plan: Patient has chronic respiratory failure on 3 L nasal cannula at all times. He wears BiPAP with 3 L bleed in at night. He had increasing oxygen requirement overnight requiring up to 6 L bleed in. Also with requiring 4 L at rest while awake. Chest x-ray showing increasing left-sided pleural effusion. BNP is 7130. PCT is 0.2. COVID, influenza and RSV PCR negative. Suspect worsening hypoxia related to mild fluid overload related to blood transfusion. Consider acute on chronic diastolic CHF. Echo showing EF 60-65%, Grade I diastolic dysfunction with severe (JAVIER 0.7cm2) and moderate pulmonary HTN without obvious shunt. We added low-dose IV diuretics but Na 146 and Cr climbed to 2.86 so Lasix held. Repeat BNP better at 4940. Consider also occult pneumonia in the right lower lobe. Rocephin was started and azithromycin added. he does have productive cough. Now having episode of hemoptysis. Sputum Cx ordered Also with hypoxia at night. Apnea link showing he spent 300 min with SpO2 <88% last night. Discussed with pulmonary. Repeat apnea link tonight with 5L bleed in. Now having small amount of hemoptysis. O2 requirement better this evening. On abx for infection. Consider bronchitis related. Consider PE. Unable to perform CTA. Check LE venous dopplers. (5) CHF (congestive heart failure): Code(s): I50.9 - Heart failure, unspecified Status: Acute Assessment and Plan: As above. (6) Severe aortic stenosis: Code(s): I35.0 - Nonrheumatic aortic (valve) stenosis Status: Acute Assessment and Plan: As above. Probably sensitive to preload reduction with severe and pulmonary HTN. Also having possible AFib. Will plan for outpatient cardiac monitoring as well. He will need to follow up with Cardiology (7) CKD (chronic kidney disease): Qualifiers: Chronic kidney disease stage: unspecified stage Qualified Code(s): N18.9 - Chronic kidney disease, unspecified Code(s): N18.9 - Chronic kidney disease, unspecified Status: Acute Assessment and Plan: Creatinine last year ran 2.1-2.4 range. Creatinine on admission was 2.4 and has climbed to 2.8. Now off diuretic therapy. Will monitor closely off diuretic therapy. (8) COPD (chronic obstructive pulmonary disease): Qualifiers: COPD type: unspecified COPD Qualified Code(s): J44.9 - Chronic obstructive pulmonary disease, unspecified Code(s): J44.9 - Chronic obstructive pulmonary disease, unspecified Status: Chronic Assessment and Plan: Patient did have mild expiratory wheezes noted but better now. Steroids and bronchodilators stopped As above (9) Obstructive sleep apnea: Code(s): G47.33 - Obstructive sleep apnea (adult) (pediatric) Status: Chronic Assessment and Plan: Patient compliant with BiPAP therapy. Oxygen bleed in to 5L tonight to keep SpO2 greater than 90%. (10) Coronary artery disease: Code(s): I25.10 - Atherosclerotic heart disease of [place] coronary artery without angina pectoris Status: Acute Assessment and Plan: Patient with history of coronary disease. Plavix on hold. Continue Coreg. Continue Lipitor. Plan DVT prophylaxis -SCDs Code status -full Subjective Date/time seen: 09/22/24 17:49 Interval history: 84yo male with CKD, CAD, chronic respiratory failure (3L) and HTN here for black stools and nausea. No CP or SOB. Has a cough mostly in the morning productive of yellow sputum. He did have an episode of hemoptysis today as a 'small spot' in yellow sputum. No pleuritic chest pain. No calf pain. he was hypoxic overnight on his home bipap settings. He follows with Dr Dominguez. Exam Narrative: AF 97.7 98/61 95 20 96% 1.5L Gen - NARD sitting up in chair Chest - left base crackles and decreased BS in right base. CV - RRR S1/S2 with murmur appreciated LSB. Tele showing brief run of irregular, narrow complex with some P waves - MAT vs AFib. Abd - Soft, obese NT Ext - trace pedal edema Neuro - Alert and appropriate Psych - Nml mood and affect Skin - Warm and dry Objective Data Vital Signs Vital Signs: Vital Signs - 24 hr 09/21/24 19:30 09/21/24 19:54 09/21/24 20:00 Temperature 97.8 F 98.2 F Pulse Rate 88 86 Respiratory Rate 18 22 H Blood Pressure 104/51 L 121/67 Pulse Oximetry 93 94 93 Oxygen Delivery Nasal Cannula Oxygen Flow Rate 4 Fraction of Inspired Oxygen 09/21/24 20:00 09/21/24 20:38 09/21/24 20:59 Temperature Pulse Rate 88 91 82 Respiratory Rate 20 Blood Pressure Pulse Oximetry Oxygen Delivery Oxygen Flow Rate Fraction of Inspired Oxygen 09/21/24 21:59 09/21/24 21:59 09/22/24 00:00 Temperature Pulse Rate 79 79 72 Respiratory Rate 17 17 Blood Pressure Pulse Oximetry 95 95 Oxygen Delivery CPAP CPAP Oxygen Flow Rate 3 Fraction of Inspired Oxygen 32 09/22/24 04:00 09/22/24 05:01 09/22/24 05:03 Temperature 97.4 F L Pulse Rate 73 67 70 Respiratory Rate 14 16 Blood Pressure 109/59 L Pulse Oximetry 89 L 94 Oxygen Delivery CPAP Oxygen Flow Rate Fraction of Inspired Oxygen 09/22/24 08:00 09/22/24 08:00 09/22/24 08:51 Temperature Pulse Rate 89 76 80 Respiratory Rate 20 20 Blood Pressure Pulse Oximetry 94 95 Oxygen Delivery Nasal Cannula Nasal Cannula Oxygen Flow Rate 1.5 2 Fraction of Inspired Oxygen 32 09/22/24 08:51 09/22/24 08:53 09/22/24 11:15 Temperature Pulse Rate 80 89 85 Respiratory Rate 20 Blood Pressure Pulse Oximetry 88 L Oxygen Delivery Room Air Oxygen Flow Rate Fraction of Inspired Oxygen 09/22/24 11:20 09/22/24 11:25 09/22/24 11:30 Temperature Pulse Rate 82 110 H 113 H Respiratory Rate Blood Pressure Pulse Oximetry 92 88 L 91 Oxygen Delivery Nasal Cannula Nasal Cannula Nasal Cannula Oxygen Flow Rate 1.5 1.5 3 Fraction of Inspired Oxygen 09/22/24 11:39 09/22/24 11:45 09/22/24 12:00 Temperature Pulse Rate 83 95 Respiratory Rate Blood Pressure Pulse Oximetry 92 Oxygen Delivery Nasal Cannula Nasal Cannula Oxygen Flow Rate 3 1.5 Fraction of Inspired Oxygen 09/22/24 14:00 Temperature 97.7 F Pulse Rate 95 Respiratory Rate 20 Blood Pressure 98/61 L Pulse Oximetry 96 Oxygen Delivery Oxygen Flow Rate Fraction of Inspired Oxygen Intake/Output Intake/Output: Intake & Output 09/19/24 09/20/24 09/21/24 09/22/24 23:59 23:59 23:59 23:59 Intake Total 2420 4170 1140 1500 Output Total 4550 1300 3400 950 Balance -2130 2870 -2260 550 Meds/Results Medications: Active Medications Generic Name Dose Route Start Last Admin Trade Name Freq PRN Reason Stop Dose Admin Acetaminophen 650 mg 09/18/24 07:51 Acetaminophen 325 Mg Tablet PO Q4H PRN Mild Pain (1-3) or Fever Albuterol 1 - 2 puff 09/18/24 12:52 Albuterol Sulfate (*Sp) Aerosol 1 Puff INHALATION Q4-6H PRN shortness of breath or wheezing Aripiprazole 2 mg 09/19/24 09:00 09/22/24 08:53 Aripiprazole 2 Mg Tablet PO 2 mg DAILY ABELINO Administration Ascorbic Acid 500 mg 09/19/24 09:00 09/22/24 08:54 Ascorbic Acid 500 Mg Tablet PO 500 mg DAILY ABELINO Administration Atorvastatin Calcium 40 mg 09/19/24 09:00 09/22/24 08:53 Atorvastatin 40 Mg Tablet PO 40 mg DAILY ABELINO Administration Azithromycin 250 mg 09/22/24 09:00 09/22/24 08:54 Azithromycin 250 Mg Tablet PO 09/25/24 09:01 250 mg DAILY ABELINO Administration Benzonatate 200 mg 09/18/24 13:03 Benzonatate 100 Mg Capsule PO TID PRN cough Carvedilol 6.25 mg 09/18/24 21:00 09/22/24 08:53 Carvedilol 6.25 Mg Tablet PO 6.25 mg Q12HR ABELINO Administration Cyanocobalamin 1,000 mcg 09/19/24 09:00 09/22/24 08:54 Cyanocobalamin 1,000 Mcg Tablet PO 1,000 mcg QAM ABELINO Administration Duloxetine HCl 20 mg 09/19/24 09:00 09/22/24 08:54 Duloxetine Hcl 20 Mg Capsule.Dr PO 20 mg DAILY ABELINO Administration Ferrous Sulfate 325 mg 09/18/24 17:00 09/22/24 17:25 Ferrous Sulfate [address] BY MOUTH 325 mg BID ABELINO Administration Guaifenesin/Dextromethorphan 2 tab 09/18/24 13:04 Guaifenesin 600 Mg/Dextromethorphan 30 Mg Sr Tab 12 Hr PO Q12H PRN cough Ceftriaxone Sodium 2 gm in 100 mls @ 200 mls/hr 09/20/24 14:00 09/22/24 13:08 Rocephin 2 Gm/Ns 100 Ml IVPB 200 mls/hr Q24H ABELINO Administration Lamotrigine 50 mg 09/19/24 09:00 09/22/24 08:54 Lamotrigine 50 Mg Tablet PO 50 mg DAILY ABELINO Administration Morphine Sulfate 2 mg 09/18/24 07:51 Morphine Sulfate (*Crx) 2 Mg/Ml Inj IV PUSH Q2H PRN Pain Rated 7-10 Pantoprazole Sodium 40 mg 09/19/24 21:00 09/22/24 08:54 Pantoprazole 40 Mg Tablet PO 40 mg Q12HR ABELINO Administration Fluticasone/Salmeterol 2 puff 09/18/24 20:00 09/22/24 08:50 Fluticasone/Salmeterol 115-21 Mcg (*Sp) Inhaler INHALATION 2 puff Q12HRT ABELINO Administration Sodium Chloride 20 ml 09/18/24 10:44 Central Line Flush IV PUSH PRN PRN after blood draws Sodium Chloride 10 ml 09/18/24 10:44 Central Line Flush IV PUSH PRN PRN with TPN bag changes Sodium Chloride 10 ml 09/18/24 14:00 09/22/24 13:09 Central Line Flush IV PUSH 10 ml Q8HR ABELINO Administration Vitamin D 2,000 units 09/19/24 09:00 09/22/24 08:54 Cholecalciferol 1,000 Units Tablet PO 2,000 units DAILY ABELINO Administration Radiology Results: ITS Impressions Abdomen/Pelvis CT 09/18/24 07:06 IMPRESSION: 1. Small right kidney. Slightly small left kidney. Bilateral renal cysts. Hyperdense area seen in the right kidney lower pole which may be complex cyst or mass. Ultrasound confirmation advised. 2. Small hypodensity in the liver dome which may be a cyst. Ultrasound evaluation advised. 3. Cholelithiasis. 4. No evidence of appendicitis, diverticulitis or intestinal obstruction. 5. No definite active bleeding seen in the bowel. Chest X-Ray 09/20/24 15:18 IMPRESSION: Increasing left-sided pleural effusion, as detailed above. Abdomen Ultrasound 09/21/24 10:21 IMPRESSION: Evaluation of the pancreas is limited by overlying bowel gas. Simple cyst within the dome of the liver as well as within the right kidney, for which no further follow-up is needed. Findings within the medial margin of the upper pole of the left kidney which are indeterminate based on ultrasound characteristics for which contrast enhanced CT or MRI is recommended (with renal mass protocol). Cholelithiasis. Labs Labs: Laboratory Results - last 24 hr 09/21/24 09/22/24 18:55 05:52 WBC 10.6 H RBC 2.72 L Hgb 7.8 L Hct 25.8 L MCV 94.9 MCH 28.7 MCHC 30.2 L RDW 18.9 H Plt Count 220 MPV 10.6 H Immature Gran % (Auto) 0.8 H Neut % (Auto) 89.8 H Lymph % (Auto) 7.6 L [place] % (Auto) 1.7 L Eos % (Auto) 0.0 Baso % (Auto) 0.1 L Lymph # (Auto) 0.80 L [place] # (Auto) 0.2 Eos # (Auto) 0.0 Baso # (Auto) 0.0 Abs Immat Gran (auto) 0.08 H Absolute Neuts (auto) 9.5 H Absolute Nucleated RBC 0.000 Nucleated RBC % 0.0 Sodium 146 H Potassium 3.7 Chloride 116 H Carbon Dioxide 22 Anion Gap 8 BUN 38 H Creatinine 2.86 H Estim Creat Clear Calc 21 Estimated GFR 21 L Glucose 154 H Calcium 7.8 L Total Bilirubin 0.2 AST 36 ALT 25 Alkaline Phosphatase 66 NT-Pro-B Natriuret Pep 4940 H Total Protein 6.0 L Albumin 3.1 L Procalcitonin 0.1 Influenza A (RT-PCR) Negative Influenza B (RT-PCR) Negative RSV (RT-PCR) Negative SARS-CoV-2 RNA (RT-PCR) Negative
[2024-09-23] VITALS (11 sets, daily range): BP systolic 98–105; BP diastolic 56–68; PULSE 72–87; RESP 18–20; TEMP 36.6–36.9; O2SAT 91–98
[2024-09-23] MEDS: CENTRAL LINE FLUSH 10 ML IV PUSH ×2 (05:26→08:57)
[2024-09-23 05:35] LABS: Hematocrit 24.6 % (42.0-52.0); Hemoglobin 7.4 g/dL (14.0-18.0); Mean Corpuscular HGB Conc 30.1 g/dl (32-36); Mean Corpuscular Hemoglobin 29.2 pg (26-34); Mean Corpuscular Volume 97.2 fl (80-100); Mean Platelet Volume 10.3 fl (7.4-10.4); Platelet Count Result 221 k/mm3 (150-375); Red Blood Count 2.53 M/mm3 (4.6-6.20); Red Cell Distribution Width 18.9 % (11.5-14.5); White Blood Count 15.2 K/mm3 (4.5-10.0)
[2024-09-23 05:49] LABS: Anion Gap 9 mmol/L (4-12); Blood Urea Nitrogen 38 mg/dL (9-20); Calcium 7.5 mg/dL (8.4-10.2); Carbon Dioxide 23 mmol/L (22-30); Chloride 116 mmol/L (98-107); Estimated CRCL calculation 20 ml/min; Estimated Glomerular Filt Rate 21; Glucose 102 mg/dL (65-110); Potassium 3.1 mmol/L (3.4-5.0); Sodium 148 mmol/L (137-145)
[2024-09-23] MEDS: FLUTICASONE/SALMETEROL 115-21 MCG (*SP) INHALER 2 PUFF INHALATION (07:56)
--- NOTE | 2024-09-23 08:39 | P.PNPL_ITS ---
Progress Note: A&P Assessment and Plan (1) COPD (chronic obstructive pulmonary disease): Qualifiers: COPD type: unspecified COPD Qualified Code(s): J44.9 - Chronic obstructive pulmonary disease, unspecified Code(s): J44.9 - Chronic obstructive pulmonary disease, unspecified Status: Chronic Assessment and Plan: Patient has a history of COPD on Symbicort 160-4.5 at 2 puffs b.i.d., chronic hypoxemic respiratory failure on 3 L with rest and activity. 09/21/24: Currently the patient was on 3 L nasal cannula with saturations 100% and I decreased him to 2 L nasal cannula his saturations remain 97%. The patient tells me he has no breathing issues today, he has no change in his chronic cough, no change in his chronic yellow phlegm production, no wheezing and no shortness of breath at rest. He has not been ambulating. He denies fever, chills, rigors. Plan: The patient has no symptoms consistent with a COPD exacerbation. I will discontinue Solu-Medrol. I will discontinue nebulizers and continue Advair 115-21 at 2 puffs b.i.d. He has no symptoms consistent with pneumonia, he is afebrile, his leukocytosis is improving, chest x-ray on 09/20/2024 with possible left pleural effusion with minimal change compared to chest x-ray on 09/18/2024 and he had a CT scan of the abdomen at that time with no left pleural effusion. currently on ceftriaxone day 2 and azithromycin day 2. will continue for now. COVID, RSV, influenza RT PCR study ordered. 09/22/2024: The patient tells me he is breathing normal and has no respiratory issues. He he says his phlegm production is normal. He has no wheezing. He is afebrile. His white blood cell count is 10.6, creatinine 2.86. BNP is 4940 improved from 7130. His procalcitonin is 0.1. COVID, RSV, influenza RT PCR negative. Currently on ceftriaxone day 3 and azithromycin day 3. I am not convinced the patient has a pneumonia at this time. 09/23/2024: Patient states his breathing is at his normal with no respiratory complaints. He is afebrile. White blood cell count 15.2, creatinine 2.91. Currently patient is on 1.5 L nasal cannula saturations 93%. Reported hemoptysis X1 yesterday. This was thus multi Mt of blood in yellow phlegm. He has had none since then. status post ceftriaxone for 3 days and now Augmentin day 1. On azithromycin day 4. From a pulmonary perspective patient is ready to be discharged on these pulmonary medications: Azithromycin 250 mg p.o. q.day last dose on 09/24/2024. Augmentin 500-125 b.i.d., last dose on 09/26/2024 Symbicort 160-4.5 at 2 puffs q.12 hours. Rescue albuterol 2 puffs q.4 hours p.r.n. shortness of breath or wheezing Oxygen 1.5 L at rest and 3 with activity. When he naps or sleeps CPAP 12 with 5 L bleed in. Patient is followed in the Pulmonary Clinic and he should keep his scheduled appointment on 12/28/2024 at 9:[address] Niño, will sign off, call with questions. (2) Chronic hypoxemic respiratory failure: Code(s): J96.11 - Chronic respiratory failure with hypoxia Status: Acute Assessment and Plan: Patient wears 3 L nasal cannula with rest, with activity and bleed in at night. His home saturations are usually 92-94%. Yesterday was 2.8 L positive and is 2.9 L positive since admission and did not receive Lasix. Patient is on 20 Lasix IV BID now 09/21/2024: Currently the patient was on 3 L nasal cannula with saturations 100% and I decreased him to 2 L nasal cannula his saturations remain 97%. Plan: Goal saturation 90-94%, wean as tolerated. agree with as aggressive diuresis as tolerated per his cardiac and renal systems per hospitalist team. 09/22/24: When at the room the patient was on 4 L nasal cannula saturations 97%. I decreased him to 2 L nasal cannula saturations were 94%. Plan: Formal home O2 assessment today to determine his oxygen needs at rest and with ambulation. 09/23/24: 09/22/2024: home O2 assessment: Rest room air saturation 88%. Rest nasal cannula 1.5 L saturation 92%. Exercise nasal cannula 1.5 L saturation 88%. Exercise 3 L nasal cannula 91%. Patient requires 1.5 L at rest and 3 with activity. (3) Obstructive sleep apnea: Code(s): G47.33 - Obstructive sleep apnea (adult) (pediatric) Status: Chronic Assessment and Plan: Patient is on CPAP 12 with 3 L bleed in at night. In the hospital he has been on auto PAP 10-18 and required 8 L bleed in last night. Plan: I will place the patient on CPAP 12 with 3 L bleed in [facility] and perform an overnight oximetry. 09/22/24: Patient wore the hospital CPAP 12 with 3 L bleed in at night and said that he slept well and felt like his home settings. Patient had an overnight oximetry with recording duration of 7 hours and 5 minutes, average saturation 87%. Low saturation 82%. Time with saturation less than or equal to 88% was 306 minutes. Oxygen desaturation index 1.6. Plan: If patient is discharged I will arrange for an overnight oximetry on 5 L at home and follow-up with these results. If the patient remains in the hospital [facility] will perform overnight oximetry on CPAP 12 with 5 L bleed in. : atient had an overnight oximetry on the hospital CPAP 12 with 5 L ble ed in and recording duration of 6 hours and 29 minutes. Average saturation 93%. Low saturation 88%. Time with saturation less than or equal to 88% was 1 minute. oxygen desaturation index 0.8. Plan: Continue home CPAP 12 with 5 L bleed in when he naps and sleeps. Subjective Date/time seen: 09/23/24 08:39 Interval history: 09/21/2024: This is a new pulmonary consult for hypoxemia. 84-year-old with a history of COPD on home oxygen 3 L at rest, with activity, obstructive sleep apnea on CPAP 12 with 3 L bleed in, CKD, anemia, coronary artery disease status post stents about 25 years ago, hypertension. Patient is followed in the Pulmonary Clinic in last seen on 07/12/2024 here is the note Last visit 12/2023 Ed is here for follow up regarding COPD. He is here today with his , Shai, who is also our patient. * Hx HTN, CAD s/p stent, dyslipidemia - Follows with Dr Crane. Hx CKD, prediabetes, COPD on home oxygen therapy at 3L/min, TSERING on CPAP with 3L O2 bleed in. * ER visit 02/28/22 - COVID positive 02/27/22, stated only symptoms were nasal congestion and scratchy throat, vitals were stable and saturations were adequate on his home O2 requirement 2L/min. Chest XR with airspace opacities in the lower lobes. * Our visit in March 2022 I sent him to ER for SOB, weakness, acute on chronic respiratory failure, anemia, reported dark stool. Upon arrival to ER hemoglobin found to be 5.9. He was admitted to [place] for 6 days and received 3 blood transfusions. * Also follows with nephrology, Dr Muir, and hematology for his anemia, Dr Khan. Reports he had iron infusions through Dr Khan's office and has been stable since then.COPD: His helps supplement history. States overall his breathing feels stable compared to last visit, about the same. No ER/UC visits or hospitalizations recently. Chronic productive cough of yellowish sputum, mostly in the morning when he wakes up. Denies wheezing. Denies feeling chest congestion, mostly phlegm just gets stuck in his throat. previously tried a triple inhaler and noticed no difference compared to Symbicort. He reports compliance with Symbicort 160 at 2 puffs BID. Uses ipratropium- albuterol in the nebulizer which he uses around twice per day (in the morning at breakfast and again around noon). Again some confusion today as wants to know if he should keep using this twice daily or just as needed - discussed it can be used PRN for shortness of breath/wheezing. O2: He is on supplemental oxygen 05/01. He was previously on 2L/min O2 at all times up until Feb 2022. Home oxygen evaluation 04/14/22 day of discharge states 2L/min with rest and 3L/min with exertion, and repeat home O2 eval 06/13/22 confirms same requirements. states it is difficult to titrate between 2 and 3L/min during the day because the concentrator is in the lower level of their home and he goes up and down the stairs, so often times he is keeping his concentrator on 3L/min all the time. States his oxygen saturations at home have been in the 90s%. Sleep: He is compliant with CPAP [id number] with 3L/min O2 bleed-in. States he is sleeping well. Nocturia 3x per night. He often dozes off watching TV during the day, naps a lot. Denies morning headaches. Using a full face mask with CPAP and doing well with this. Download 04/06/24 - 07/04/24 shows excellent compliance at 100%, worn nightly for avg usage 8h23m per night. Overall AHI is 2.2. With goal AHI of less than 5.0, this suggests the patient's sleep apnea events are well-controlled on current PAP settings. Tobacco: Former smoker, smoked up to 2ppd from age 15yo and quit smoking around 1989. Around 68 pack-year history. Follow-up in 6 months. 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 He had no respiratory complaints when he presented. 09/21/2024: Patient has been on 4 L nasal cannula saturations 100%. yesterday the patient did not receive Lasix because of soft blood pressures. Last night the placed in required auto PAP 10-18 and required 8 L oxygen for low saturations. Patient was started on ceftriaxone and azithromycin for possible left lower lobe pneumonia and started on IV steroids for possible COPD exacerbations as patient had some wheezing. At baseline tells me he has 2 block dyspnea on exertion and is able to use a pedal or 30 minutes each day. He produces yellow phlegm 5 times in the 1st hour in the morning, he has no wheezing. Currently the patient was on 3 L nasal cannula with saturations 100% and I decreased him to 2 L nasal cannula his saturations remain 97%. The patient tells me he has no breathing issues today, he has no change in his chronic cough, no change in his chronic yellow phlegm production, no wheezing and no shortness of breath at rest. He has not been ambulating. He denies fever, chills, rigors. 09/22/2024: The patient tells me he is breathing normal and has no respiratory issues. He he says his phlegm production is normal. He has no wheezing. He is afebrile. When at the room the patient was on 4 L nasal cannula saturations 97%. I decreased him to 2 L nasal cannula saturations were 94%. His white blood cell count is 10.6, creatinine 2.86. BNP is 4940 improved from 7130. His procalcitonin is 0.1. Patient wore the hospital CPAP 12 with 3 L bleed in at night and said that he slept well and felt like his home settings. Patient had an overnight oximetry with recording duration of 7 hours and 5 minutes, average saturation 87%. Low saturation 82%. Time with saturation less than or equal to 88% was 306 minutes. Oxygen desaturation index 1.6. 09/23/2024: Patient states his breathing is at his normal with no respiratory complaints. He is afebrile. White blood cell count 15.2, creatinine 2.91. Currently patient is on 1.5 L nasal cannula saturations 93%. Patient had an overnight oximetry on the hospital CPAP 12 with 5 L bleed in and recording duration of 6 hours and 29 minutes. Average saturation 93%. Low saturation 88%. Time with saturation less than or equal to 88% was 1 minute. oxygen desaturation index 0.8. DATA: 09/23/24: Overnight oximetry on CPAP 12 in 5 L bleed in: recording duration of 6 hours and 29 minutes. Average saturation 93%. Low saturation 88%. Time with saturation less than or equal to 88% was 1 minute. oxygen desaturation index 0.8. 09/22/24: Patient wore the hospital CPAP 12 with 3 L bleed in at night and said that he slept well and felt like his home settings. Patient had an overnight oximetry with recording duration of 7 hours and 5 minutes, average saturation 87%. Low saturation 82%. Time with saturation less than or equal to 88% was 306 minutes. Oxygen desaturation index 1.6. 09/22/2024: home O2 assessment: Rest room air saturation 88%. Rest nasal cannula 1.5 L saturation 92%. Exercise nasal cannula 1.5 L saturation 88%. Exercise 3 L nasal cannula 91%. Patient requires 1.5 L at rest and 3 with activity. 08/13/22 - Overnight oximetry on CPAP with 3L/min O2 bleed in - showed 1.1 min at or below 88% saturation. High SpO2 98%, basal SpO2 94.2%, low SpO2 85%. * 07/23/22 - Overnight oximetry on CPAP with 2L/min O2 bleed in - showed 22.3 min at or below 88% saturation. High SpO2 99%, basal 94.2%, low 75% at the very end of the test and may have been artifactual. Advised to increase liter flow to 3L/min with CPAP. * 06/13/22 - Home O2 eval - Needed 2L/min at rest and 3L/min with walking. * 05/13/22 - PFT - showed moderate obstructive airway disease with no response to bronchodilators. ?Lung diffusion capacity was severely reduced at 34% predicted. * 04/14/22 - Home oxygen evaluation on hospital discharge states 2L/min with rest and 3L/min with exertion. * 04/12/22 - Echo - Grade I diastolic dysfunction. EF 55-60%. Moderate aortic stenosis. * 04/11/22 - CXR - Pulmonary vascular congestion and increased interstitial pattern in the bilateral lower lung zones consistent with mild pulmonary edema. Blunting at costophrenic angles consistent with small bilateral pleural effusions. * 02/28/22 - Chest XR - Airspace opacities in the lower lungs, consistent with atelectasis/scarring vs. pneumonia related to COVID + home test. * 10/2015 - Home oxygen eval - Patient required 2L/min with ambulation and none at rest. Appears this is when he was initially set up wit oxygen. * 10/2015 - PFT - Mild obstructive ventilatory defect primarily in the small airways. No acute bronchodilator response. Moderately decreased DLCO. * 2012 - High Res CT chest - There is symmetric scarring at the lung apices. There is mild centrilobular emphysema. There are small pleural effusions, left greater than right. Mild dependent atelectasis. Moderate-sized pericardial effusion. Review of Systems Constitutional: Constitutional: Reports no additional constitutional complaints Eyes: Eyes: Reports no additional eye complaints ENT: Reports system reviewed and no additional complaints, except as documented Cardiovascular: Cardiovascular: Reports no additional cardiovascular complaints Respiratory: Respiratory: Reports no additional respiratory complaints Gastrointestinal: Gastrointestinal: Reports no additional gastrointestinal complaints Musculoskeletal: Musculoskeletal: Reports no additional musculoskeletal complaints Neurologic: Reports system reviewed and no additional complaints, except as documented Psychiatric: Psychiatric: Reports no additional psychiatric complaints Endocrine: Endocrine: Reports no additional endocrine complaints Hematologic/Lymphatic: Hematologic/Lymphatic: Reports no additional hematologic/lymphatic complaints Allergic/Immunologic: Allergic/Immunologic: Reports no additional allergic/immunologic complaints Exam Const: General: cooperative and comfortable Orientation/consciousness: oriented to person, oriented to place and oriented to time Other: obese HENMT: Head: normal to inspection Ears: hearing grossly normal bilaterally Eyes: General: appearance normal, both eyes and all related structures Neck: Neck: normal visual inspection Chest: Chest palpation & inspection: normal inspection of the chest Resp: Effort & Inspection: normal respiratory effort and able to speak in complete sentences Auscultation: no crackles, no rales, no rhonchi, no wheezes and diminished lung sounds Other: Diminished breath sounds. Morbidly obese. Cardio: Jugular venous distension: no JVD GI: Inspection: normal to inspection Skin: General skin exam: normal color Neuro: General: oriented to person, oriented to place and oriented to time Extrem: General: normal to inspection and no edema Psych: Appearance: grossly normal Objective Data Vital Signs Vital Signs: Vital Signs - 24 hr 09/22/24 08:51 09/22/24 08:51 09/22/24 08:53 Temperature Pulse Rate 80 80 89 Respiratory Rate 20 20 Blood Pressure Pulse Oximetry 95 Oxygen Delivery Nasal Cannula Oxygen Flow Rate 2 Fraction of Inspired Oxygen 09/22/24 11:15 09/22/24 11:20 09/22/24 11:25 Temperature Pulse Rate 85 82 110 H Respiratory Rate Blood Pressure Pulse Oximetry 88 L 92 88 L Oxygen Delivery Room Air Nasal Cannula Nasal Cannula Oxygen Flow Rate 1.5 1.5 Fraction of Inspired Oxygen 09/22/24 11:30 09/22/24 11:39 09/22/24 11:45 Temperature Pulse Rate 113 H 83 Respiratory Rate Blood Pressure Pulse Oximetry 91 92 Oxygen Delivery Nasal Cannula Nasal Cannula Nasal Cannula Oxygen Flow Rate 3 3 1.5 Fraction of Inspired Oxygen 09/22/24 12:00 09/22/24 14:00 09/22/24 16:00 Temperature 36.5 C Pulse Rate 95 95 72 Respiratory Rate 20 Blood Pressure 98/61 L Pulse Oximetry 96 Oxygen Delivery Oxygen Flow Rate Fraction of Inspired Oxygen 09/22/24 20:00 09/22/24 20:00 09/22/24 20:19 Temperature Pulse Rate 94 87 Respiratory Rate Blood Pressure Pulse Oximetry 96 Oxygen Delivery Nasal Cannula Oxygen Flow Rate 1.5 Fraction of Inspired Oxygen 09/22/24 21:49 09/22/24 22:28 09/22/24 22:28 Temperature 36.5 C Pulse Rate 85 82 Respiratory Rate 20 20 Blood Pressure 111/66 Pulse Oximetry 93 92 92 Oxygen Delivery CPAP CPAP Oxygen Flow Rate 5 Fraction of Inspired Oxygen 40 09/23/24 00:00 09/23/24 04:00 09/23/24 05:24 Temperature 36.6 C Pulse Rate 79 72 77 Respiratory Rate 18 Blood Pressure 105/68 Pulse Oximetry 98 Oxygen Delivery Oxygen Flow Rate Fraction of Inspired Oxygen 09/23/24 07:55 09/23/24 07:56 Temperature Pulse Rate 84 84 Respiratory Rate 20 20 Blood Pressure Pulse Oximetry 95 Oxygen Delivery Nasal Cannula Oxygen Flow Rate 1.5 Fraction of Inspired Oxygen Intake/Output Intake/Output: Intake & Output 09/20/24 09/21/24 09/22/24 09/23/24 23:59 23:59 23:59 23:59 Intake Total 4170 1140 1700 190 Output Total 1300 3400 1350 550 Balance 2870 -2260 350 -360 Meds/Results Medications: Active Medications Generic Name Dose Route Start Last Admin Trade Name Freq PRN Reason Stop Dose Admin Acetaminophen 650 mg 09/18/24 07:51 Acetaminophen 325 Mg Tablet PO Q4H PRN Mild Pain (1-3) or Fever Albuterol 1 - 2 puff 09/18/24 12:52 Albuterol Sulfate (*Sp) Aerosol 1 Puff INHALATION Q4-6H PRN shortness of breath or wheezing Amoxicillin/Clavulanate Potassium 1 tablet 09/23/24 09:00 Amoxicillin/Clavulanate K 500-125 Mg Tab PO 09/26/24 21:01 Q12HR ABELINO Aripiprazole 2 mg 09/19/24 09:00 09/22/24 08:53 Aripiprazole 2 Mg Tablet PO 2 mg DAILY ABELINO Administration Ascorbic Acid 500 mg 09/19/24 09:00 09/22/24 08:54 Ascorbic Acid 500 Mg Tablet PO 500 mg DAILY ABELINO Administration Atorvastatin Calcium 40 mg 09/19/24 09:00 09/22/24 08:53 Atorvastatin 40 Mg Tablet PO 40 mg DAILY ABELINO Administration Azithromycin 250 mg 09/22/24 09:00 09/22/24 08:54 Azithromycin 250 Mg Tablet PO 09/25/24 09:01 250 mg DAILY ABELINO Administration Benzonatate 200 mg 09/18/24 13:03 Benzonatate 100 Mg Capsule PO TID PRN cough Carvedilol 6.25 mg 09/18/24 21:00 09/22/24 20:19 Carvedilol 6.25 Mg Tablet PO 6.25 mg Q12HR ABELINO Administration Cyanocobalamin 1,000 mcg 09/19/24 09:00 09/22/24 08:54 Cyanocobalamin 1,000 Mcg Tablet PO 1,000 mcg QAM ABELINO Administration Duloxetine HCl 20 mg 09/19/24 09:00 09/22/24 08:54 Duloxetine Hcl 20 Mg Capsule.Dr PO 20 mg DAILY ABELINO Administration Ferrous Sulfate 325 mg 09/18/24 17:00 09/22/24 17:25 Ferrous Sulfate [address] BY MOUTH 325 mg BID ABELINO Administration Guaifenesin/Dextromethorphan 2 tab 09/18/24 13:04 Guaifenesin 600 Mg/Dextromethorphan 30 Mg Sr Tab 12 Hr PO Q12H PRN cough Lamotrigine 50 mg 09/19/24 09:00 09/22/24 08:54 Lamotrigine 50 Mg Tablet PO 50 mg DAILY ABELINO Administration Pantoprazole Sodium 40 mg 09/19/24 21:00 09/22/24 20:19 Pantoprazole 40 Mg Tablet PO 40 mg Q12HR ABELINO Administration Fluticasone/Salmeterol 2 puff 09/18/24 20:00 09/23/24 07:56 Fluticasone/Salmeterol 115-21 Mcg (*Sp) Inhaler INHALATION 2 puff Q12HRT ABELINO Administration Sodium Chloride 20 ml 09/18/24 10:44 Central Line Flush IV PUSH PRN PRN after blood draws Sodium Chloride 10 ml 09/18/24 10:44 Central Line Flush IV PUSH PRN PRN with TPN bag changes Sodium Chloride 10 ml 09/18/24 14:00 09/23/24 05:26 Central Line Flush IV PUSH 10 ml Q8HR ABELINO Administration Vitamin D 2,000 units 09/19/24 09:00 09/22/24 08:54 Cholecalciferol 1,000 Units Tablet PO 2,000 units DAILY ABELINO Administration Radiology Results: ITS Impressions Abdomen/Pelvis CT 09/18/24 07:06 IMPRESSION: 1. Small right kidney. Slightly small left kidney. Bilateral renal cysts. Hyperdense area seen in the right kidney lower pole which may be complex cyst or mass. Ultrasound confirmation advised. 2. Small hypodensity in the liver dome which may be a cyst. Ultrasound evaluation advised. 3. Cholelithiasis. 4. No evidence of appendicitis, diverticulitis or intestinal obstruction. 5. No definite active bleeding seen in the bowel. Chest X-Ray 09/20/24 15:18 IMPRESSION: Increasing left-sided pleural effusion, as detailed above. Abdomen Ultrasound 09/21/24 10:21 IMPRESSION: Evaluation of the pancreas is limited by overlying bowel gas. Simple cyst within the dome of the liver as well as within the right kidney, for which no further follow-up is needed. Findings within the medial margin of the upper pole of the left kidney which are indeterminate based on ultrasound characteristics for which contrast enhanced CT or MRI is recommended (with renal mass protocol). Cholelithiasis. Venous Doppler Study 09/23/24 07:41 IMPRESSION: 1: No lower extremity deep venous thrombosis. Labs Labs: Laboratory Results - last 24 hr 09/22/24 09/23/24 05:52 05:30 WBC 15.2 H RBC 2.53 L Hgb 7.4 L Hct 24.6 L MCV 97.2 MCH 29.2 MCHC 30.1 L RDW 18.9 H Plt Count 221 MPV 10.3 Sodium 148 H Potassium 3.1 L Chloride 116 H Carbon Dioxide 23 Anion Gap 9 BUN 38 H Creatinine 2.91 H Estim Creat Clear Calc 20 Estimated GFR 21 L Glucose 102 Calcium 7.5 L Procalcitonin 0.1
[2024-09-23] MEDS: carvediloL 6.25 MG TABLET PO (08:50)
[2024-09-23] MEDS: lamoTRIgine 50 MG TABLET PO (08:50)
[2024-09-23] MEDS: CYANOCOBALAMIN 1,000 MCG TABLET 1000 MCG PO (08:50)
[2024-09-23] MEDS: ASCORBIC ACID 500 MG TABLET PO (08:50)
[2024-09-23] MEDS: AZITHROMYCIN 250 MG TABLET PO (08:50)
[2024-09-23] MEDS: ATORVASTATIN 40 MG TABLET PO (08:51)
[2024-09-23] MEDS: AMOXICILLIN/CLAVULANATE K 500-125 MG TAB 1 TABLET PO (08:51)
[2024-09-23] MEDS: DULoxetine HCL 20 MG CAPSULE.DR PO (08:51)
[2024-09-23] MEDS: FERROUS SULFATE 325 MG TABLET DR BY MOUTH ×2 (08:51→16:58)
[2024-09-23] MEDS: POTASSIUM CHLORIDE 20 MEQ ER TABLET PO (08:51)
[2024-09-23] MEDS: CHOLECALCIFEROL 1,000 UNITS TABLET 2000 UNITS PO (08:51)
[2024-09-23] MEDS: PANTOPRAZOLE 40 MG TABLET PO (08:51)
[2024-09-23] MEDS: ARIPiprazole 2 MG TABLET PO (08:51)
--- NOTE | 2024-09-23 16:08 | P.DS_ITS ---
DS: Admitting Diagnosis Discharge Date 09/23/24 Admitting Diagnosis Black stools and nausea DS: Discharge Diagnosis Discharge Diagnosis (1) Acute GI bleeding: Code(s): K92.2 - Gastrointestinal hemorrhage, unspecified Status: Acute (2) AVM (arteriovenous malformation) of duodenum, acquired: Code(s): K31.819 - Angiodysplasia of stomach and duodenum without bleeding Status: Acute (3) Acute blood loss anemia: Code(s): D62 - Acute posthemorrhagic anemia Status: Acute (4) Chronic respiratory failure: Code(s): J96.10 - Chronic respiratory failure, unspecified whether with hypoxia or hypercapnia Status: Acute (5) CHF (congestive heart failure): Code(s): I50.9 - Heart failure, unspecified Status: Acute (6) Severe aortic stenosis: Code(s): I35.0 - Nonrheumatic aortic (valve) stenosis Status: Acute (7) CKD (chronic kidney disease): Qualifiers: Chronic kidney disease stage: unspecified stage Qualified Code(s): N18.9 - Chronic kidney disease, unspecified Code(s): N18.9 - Chronic kidney disease, unspecified Status: Acute (8) COPD (chronic obstructive pulmonary disease): Qualifiers: COPD type: unspecified COPD Qualified Code(s): J44.9 - Chronic obstructive pulmonary disease, unspecified Code(s): J44.9 - Chronic obstructive pulmonary disease, unspecified Status: Chronic (9) Obstructive sleep apnea: Code(s): G47.33 - Obstructive sleep apnea (adult) (pediatric) Status: Chronic (10) Coronary artery disease: Code(s): I25.10 - Atherosclerotic heart disease of [place] coronary artery without angina pectoris Status: Acute DS: Summary Hospital Course Reason for hospitalization: 84yo male with CKD, CAD, chronic respiratory failure (3L) and HTN here for black stools and nausea. Please see HnP for details. Hospital Course: Patient presented with black stools and nausea. He did have 1 episode of bright red blood per rectum. Denies taking NSAIDs. He is on Plavix. Hemoglobin was 6.8 on admission. He was guaiac positive by ER exam. he was started on PPI therapy. He was typed and crossed and transfused 2 units of packed red blood cells on 09/18/2024. He tolerated this well. Hemoglobin climbed to the 7 range and remained stable. GI was consulted and patient underwent EGD which showed duodenal AVM with bleeding. The lesion was cauterized with APC and then injected with epinephrine. A clip was placed. Patient tolerated the procedure well. Appreciate GI input. He will followup with Hematology after discharge. Hemoglobin was essentially normal last year in the 13-14 range. Last hemoglobin in February was 13.7. [place] the abrupt drop in the hemoglobin was related to acute blood loss anemia. Patient has chronic respiratory failure on 3 L nasal cannula at all times. He wears BiPAP with 3 L bleed in at night. He had increasing oxygen requirement overnight requiring up to 6 L bleed in. Also with requiring 4 L at rest while awake. Chest x-ray showing increasing left-sided pleural effusion. BNP is 7130. PCT is 0.2. COVID, influenza and RSV PCR negative. Suspect worsening hypoxia related to mild fluid overload related to blood transfusion. Consider acute on chronic diastolic CHF. Echo showing EF 60- 65%, Grade I diastolic dysfunction with severe (JAVIER 0.7cm2) and moderate pulmonary HTN without obvious shunt. We added low-dose IV diuretics but Na 146 and Cr climbed to 2.86 so Lasix held. Repeat BNP better at 4940. Consider also occult pneumonia in the right lower lobe. Rocephin was started and azithromycin added. he does have productive cough. He did have one episode of hemoptysis. Sputum Cx ordered but not collected. Also with hypoxia at night. Apnea link showing he spent 300 min with SpO2 <88% last night with 3L bleed-in. Discussed with pulmonary. Repeat apnea link showing resolution of the hypoxia at night with 5L bleed in. LE venous dopplers negative for DVT. Patient with severe aortic stenosis. Probably sensitive to preload reduction with severe and pulmonary HTN. Also having possible AFib. Will plan for outpatient cardiac monitoring as well. He will need to follow up with Cardiology. Creatinine last year ran 2.1-2.4 range. Creatinine on admission was 2.4 and has climbed to 2.9. Now off diuretic therapy. He worked with therapy and was walking out in the [place]. He overall did well and was able to be discharged home on 09/23/24. Spoke with GI who recommended resuming Plavix in 1 week after EGD. Spoke with Cardiology who will arrange for patient to be see for possible valve procedure and will arrange for outpatient monitoring. Status at Discharge Cognitive/behavioral status at discharge: stable Time Spent with Patient Time attestation: Total time spent providing and/or coordinating discharge services: 36 minutes Time spent: Greater than 30 minutes Exam Narrative: AF 98.4 98/56 84 20 98% 1.5L Gen - NARD Chest - distant BS CV - RRR S1/S2 with murmur appreciated LSB. Tele showing brief run of regular narrow complex with P waves - ATach Abd - Soft, obese NT Ext - no pedal edema Neuro - Alert and appropriate Psych - Nml mood and affect Skin - Warm and dry DS: Data Data Completed and Pending Labs on day of discharge: Labs from last 24 hours 09/23/24 05:30 WBC 15.2 H RBC 2.53 L Hgb 7.4 L Hct 24.6 L MCV 97.2 MCH 29.2 MCHC 30.1 L RDW 18.9 H Plt Count 221 MPV 10.3 Sodium 148 H Potassium 3.1 L Chloride 116 H Carbon Dioxide 23 Anion Gap 9 BUN 38 H Creatinine 2.91 H Estim Creat Clear Calc 20 Estimated GFR 21 L Glucose 102 Calcium 7.5 L Discharge Plan Discharge Attending physician on discharge: Van Niño Consulting providers: Johan Crane; Johan Mitchell Discharging Clinician: Van Niño Anticipated Discharge Date/Time: 09/23/24 16:20 Patient Disposition: Home Activity: as tolerated Diet: heart healthy Discharge Instructions: Continue oxygen at 1.5L at rest and 3L with exertion. Continue using BiPAP at night and with naps with 5L bleed-in. Please complete your antibiotic course even if you are starting to feel well. Take precautions to avoid falls. Rise slowly from a lying or sitting position. Pause before standing or walking. Check daily morning weights after voiding. Call your doctor if you gain more than 3 lb in 2 days or 5 lb in 1 week. Contact your doctor or call 911 and come to the Emergency Room if you have any type of trauma, lightheadedness with standing or other worrisome symptoms. Avoid NSAIDs (ibuprofen, naproxen, Aleve). Tylenol is safe to take. Follow-up with your primary care provider in 1-2 weeks. Please call for appointment. Follow-up with hematology in 4-6 weeks. Please call for an appointment. Follow-up with Cardiology in 1-2 weeks. Please call for an appointment. Follow-up with Pulmonology in 4-6 weeks. Please call for an appointment. Follow-up with GI in 4-6 weeks. Please call for an appointment. Thank you for using [facility] for your health care needs. Patient Instructions: Antibiotic Form Patient Language: Kiswahili Stand Alone Forms: General Discharge Information Follow-up/Referrals: Issa Khan MD [Physician] - Call for Appointment Johan Crane MD [Physician] - Call for Appointment Pelon Maurer DO [Primary Care Provider] - Call for Appointment Bharath Bourne MD [Physician] - Call for Appointment Johan Mitchell MD [Physician] - Call for Appointment Discharge Medications: New azithromycin [Zithromax] 250 mg Tablet 250 mg PO DAILY Qty: 2 0RF amoxicillin-pot clavulanate [Augmentin] 500-125 mg Tablet 1 tablet PO Q12HR Qty: 7 0RF Continued lutein-zeaxanthin 25-5 mg Capsule 1 cap PO DAILY lamotrigine 25 mg tablet 50 mg PO DAILY (DME) inhalational spacing device Spacer See Rx Instructions .ROUTE .MEDSUPPLY Qty: 1 0RF Rx Instructions: As directed ascorbate calcium (vitamin C) 500 mg tablet 500 mg PO DAILY ferrous sulfate 325 mg (65 mg iron) tablet 325 mg PO BID ketoconazole 2 % shampoo 1 applic topical PRN albuterol sulfate 90 mcg/actuation HFA aerosol inhaler 1 - 2 puff inhalation Q4-6H PRN (Reason: shortness of breath or wheezing) Qty: 8.5 2RF dextromethorphan-guaifenesin [Mucinex DM] 60-1,200 mg tablet extended release 12 hr 1 tablet PO Q12H PRN (Reason: cough) duloxetine 20 mg capsule,delayed release(DR/EC) 20 mg PO DAILY mecobalamin (vitamin B12) 1,000 mcg tablet,chewable 1,000 mcg PO DAILY cholecalciferol (vitamin D3) [Vitamin D3] 50 mcg (2,000 unit) Capsule 50 mcg PO DAILY aripiprazole [Abilify] 2 mg tablet 2 mg PO DAILY budesonide-formoterol 160-4.5 mcg/actuation HFA aerosol inhaler See Rx Instructions .ROUTE .COMPLEX Qty: 10.2 5RF Dose Instruction: 2 PUFF INHALED EVERY 12 HOURS RINSE MOUTH AND SPIT AFTER EACH USE Rx Instructions: 2 PUFF INHALED EVERY 12 HOURS RINSE MOUTH AND SPIT AFTER EACH USE atorvastatin 40 mg tablet 40 mg PO DAILY Qty: 90 1RF ipratropium bromide 0.02 % solution See Rx Instructions .ROUTE .COMPLEX Qty: 437.5 3RF Dose Instruction: USE ONE VIAL VIA NEBULIZER TWICE A DAY Rx Instructions: USE ONE VIAL VIA NEBULIZER TWICE A DAY benzonatate 200 mg capsule 200 mg PO TID PRN (Reason: cough) Qty: 60 0RF carvedilol 6.25 mg tablet See Rx Instructions .ROUTE .COMPLEX Qty: 180 1RF Dose Instruction: TAKE 1 TABLET BY MOUTH EVERY 12 HOURS Rx Instructions: TAKE 1 TABLET BY MOUTH EVERY 12 HOURS pantoprazole 40 mg tablet,delayed release (DR/EC) See Rx Instructions .ROUTE .COMPLEX Qty: 90 2RF Dose Instruction: TAKE 1 TABLET BY MOUTH EVERY DAY Rx Instructions: TAKE 1 TABLET BY MOUTH EVERY DAY Held amlodipine 2.5 mg tablet See Rx Instructions .ROUTE .COMPLEX Qty: 90 1RF Hold Instructions: HOLD - resume when okay with your doctor Dose Instruction: 2.5 MG ORALLY DAILY TAKE 1 TABLET BY MOUTH DAILY Rx Instructions: 2.5 MG ORALLY DAILY TAKE 1 TABLET BY MOUTH DAILY clopidogrel 75 mg tablet See Rx Instructions .ROUTE .COMPLEX Qty: 90 1RF Hold Instructions: Resume on 09/26/24. Dose Instruction: TAKE 1 TABLET BY MOUTH EVERY DAY Rx Instructions: TAKE 1 TABLET BY MOUTH EVERY DAY Discontinued cefdinir 300 mg capsule 300 mg PO Q12H Qty: 20 0RF Other Ambulatory Orders: Complete Blood Count no Diff (Routine) Timeframe: 1 Week Location: Determined by Patient Ordered By: Van Niño Renal Function Panel (Routine) Timeframe: 1 Week Location: Determined by Patient Ordered By: Van Niño Date of admission: 09/19/24 15:47 Primary Care Provider: Pelon Maurer Admitting Provider: Dionicio Mireles Attending physician on admission: Dionicio Mireles Condition: Stable Hospitalist MIPS Heart Failure (Exclusion) Patient has history of Heart Transplant or Left Ventricular Assistive Device?: No IF YES, STOP HERE Heart Failure (Qualifier) Patient has current or prior documentation of LVEF less than or equal to 40%, or mod/servere depressed LVSF?: No IF NO, STOP HERE
[2024-09-23] MEDS: NEOMYCIN/POLYMYXIN/BACITRACIN OINTMENT PACKET 1 PACKET (18:31)
== END 2024-09-23 19:00 | disposition home or self-care (01) | DRG 377 ==
LOC: ANHED 09-18 03:25 → ANHIMU 09-18 09:04 → ANH3MED 09-22 08:16 → ANHIMU 09-26 15:34 → ANH3MED 09-26 15:34
PROVIDERS: Internal Medicine Gastroenterology; Internal Medicine Pulmonary Disease; Admitting Provider Internal Medicine; Emergency Provider Student in an Organized Health Care Education/Training Program; PCP Internal Medicine; Visit Provider Internal Medicine
PROC: 0DJ08ZZ Inspection of Upper Intestinal Tract, Via Natural or Artificial Opening Endoscopic (ICD-10-PCS; principal; 2024-09-19 16:15)
DX: K31.811 Angiodysplasia of stomach and duodenum with bleeding (principal); I21.A1 Myocardial infarction type 2; D62 Acute posthemorrhagic anemia; I13.0 Hypertensive heart and chronic kidney disease with heart failure and stage 1 through stage 4 chronic kidney disease, or unspecified chronic kidney disease; I50.32 Chronic diastolic (congestive) heart failure; J96.11 Chronic respiratory failure with hypoxia; I35.0 Nonrheumatic aortic (valve) stenosis; I25.10 Atherosclerotic heart disease of native coronary artery without angina pectoris; I27.20 Pulmonary hypertension, unspecified; J44.9 Chronic obstructive pulmonary disease, unspecified; N18.30 Chronic kidney disease, stage 3 unspecified; N40.0 Benign prostatic hyperplasia without lower urinary tract symptoms; E78.2 Mixed hyperlipidemia; K21.9 Gastro-esophageal reflux disease without esophagitis; L71.9 Rosacea, unspecified; G47.33 Obstructive sleep apnea (adult) (pediatric); F32.A Depression, unspecified; Z20.822 Contact with and (suspected) exposure to COVID-19; Z79.02 Long term (current) use of antithrombotics/antiplatelets; Z99.81 Dependence on supplemental oxygen; Z95.5 Presence of coronary angioplasty implant and graft; Z87.11 Personal history of peptic ulcer disease; Z87.891 Personal history of nicotine dependence
CPT/HCPCS: 36415; 36430; 36569; 71045; 74177; 76700; 80048; 80053; 81003; 83605; 83880; 84145; 84484; 85014; 85018; 85025; 85027; 85055; 85610; 85730; 86850; 86900; 86901; 86923; 87637; 93005; 93970; 94618; 94640; 94762; 96361; 96375; 97161; 97165; 99285; A9270; C1751; C8929; J0171; J0456; J0696; J1938; J2470; J2704; J2919; J7030; J7040; J7050; J7120; P9016; Q9957; Q9967

== ENCOUNTER 2024-10-18 10:47 | Outpatient (CLI) | payer OTHER, SELFPAY ==
[2024-10-18 11:03] LABS: Hematocrit 36.7 % (42.0-52.0); Hemoglobin 10.9 g/dL (14.0-18.0); Mean Corpuscular HGB Conc 29.7 g/dl (32-36); Mean Corpuscular Hemoglobin 28.8 pg (26-34); Mean Corpuscular Volume 97.1 fl (80-100); Mean Platelet Volume 9.6 fl (7.4-10.4); Platelet Count Result 216 k/mm3 (150-375); Red Blood Count 3.78 M/mm3 (4.6-6.20); Red Cell Distribution Width 14.9 % (11.5-14.5); White Blood Count 8.8 K/mm3 (4.5-10.0)
--- OUTSIDE RECORDS SUMMARY | 2024-10-18 11:40 | XMS_ITS | Encounter Summary ---
[facility] Address [address] [place] [address] Care Team Providers Care Data Integrity Consultant Name Role Phone Pelon Maurer Primary Care Provider [phone] Encounter Details Date Type Department Care Team (Late st Contact Info) Description 10/18/2024 10:15 AM CDT Office Visit [facility] Oncology and Hematology - [place] [address] [facility] [address] [place] [address] Issa Khan MD [address] [facility] [address] [place] [address] Chronic anemia (Primary Dx) Social History Tobacco Use Types Packs/Day Years Used Date Smoking Tobacco: Former Cigarettes 2 44 0 [birth year]/15/1945 - 06/15/1989 Smokeless Tobacco: Never Tobacco Cessation:Counseling Given: Not Answered Alcohol Use Standard Drinks/Week Comments Yes 1 (1 standard drink = 0.6 oz pure alcohol) only on occasion, usually less than 1 per week Sex and Gender Information Value Date Recorded Sex Assigned at Male 10/11/2024 5:05 PM CDT 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 Gender Identity Male 10/11/2024 5:05 PM CDT Sexual Orientation Straight 10/11/2024 5: 05 PM CDT documented as of this encounter Last Filed Vital Signs Vital Sign Reading Time Taken Comments Blood Pressure 127/69 10/18/2024 10:34 AM CDT Pulse 81 10/18/2024 10:34 AM CDT Temperature 36.8 C (98.3 F) 10/18/2024 10:34 AM CDT Respiratory Rate 15 10/18/2024 10:34 AM CDT Oxygen Saturation 90% 10/18/2024 10:34 AM CDT Inhaled Oxygen Concentration - - Weight 109 kg (240 lb 6.4 oz) 10/18/2024 10:34 A M CDT Height - - Body Mass Index - - documented in this encounter Plan of Treatment Upcoming Encounters Date Type Department Care Team (Late st Contact Info) Description 01/31/2025 11:30 AM CDT Office Visit [facility] Oncology and Hematology - [place] [address] [facility] [address] [place] [phone] Issa Khan MD [address] [facility] [address] [place] [address] Scheduled Orders Name Type Priority Associated Diagnoses Orde r Schedule CBC WITHOUT DIFFERENTIAL Lab Stat Chronic anemia Expected: 10/18/2024, Expires: 10/18/2025 FERRITIN Lab Routine Chronic anemia Expected: 10/18/2024, Expires: 10/18/2025 IRON, TIBC, AND PERCENT SATURATION Lab Routine Chronic anemia Expected: 10/18/2024, Expires: 10/18/2025 documented as of this encounter Visit Diagnoses Diagnosis Chronic anemia- Primary Anemia, unspecified documented in this encounter Care Teams Data Integrity Consultant Relationship Specialty Start Date End Date Pelon Maurer DO [address] [place] [phone] PCP - General Internal Medicine 02/23/24 documented as of this encounter
--- OUTSIDE RECORDS SUMMARY | 2024-10-18 11:41 | XMS_ITS | Clinical Summary ---
Author Organization [facility] Address [address] [facility] [place] [address] Care Team Providers Care Hybrid Derivatives Trader Name Role Phone Libertad Pelon Soto DO Primary Care Provider [phone] Allergies No known active allergies Medications ARIPiprazole (ABILIFY) 2 mg tablet Take 2 mg by mouth daily at bedtime. 3 Active DULoxetine (CYMBALTA) 20 mg Capsule, Delayed Release(E.C.) Take 20 mg by mouth daily. 2 Active lamoTRIgine (LaMICtal) 25 mg tablet Take 50 mg by mouth daily. 3 Active carvediloL (COREG) 6.25 mg tablet [...] by mouth. 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 Gender Identity Male 10/11/2024 5:05 PM CDT Sexual Orientation Straight 10/11/2024 5: 05 PM CDT Last Filed Vital Signs Vital [...] Description 01/31/2025 11:30 AM CDT Office Visit [facility] Oncology and Hematology [facility] [address] [facility] [address] [place] [address] Issa Khan MD [address] [facility] [address] [place] [address] Health Maintenance Due Date Last Done Comments DTAP/TDAP/TD VACCINES (1 - Tdap) 1958 ZOSTER VACCINE (1 of 2) 1989 RSV VACCINE (60+ or ) (1 - 1-dose 75+ series) 2014 PNEUMOCOCCAL VACCINE 50+ YEA RS (2 of 2 - PCV) 03/14/2020 03/14/2019, 12/13/2018 INFLUENZA VACCINE (#1) 2024 03/15/2019 Medicare Advantage (ND) Prev entative Visit/Annual Wellness Visit 06/15/2024 Procedures Procedure Name Priority Date/Time Associated Diagnosis Comments CBC MIXED CELL DIFFERENTIAL Routine 10/03/2024 3:05 PM CDT from Last 3 Months Results * CBC MIXED CELL DIFFERENTIAL (10/03/2024 3:05 PM CDT) Blood us Issa Khan MD HEMATOLOGY ORDERABLES Final Res ult from Last 3 Months Insurance [facility] PPO MCR Care Teams Hybrid Derivatives Trader Relationship Specialty Start Date End Date Pelon Maurer DO [address] [facility] [address] [place] [address] PCP - General Internal Medicine 02/23/24
--- OUTSIDE RECORDS SUMMARY | 2024-10-18 11:41 | XMS_ITS | Clinical Summary ---
Author Organization [facility] Address [address] [place] [phone] Care Team Providers Care Pool Installer Name Role Phone Unavailable Primary Care Provider [...]
--- OUTSIDE RECORDS SUMMARY | 2024-10-18 11:41 | XMS_ITS | Referral Summary ---
Author Organization [facility] [address] [place] [address] Care Team Providers Care Supervisor Kennel Name Role Phone Pelon Maurer Primary Care Provider Encounters Date Type Department Care Team Description 10/17/2024 Orders Only Cardiology Fredi Grajeda MD COPD (chronic obstructive pulmonary disease) (HCC) (Primary Dx); On home oxygen therapy; Pre-procedural examination 10/12/2024 Telephone [facility] Cardiology [address] [place] [address] [address] [place] [address] Marla Mcmahon, RN 10/12/2024 Orders Only [facility] Non-invasive Cardiac Diagnostic Testing [address] [place] [address] Fredi Grajeda MD Severe aortic stenosis (Primary Dx) 10/12/2024 9:45 AM CDT Office Visit [facility] Cardiology [address] [place] [address] [address] [place] [address] Fredi Grajeda MD Severe aortic stenosis (Primary Dx); Acute on chronic diastolic congestive heart failure (HCC); Coronary artery disease involving [place] coronary artery of [place] heart without angina pectoris; History of coronary artery stent placement; Primary hypertension; Chronic respiratory failure with hypoxia, on home O2 therapy (HCC); History of GI bleed 09/27/2024 1:30 PM CDT Ancillary Procedure [facility] Cardiology [address] [place] [address] [address] [place] [address] Paroxysmal supraventricular tachycardia 09/27/2024 2:00 PM CDT Office Visit [facility] Medical [facility] Cardiology [address] [place] [phone] Whitney Phan NP Paroxysmal supraventricular tachycardia (Primary Dx); Severe aortic stenosis 09/26/2024 Orders Only [facility] Cardiology [address] [place] [phone] Whitney Phan NP Severe aortic stenosis (Primary Dx) 09/21/2024 Orders Only [facility] Cardiology [address] [place] [phone] Johan Crane MD from Last 3 Months Allergies No known active allergies Medications carvedilol (COREG) 12.5 mg tablet take 1/2 Tablet (6.25MG) by oral route 2 times every day with food 0 3 Active Additional Information Patient taking differently: 6.25 mg oral Daily, Reported on 10/12/2024 albuterol (PROVENTIL,NICHOLAS CHRISS) 2.5 mg/0.5 mL solution [...] Patient taking differently:20 mgoral Daily, Reported on 10/12/2024 ARIPiprazole (ABILIFY) 2 mg tablet 2 mg. 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 Gender Identity Male 03/10/2021 7:22 PM CDT Sexual Orientation Straight 03/10/2021 7: 22 PM CDT Last Filed Vital Signs Vital Sign Reading Time Taken Comments Blood Pressure 110/64 10/12/2024 9:51 AM CDT Pulse 87 10/12/2024 9:51 AM CDT Temperature - - Respiratory Rate - - Oxygen Saturation 89% 10/12/2024 9:51 AM CDT on 3L 02 Inhaled Oxygen Concentration - - Weight 109.3 kg (241 lb) 10/12/2024 9:51 AM CDT Height 172.7 cm (5' 8 ) 10/12/2024 9:51 AM CDT Body Mass Index 36.64 10/12/2024 9:51 AM CDT Plan of Treatment Upcoming Encounters Date Type Department Care Team (Latest Contact Info) Description 10/27/2024 11:30 AM CDT Hospital Encounter [facility] Cardiac Catheterization Lab [id number] [place] [id number] Fredi Grajeda MD [address] [facility] [address] [place] [address] Severe aortic stenosis 10/27/2024 11:30 AM CDT - 10/27/2024 1:00 PM CDT Surgery [facility] Cardiac Catheterization Lab [address] [place] [address] Fredi Grajeda MD [address] [facility] [address] [place], [place] [id number] LEFT HEART CATHETERIZATION WITH CORONARY ANGIOGRAPHY AND WITH OR WITHOUT LEFT VENTRICULOGRAM [id number] Procedures Procedure Name Priority Date/Time Associated Diagnosis Comments POCT LIPID PANEL Routine 10/12/2024 9:45 AM CDT Coronary artery disease involving [place] coronary artery of [place] heart without angina pectoris ELECTROCARDIOGRAM REPORT Routine 10/12/2024 Severe aortic stenosis Acute on chronic diastolic congestive heart failure (HCC) History of coronary artery stent placement CARDIOLOGY DOCUMENT SCAN Routine 025 2:03 PM CDT from Last 3 Months Results * (ABNORMAL) POCT lipid panel (10/12/2024 9:45 AM CDT) Cholesterol, POC 120 <200 MG/DL HDL, POC 32(A) >=40 mg/dL Triglycerides, POC 110 <=149 mg/dL LDL Cholesterol POC 66 <=129 mg/dL Chol/HDL Ratio, POC 2.0 NONE Non-HDL Cholesterol, POC 87 NONE mg/dL Cholesterol Total, POC 120 30 - 199 mg/dL Capillary blood 10/12/2024 9 :45 AM CDT Fredi Garjeda MD POINT OF CARE TEST ORDERABLES Fi nal Result * Electrocardiogram Report (10/12/2024) 10/12/2024 Fredi Grajeda MD ECG ORDERABLES Edited Result - Final * Cardiology Document Scan (09/18/2024 2:03 PM CDT) Anatomical Region Laterality Modality Other Johan Crane MD CV CARDIAC SERVICES PROC EDURES Final Result from Last 3 Months Insurance [place] ADV[employer]AGE CHOICE PPO Care Teams Supervisor Kennel Relationship Specialty Start Date End Date Pleon Maurer DO PCP - General Internal Medicine 12/16/23
--- OUTSIDE RECORDS SUMMARY | 2024-10-18 11:41 | XMS_ITS | Clinical Summary ---
Author Organization [facility] Address [address] [place] [address] Phone Care Team Providers Care Bessemer Regulator Name Role Phone LibertadPelon Primary Care Provider [phone] Allergies No known active allergies Medications Lutein-Zeaxanth in 25-5 MG capsule 1 qday 0 9 Active aspirin 81 MG tablet 81 mg. 3 Active Wheat Dextrin (BENEFIBER) chewable tablet 3 Active albuterol (5 MG/ML) 0.5% nebulizer solution inhale 0.5 milliliter (2.5MG) by nebulization route 3 times every day 3 Active ARIPiprazole (ABILIFY) 2 MG tablet 2 mg. 7 Active guaiFENesin (MUCINEX) 600 MG 12 hr tablet Take 1,200 mg by mouth 2 times daily. Active amLODIPine (NORVASC) 2.5 MG tablet Take 2.5 mg by mouth daily. 8 Active atorvastatin (LIPITOR) 40 MG tablet 40 mg. 3 Active budesonide-form oterol (SYMBICORT) 80-4.5 MCG/ACT inhaler INHALE 2 PUFFS BID 8 Active cholecalciferol (VITAMIN D-[address]) 1000 units tablet Take 1,000 Units by mouth daily. Active clopidogrel (PLAVIX) 75 MG tablet 75 mg. 3 Active DULoxetine (CYMBALTA) [address] capsule 20 mg. 4 Active fluticasone (FLONASE) 50 MCG/ACT nasal spray Administer 1 spray into affected nostril(s) daily. Active lamoTRIgine (LaMICtal) 25 MG tablet 25 mg. 4 Active Lutein 20 MG tablet 20 mg. 7 Active carvedilol (COREG) 6.25 MG tablet TK 1 T PO BID WF 0 9 Active pantoprazole (PROTONIX) 40 MG EC tablet 2 Active Active Problems Problem Noted Date Diagnosed Date Morbid (severe) obesity due to excess calories 1 Chronic kidney disease, stage 4 (severe) 019 Hypertensive chronic kidney disease with stage 1 through stage 4 chronic kidney disease, or unspecified chronic kidney disease 07/25/2018 Chronic kidney disease, stage 3 (moderate) 07/25 Gastro-esophageal reflux disease without esophag itis 07/25/2018 Other bipolar disorder 07/25/2018 Coronary arteriosclerosis in [place] artery 07/25 Mixed hyperlipidemia 07/25/2018 Chronic diastolic congestive heart failure 07/25 Obstructive sleep apnea 07/25/2018 Impaired oral glucose tolerance 07/25/2018 History of placement of stent for coronary arter y disease 09/09/2017 Immunizations Immunization Administration Dates Next Due Influenza, Injectable, Quadrivalent [...] at Not on file Legal Sex Male 8:31 AM [facility] Gender Identity Not on file Sexual Orientation [...] cm (5' 8 ) 05/09/2019 9:50 AM MANAGER 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
--- OUTSIDE RECORDS SUMMARY | 2024-10-18 11:41 | XMS_ITS | Encounter Summary ---
Author Organization [facility] Address [address] [place] [address] Care Team Providers Care Rock Mason Name Role Phone Pelon Maurer DO Primary Care Provider [phone] Reason for Referral * Procedure (Routine) - Pending Review Specialty Diagnoses / Procedures Referred By Contregi t Referred To Contact Diagnoses COPD (chronic obstructive pulmonary disease) (HCC) On home oxygen therapy Pre-procedural examination Procedures Pulmonary Function Test -[facility]; Complete/Full Fredi Grajeda MD [address] [place] [address] Phone: tel: fax: Referral ID Status Reason Start Date Expiration Date V isits Requested Visits Authorized [id number] Pending Review 10/17/2024 11/16/2025 1 1 Encounter Details Date Type Department Care Team (Late st Contact Info) Description 10/17/2024 Orders Only Cardiology Fredi Grajeda MD [address] [place] [address] COPD (chronic obstructive pulmonary disease) (HCC) (Primary Dx); On home oxygen therapy; Pre-procedural examination Social History Tobacco Use Types Packs/Day Years Used Date Smoking Tobacco: Former Cigarettes 2 34.6 0 1955 - 02/13/1990 Smokeless Tobacco: Never Alcohol Use Standard Drinks/Week Comments Yes 0 (1 standard drink = 0.6 oz pur e alcohol) Sex and Gender Information Value Date Recorded Sex Assigned at Not on file 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 Gender Identity Male 03/10/2021 7:22 PM CDT Sexual Orientation Straight 03/10/2021 7: 22 PM CDT documented as of this encounter Plan of Treatment Upcoming Encounters Date Type Department Care Team (Latest Contact Info) Description 10/27/2024 11:30 AM CDT Hospital Encounter [facility] [id number] [place] [address] Fredi Grajeda MD [address] [facility] [address] [place] [address] Severe aortic stenosis 10/27/2024 11:30 AM CDT - 10/27/2024 1:00 PM CDT Surgery [facility] [address] [place] [address] Fredi Grajeda MD [address] [place] [address] LEFT HEART CATHETERIZATION WITH CORONARY ANGIOGRAPHY AND WITH OR WITHOUT LEFT VENTRICULOGRAM [id number] Scheduled Orders Name Type Priority Associated Diagnoses Orde r Schedule Pulmonary Function Test -[facility]; Complete/Full PFT Routine COPD (chronic obstructive pulmonary disease) (HCC) On home oxygen therapy Pre-procedural examination 1 Occurrences starting 10/17/2024 until 10/17/2025 documented as of this encounter Visit Diagnoses Diagnosis Severe aortic stenosis- Primary Aortic valve disorders COPD (chronic obstructive pulmonary disease) (HCC)- Primary Chronic airway obstruction, not elsewhere classified On home oxygen therapy Dependence on supplemental oxygen Pre-procedural examination Unspecified pre-operative examination Severe aortic stenosis Aortic valve disorders documented in this encounter Care Teams Rock Mason Relationship Specialty Start Date End Date Pelon Maurer DO PCP - General Internal Medicine 12/16/23 documented as of this encounter
--- OUTSIDE RECORDS SUMMARY | 2024-10-18 11:41 | XMS_ITS | Clinical Summary ---
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 09/09/2017 History of coronary artery stent placement 09/09 Resolved Problems Problem Noted Date Diagnosed Date Resolved Date Morbid (severe) obesity due to excess calories 03/20/2022 04/02/2023 Encounters Date Type Department Care Team Description 10/17/2024 Orders Only Cardiology Fredi Grajeda MD COPD (chronic obstructive pulmonary disease) (HCC) (Primary Dx); On home oxygen therapy; Pre-procedural examination 10/12/2024 9:45 AM CDT Office Visit [facility] Cardiology [address] [facility] [address] [place] [address] Fredi Grajeda MD Severe aortic stenosis (Primary Dx); Acute on chronic diastolic congestive heart failure (HCC); 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; History of coronary artery stent placement; Primary hypertension; Chronic respiratory failure with hypoxia, on home O2 therapy (HCC); History of GI bleed 10/12/2024 Telephone [facility] Medical [facility] Cardiology [address] [place] [address] Marla Mcmahon RN 10/12/2024 Orders Only [facility] Non-invasive Cardiac Diagnostic Testing [address] [place] [address] Fredi Grajeda MD Severe aortic stenosis (Primary Dx) 09/27/2024 2:00 PM CDT Office Visit [facility] Medical [facility] Cardiology [address] [place] [address] Whitney Phan NP Paroxysmal supraventricular tachycardia (Primary Dx); Severe aortic stenosis 09/27/2024 1:30 PM CDT Ancillary Procedure [facility] Cardiology [address] [place] [address] Paroxysmal supraventricular tachycardia 09/26/2024 Orders Only [facility] Cardiology [address] [place] [address] [address] [place] [address] Whitney Phan NP Severe aortic stenosis (Primary Dx) 09/21/2024 Orders Only [facility] Cardiology [address] [place] [address] Johan Crane MD from Last 3 Months Surgical History Surgery Date Site/Laterality Comments ANGIOPLASTY [...] on file 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 Gender Identity Male 03/10/2021 7:22 PM CDT [...] Description 10/27/2024 11:30 AM CDT Hospital Encounter [facility] Cardiac Catheterization Lab [address] [place] [address] Fredi Grajeda MD [address] [facility] [address] [place], [place] [id number] Severe aortic stenosis 10/27/2024 11:30 AM CDT - 10/27/2024 1:00 PM CDT Surgery [facility] Cardiac Catheterization Lab [address] [place] [address] Fredi Grajeda MD [address] [facility] [address] [place] [address] LEFT HEART CATHETERIZATION WITH CORONARY ANGIOGRAPHY AND WITH OR WITHOUT LEFT VENTRICULOGRAM [id number] Health Maintenance Due Date Last Done Comments Depression Screening 1940 Fall Risk Assessment 1940 Hepatitis B Screening 1957 Zoster Vaccine (1 of 2) 1989 Well Visit 65+ 2004 Influenza Vaccine (Season Ended) 2025 03/01/2020, 03/15/2019, 03/14/2019, Additional history exists DTaP/Tdap/Td Vaccine (2 - Td or Tdap) 12/29/2027 12/28/2017 Pneumococcal vaccine 65+ Completed 019, 12/13/2018, 03/28/2015 Procedures Procedure Name Priority Date/Time Associated Diagnosis Comments POCT LIPID PANEL Routine 10/12/2024 9:45 AM CDT 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
[2024-10-18 14:30] LABS: Iron 68 ug/dL (49-181)
[2024-10-18 14:40] LABS: Percent Iron Saturation 21 % (20-50)
== END 2024-10-18 10:48 | disposition home or self-care (01) ==
LOC: ANHLAB 10:49
PROVIDERS: PCP Internal Medicine; Visit Provider Internal Medicine Hematology & Oncology
DX: D64.9 Anemia, unspecified (principal)
CPT/HCPCS: 36415; 82728; 83540; 83550; 85027

== ENCOUNTER 2024-12-29 06:35 | Outpatient (CLI) | payer OTHER, SELFPAY ==
--- NOTE | ~2024-12-29 | MR_ITS ---
MRI of the abdomen: Clinical indication: Left renal mass. Technique: Coronal SSFSE ARC, WATER:coronal LAVA-FLEX, Coronal 2D FIESTA FatSat, Axial SSFSE BH ARC, Axial 3D DualEcho BH, Axial SSFSE-IR, Axial DWI b=500, Axial 2D FIESTA FatSat, pre and dynamic postco ntrast Axial LAVA ARC, postcontrast Coronal In and Opposed phase LAVA FLEX. Following intravenous adm inistration of 20 cc MultiHance gadolinium, T1-weighted fat-sat imaging was performed in the axial an d coronal planes. COMPARISON: Ultrasound dated 09/21/2024, CT dated 09/18/2024 Findings: Gallbladder unremarkable. The common bile duct is normal in course and caliber. No filling defects are seen within the CBD. No evidence of intrahepatic biliary ductal dilatation. The pancreati c duct is normal in size. Spleen and adrenal glands appear normal. Subcentimeter hepatic cyst present. 6 mm cystic lesion prese nt at the pancreatic head. Innumerable bilateral renal cysts are present, most of which are under 1 c m in size. No solid or otherwise suspicious renal mass identified. There are a few intrinsic T1 hyper intense right renal cysts, compatible with hemorrhagic/proteinaceous cysts. The aorta and the paraaor tic regions appear normal. Impression: Innumerable benign bilateral renal cysts. No suspicious renal mass identified. 6 mm cystic lesion at the pancreatic head. Reviewed, dictated and finalized at [facility]. Impression: Innumerable benign bilateral renal cysts. No suspicious renal mass identified. 6 mm cystic lesion at the pancreatic head.
--- OUTSIDE RECORDS SUMMARY | 2024-12-29 06:38 | XMS_ITS | Clinical Summary ---
Author Organization [facility] Address [address] [facility] [place] [address] Care Team Providers Care Rehab Care Assistant Name Role Phone Libertad Pelon Soto DO Primary Care Provider [phone] Allergies No known active allergies Medications ARIPiprazole [...] by mouth. A ctive vit A,C and T-aogjmo-ggqpue ls (OCUVITE) 300 mcg-200 mg-27 mg-2 mg [...] Encounters Date Type Department Care Team Description 12/28/2024 External Device Data [facility] ABSTRACTION Provider, Abstract 12/28/2024 External Device Data [facility] ABSTRACTION Provider, Abstract 12/27/2024 External Device Data [facility] ABSTRACTION Provider, Abstract 11/29/2024 External Device Data [facility] ABSTRACTION Provider, Abstract 11/08/2024 External Device Data [facility] ABSTRACTION Provider, Abstract 11/03/2024 External Device Data [facility] ABSTRACTION Provider, Abstract 11/02/2024 External Device Data [facility] ABSTRACTION Provider, Abstract 11/01/2024 External Device Data [facility] ABSTRACTION Provider, Abstract 10/18/2024 10:15 AM CDT Office Visit [facility] Oncology and Hematology [facility] [address] [place] [address] Issa Khan MD Chronic anemia (Primary Dx) 10/10/2024 Orders Only [facility] Oncology and Hematology [place] [address] [place] [address] Issa Khan MD from Last 3 Months Family History Medical [...] PM CDT 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 Gender Identity Male 10/11/2024 5:05 PM CDT [...] Description 01/31/2025 11:30 AM CDT Office Visit [facility] Oncology and Hematology - [place] [address] [place] [address] [facility] [address] [place] [address] Issa Khan MD [address] [facility] [address] [place] [address] Health Maintenance Due Date Last Done Comments DTAP/TDAP/TD VACCINES (1 - Tdap) 1958 ZOSTER VACCINE (1 of 2) 1989 RSV VACCINE (60+ or ) (1 - 1-dose 75+ series) 2014 PNEUMOCOCCAL VACCINE 50+ YEA RS (2 of 2 - PCV) 03/14/2020 03/14/2019, 12/13/2018 INFLUENZA VACCINE (#1) 2025 03/15/2019 Procedures Procedure Name Priority Date/Time Associated Diagnosis Comments CBC MIXED CELL DIFFERENTIAL Routine 10/03/2024 3:05 PM CDT from Last 3 Months Results * CBC MIXED CELL DIFFERENTIAL (10/03/2024 3:05 PM CDT) Blood us Issa Khan MD HEMATOLOGY ORDERABLES Final Res ult from Last 3 Months Insurance [facility] PPO MCR Care Teams Rehab Care Assistant Relationship Specialty Start Date End Date Pelon Maurer DO [address] [facility] [address] [place] [address] PCP - General Internal Medicine 02/23/24
--- OUTSIDE RECORDS SUMMARY | 2024-12-29 06:38 | XMS_ITS | Clinical Summary ---
Author Organization [facility] Address [address] [place] [address] Care Team Providers Care Registered Nurse Renal Name Role Phone Unavailable Primary Care Provider [...] (Adult) (1 - 1-dose 75+ series) 2014 SARS-COV-2 Immunization ( season) 2024 08/22/2020, 07/24/2020 Influenza Immunization (#1) 02/13/202502/13, 03/14/2019, 02/25/2017, Additional history exists DTaP/Tdap/Td Immunization Discontinued 12/28/2017 TdaP Immunization Completed 12/28/2017 Pneumococcal Immunization (50+ years) Completed 03/14/2019, 03/28/2015 Hepatitis B Immunization Aged Out No longer eligible based on patient's age to complete this topic Human Papillomavirus (HPV) Immunization Aged Out No longer eligible based on patient's age to complete this topic Meningococcal Immunization (ACWY) Aged Out No longer eligible based on patient's age to complete this topic Rotavirus Immunization Aged Out No lo nger eligible based on patient's age to complete this topic
--- OUTSIDE RECORDS SUMMARY | 2024-12-29 06:38 | XMS_ITS | Referral Summary ---
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 (Primary Dx); History of coronary artery stent placement; S/P TAVR (transcatheter aortic valve replacement) 12/06/2024 [facility] Post Discharge Follow up phone call [address] [address] [place] 12/06/2024 [facility] Post Discharge Follow up phone call [address] [address] [place] 11/21/2024 Telephone [facility] Cardiology [address] [place] [address] [place] [phone] Fredi Moulton MD 11/17/2024 6:14 AM CDT - 11/18/2024 12:53 PM CDT Hospital Encounter [address] [address] Fredi Moulton MD Severe aortic stenosis Discharge Disposition: Discharge to home or self care 11/17/2024 8:03 AM CDT - 11/17/2024 11:59 PM CDT Hospital Encounter [facility] Non-invasive Cardiac Diagnostic Testing [address] [place] [id number] Discharge Disposition: Discharge to home or self care 11/17/2024 8:30 AM CDT - 11/17/2024 11:00 AM CDT Surgery [facility] Cardiac Catheterization Lab [address] [place] [address] Fredi Moulton MD TAVR 11/17/2024 8:14 AM CDT Anesthesia Event [facility] Cardiac Catheterization Lab [address] [place] [address] Cristel Pelayo MD 11/15/2024 12:25 PM CDT - 11/15/2024 11:59 PM CDT Hospital Encounter [facility] Diagnostic Imaging [address] [place] [address] Discharge Disposition: Discharge to home or self care 11/15/2024 12:15 PM CDT Pre-Admission Testing [facility] Pre Anesthesia Testing [address] [place] [address] Pre-operative exam (Primary Dx); Severe aortic stenosis; Chronic anticoagulation 11/10/2024 Documentation Cardiothoracic Surgery TruLoren holman, RN 11/09/2024 Orders Only [facility] Non-invasive Cardiac Diagnostic Testing [address] [place] [address] Fredi Moulton MD Severe aortic stenosis (Primary Dx) 11/09/2024 Orders Only [facility] Cardiac Catheterization Lab [address] [place] [address] Fredi Moulton MD 11/03/2024 Documentation Cardiothoracic Surgery Loren Ott, RN 11/03/2024 1:15 PM CDT Office Visit [facility] Surgery [address] [place] [address] [place] [phone] Tanvir Rosa MD Aortic valve stenosis, etiology of cardiac valve disease unspecified (Primary Dx); Nonrheumatic aortic valve stenosis 11/03/2024 11:58 AM CDT - 11/03/2024 11:59 PM CDT Hospital Encounter [facility] Respiratory [address] [place] [address] COPD (chronic obstructive pulmonary disease) (HCC); On home oxygen therapy; Pre-procedural examination Discharge Disposition: Discharge to home or self care 11/03/2024 10:30 AM CDT - 11/03/2024 11:59 PM CDT Hospital Encounter [facility] Imaging and Radiology [address] [place] [address] Severe aortic stenosis Discharge Disposition: Discharge to home or self care 11/02/2024 Results Follow-Up [facility] Cardiology [address] [place] [address] [place], [place] [phone] Jelly Zhao RN [facility] Mobile Cardiac Telemetry Event Monitor 10/27/2024 11:30 AM CDT - 10/27/2024 1:00 PM CDT Surgery [facility] Cardiac Catheterization Lab [address] [place] [id number] Fredi Moulton MD LEFT HEART CATHETERIZATION WITH CORONARY ANGIOGRAPHY AND WITH OR WITHOUT LEFT VENTRICULOGRAM [id number] 10/27/2024 9:04 AM CDT - 10/27/2024 5:55 PM CDT Hospital Encounter [facility] Cardiac Catheterization Lab [address] [place] [id number] Fredi Moulton MD Severe aortic stenosis Discharge Disposition: Discharge to home or self care 10/19/2024 Telephone [facility] Cardiology [address] [place] [address] [place] [phone] Fredi Moulton MD 10/18/2024 Cardiology Conference Cardiology Loren Ott, YURIY 10/17/2024 Orders Only Cardiology Fredi Moulton MD COPD (chronic obstructive pulmonary disease) (HCC) (Primary Dx); On home oxygen therapy; Pre-procedural examination 10/12/2024 Telephone [facility] Cardiology [address] [place] [address] [place] [phone] Marla Mcmahon, YURIY 10/12/2024 Orders Only [facility] Non-invasive Cardiac Diagnostic Testing [address] [place] [phone] Fredi Moulton MD Severe aortic stenosis (Primary Dx) 10/12/2024 9:45 AM CDT Office Visit [facility] Cardiology [address] [place] [address] Fredi Moulton MD Severe aortic stenosis (Primary Dx); Acute on chronic diastolic congestive heart failure (HCC); 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; History of coronary artery stent placement; Primary hypertension; Chronic respiratory failure with hypoxia, on home O2 therapy (HCC); History of GI bleed from Last 3 Months Allergies No known active allergies Medications albuterol (PROVENTIL,NICHOLAS CHRISS) 2.5 mg/0.5 mL solution for nebulization inhale 0.5 milliliter (2.5MG) by nebulization route 3 times every day 0 3 Active Additional Information Patient taking differently: 2.5 mg nebulization Every 8 hours PRN, Reported on 12/20/2024 atorvastatin (LIPITOR) 40 mg tablet take 1 tablet (40MG) by oral route every day 0 3 Active Additional Information Patient taking differently:40 mgoral Nightly, Reported on 12/20/2024 lamoTRIgine (LaMICtal) 25 mg tablet take 1 Tablet by oral route 2 times every day 0 0 4 Active Additional Information Patient taking differently: 50 mg oral Every morning, Reported on 12/20/2024 ARIPiprazole (ABILIFY) 2 mg tablet 2 mg. 0 7 Active Additional Information Patient taking differently:2 mgoral Nightly, Reported on 12/20/2024 guaiFENesin 1,200 mg tablet extended release 12hr Take 1,200 mg by mouth 2 (two) times a day Active pantoprazole DR (PROTONIX) 40 mg EC tablet Take 1 tablet (40 mg total) by mouth every morning 1 Active ipratropium (ATROVENT) 0.02 % nebulizer solution USE 1 VIAL VIA NEBULIZER TWICE DAILY 2 Active ascorbic acid, vitamin C, (VITAMIN C) 500 mg capsule, extended release CR capsule Take 1 capsule (500 mg total) by mouth every morning 3 Active cyanocobalamin (Vitamin B-12) 1,000 mcg tablet Take 1 tablet (1,000 mcg total) by mouth every morning 3 Active ferrous sulfate 325 mg (65 mg of elemental iron) tablet Take 1 tablet (325 mg total) by mouth 2 (two) times a day 3 Active budesonide-formo teroL (SYMBICORT) 160-4.5 mcg/actuation inhaler Inhale 2 puffs 2 (two) times a day 3 Active clopidogreL (PLAVIX) 75 mg tablet Take 1 tablet (75 mg total) by mouth daily 90 tablet 3 4 Active Additional Information Patient taking differently:75 mg oralNightly, Reported on 12/20/2024 ketoconazole (NIZORAL) 2 % shampoo Apply topically once a week 5 Active hydrocortisone 2.5 % solution Apply 1 Application topically daily as needed Active aspirin 81 mg enteric coated tablet Take 1 tablet (81 mg total) by mouth daily 30 tablet 11 5 026 Active Additional Information Patient taking differently:81 mg oralEvery morning, Reported on 12/20/2024 lutein-zeaxanthi n 25-5 mg capsule Take 1 capsule by mouth nightly Active cholecalciferol (Vitamin D3) 2000 unit capsule Take 1 capsule (2,000 Units total) by mouth every morning Active UNABLE TO FIND Benefiber 2 T, orally, BID Active carvediloL (COREG) 6.25 mg tablet Take 1 tablet (6.25 mg total) by mouth 2 (two) times a day with meals Active DULoxetine DR (CYMBALTA) 20 mg capsule Take 1 capsule (20 mg total) by mouth daily Active Active Problems Problem Noted Date Diagnosed Date S/P TAVR (transcatheter aortic valve replacement ) 11/17/2024 Chronic obstructive pulmonary disease 11/03/2024 On home oxygen therapy 11/03/2024 Pre-procedural examination 11/03/2024 Paroxysmal supraventricular tachycardia 09/28/19 25 Severe aortic stenosis 09/27/2024 Chronic diastolic congestive heart failure 07/25 Gastro-esophageal reflux disease without esophag itis 07/25/2018 Impaired glucose tolerance (oral) 07/25/2018 Mixed hyperlipidemia 07/25/2018 Obstructive sleep apnea 07/25/2018 Other bipolar disorder 07/25/2018 Hypertensive chronic kidney disease with stage 1 through stage 4 chronic kidney disease, or unspecified chronic kidney disease 07/25/2018 Coronary artery disease invo lving kaguyuk coronary artery of kaguyuk heart without angina pectoris 09/09/2017 History of coronary artery stent placement 09/09 Presence of coronary angioplasty implant and gra ft 09/09/2017 Resolved Problems Problem Noted Date Diagnosed Date Resolved Date Morbid (severe) obesity due to excess calories 03/20/2022 04/02/2023 Social History Tobacco Use Types Packs/Day Years Used Date Smoking Tobacco: Former Cigarettes 2 34.6 0 1955 - 02/13/1990 Smokeless Tobacco: Never Tobacco Cessation:Counseling Given: Not Answered Alcohol Use Standard Drinks/Week Comments Yes 0 (1 standard drink = 0.6 oz pur e alcohol) AUDIT-C Answer Date Recorded Q1: How often do you have a drink containing alc ohol? Monthly or less 11/17/2024 Q2: How many drinks containi ng alcohol do you have on a typical day when you are drinking? 1 or 2 11/17/2024 Q3: How often do you have si x or more drinks on one occasion? Never 11/17/2024 Personal Safety Answer Date Recorded Have you ever been in or are you currently in a harmful physical or emotional relationship or is someone making you feel afraid or unsafe? Denies 11/17/2024 Sex and Gender Information Value Date Recorded Sex Assigned at Not on file Legal Sex Male 2:02 AM [employer] Gender Identity Male 03/10/2021 7:22 PM CDT Sexual Orientation Straight 03/10/2021 7: 22 PM CDT Last Filed Vital Signs Vital Sign Reading Time Taken Comments Blood Pressure 142/82 12/20/2024 10:41 AM CDT Pulse 82 12/20/2024 10:41 AM CDT Temperature 36.9 C (98.4 F) 11/18/2024 7:41 AM CDT Respiratory Rate 18 11/18/2024 7:41 AM CDT Oxygen Saturation 92% 12/20/2024 10:41 AM CDT Inhaled Oxygen Concentration - - Weight 107 kg (236 lb) 12/20/2024 10:41 AM CDT Height 172.7 cm (5' 8) 12/20/2024 10:41 AM CDT Body Mass Index 35.88 12/20/2024 10:41 AM CDT Plan of Treatment Not on file Medical Devices Implanted Type Area Merchandise Flow Team Member Device Identifier Shelf Expiration Date Model / Serial / Lot Ramirez [employer] Valve Aortic Trnscath Pramod 3 Ultra Resilia 23mm [id number] - [id number] - [id number] Implanted:Qty: 1 on 11/17/2024 by Fredi Moulton MD at [facility] Prosthetic Valve [employer] 01/27/2027 [id number] / [id number] / Access Closure Inc Device 10ml 5fr Closure Mynx Control 2 Mode Balloon Catheter [id number] - [id number] Implanted:Qty: 1 on 11/17/2024 by Fredi Moulton MD at [facility] Vascular Closure Device Access [employer]osure Inc 09/15/2026 [id number] / / [id number] Medtronic [facility] Vas Surgery 3.0 X 15mm [place] Spencer Rx Coronary Stent [id number] - [id number] Implanted:Qty: 1 on 10/27/2024 by Fredi Moulton MD at [facility] Medtronic [facility] Vasc Surgery 02/21/2027 [id number] / / [id number] Medtronic [facility] Vas Surgery 3.5 X 18mm [place] Spencer Rx Coronary Stent [id number] - [id number] Implanted:Qty: 1 on 10/27/2024 [facility] Vasc Surgery 06/25/2027 [id number] / / [id number] Reyna V[employer] System Closure Repair Femoral Artery Suture Mediated Perclose Prostyle 14114-29 - [id number] Implanted:Qty: 1 on 11/17/2024 by Fredi Moulton MD at [facility] [employer] 09/12/2026 [id number] / / [id number] Reyna Vascular System Closure Repair Femoral Artery Suture Mediated Perclose Prostyle 02044-06 - [id number] Implanted:Qty: 1 on 11/17/2024 by Fredi Moulton MD at [facility] [employer] 09/12/2026 [id number] / / [id number] Reyna Vascular System Closure Repair Femoral Artery Suture Mediated Perclose Prostyle 63361-69 - [id number] Implanted:Qty: 1 on 11/17/2024 by Fredi Moulton MD at [facility] [employer] 09/12/2026 [id number] / / [id number] Procedures Procedure Name Priority Date/Time Associated Diagnosis Comments ECG 12-LEAD Routine 11/18/2024 10:12 AM CDT XR CHEST 1 VIEW Routine 11/18/2024 6:47 AM CDT EGFR Routine 11/18/2024 3:44 AM CDT DIFFERENTIAL AUTO Routine 11/18/2024 3:44 AM CDT APTT Routine 11/18/2024 3:44 AM CDT PROTIME-INR Routine 11/18/2024 3:44 AM CDT CBC WITH AUTO DIFFERENTIAL Routine 11/18/2024 3:44 AM CDT PRO B-TYPE NATRIURETIC PEPTIDE Routine 11/18/2024 3:44 AM CDT COMPREHENSIVE METABOLIC PANEL Routine 11/18/2024 3:44 AM CDT MAGNESIUM Routine 11/18/2024 3:44 AM CDT TRANSTHORACIC ECHO (TTE) COMPLETE W DOPPLER/CF W CONTRAST Routine 11/17/2024 3:49 PM CDT XR CHEST 1 VIEW Routine 11/17/2024 11:39 AM CDT POCT GLUCOSE DEVICE Routine 11/17/2024 11:27 AM CDT TRANSCATHETER AORTIC VALVE REPLACEMENT (TAVR) OPEN FEMORAL ART APPROACH Routine 11/17/2024 10:41 AM CDT Severe aortic stenosis POCT ACTIVATED CLOTTING TIME, HIGH RANGE Routine 11/17/2024 10:13 AM CDT TYPE AND SCREEN Timed 11/17/2024 7:15 AM CDT PREPARE RBC STAT 11/17/2024 6:30 AM CDT DIFFERENTIAL AUTO Routine 11/15/2024 1:33 PM CDT Pre-operative exam CBC WITH AUTO DIFFERENTIAL Routine 11/15/2024 1:33 PM CDT Pre-operative exam EGFR Routine 11/15/2024 1:32 PM CDT Pre-operative exam COMPREHENSIVE METABOLIC PANEL Routine 11/15/2024 1:32 PM CDT Pre-operative exam PRO B-TYPE NATRIURETIC PEPTIDE Routine 11/15/2024 1:32 PM CDT Pre-operative exam PROTIME-INR Routine 11/15/2024 1:32 PM CDT Pre-operative exam Severe aortic stenosis APTT Routine 11/15/2024 1:32 PM CDT Pre-operative exam Chronic anticoagulation TYPE AND SCREEN Routine 11/15/2024 1:15 PM CDT Pre-operative exam ECG 12-LEAD Routine 11/15/2024 1:12 PM CDT Pre-operative exam XR CHEST PA LATERAL 2 VIEWS Schedule Routine, Read Routine (OP Routine) 11/15/2024 12:43 PM CDT Pre-operative exam PULMONARY FUNCTION TEST (PFT) Routine 11/03/2024 12:55 PM CDT COPD (chronic obstructive pulmonary disease) (HCC) On home oxygen therapy Pre-procedural examination CT TAVR Schedule Routine, Read Routine (OP Routine) 11/03/2024 11:31 AM CDT Severe aortic stenosis PCI ZULY STENT ADDTN'L COR BRANCH (+) [id number] Routine 10/27/2024 2:02 PM CDT Severe aortic stenosis CORONARY OCT, 1ST VESSEL Routine 10/27/2024 2:02 PM CDT Severe aortic stenosis PERCUTANEOUS CORONARY LITHROTRIPSY W/ PCI (+) [id number] Routine 10/27/2024 2:02 PM CDT Severe aortic stenosis ZULY MAJOR CORONARY Routine 10/27/2024 2:02 PM CDT Severe aortic stenosis VASCULAR ACCESS US GUIDANCE Routine 10/27/2024 2:02 PM CDT Severe aortic stenosis LEFT HEART CATHETERIZATION WITH CORONARY ANGIOGRAPHY AND WITH AND WITHOUT LEFT VENTRICULOGRAM Routine 10/27/2024 2:02 PM CDT Severe aortic stenosis MODERATE SEDATION 10/27/2024 12:07 PM CDT Severe aortic stenosis PRO B-TYPE NATRIURETIC PEPTIDE Routine 10/24/2024 12:46 PM CDT Severe aortic stenosis COMPREHENSIVE METABOLIC PANEL Routine 10/24/2024 12:46 PM CDT Severe aortic stenosis CBC WITH AUTO DIFFERENTIAL Routine 10/24/2024 12:46 PM CDT Severe aortic stenosis POCT LIPID PANEL Routine 10/12/2024 9:45 AM CDT 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 ELECTROCARDIOGRAM REPORT Routine 10/12/2024 Severe aortic stenosis Acute on chronic diastolic congestive heart failure (HCC) History of coronary artery stent placement from Last 3 Months Results * ECG 12 lead (11/18/2024 10:12 AM CDT) 11/18/2024 10:1 2 AM CDT Narrative [facility] - 11/18/2024 12:21 PM CDT Vent Rate: 88 bpm RR Interval: 677 msec AK Interval: 190 msec QRS Duration: 88 msec QT Interval: 382 msec QTC Interval: 428 msec P-R-T [place]: 91 - -52 - 109 degrees IMPRESSION: SINUS RHYTHM LEFT ANTERIOR FASCICULAR BLOCK LEFT VENTRICULAR HYPERTROPHY AND ST-T CHANGE Electronically Signed By: Fredi Moulton MD, [facility] Fredi Moulton MD ECG ORDERABLES Edited Result - Final [facility] * X-ray chest 1 view (Portable) (11/18/2024 6:47 AM CDT) Anatomical Region Laterality Modality Body, Chest N/A Computed Radiogr aphy 11/18/2024 7:32 AM CDT Impressions 11/18/2024 7:32 AM CDT Mild vascular congestion. Electronically signed by: Terry Reeves M.D. Narrative 11/18/2024 7:32 AM CDT EXAMINATION: XR CHEST 1 VIEW HISTORY: The patient is an 84-year-old male who has had a TAVR procedure. Comparison is made with the previous study dated 11/17/2024. TECHNIQUE: AP portable view of the chest. FINDINGS: Cardiomegaly with aortic atherosclerosis. Mild degree of vascular congestion. No focal infiltrate. TAVR device in place. Procedure Note Terry Reeves MD - 11/18/2024 EXAMINATION: XR CHEST 1 VIEW HISTORY: The patient is an 84-year-old male who has had a TAVR procedure. Comparison is made with the previous study dated 11/17/2024. TECHNIQUE: AP portable view of the chest. FINDINGS: Cardiomegaly with aortic atherosclerosis. Mild degree of vascular congestion. No focal infiltrate. TAVR device in place. IMPRESSION: Mild vascular congestion. Electronically signed by: Terry Reeves M.D. us Fredi Moulton MD IMG XR PROCEDURES Final Result * (ABNORMAL) eGFR (11/18/2024 3:44 AM CDT) eGFR 25(L) >=60 mL/min/1. 73 m2 Comment: Interpretive Data Reference Interval Normal >/= 90 mL/min/1.73m2 Mildly decreased* 60 - 89 mL/min/1.73m2 Mildly to moderately decreased 45 - 59 mL/min/1.73m2 Moderately to severely decreased 30 - 44 mL/min/1.73m2 Severely decreased 15 - 29 mL/min/1.73m2 Kidney Failure < 15 mL/min/1.73m2 *Relative to young adult level Estimated glomerular filtration rate is determined by the 2020 CKD-EPI equation recommended by the National Kidney Foundation (A Unifying Approach to GFR Estimation: Recommendations of the NKF-ASK Task Force on Reassessing the Inclusion of Race in Diagnosing Kidney Disease, JASN 202). The CKD-EPI equation should not be used for patients with unstable renal function and has not been validated in children and those over 70. Current interpretive data was last reviewed 2021. Blood 11/18/2024 3:44 AM CDT 11/18/2024 5:13 AM CDT us Fredi Moulton MD LAB BLOOD ORDERABLES Final Resul t [facility] [id number] [place] [address] * (ABNORMAL) Differential, auto (11/18/2024 3:44 AM CDT) Neutrophil abs 10.27(H) 1.50 - 6.50 K/cumm Imm gran abs 0.05 0.00 - 0.10 K/cumm [facility] Lymphocyte abs 1.10 0.80 - 3.30 K/cumm [facility] Monocyte abs 1.19(H) 0.20 - 0.80 K/cumm [facility] Eosinophil abs 0.17 0.00 - 0.50 K/cumm [facility] Basophil abs 0.04 0.00 - 0.10 K/cumm [facility] Neutrophil pct 80.1 % [facility] Comment: Interpretive Data Percent cell count reference ranges are not reported, since discordance with absolute values may lead to misinterpretation of CBC data. Current Interpretive Data was last revised on 2017. Imm gran pct 0.4 % [facility] Comment: Interpretive Data Percent cell count reference ranges are not reported, since discordance with absolute values may lead to misinterpretation of CBC data. Current Interpretive Data was last revised on 2017. Lymphocyte pct 8.6 % ARCHIE Comment: Interpretive Data Percent cell count reference ranges are not reported, since discordance with absolute values may lead to misinterpretation of CBC data. Current Interpretive Data was last revised on 2017. Monocyte pct 9.3 % ARCHIE Comment: Interpretive Data Percent cell count reference ranges are not reported, since discordance with absolute values may lead to misinterpretation of CBC data. Current Interpretive Data was last revised on 2017. Eosinophil pct 1.3 % [facility] Comment: Interpretive Data Percent cell count reference ranges are not reported, since discordance with absolute values may lead to misinterpretation of CBC data. Current Interpretive Data was last revised on 2017. Basophil pct 0.3 % ARCHIE Comment: Interpretive Data Percent cell count reference ranges are not reported, since discordance with absolute values may lead to misinterpretation of CBC data. Current Interpretive Data was last revised on 2017. Blood 11/18/2024 3:44 AM CDT 11/18/2024 5:11 AM CDT us Fredi Moulton MD LAB BLOOD ORDERABLES Final Resul t [facility] [id number] [place] [address] * (ABNORMAL) Pro B-type natriuretic peptide (11/18/2024 3:44 AM CDT) NT-proBNP 2,278(H) <=450 pg/mL Comment: Interpretive Comments: A. Dyspnea in Acute Care Setting All Ages: < 300 pg/ml, acute heart failure unlikely. < 50 yrs: 300 - 450 pg/ml, further investigation warranted. > 450 pg/ml, acute heart failure likely. 50 - 74 yrs: 300 - 900 pg/ml, further investigation warranted. > 900 pg/ml, acute heart failure likely . > or = 75 yrs: 450 - 1800 pg/ml, further investigation warranted. > 1800 pg/ml, acute heart failure likely. B. Non-acute Setting < 75 yrs < 125 pg/ml, rules out heart failure. > or = 125 pg/ml, further investigation warranted. > or = 75 yrs < 450 pg/ml, rules out heart failure. > or = 450 pg/ml, further investigation warranted. - Knowledge of each individual patient's NT-proBNP range may be more useful than using similar cut-points for every patient. Please note that marked elevations in NT-proBNP levels may be observed in state other than Left Ventricular Congestive Failure, including: acute coronary syndromes, right heart strain/failure (including pulmonary embolism and cor pulmonale), critical illness, renal failure, as well as advanced age. - References: 1. Gregory MOREIRA et.al. Eur Heart J. 2006:27:330-337. 2. Erika RW, Korin AM. J. AM Tyler Cardiol: Cardiovasc Imag. 2009;2: 216- 225. Interpretive Data Last Revised Date: 2018. Blood 11/18/2024 3:44 AM CDT 11/18/2024 5:13 AM CDT us Fredi Moulton MD LAB BLOOD ORDERABLES Final Resul t [facility] [id number] [place] [address] * (ABNORMAL) CBC with auto differential (11/18/2024 3:44 AM CDT) WBC 12.82(H) 3.80 - 9.90 K/cumm Hgb 10.9(L) 13.0 - 17.5 g/dL [facility] Hct 37.5(L) 38.9 - 50.3 % [facility] Plt 161 150 - 400 K/cumm [facility] MPV 10.4 9.1 - 12.3 fL [facility] RBC 3.90(L) 4.30 - 5.80 M/cumm [facility] MCV 96.2 81.3 - 96.4 fL [facility] MCH 27.9 27.1 - 33.3 pg [facility] MCHC 29.1(L) 32.3 - 35.7 g/dL [facility] RDW CV 14.2 11.1 - 14.9 % [facility] CH RDW SD 50.1(H) 35.7 - 48.1 fL [facility] NRBC abs 0.00 0.00 - 0.01 K/cumm [facility] Blood 11/18/2024 3:44 AM CDT 11/18/2024 5:11 AM CDT Result [facility] us Fredi Moulton MD LAB BLOOD ORDERABLES Final Resul t Performing Organization Address [facility] de Phone Number [facility] [id number] [facility] [place] [address] * aPTT (11/18/2024 3:44 AM CDT) aPTT 31 28 - 38 sec Comment: Interpretive Data Heparin therapeutic range: 66.0 - 100.0 seconds. Range based on correlation with therapeutic heparin activity range of 0.3 - 0.7 Units/mL. Current interpretive data was last revised on 2023. Blood 11/18/2024 3:44 AM CDT 11/18/2024 5:12 AM CDT Result [facility] Fredi Moulton MD LAB BLOOD ORDERABLES Final Resul t Performing Organization Address [facility] de Phone Number [facility] [address] [address] [facility] [place] [address] * Protime-INR (11/18/2024 3:44 AM CDT) PT 11.8 9.7 - 13.0 sec INR 1.09 0.90 - 1.20 [facility] Comment: Interpretive data Oral anticoagulant therapeutic ranges: Venous thromboembolism prophylaxis or treatment: 2.0-3.0 CARDIOLOGY Standard range: 2.0-3.0 High-intensity range: 2.5-3.5 Refer to indication-specific guidelines for appropriate target ranges for prosthetic heart valve replacement. Current interpretive data was last revised on 2019. Blood 11/18/2024 3:44 AM CDT 11/18/2024 5:12 AM CDT us Fredi Moulton MD LAB BLOOD ORDERABLES Final Resul t Performing Organization Address City/[facility] Co de Phone Number ARCHIE GONGORA [address] [address] [facility] [place] [address] * Magnesium (11/18/2024 3:44 AM CDT) Magnesium 1.7 1.4 - 2.5 mg/dL Blood 11/18/2024 3:44 AM CDT 11/18/2024 5:13 AM CDT Fredi Moulton MD LAB BLOOD ORDERABLES Final Resul t Performing Organization Address [facility] de Phone Number ARCHIE GONGORA [address] [place] [address] * (ABNORMAL) Comprehensive metabolic panel (11/18/2024 3:44 AM CDT) Sodium 147(H) 135 - 145 mmol/L Potassium, pl 4.1 3.3 - 4.9 mmol/L [facility] Chloride 113(H) 97 - 110 mmol/L [facility] CO2 22 22 - 32 mmol/L [facility] Anion gap 12 2 - 15 mmol/L [facility] BUN 28(H) 6 - 25 mg/dL [facility] Creatinine 2.50(H) 0.80 - 1.30 mg/dL [facility] Glucose 123 70 - 199 mg/dL [facility] Comment: Interpretive Data Fasting glucose >/= 126 mg/dl is diagnostic for diabetes. Fasting is defined as no caloric intake for at least 8 hours. Fasting glucose between 100 mg/dl to 125 mg/dl is diagnostic of prediabetes. In a patient with classic symptoms of hyperglycemia or hyperglycemic crisis, a random glucose >/= 200 mg/dl is diagnostic for diabetes. In the absence of unequivocal hyperglycemia, results should be confirmed by repeat testing. The classification and Diagnosis of Diabetes Diabetes Care 202; 46: S19-S40. Current interpretive data was last revised 2022. Calcium 8.5 8.5 - 10.3 mg/dL [facility] Bilirubin, total 0.2 0.1 - 1.2 mg/dL [facility] Protein, pl 6.6 6.5 - 8.5 g/dL [facility] Albumin 3.5 3.5 - 5.0 g/dL [facility] Alk phos 86 40 - 130 Units/L [facility] ALT 7 7 - 55 Units/L [facility] AST 24 10 - 50 Units/L [facility] Blood 11/18/2024 3:44 AM CDT 11/18/2024 5:13 AM CDT us Fredi Moulton MD LAB BLOOD ORDERABLES Final Resul t ARCHIE [address] [place] [address] * TRANSTHORACIC ECHO (TTE) COMPLETE W DOPPLER/CF W CONTRAST (11/17/2024 3:49 PM CDT) EF Mod BP 67 % CONS SCIMAGE Anatomical Region Laterality Modality Ultrasound 11/17/2024 2:19 PM CDT Narrative 11/17/2024 9:27 PM CDT [place] [id number] Echocardiogram Report Patient Name: ZAHEER GODINEZ C : 1940 Study Date: 11/17/2024 2:19:39 PM Gender: M Tech: Location: [id number] Ref Provider: FREDI MOULTON Height(Cm): 170 BSA: 2.22 Weight(Kg): 104 Heart Rate: 60 BP: 141 / 67 Quality: Good Order Provider: FREDI MOULTON PROCEDURES: Echocardiographic Report: Transthoracic echocardiogram with complete 2D, M-Mode, color Doppler examination and contrast. INDICATIONS: S/P TAVR. MEASUREMENTS: 2D/MM Value Range Doppler Value Range EF Teich 2D 49.4 percent [ 52.0 - 72.0 ] JAVIER Vmax 1.87 cm2 EF Mod BP 67 % [ 52 - 72 ] AV Mean PG 11 mmHg LVIDd 2D 3.88 cm [ 4.20 - 5.80 ] AV Peak Jorge 2.28 m/s [ 1.00 - 1.70 ] LVIDs 2D 2.92 cm [ 2.50 - 4.00 ] AV VTI 49.46 cm LVPWd 2D 1.77 cm [ 0.60 - 1.00 ] LVOT Diam 2.34 cm IVSd 2D 1.75 cm [ 0.60 - 1.00 ] LVOT Peak Jorge 0.97 m/s [ 0.70 - 1.10 ] LA Dimension 2D 3.88 cm [ 3.00 - 4.00 ] LVOT VTI 26.59 cm LA Dimension MM 4.80 cm [ 3.00 - 4.00 ] SI LVOT 57.1 ml/m2 [ >= 35.0 ] AoR Diam 2D 3.06 cm [ 3.10 - 3.70 ] MV E Peak Jorge 0.65 m/s [ 0.60 - 1.30 ] AoR Diam MM 2.40 cm [ 3.10 - 3.70 ] MV A Peak Jorge 0.99 m/s [ 1.00 - 1.20 ] MV Mean PG 2 mmHg MV Decel Time 381 msec [ 104 - 258 ] PV Peak Jorge 1.09 m/s [ 0.40 - 0.80 ] TR Peak Jorge 2.83 m/s [ 1.00 - 2.80 ] TR Peak PG 32 mmHg E` 0.06 m/s E/E` 11.53 2D/MM Value Range Doppler Value Range - FINDINGS: Atrial Septum: Normal atrial septum. Left Ventricle: Normal left ventricular size. Optison contrast agent used to visually enhance endocardial wall motion and contractility. Severe concentric left ventricular hypertrophy. Impaired diastolic relaxation Grade I. Ejection fraction is measured at 67 %. Global Longitudinal Strain is -11 %. Left Atrium: There is mild enlargement of left atrium. Right Ventricle: Normal right ventricular size. Normal right ventricular systolic function. Right Atrium: There is mild enlargement of right atrium. Aortic Valve: S/P TAVR using 23 mm Ramirez Pramod 3 Ultra Resilia pericardial tissue valve. Peak velocity AOV of 2.2 m/sec. Mean gradient of 11.0 mmHg. Gradients normal for valve type and size. Normal appearing aortic valve bioprosthesis. Mitral Valve: Mild mitral annular calcification. No mitral valve regurgitation is seen. Pulmonic Valve: Pulmonic valve not well visualized. Tricuspid Valve: Normal structure of the tricuspid valve. Estimated peak RVSP is 28 mmHg. Pericardium: There is an anterior echo free space consistent with epicardial fat pad. Aorta: Aortic root not well visualized. IVC: Normal size and normal respiratory collapse consistent with normal right atrial pressure (<5 mmHg). CONCLUSIONS: Optison contrast agent used to visually enhance endocardial wall motion and contractility. Normal LV size. Severe concentric left ventricular hypertrophy. Normal LV systolic function. Impaired diastolic relaxation Grade I. Ejection fraction is measured at 67 %. Global Longitudinal Strain is -11 %. Normal right ventricular size and systolic function. Mild biatrial enlargement. Mild mitral annular calcification. No significant MR. S/P TAVR using 23 mm Ramirez Pramod 3 Ultra Resilia pericardial tissue valve. Peak velocity AOV 2.2 m/sec. Mean gradient 11.0 mmHg. DVI 0.44. Gradients normal for valve type and size. Estimated peak RVSP 28 mmHg. Electronically Signed By: Fredi Moulton MD, [facility] 11/17/2024 9:27:03 PM CDT Procedure Note Fredi Moulton MD - 11/17/2024 [place] [address] Echocardiogram Report Patient Name: ZAHEER GODINEZ C : 1940 Study Date: 11/17/2024 2:19:39 PM Gender: M Tech: Location: [id number] Ref Provider: FREDI MOULTON Height(Cm): 170 BSA: 2.22 Weight(Kg): 104 Heart Rate: 60 BP: 141 / 67 Quality: Good Order Provider: FREDI MOULTON PROCEDURES: Echocardiographic Report: Transthoracic echocardiogram with complete 2D, M-Mode, color Dopplerexamination and contrast. INDICATIONS: S/P TAVR. MEASUREMENTS: 2D/MM Value Range DopplerValue Range EF Teich 2D 49.4 percent [ 52.0 - 72.0 ] JAVIER Vmax1.87 cm2 EF Mod BP 67 % [ 52 - 72 ] AV Mean PG 11mmHg LVIDd 2D 3.88 cm [ 4.20 - 5.80 ] AV Peak Vel2.28 m/s [ 1.00 - 1.70 ] LVIDs 2D 2.92 cm [ 2.50 - 4.00 ] AV VTI49.46 cm LVPWd 2D 1.77 cm [ 0.60 - 1.00 ] LVOT Diam2.34 cm IVSd 2D 1.75 cm [ 0.60 - 1.00 ] LVOT Peak Vel0.97 m/s [ 0.70 - 1.10 ] LA Dimension 2D 3.88 cm [ 3.00 - 4.00 ] LVOT VTI26.59 cm LA Dimension MM 4.80 cm [ 3.00 - 4.00 ] SI LVOT57.1 ml/m2 [ >= 35.0 ] AoR Diam 2D 3.06 cm [ 3.10 - 3.70 ] MV E Peak Vel0.65 m/s [ 0.60 - 1.30 ] AoR Diam MM 2.40 cm [ 3.10 - 3.70 ] MV A Peak Vel0.99 m/s [ 1.00 - 1.20 ] MV Mean PG 2 mmHg MV Decel Time 381 msec [ 104 - 258 ] PV Peak Jorge 1.09 m/s [ 0.40 - 0.80 ] TR Peak Jorge 2.83 m/s [ 1.00 - 2.80 ] TR Peak PG 32 mmHg E` 0.06 m/s E/E` 11.53 2D/MM Value Range DopplerValue Range - FINDINGS: Atrial Septum: Normal atrial septum. Left Ventricle: Normal left ventricular size. Optison contrast agent used to visuallyenhance endocardial wall motion and contractility. Severe concentric left ventricularhypertrophy. Impaired diastolic relaxation Grade I. Ejection fraction is measured at 67 %.Global Longitudinal Strain is -11 %. Left Atrium: There is mild enlargement of left atrium. Right Ventricle: Normal right ventricular size. Normal right ventricular systolicfunction. Right Atrium: There is mild enlargement of right atrium. Aortic Valve: S/P TAVR using 23 mm Ramirez Pramod 3 Ultra Resilia pericardial tissuevalve. Peak velocity AOV of 2.2 m/sec. Mean gradient of 11.0 mmHg. Gradientsnormal for valve type and size. Normal appearing aortic valve bioprosthesis. Mitral Valve: Mild mitral annular calcification. No mitral valve regurgitation isseen. Pulmonic Valve: Pulmonic valve not well visualized. Tricuspid Valve: Normal structure of the tricuspid valve. Estimated peak RVSP is 28 mmHg. Pericardium: There is an anterior echo free space consistent with epicardial fat pad. Aorta: Aortic root not well visualized. IVC: Normal size and normal respiratory collapse consistent with normal rightatrial pressure (<5 mmHg). CONCLUSIONS: Optison contrast agent used to visually enhance endocardial wall motionand contractility. Normal LV size. Severe concentric left ventricularhypertrophy. Normal LV systolic function. Impaired diastolic relaxation Grade I. Ejectionfraction is measured at 67 %. Global Longitudinal Strain is -11 %. Normal right ventricular size and systolic function. Mild biatrial enlargement. Mild mitral annular calcification. No significant MR. S/P TAVR using 23 mm Ramirez Pramod 3 Ultra Resilia pericardial tissuevalve. Peak velocity AOV 2.2 m/sec. Mean gradient 11.0 mmHg. DVI 0.44. Gradientsnormal for valve type and size. Estimated peak RVSP 28 mmHg. Electronically Signed By: Fredi Moulton MD, [facility] 11/17/2024 9:27:03 PM CDT us Fredi Moulton MD CV ECHO PROCEDURES Final Result * X-ray chest 1 view (Portable) (11/17/2024 11:39 AM CDT) Anatomical Region Laterality Modality Body, Chest N/A Computed Radiogr aphy 11/17/2024 1:06 PM CDT Impressions 11/17/2024 1:06 PM CDT Cardiomegaly with mild vascular congestion.. Electronically signed by: Terry Reeves M.D. Narrative 11/17/2024 1:06 PM CDT EXAMINATION: XR CHEST 1 VIEW HISTORY: The patient is an 84-year-old male who has had a TAVR procedure. Comparison made with the previous study dated 11/15/2024. TECHNIQUE: AP portable view of the chest. FINDINGS: Cardiomegaly with aortic atherosclerosis. Mild vascular congestion. TAVR device in place. No focal infiltrate. Procedure Note Terry Reeves MD - 11/17/2024 EXAMINATION: XR CHEST 1 VIEW HISTORY: The patient is an 84-year-old male who has had a TAVR procedure. Comparison made with the previous study dated 11/15/2024. TECHNIQUE: AP portable view of the chest. FINDINGS: Cardiomegaly with aortic atherosclerosis. Mild vascular congestion. TAVR device in place. No focal infiltrate. IMPRESSION: Cardiomegaly with mild vascular congestion.. Electronically signed by: Terry Reeves M.D. Fredi Moulton MD IMG XR PROCEDURES Final Result * POCT glucose (11/17/2024 11:27 AM CDT) [facility] Signature Glucose, POC 121 70 - 199 mg/dL POC Performer [id number] ARCHIE GONGORA Blood 11/17/2024 11:2 7 AM CDT 11/17/2024 11:27 AM CDT Fredi Moulton MD LAB POCT ORDERABLES - DEVICE Fin al Result ARCHIE GONGORA [id number] [place] [address] * TRANSCATHETER AORTIC VALVE REPLACEMENT (TAVR) OPEN FEMORAL ART APPROACH (11/17/2024 10:41 AM CDT) Anatomical Region Laterality Modality X-Ray Angiograph y Narrative 11/17/2024 11:08 AM CDT TRANSCATHETER AORTIC VALVE REPLACEMENT (TAVR) REPORT DATE OF PROCEDURE: 11/17/24 INDICATION FOR PROCEDURE: Severe, symptomatic aortic stenosis with multiple comorbidities BRIEF CLINICAL HISTORY: Zaheer Godinez is a 84 y.o. male with severe aortic stenosis, CAD, history of remote ? RCA PCI/stenting-intervention report not available; CHF with preserved ejection fraction, hypertension, COPD with chronic hypoxemic respiratory failure on home O2, history of GI bleed, obesity, history of heavy tobacco abuse. Patient has been experiencing worsening dyspnea on exertion in the setting of severe aortic stenosis consistent with acute on chronic CHF with preserved ejection fraction. Recently hospitalized for recurrent GI bleed, can not rule out Heyde's syndrome. Recent echo from 09/19/2024 performed at [facility] reportedly showed preserved LV systolic function, diastolic dysfunction, poorly visualized aortic valve with severe aortic stenosis, V max 5.81 m/sec, mean gradient 96 mmHg, JAVIER 0.7 cm2. He underwent pre AVR cardiac catheterization on 10/27/2024 which showed multivessel CAD with diffuse calcific stenosis proximal LAD; 100% ISR mid RCA with bridging and faint [id number] collaterals; status post PCI-IVUS, [employer]/stenting of proximal LAD using ZULY x2. Patient's case was discussed by heart team, and he was deemed to be an appropriate candidate for TAVR. Benefits and risks of the procedure were discussed with the patient in depth, and informed consent was taken prior to the procedure. Risks of the procedure include but are not limited to vascular complications like groin hematoma, retroperitoneal bleed, vessel perforation; periprocedural IA, stroke; cardiac arrhythmias including conduction abnormality requiring pacemaker placement; contrast induced nephropathy, . After discussing all the benefits, risks and alternatives, patient was willing to proceed with the procedure. PROCEDURES PERFORMED: Successful transcatheter aortic valve replacement (TAVR) using 23 mm Ramirez Pramod 3 Ultra Resilia pericardial tissue valve (transfemoral access) Placement of temporary transvenous pacemaker Aortogram Distal abdominal aortogram with bilateral iliac runoff; selective right and left common femoral angiogram Deployment of 2 ProGlide suture mediated closure device at the right common femoral artery access site; deployment of mynx vascular closure device at left common femoral artery access site SEDATION: Monitored anesthesia care (MAC) - by anesthesiology team CO-OPERATORS: Dr. Moe MD CT surgeon ACCESS SITES: Right and left common femoral arteries; left common femoral vein PROCEDURE: After obtaining informed consent, patient was brought to the lab support tech and prepped and draped in the usual sterile manner. Time-out and immediate reassessment of the patient was performed. Patient was placed under MAC by the anesthesiologist team. Right common femoral artery access was taken with micropuncture needle under ultrasound guidance followed by insertion of a 6 Chilean sheath over a 0.035 inch wire. Left common femoral artery access was taken with micropuncture needle under ultrasound guidance followed by insertion of a 6 Chilean sheath over a 0.035 inch wire. Right common femoral venous access was taken with micropuncture needle under ultrasound guidance followed by insertion of a 5 Chilean long sheath. Access of the right common femoral artery was extremely challenging due to significant pannus. Initially, there was difficulty in advancing the Perclose. Attempt was made to reintroduce the dilator, however, there was significant bend in the wire. The wire and the dilator was taken out and manual pressure was placed for about 20 minutes. Next, access was again taken in the right common femoral artery under ultrasound guidance, followed by insertion of a 6 Chilean sheath over a stiff wire. After this, 2 Perclose devices were placed. A balloon tipped transvenous pacemaker was placed through the venous sheath under fluoroscopic guidance and was positioned in the right ventricle. Pacing thresholds were checked. The 5-Chilean pigtail catheter was then advanced into the aortic root through left common femoral arterial sheath. The pigtail catheter was placed in the non-coronary cusp for cusp isolation technique. An aortogram was performed in the coplanar view. Next, the 6-Chilean arterial sheath on the right femoral artery was removed and after serial dilations, a 14 Chilean Ramirez sheath was inserted into the abdominal aorta under fluoroscopic guidance. A 5 Chilean AL1 catheter was advanced over a 035 wire into the aortic root. The aortic valve was then crossed using a 0.35 straight-tipped wire. The AL1 catheter was advanced in the LV cavity, and then it was exchanged with a pigtail catheter. LVEDP was measured at 14 mmHg. Next, safari wire was introduced and pigtail catheter was [place]. [place] [address] units of heparin for procedural anticoagulation. ACT was monitored throughout the procedure. Following this, the 23 mm Ramirez Pramod 3 valve delivery system was advanced under fluoroscopic guidance and after carefully navigating the aortic arch, the valve delivery catheter was advanced across the aortic valve under fluoroscopic guidance. Fluoroscopy was performed to ensure appropriate placement along with aortography. The device was deployed while rapid right ventricular pacing. The balloon was deflated and the delivery catheter was retrieved into the aorta over the safari wire. Surface echocardiogram was performed, and there was no significant aortic insufficiency or paravalvular leak seen postdeployment. The mean gradient across aortic valve was measured at 9 mmHg, V max 2.2 m/sec. The delivery system was removed. Patient received 50 mg of protamine. The hemostasis was achieved by deployment of 2 ProGlide devices in the right femoral artery. Distal abdominal aortogram with bilateral iliac runoff was performed using the 5 Chilean pigtail catheter. The pelvic angiogram showed preserved flow in the iliac arteries without any angiographically visible dissection. A Mynx control vascular closure device was deployed at left common femoral arterial access site. The temporary pacemaker wire was taken out in the lab support tech. Estimated blood loss minimal. All specimens removed. Patient remained in sinus rhythm after the procedure. The procedure was technically challenging due to difficulty in getting the access in the right common femoral artery, however, there were no immediate procedural complications. Patient was transferred to the telemetry bed in hemodynamically stable condition. Patient's family was updated about the procedure. CONCLUSIONS: Successful TAVR using 23 mm Ramirez Pramod 3 Ultra Resilia pericardial tissue valve via transfemoral access. PLAN/RECOMMENDATIONS: Patient will be admitted to the telemetry unit and will be monitored for any postprocedure vascular, cardiac or neurological complications. Heart rhythm will be monitored closely. EKG and echocardiogram will be performed during the hospitalization prior to discharge. Voice recognition software was used to complete this document, therefore, restaurant crew variances may occur. Fredi Moulton MD, [facility] 11/17/24 us Fredi Moulton MD CV CARDIAC CATH PROCEDURES Final Result * (ABNORMAL) POC Activated Clotting Time, High Range (11/17/2024 10:13 AM CDT) ACT 382(H) 87 - 138 sec POC Performer [id number] [facility] Blood 11/17/2024 10:1 3 AM CDT 11/17/2024 10:13 AM CDT Fredi Moulton MD LAB BLOOD ORDERABLES Final Resul t Performing Organization Address [facility] de Phone Number ARCHIE GONGORA [address] [address] [facility] [place] [address] * Type and screen (11/17/2024 7:15 AM CDT) Logan, indirect Negative ABO Rh A Positive [facility] Blood 11/17/2024 7:15 AM CDT 11/17/2024 7:37 AM CDT Narrative [facility] - 11/17/2024 8:26 AM CDT Has the patient had Daratumumab or Isatuximab in the past 6 months?->Unknown Fredi Moulton MD LAB BLOOD BANK TEST ORDERABLES F inal Result Performing Organization Address [facility] de Phone Number VAMSIFELICIA GONGORA [address] [address] [facility] [place] [address] * Prepare RBC: 2 Units (11/17/2024 6:30 AM CDT) Product code [id number] Unit Number [id number] 1-D [facility] Product Blood Type APOS [facility] Dispense Status RETURNED [facility] Product code [id number] [facility] Unit Number [id number] 2-V [facility] Product Blood Type APOS [facility]ERNER CH Dispense Status RETURNED [facility] Blood 11/17/2024 6:30 AM CDT Narrative [facility] - 11/21/2024 3:22 AM CDT Specify Procedure:->TAVR Are special requirements needed? (All products are leukoreduced and CMV- safe)- >No Date required:-[id number] LRRBC # of [id number] Reasons:-Hold for procedure (specify procedure)} Fredi Moulton MD BLOOD BANK PRODUCT ORDERABLES Fi nal Result Performing Organization Address [facility] de Phone Number VAMSIFELICIA GONGORA [address] [address] [facility] [place] [address] * (ABNORMAL) Differential, auto (11/15/2024 1:33 PM CDT) Neutrophil abs 6.45 1.50 - 6.50 K/cumm Imm gran abs 0.05 0.00 - 0.10 K/cumm CERNER Lymphocyte abs 1.53 0.80 - 3.30 K/cumm CERNER Monocyte abs 0.83(H) 0.20 - 0.80 K/cumm [facility] Eosinophil abs 0.30 0.00 - 0.50 K/cumm [facility] Basophil abs 0.07 0.00 - 0.10 K/cumm CERNER Neutrophil pct 69.8 % CERNER Comment: Interpretive Data Percent cell count reference ranges are not reported, since discordance with absolute values may lead to misinterpretation of CBC data. Current Interpretive Data was last revised on 2017. Imm gran pct 0.5 % CERNER Comment: Interpretive Data Percent cell count reference ranges are not reported, since discordance with absolute values may lead to misinterpretation of CBC data. Current Interpretive Data was last revised on 2017. Lymphocyte pct 16.6 % CERNER Comment: Interpretive Data Percent cell count reference ranges are not reported, since discordance with absolute values may lead to misinterpretation of CBC data. Current Interpretive Data was last revised on 2017. Monocyte pct 9.0 % CERNER Comment: Interpretive Data Percent cell count reference ranges are not reported, since discordance with absolute values may lead to misinterpretation of CBC data. Current Interpretive Data was last revised on 2017. Eosinophil pct 3.3 % CERNER Comment: Interpretive Data Percent cell count reference ranges are not reported, since discordance with absolute values may lead to misinterpretation of CBC data. Current Interpretive Data was last revised on 2017. Basophil pct 0.8 % CERNER Comment: Interpretive Data Percent cell count reference ranges are not reported, since discordance with absolute values may lead to misinterpretation of CBC data. Current Interpretive Data was last revised on 2017. Blood 11/15/2024 1:33 PM CDT 11/15/2024 1:33 PM CDT Fredi Moulton MD LAB BLOOD ORDERABLES Final Resul t Performing Organization Address [facility] Co de Phone Number ARCHIE GONGORA [address] [place], [place] [id number] * (ABNORMAL) CBC with auto differential (11/15/2024 1:33 PM CDT) Pathologist [facility] WBC 9.23 3.80 - 9.90 K/cumm Hgb 11.9(L) 13.0 - 17.5 g/dL [facility] Hct 39.8 38.9 - 50.3 % [facility] Plt 212 150 - 400 K/cumm [facility] MPV 10.3 9.1 - 12.3 fL [facility] RBC 4.25(L) 4.30 - 5.80 M/cumm [facility] MCV 93.6 81.3 - 96.4 fL [facility] MCH 28.0 27.1 - 33.3 pg [facility] MCHC 29.9(L) 32.3 - 35.7 g/dL [facility] RDW CV 14.2 11.1 - 14.9 % [facility] CH RDW SD 48.7(H) 35.7 - 48.1 fL [facility] NRBC abs 0.00 0.00 - 0.01 K/cumm [facility] Blood 11/15/2024 1:33 PM CDT 11/15/2024 1:33 PM CDT Fredi Moulton MD LAB BLOOD ORDERABLES Final Resul t Performing Organization Address [facility] Co de Phone Number ARCHIE GONGORA [address] Department of [place], [place] [id number] * (ABNORMAL) eGFR (11/15/2024 1:32 PM CDT) Pathologist [facility] eGFR 29(L) >=60 mL/min/1. 73 m2 Comment: Interpretive Data Reference Interval Normal >/= 90 mL/min/1.73m2 Mildly decreased* 60 - 89 mL/min/1.73m2 Mildly to moderately decreased 45 - 59 mL/min/1.73m2 Moderately to severely decreased 30 - 44 mL/min/1.73m2 Severely decreased 15 - 29 mL/min/1.73m2 Kidney Failure < 15 mL/min/1.73m2 *Relative to young adult level Estimated glomerular filtration rate is determined by the 2020 CKD-EPI equation recommended by the National Kidney Foundation (A Unifying Approach to GFR Estimation: Recommendations of the NKF-ASK Task Force on Reassessing the Inclusion of Race in Diagnosing Kidney Disease, JASN 2020). The CKD-EPI equation should not be used for patients with unstable renal function and has not been validated in children and those over 70. Current interpretive data was last reviewed 2021. Blood 11/15/2024 1:32 PM CDT 11/15/2024 1:32 PM CDT us Fredi Moulton MD LAB BLOOD ORDERABLES Final Resul t ARCHIE [address] [place] [address] * (ABNORMAL) Pro B-type natriuretic peptide (11/15/2024 1:32 PM CDT) NT-proBNP 3,773(H) <=450 pg/mL Comment: Interpretive Comments: A. Dyspnea in Acute Care Setting All Ages: < 300 pg/ml, acute heart failure unlikely. < 50 yrs: 300 - 450 pg/ml, further investigation warranted. > 450 pg/ml, acute heart failure likely. 50 - 74 yrs: 300 - 900 pg/ml, further investigation warranted. > 900 pg/ml, acute heart failure likely . > or = 75 yrs: 450 - 1800 pg/ml, further investigation warranted. > 1800 pg/ml, acute heart failure likely. B. Non-acute Setting < 75 yrs < 125 pg/ml, rules out heart failure. > or = 125 pg/ml, further investigation warranted. > or = 75 yrs < 450 pg/ml, rules out heart failure. > or = 450 pg/ml, further investigation warranted. - Knowledge of each individual patient's NT-proBNP range may be more useful than using similar cut-points for every patient. Please note that marked elevations in NT-proBNP levels may be observed in state other than Left Ventricular Congestive Failure, including: acute coronary syndromes, right heart strain/failure (including pulmonary embolism and cor pulmonale), critical illness, renal failure, as well as advanced age. - References: 1. Gregory MOREIRA et.al. Eur Heart J. 2006:27:330-337. 2. Erika RW, Korin SÁNCHEZ. J. AM Tyler Cardiol: Cardiovasc Imag. 2009;2: 216- 225. Interpretive Data Last Revised Date: 2018. Blood 11/15/2024 1:32 PM CDT 11/15/2024 1:32 PM CDT Fredi Moulton MD LAB BLOOD ORDERABLES Final Resul t Performing Organization Address City/[facility] Co de Phone Number ARCHIE GONGORA [id number] [place], [place] [phone] * aPTT (11/15/2024 1:32 PM CDT) aPTT 32 28 - 38 sec Comment: Interpretive Data Heparin therapeutic range: 66.0 - 100.0 seconds. Range based on correlation with therapeutic heparin activity range of 0.3 - 0.7 Units/mL. Current interpretive data was last revised on 2023. Blood 11/15/2024 1:32 PM CDT 11/15/2024 1:32 PM CDT Fredi Moulton MD LAB BLOOD ORDERABLES Final Resul t ARCHIE [address] [place], [place] [phone] * Protime-INR (11/15/2024 1:32 PM CDT) PT 11.1 9.7 - 13.0 sec INR 1.03 0.90 - 1.20 ARCHIE GONGORA Comment: Interpretive data Oral anticoagulant therapeutic ranges: Venous thromboembolism prophylaxis or treatment: 2.0-3.0 CARDIOLOGY Standard range: 2.0-3.0 High-intensity range: 2.5-3.5 Refer to indication-specific guidelines for appropriate target ranges for prosthetic heart valve replacement. Current interpretive data was last revised on 2019. Blood 11/15/2024 1:32 PM CDT 11/15/2024 1:32 PM CDT us Fredi Moulton MD LAB BLOOD ORDERABLES Final Resul t [facility] [address] [place] [address] * (ABNORMAL) Comprehensive metabolic panel (11/15/2024 1:32 PM CDT) Sodium 144 135 - 145 mmol/L Potassium, pl 4.7 3.3 - 4.9 mmol/L [facility] Chloride 110 97 - 110 mmol/L [facility] CO2 23 22 - 32 mmol/L [facility] Anion gap 11 2 - 15 mmol/L [facility] BUN 26(H) 6 - 25 mg/dL [facility] Creatinine 2.17(H) 0.80 - 1.30 mg/dL [facility] Glucose 95 70 - 199 mg/dL [facility] Comment: Interpretive Data Fasting glucose >/= 126 mg/dl is diagnostic for diabetes. Fasting is defined as no caloric intake for at least 8 hours. Fasting glucose between 100 mg/dl to 125 mg/dl is diagnostic of prediabetes. In a patient with classic symptoms of hyperglycemia or hyperglycemic crisis, a random glucose >/= 200 mg/dl is diagnostic for diabetes. In the absence of unequivocal hyperglycemia, results should be confirmed by repeat testing. The classification and Diagnosis of Diabetes Diabetes Care 202; 46: S19-S40. Current interpretive data was last revised 2022. Calcium 8.9 8.5 - 10.3 mg/dL [facility] Bilirubin, total 0.3 0.1 - 1.2 mg/dL [facility] Protein, pl 7.3 6.5 - 8.5 g/dL [facility] Albumin 3.7 3.5 - 5.0 g/dL [facility] Alk phos 92 40 - 130 Units/L [facility] ALT 12 7 - 55 Units/L [facility] AST 25 10 - 50 Units/L [facility] Blood 11/15/2024 1:32 PM CDT 11/15/2024 1:32 PM CDT Result [facility] Fredi Moulton MD LAB BLOOD ORDERABLES Final Resul t Performing Organization Address [facility] Co de Phone Number ARCHIE [address] [place] [address] * Type and screen (11/15/2024 1:15 PM CDT) ABO Rh A Positive Logan, indirect Negative [facility] Blood 11/15/2024 1:15 PM CDT 11/15/2024 1:33 PM CDT Narrative [facility] - 11/15/2024 2:51 PM CDT Has the patient had Daratumumab or Isatuximab in the past 6 months?->Unknown Result [facility] Fredi Moulton MD LAB BLOOD BANK TEST ORDERABLES F inal Result Performing Organization Address [facility] Phone Number [facility] [address] [place] [address] * ECG 12 lead (11/15/2024 1:12 PM CDT) 11/15/2024 1:12 PM CDT Narrative [facility] - 11/15/2024 2:19 PM CDT Vent Rate: 70 bpm RR Interval: 855 msec AK Interval: 168 msec QRS Duration: 86 msec QT Interval: 414 msec QTC Interval: 434 msec P-R-T [place]: 30 - -44 - -3 degrees IMPRESSION: SINUS RHYTHM MARKED LEFT AXIS DEVIATION PATTERN CONSISTENT WITH PULMONARY DISEASE MODERATE VOLTAGE CRITERIA FOR LVH, CONSIDER NORMAL VARIANT ABNORMAL ECG Electronically Signed By: Tarik Cason MD Result [facility] Fredi Moulton MD ECG ORDERABLES Final Result Performing Organization Address [facility] de Phone Number [facility] * X-ray chest 2 views (11/15/2024 12:43 PM CDT) Anatomical Region Laterality Modality Body, Chest N/A Computed Radiogr aphy 11/15/2024 1:36 PM CDT Impressions 11/15/2024 1:36 PM CDT No pneumothorax. Possible atelectasis versus small pleural effusion in the left lung base/left pleural space. Mild pulmonary vascular congestion. Cardiomediastinal silhouette within normal limits. No acute osseous abnormality. Electronically signed by: Kg Waite II, D.O. Narrative 11/15/2024 1:36 PM CDT EXAMINATION: XR CHEST PA LATERAL 2 VIEWS DATE: 11/15/2024 12:30 PM INDICATION: Preoperative exam. COMPARISON: 11/15/2024. Procedure Note Kg Waite II, DO - 11/15/2024 EXAMINATION: XR CHEST PA LATERAL 2 VIEWS DATE: 11/15/2024 12:30 PM INDICATION: Preoperative exam. COMPARISON: 11/15/2024. IMPRESSION: No pneumothorax. Possible atelectasis versus small pleural effusion in the left lung base/left pleural space. Mild pulmonary vascular congestion. Cardiomediastinal silhouette within normal limits. No acute osseous abnormality. Electronically signed by: Kg Waite II, D.O. us Fredi Moulton MD IMG XR PROCEDURES Final Result * Pulmonary Function Test -[facility]; Complete/Full (11/03/2024 12:55 PM CDT) Anatomical Region Laterality Modality PFT Narrative 11/03/2024 3:18 PM CDT Mild obstructive ventilatory impairment with a severe reduction in the diffusing capacity. No evidence of an upper airway obstruction by flow volume loop. Clive Rinaldi MD [facility] us Fredi Moulton MD PFT ORDERABLES Final Result * CT TAVR (11/03/2024 11:31 AM CDT) Anatomical Region Laterality Modality Chest N/A Computed Tomogra phy 11/03/2024 3:09 PM CDT Impressions 11/03/2024 3:09 PM CDT 1. Severe aortic valvular stenosis. 2. Aortic annulus, and abdominal aortic, common iliac, external iliac and femoral artery measurements in preparation for TAVR procedure as described above. 3. Aortic valve calcium score: Agatston 2487, Volume 1919 mm3. The radiology attending physician has personally reviewed this study, and had reviewed and/or edited this written report and agrees with it. Electronically signed by: Johan Berg M.D. Narrative 11/03/2024 3:09 PM CDT EXAMINATION: Heart CT and CTA abdomen and pelvis with contrast. History: Severe aortic stenosis, pre-TAVR procedure. Technique: Heart CT and CT angiogram of the abdomen and pelvis performed during administration of 122 mL of Optiray 350, intravenously per TAVR Protocol. Images were transferred to an independent workstation for additional 3D post-processing. FINDINGS: Annulus and Thoracic Aortic Measurements (in systole): Aortic valve annulus: Area 400 mm2: circumference 73 mm; 25 mm maximum diameter x 20 mm minimum diameter. Sinuses of Valsalva: 30 mm diameter sagittal x 30 mm diameter coronal. Sinotubular junction: 25 mm diameter sagittal x 25 mm diameter coronal. Aortic valve calcium score: Agatston 2487, Volume 1919 mm3. Coronary sinus heights: Right coronary sinus height: 22 Left coronary sinus height: 15 Non-coronary sinus height: 21 There is severe left ventricular outflow tract calcification. There is mild mitral annular calcification. Distance to RCA ostium from aortic valve annulus: 19 mm Distance to left main ostium from annulus: 13 mm Deployment angle: 9 MOZAMBICAN, 5 Caudal Coronary Arteries: Anomalous coronary artery course: No Left main atherosclerosis: Mild LAD atherosclerosis: Stented Circumflex atherosclerosis: Severe RCA atherosclerosis: Stented Abdominal Aortic and Pelvic Arterial Smallest Diameter Measurements (made from centerline curved MPRs): Infrarenal aorta: 19 mm x 18 mm Right common iliac artery: 9 mm x 11 mm. There is mild calcification. Left common iliac artery: 9 mm x 10 mm . There is Mild calcification. There is mild tortuosity of the bilateral common iliac arteries. This is equal in distribution. Right external iliac artery: 7 mm x 8 mm. There is mild calcification. Left external iliac artery: 8 mm x 8 mm. There is mild calcification. There is mild tortuosity of the bilateral external iliac arteries. This is equal in distribution. Right common femoral artery: 7 mm. There is mild calcification. Left common femoral artery: 7 mm. There is mild calcification. There is mild tortuosity of the bilateral femoral arteries. This is equal in distribution. Other findings: The large central airways are patent. There is no pulmonary consolidation, mass, or edema. Bibasilar atelectasis. No suspicious pulmonary nodules. The heart size is normal. There is no pericardial effusion or pericardial wall thickening. Coronary artery stents in the left anterior descending and right coronary arteries. Three-vessel coronary artery calcifications. Mitral annular and aortic valve calcifications. 1.3 cm right thyroid nodule. Mildly prominent mediastinal lymph nodes, likely reactive. Small hiatal hernia. The hepatic parenchyma is normal without focal lesion. Cholelithiasis without cholecystitis. No suspicious hepatic lesions. The spleen, pancreas, and adrenal glands are unremarkable. Bilateral simple and hemorrhagic renal cysts. There is no hydronephrosis or obstructive nephrolithiasis. The urinary bladder is normal. The prostate is mildly enlarged. The bowel is unremarkable. There is no bowel thickening or obstruction. The appendix is normal. No ascites or pneumoperitoneum. No suspicious lymphadenopathy in the abdomen or pelvis. Bilateral fat-containing inguinal hernias. The course and caliber of the abdominal aorta and its branching vessels are normal. Degenerative changes of the spine. No suspicious osseous lesions. Age indeterminant superior endplate compression deformity of L5. Procedure Note Johan Berg MD - 11/03/2024 EXAMINATION: Heart CT and CTA abdomen and pelvis with contrast. History: Severe aortic stenosis, pre-TAVR procedure. Technique: Heart CT and CT angiogram of the abdomen and pelvis performed during administration of 122 mL of Optiray 350, intravenously per TAVR Protocol. Images were transferred to an independent workstation for additional 3D post-processing. FINDINGS: Annulus and Thoracic Aortic Measurements (in systole): Aortic valve annulus: Area 400 mm2: circumference 73 mm; 25 mm maximum diameter x 20 mm minimum diameter. Sinuses of Valsalva: 30 mm diameter sagittal x 30 mm diameter coronal. Sinotubular junction: 25 mm diameter sagittal x 25 mm diameter coronal. Aortic valve calcium score: Agatston 2487, Volume 1919 mm3. Coronary sinus heights: Right coronary sinus height: 22 Left coronary sinus height: 15 Non-coronary sinus height: 21 There is severe left ventricular outflow tract calcification. There is mild mitral annular calcification. Distance to RCA ostium from aortic valve annulus: 19 mm Distance to left main ostium from annulus: 13 mm Deployment angle: 9 MOZAMBICAN, 5 Caudal Coronary Arteries: Anomalous coronary artery course: No Left main atherosclerosis: Mild LAD atherosclerosis: Stented Circumflex atherosclerosis: Severe RCA atherosclerosis: Stented Abdominal Aortic and Pelvic Arterial Smallest Diameter Measurements (made from centerline curved MPRs): Infrarenal aorta: 19 mm x 18 mm Right common iliac artery: 9 mm x 11 mm. There is mild calcification. Left common iliac artery: 9 mm x 10 mm . There is Mild calcification. There is mild tortuosity of the bilateral common iliac arteries. This is equal in distribution. Right external iliac artery: 7 mm x 8 mm. There is mild calcification. Left external iliac artery: 8 mm x 8 mm. There is mild calcification. There is mild tortuosity of the bilateral external iliac arteries. This is equal in distribution. Right common femoral artery: 7 mm. There is mild calcification. Left common femoral artery: 7 mm. There is mild calcification. There is mild tortuosity of the bilateral femoral arteries. This is equal in distribution. Other findings: The large central airways are patent. There is no pulmonary consolidation, mass, or edema. Bibasilar atelectasis. No suspicious pulmonary nodules. The heart size is normal. There is no pericardial effusion or pericardial wall thickening. Coronary artery stents in the left anterior descending and right coronary arteries. Three-vessel coronary artery calcifications. Mitral annular and aortic valve calcifications. 1.3 cm right thyroid nodule. Mildly prominent mediastinal lymph nodes, likely reactive. Small hiatal hernia. The hepatic parenchyma is normal without focal lesion. Cholelithiasis without cholecystitis. No suspicious hepatic lesions. The spleen, pancreas, and adrenal glands are unremarkable. Bilateral simple and hemorrhagic renal cysts. There is no hydronephrosis or obstructive nephrolithiasis. The urinary bladder is normal. The prostate is mildly enlarged. The bowel is unremarkable. There is no bowel thickening or obstruction. The appendix is normal. No ascites or pneumoperitoneum. No suspicious lymphadenopathy in the abdomen or pelvis. Bilateral fat-containing inguinal hernias. The course and caliber of the abdominal aorta and its branching vessels are normal. Degenerative changes of the spine. No suspicious osseous lesions. Age indeterminant superior endplate compression deformity of L5. IMPRESSION: 1. Severe aortic valvular stenosis. 2. Aortic annulus, and abdominal aortic, common iliac, external iliac and femoral artery measurements in preparation for TAVR procedure as described above. 3. Aortic valve calcium score: Agatston 2487, Volume 1919 mm3. The radiology attending physician has personally reviewed this study, and had reviewed and/or edited this written report and agrees with it. Electronically signed by: Johan Berg M.D. Fredi Moulton MD [facility] [facility] PROCEDURES Final Result * LEFT HEART CATHETERIZATION WITH CORONARY ANGIOGRAPHY AND WITH AND WITHOUT LEFT VENTRICULOGRAM, VASCULAR ACCESS US GUIDANCE, ZULY MAJOR CORONARY, PERCUTANEOUS CORONARY LITHROTRIPSY W/ PCI (+) [id number], CORONARY OCT, 1ST VESSEL, PCI ZULY STENT ADDTN'L COR BRANCH (+) [id number] (10/27/2024 2:02 PM CDT) Anatomical Region Laterality Modality X-Ray Angiograph y Narrative 10/28/2024 7:29 AM CDT CARDIAC CATHETERIZATION AND INTERVENTION REPORT DATE OF PROCEDURE: 10/27/24 INDICATION FOR PROCEDURE: Severe aortic stenosis, preaortic valve replacement cardiac catheterization BRIEF CLINICAL HISTORY: Zaheer Godinez is a 84 y.o. male with severe aortic stenosis, CAD, history of remote ? RCA PCI/stenting-intervention report not available; CHF with preserved ejection fraction, hypertension, COPD with chronic hypoxemic respiratory failure on home O2, history of GI bleed, obesity, history of heavy tobacco abuse. Patient has worsening dyspnea on exertion, multifactorial from severe plus underlying COPD/respiratory failure, anemia. Recently hospitalized for recurrent GI bleed, can not rule out Heyde's syndrome. Recent echo from 09/19/2024 performed at [facility] reportedly showed preserved LV systolic function, diastolic dysfunction, poorly visualized aortic valve with severe aortic stenosis, V max 5.81 m/sec, mean gradient 96 mmHg, JAVIER 0.7 cm2. I spoke at length with the patient and his about his severe aortic stenosis and management options. He was willing to proceed with TAVR workup which includes cardiac catheterization followed by CT angiogram of chest, abdomen and pelvis. Patient and his were advised that aortic valve replacement will not completely resolve patient's symptoms of dyspnea as he has underlying COPD/respiratory failure requiring supplemental oxygen. They verbalized understanding. Benefits and risks of the procedure were discussed with the patient in depth, and informed consent was taken prior to the procedure. Risks of the procedure include but are not limited to vascular complications like groin hematoma, retroperitoneal bleed, vessel perforation; periprocedural IA, cardiac arrhythmias, stroke, contrast induced nephropathy, and . After discussing all the benefits, risks and alternatives, patient was willing to proceed with the procedure. PROCEDURES PERFORMED: Ultrasound-guided right radial arterial access Selective left and right coronary angiogram Percutaneous coronary intervention- A) intravascular ultrasound-IVUS of left main-left anterior descending artery B) IVUS guided PCI-intravascular lithotripsy (shockwave IVL) of calcific stenosis in the proximal and mid LAD, followed by PTCA/stenting of proximal LAD using a 3.5 x 18 mm, and PTCA/stenting of mid LAD using 3.0 x 15 mm Medtronic gallito Spencer zotarolimus eluting stents in a nonoverlapping fashion Moderate sedation-CPT code 50691 and beyond MODERATE SEDATION: Midazolam 0.5 mg , Fentanyl 25 mcg, start time 1225 stop time 1402, total direct [id number] monitoring of conscious sedation 97 minutes (CPT 71610) TRAINED OBSERVER: Shantelle Hardy RN was trained observer for moderate sedation. ACCESS SITE: Right radial artery PROCEDURE: After obtaining informed consent, patient was brought to the lab support tech and prepped and draped in the usual sterile manner. Time-out and immediate reassessment of the patient was performed. After local anesthesia with lidocaine, right radial artery access was taken with micropuncture needle under ultrasound guidance followed by insertion of a 6 Chilean sheath. 200 mcg of nitroglycerin and 2.5 mg of verapamil was given intra-arterial, and 5000 units of unfractionated heparin was given IV. During PCI, bivalirudin was used for procedural anticoagulation. Selective left and right coronary angiography was performed using 5 F AL1 and 5F 3D RC catheters respectively. Orthogonal views were taken. Estimated blood loss was minimal. All specimens removed. The angiographic and other findings, and details of intervention are given below. FINDINGS: LEFT MAIN CORONARY: Large caliber vessel, minimal narrowing in the distal most segment before vessel bifurcates into LAD and left circumflex branches. LEFT ANTERIOR DESCENDING ARTERY: Large caliber vessel, tapers distally and reaches LV apex. There is diffuse calcific stenosis in the proximal segment with about 80% focal stenosis; moderate diffuse calcific stenosis in the mid segment just distal to the major diagonal branch. Major diagonal branch is a medium caliber vessel without significant focal stenosis. LEFT CIRCUMFLEX ARTERY: Large caliber, at least codominant vessel, gives rise to large caliber OM branch and LPDA with minor irregularities and no significant focal stenosis. There is about 30-50% stenosis in the mid-distal left circumflex artery proximal to the origin of the LPDA. Faint [id number]-[id number] collaterals are seen. 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 Faint guok-do-dbsmr collaterals were noted on left coronary angiogram. LEFT VENTRICULOGRAM: Not performed PELVIC ANGIOGRAM: Not performed HEMODYNAMIC ASSESSMENT: Opening pressure 120/80 mmHg, closing pressure 149/84 mmHg. INTERVENTION REPORT: Based on angiographic findings, we proceeded with a PCI on proximal and mid LAD. Left main was selectively engaged using 6 Chilean XB 3 guide catheter. Patient was given aspirin and loading dose of clopidogrel 600 mg in the lab support tech. Bivalirudin used for procedural anticoagulation. The stenosis in the proximal and mid LAD was crossed using 0.014 Asahi black guidewire. Next, IVUS was performed which showed densely calcific stenosis in the proximal segment, and could not be advanced at the bend in the mid segment. Proximal reference diameter 3.4 x 3.6 mm. Diameter in the stenotic segment was 2.8 x 3.1 mm. Next, balloon angioplasty was performed using 2.5 x 12 mm NC balloon in the proximal segment. This balloon could not be advanced to the mid segment, therefore, a 2.0 x 8 mm NC balloon was advanced to the mid sec balloon angioplasty was performed. After this, we proceeded with the intravascular lithotripsy using a 3.5 x 12 mm shockwave IVL balloon. Multiple cycle of intravascular lithotripsy were performed in the mid and proximal segment. After this, 3.0 x 15 mm Medtronic gallito Spencer ZES was advanced in the mid segment , was placed just distal to the major diagonal branch and was deployed at a maximum of 16 atmospheres. After this, a 3.5 x 18 mm Medtronic gallito Spencer ZES was deployed in the proximal segment. Postdilation was performed using a 3.5 x 12 mm NC balloon at high inflation pressures. IVUS showed good stent apposition. Final angiogram showed good angiographic results with MALCOLM 3 flow, no angiographically visible dissection or distal embolization. Radial band was applied for local hemostasis. Patient tolerated procedure well without any immediate procedural complications. CONCLUSIONS: CAD- A) diffuse calcific stenosis proximal LAD with about 80% stenosis in the proximal segment; moderate calcific stenosis mid LAD at the origin of the major diagonal branch; B) 30-50% stenosis mid-distal segment of codominant LCX; C) 100% ISR mid RCA with bridging and faint [id number] collaterals IVUS guided PCI- IVL (shockwave) of calcific stenosis in the proximal and mid LAD, followed by PTCA/stenting of proximal LAD using a 3.5 x 18 mm Medtronic gallito Spencer ZES, and 3.0 x 15 mm Medtronic gallito Spencer ZES in the mid segment. PLAN/RECOMMENDATIONS: Dual antiplatelet therapy with aspirin and clopidogrel, high-dose statin. CTA chest, abdomen and pelvis, heart team evaluation and followed by TAVR in near future. Voice recognition software was used to complete this document, therefore, restaurant crew variances may occur. Fredi Moulton MD, [facility] 10/27/24 us Fredi Moulton MD CV CARDIAC CATH PROCEDURES Final Result * (ABNORMAL) Pro B-type natriuretic peptide (10/24/2024 12:46 PM CDT) [facility] proBNP 4,073(H) 0 - 486 pg/mL [facility] Comment: The following cut-points have been suggested for the use of proBNP for the diagnostic evaluation of heart failure (HF) in patients with acute dyspnea: Modality Age Optimal Cut (years) Point Diagnosis (rule in HF) <50 450 pg/mL 50 - 75 900 pg/mL >75 1800 pg/mL Exclusion (rule out HF) Age independent 300 pg/mL Blood 10/24/2024 12:4 6 PM CDT 10/24/2024 Narrative [facility] - 10/25/2024 8:11 AM CDT Performed at: - [address] [id number] Devops: Jordon Colvin PhD, Phone: [phone] Specimen Comment: A courtesy copy of this report has been sent to [phone] us Fredi Moulton MD LAB BLOOD ORDERABLES Final Resul t [facility] - 01 * (ABNORMAL) CBC with auto differential (10/24/2024 12:46 PM CDT) WBC 8.8 3.4 - 10.8 x10E3/uL [facility] - 01 RBC 4.15 4.14 - 5.80 x10E6/uL [facility] - 01 Hgb 11.6(L) 13.0 - 17.7 g/dL [facility] - 01 Hct 38.6 37.5 - 51.0 % [facility] - 01 MCV 93 79 - 97 fL [facility] - 01 MCH 28.0 26.6 - 33.0 pg [facility] - 01 MCHC 30.1(L) 31.5 - 35.7 g/dL [facility] - 01 Rdw 13.5 11.6 - 15.4 % [facility] - 01 Platelets 237 150 - 450 x10E3/uL [facility] - 01 Neutrophils pct 66 Not Estab. % [facility] - 01 Lymphs pct 23 Not Estab. % [facility] - 01 Monocytes pct 8 Not Estab. % [facility] - 01 Eosinophils pct 2 Not Estab. % [facility] - 01 Basophil pct 1 Not Estab. % [facility] - 01 Neutrophil abs 5.8 1.4 - 7.0 x10E3/uL [facility] - 01 Lymphs (Absolute) 2.0 0.7 - 3.1 x10E3/uL [facility] - 01 Monocyte abs 0.7 0.1 - 0.9 x10E3/uL [facility] - 01 Eosinophils, abs 0.2 0.0 - 0.4 x10E3/uL [facility] - 01 Basophils, abs 0.1 0.0 - 0.2 x10E3/uL [facility] - 01 Immature Granulocytes 0 Not Estab. % [facility] - 01 Immature Grans (Abs) 0.0 0.0 - 0.1 x10E3/uL [facility] - 01 Blood 10/24/2024 12:4 6 PM CDT 10/24/2024 Narrative [facility] - 10/25/2024 7:09 AM CDT Performed at: [address] [id number] Devops: Jordon Colvin PhD, Phone: [phone] us Fredi Moulton MD LAB BLOOD ORDERABLES Final Resul t [facility] - 01 * (ABNORMAL) Comprehensive metabolic panel (10/24/2024 12:46 PM CDT) Glucose 109(H) 70 - 99 mg/dL [facility] - 01 BUN 28(H) 8 - 27 mg/dL [facility] - 01 Creatinine, Serum 2.26(H) 0.76 - 1.27 mg/dL [facility] - 01 eGFR 28(L) >59 mL/min/1.7 3 [facility] - 01 BUN/creat ratio 12 10 - 24 [facility] - 01 Sodium 145(H) 134 - 144 mmol/L [facility] - 01 Potassium, sr 4.9 3.5 - 5.2 mmol/L [facility] - 01 Chloride 107(H) 96 - 106 mmol/L [facility] - 01 CO2 23 20 - 29 mmol/L [facility] - 01 Calcium 9.0 8.6 - 10.2 mg/dL [facility] - 01 Protein, sr 6.7 6.0 - 8.5 g/dL [facility] - 01 Albumin 3.9 3.7 - 4.7 g/dL [facility] - 01 Globulin, Total 2.8 1.5 - 4.5 g/dL [facility] - 01 Bilirubin, Total 0.2 0.0 - 1.2 mg/dL [facility] - 01 Alk phos 95 44 - 121 IU/L [facility] - 01 AST 18 0 - 40 IU/L [facility] - 01 ALT 11 0 - 44 IU/L [facility] - 01 Blood 10/24/2024 12:4 6 PM CDT 10/24/2024 Narrative [facility] - 10/25/2024 7:09 AM CDT Performed at: 01 - [facility] [address] [id number] Devops: Jordon Colvin PhD, Phone: [phone] us Fredi Moulton MD LAB BLOOD ORDERABLES Final Resul t [facility] - 01 * (ABNORMAL) POCT lipid panel (10/12/2024 9:45 AM CDT) Cholesterol, POC 120 <200 MG/DL HDL, POC 32(A) >=40 mg/dL Triglycerides, POC 110 <=149 mg/dL LDL Cholesterol POC 66 <=129 mg/dL Chol/HDL Ratio, POC 2.0 NONE Non-HDL Cholesterol, POC 87 NONE mg/dL Cholesterol Total, POC 120 30 - 199 mg/dL Capillary blood 10/12/2024 9 :45 AM CDT us Fredi Moulton MD POINT OF CARE TEST ORDERABLES Fi nal Result * Electrocardiogram Report (10/12/2024) 10/12/2024 us Fredi Moulton MD ECG ORDERABLES Edited Result - Final from Last 3 Months Insurance [employer] PPO [employer] P[employer] Advance Directives For more information, please contact: [phone] Documents on File Type Date Recorded Patient Qc Tech Expl anation ADVANCE DIRECTIVE 11/21/2024 4:23 PM POWER OF MAIL CARRIER AND CLERK-MEDICAL ADVANCE DIRECTIVE 11/21/2024 4:23 PM LIVING WILL ADVANCE DIRECTIVE 11/21/2024 4:23 PM POWER OF MAIL CARRIER AND CLERK-MEDICAL ADVANCE DIRECTIVE 11/15/2024 1:16 PM Power of Surgery Aid-Medical Care Teams Battery Technician Relationship Specialty Start Date End Date Pelon Maurer DO PCP - General Internal Medicine 12/16/23
--- OUTSIDE RECORDS SUMMARY | 2024-12-29 06:38 | XMS_ITS | Encounter Summary ---
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
--- OUTSIDE RECORDS SUMMARY | 2024-12-29 06:38 | XMS_ITS | Encounter Summary ---
Author Organization [facility] Healthcare Address [address] [place] [address] Care Team Providers Care Target Setter Name Role Phone Pelon Maurer DO Primary Care Provider [phone] Encounter Details Date Type Department Care Team (Late st Contact Info) Description 09/22/2024 [place] [facility] [place] [address] [place] [address] Scanning, Provider Social History Tobacco Use Types Packs/Day Years Used Date Smoking Tobacco: Former Cigarettes 2 34.6 0 1955 - 02/13/1990 Smokeless Tobacco: Never Alcohol Use Standard Drinks/Week Comments Yes 0 (1 standard drink = 0.6 oz pur e alcohol) Sex and Gender Information Value Date Recorded Sex Assigned at Not on file Legal 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 Male 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 Gender Identity Male 03/10/2021 7:22 PM CDT Sexual Orientation Straight 03/10/2021 7: 22 PM CDT documented as of this encounter Plan of Treatment Not on file documented as of this encounter Procedures Procedure Name Priority Date/Time Associated Diagnosis Comments SCAN - RADIOLOGY/IMAGING 09/22/2024 documented in this encounter Results * SCAN - RADIOLOGY/IMAGING (09/22/2024) Anatomical Region Laterality Modality Other us Provider Scanning Final Result documented in this encounter Visit Diagnoses Not on filedocumented in this encounter Care Teams Target Setter Relationship Specialty Start Date End Date Pelon Maurer DO PCP - General Internal Medicine 12/16/23 documented as of this encounter
--- OUTSIDE RECORDS SUMMARY | 2024-12-29 06:38 | XMS_ITS | Encounter Summary ---
Author Organization [facility] Address [address] [place] [address] Care Team Providers Care Bank Advisor Name Role Phone Pelon Maurer DO Primary Care Provider [phone] Encounter Details Date Type Department Care Team (Late st Contact Info) Description 12/27/2024 External Device Data [facility] ABSTRACTION Provider, Abstract NO ADDRESS ON FILE Social History Tobacco Use Types Packs/Day Years Used Date Smoking Tobacco: Former Cigarettes 2 44 0 06/15/1946 - 06/15/1989 Smokeless Tobacco: Never Alcohol Use Standard Drinks/Week Comments Yes 1 (1 standard drink = 0.6 oz pure alcohol) only on occasion, usually less than 1 per week Sex and Gender Information Value Date Recorded Sex Assigned at Male 10/11/2024 5:05 PM CDT Legal Sex Male 3:21 PM 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 CIGAR MAKING SUPERVISOR Gender Identity Male 10/11/2024 5:05 PM CDT Sexual Orientation Straight 10/11/2024 5: 05 PM CDT documented as of this encounter Plan of Treatment Upcoming Encounters Date Type Department Care Team (Late st Contact Info) Description 01/31/2025 11:30 AM CDT [facility] Oncology and Hematology - [place] [address] [facility] [address] [place] [address] Issa Khan MD [address] [facility] [address] [place] [address] documented as of this encounter Visit Diagnoses Not on filedocumented in this encounter Care Teams Bank Advisor Relationship Specialty Start Date End Date Pelon Maurer DO [address] [facility] [address] [facility] [address] [place] [address] PCP - General Internal Medicine 02/23/24 documented as of this encounter
--- OUTSIDE RECORDS SUMMARY | 2024-12-29 06:38 | XMS_ITS | Encounter Summary ---
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
--- OUTSIDE RECORDS SUMMARY | 2024-12-29 06:38 | XMS_ITS | Encounter Summary ---
Author Organization [facility] Address [address] [place] [address] Care Team Providers Care Equipment Validation Engineer Name Role Phone Pelon Maurer DO Primary Care Provider [phone] Encounter Details Date Type Department Care Team (Late st Contact Info) Description 12/28/2024 External Device Data [facility] ABSTRACTION [...] PM CDT Legal Sex Male 3:21 PM CLIENT SERVICES 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 Gender Identity Male 10/11/2024 5:05 PM CDT Sexual Orientation Straight 10/11/2024 5: 05 PM CDT documented as of this encounter Plan of Treatment Upcoming Encounters Date Type Department Care Team (Late st Contact Info) Description 01/31/2025 11:30 AM CDT Office Visit [facility] Oncology and Hematology - [place] [address] [facility] [address] [place] [address] Issa Khan MD [address] [facility] [address] [place] [address] documented as of this encounter Visit Diagnoses Not on filedocumented in this encounter Care Teams Equipment Validation Engineer Relationship Specialty Start Date End Date Pelon Maurer DO [address] [facility] 162 [facility] [address] [place] [address] PCP - General Internal Medicine 02/23/24 documented as of this encounter
--- OUTSIDE RECORDS SUMMARY | 2024-12-29 06:38 | XMS_ITS | Encounter Summary ---
Author Organization [facility] Address 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 Gender Identity Male 10/11/2024 5:05 PM CDT Sexual Orientation Straight 10/11/2024 5: 05 PM CDT documented as of this encounter Plan of Treatment Upcoming Encounters Date Type Department Care Team (Late st Contact Info) Description 01/31/2025 11:30 AM CDT Office Visit [facility] Oncology and Hematology - [place] [address] [facility] [address] [place] [address] Issa Khan MD [address] [facility] [address] [place] [address] documented as of this encounter Visit Diagnoses Not on filedocumented in this encounter Care Teams Payroll And Benefits Specialist Relationship Specialty Start Date End Date Pelon Maurer DO [address] [facility] 162 [facility] [address] [place] [address] PCP - General Internal Medicine 02/23/24 documented as of this encounter
--- OUTSIDE RECORDS SUMMARY | 2024-12-29 06:38 | XMS_ITS | Encounter Summary ---
Author Organization [facility] Healthcare Address [address] [place] [address] Care Team Providers Care Mold Design Engineer Name Role Phone Pelon Maurer Primary Care Provider [phone] Encounter Details Date Type Department Care Team (Late st Contact Info) Description 09/21/2024 [place] Only [facility] [place] Information Management [address] [place] [address] Scanning, Provider Social History Tobacco Use Types Packs/Day Years Used Date Smoking Tobacco: Former Cigarettes 2 34.6 0 1955 - 02/13/1990 Smokeless Tobacco: Never Alcohol Use Standard Drinks/Week Comments Yes 0 (1 standard drink = 0.6 oz pur e alcohol) Sex and Gender Information Value Date Recorded Sex Assigned at Not on file 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 Gender Identity Male 03/10/2021 7:22 PM CDT Sexual Orientation Straight 03/10/2021 7: 22 PM CDT documented as of this encounter Plan of Treatment Not on file documented as of this encounter Procedures Procedure Name Priority Date/Time Associated Diagnosis Comments CARDIOLOGY DOCUMENT SCAN 09/21/2024 SCAN - RADIOLOGY/IMAGING 09/20/2024 documented in this encounter Results * Cardiology Document Scan (09/21/2024) Anatomical Region Laterality Modality Other us Provider Scanning CV CARDIAC SERVICES PROCEDURES Final Result * SCAN - RADIOLOGY/IMAGING (09/20/2024) Anatomical Region Laterality Modality Other us Provider Scanning Final Result documented in this encounter Visit Diagnoses Not on filedocumented in this encounter Care Teams Mold Design Engineer Relationship Specialty Start Date End Date Pelon Maurer DO PCP - General Internal Medicine 12/16/23 documented as of this encounter
--- OUTSIDE RECORDS SUMMARY | 2024-12-29 06:38 | XMS_ITS | Encounter Summary ---
Author Organization [facility] Healthcare Address [address] [place] [address] Care Team Providers Care Underwear Trimmer Name Role Phone Pelon Maurer DO Primary Care Provider [phone] Encounter Details Date Type Department Care Team (Late st Contact Info) Description 09/18/2024 [place] [facility] [place] Information Management [address] [place] [address] Scanning, Provider Social History Tobacco Use Types Packs/Day Years Used Date Smoking Tobacco: Former Cigarettes 2 34.6 0 1955 - 02/13/1990 Smokeless Tobacco: Never Alcohol Use Standard Drinks/Week Comments Yes 0 (1 standard drink = 0.6 oz pur e alcohol) Sex and Gender Information Value Date Recorded Sex Assigned at Not on file Legal Sex Male 2: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 BUTTON BROACHER Gender Identity Male 03/10/2021 7:22 PM CDT Sexual Orientation Straight 03/10/2021 7: 22 PM CDT documented as of this encounter Plan of Treatment Not on file documented as of this encounter Procedures Procedure Name Priority Date/Time Associated Diagnosis Comments SCAN - RADIOLOGY/IMAGING 09/18/2024 documented in this encounter Results * SCAN - RADIOLOGY/IMAGING (09/18/2024) Anatomical Region Laterality Modality Other us Provider Scanning Final Result documented in this encounter Visit Diagnoses Not on filedocumented in this encounter Care Teams Underwear Trimmer Relationship Specialty Start Date End Date Pelon Maurer DO PCP - General Internal Medicine 12/16/23 documented as of this encounter
--- OUTSIDE RECORDS SUMMARY | 2024-12-29 06:38 | XMS_ITS | Clinical Summary ---
Author Organization [facility] [address] Address [address] [place] [address] Care Team Providers Care Shared Services And Outsourcing Manager Name Role Phone LibertadPelon morales Primary Care Provider [phone] Allergies No known active allergies Medications albuterol [...] disease 07/25/2018 Coronary artery disease invo lving [place] coronary artery of [place] heart without angina pectoris 09/09/2017 History of coronary artery stent placement 09/09 Presence of coronary angioplasty implant and gra ft 09/09/2017 Resolved Problems Problem Noted Date Diagnosed Date Resolved Date Morbid (severe) obesity due to excess calories 03/20/2022 04/02/2023 Encounters Date Type Department Care Team Description 12/20/2024 10:45 AM CDT Office Visit [facility] Cardiology at [address] [place] [phone] Johan Crane MD Coronary artery disease involving [place] coronary artery of [place] heart without angina pectoris (Primary Dx); History of coronary artery stent placement; S/P TAVR (transcatheter aortic valve replacement) 12/06/2024 [facility] Post Discharge Follow up phone call [address] [address] [place]ividad [place] 12/06/2024 [facility] Post Discharge Follow up phone call [address] [address] [place]ivid[place] 11/21/2024 Telephone [facility] Medical [facility] Cardiology [address] [place] [address] [place] [phone] Fredi Moulton MD 11/17/2024 8:30 AM CDT - 11/17/2024 11:00 AM CDT Surgery [facility] Cardiac Catheterization Lab [address] [place] [phone] Fredi Moulton MD TAVR 11/17/2024 8:14 AM CDT Anesthesia Event [facility] Cardiac Catheterization Lab [address] [place] [address] Cristel Pelayo MD 11/17/2024 8:03 AM CDT - 11/17/2024 11:59 PM CDT Hospital Encounter [facility] Non-invasive Cardiac Diagnostic Testing [address] [place] [address] Discharge Disposition: Discharge to home or self care 11/17/2024 6:14 AM CDT - 11/18/2024 12:53 [place] [address] Fredi Moulton MD Severe aortic stenosis Discharge Disposition: Discharge to home or self care 11/15/2024 12:25 PM CDT - 11/15/2024 11:59 PM CDT Hospital Encounter [facility] Diagnostic Imaging [address] [place] [address] Discharge Disposition: Discharge to home or self care 11/15/2024 12:15 PM CDT Pre-Admission Testing [facility] Pre Anesthesia Testing [address] [place] [address] Pre-operative exam (Primary Dx); Severe aortic stenosis; Chronic anticoagulation 11/10/2024 Documentation Cardiothoracic Surgery Loren Ott RN 11/09/2024 Orders Only [facility] Non-invasive Cardiac Diagnostic Testing [address] [place] [address] Fredi Moulton MD Severe aortic stenosis (Primary Dx) 11/09/2024 Orders Only [facility] Cardiac Catheterization Lab [address] [place] [address] Fredi Moulton MD 11/03/2024 1:15 PM CDT Office Visit [facility] Surgery [id number] [place] [phone] Tanvir Rosa MD Aortic valve stenosis, etiology of cardiac valve disease unspecified (Primary Dx); Nonrheumatic aortic valve stenosis 11/03/2024 11:58 AM CDT - 11/03/2024 11:59 PM CDT Hospital Encounter [facility] Respiratory [address] [place] [address] COPD (chronic obstructive pulmonary disease) (HCC); On home oxygen therapy; Pre-procedural examination Discharge Disposition: Discharge to home or self care 11/03/2024 10:30 AM CDT - 11/03/2024 11:59 PM CDT Hospital Encounter [facility] Imaging and Radiology [id number] [place] [phone] Severe aortic stenosis Discharge Disposition: Discharge to home or self care 11/03/2024 Documentation Cardiothoracic Surgery Loren Ott RN 11/02/2024 Results Follow-Up [facility] Cardiology [address] [place] [address] [place] [phone] Jelly Zhao RN [facility] Mobile Cardiac Telemetry Event Monitor 10/27/2024 11:30 AM CDT - 10/27/2024 1:00 PM CDT Surgery [facility] Cardiac Catheterization Lab [address] [place] [address] Fredi Moulton MD LEFT HEART CATHETERIZATION WITH CORONARY ANGIOGRAPHY AND WITH OR WITHOUT LEFT VENTRICULOGRAM [id number] 10/27/2024 9:04 AM CDT - 10/27/2024 5:55 PM CDT Hospital Encounter [facility] Cardiac Catheterization Lab [address] [place] [address] Fredi Moulton MD Severe aortic stenosis Discharge Disposition: Discharge to home or self care 10/19/2024 Telephone [facility] Cardiology [address] [place] [address] [place] [phone] Fredi Moulton MD 10/18/2024 Cardiology Conference Cardiology Loren Ott RN 10/17/2024 Orders Only Cardiology Fredi Moulton MD COPD (chronic obstructive pulmonary disease) (HCC) (Primary Dx); On home oxygen therapy; Pre-procedural examination 10/12/2024 9:45 AM CDT Office Visit [facility] Cardiology [address] [place] [address] [place] [phone] Fredi Moulton MD Severe aortic stenosis (Primary Dx); Acute on chronic diastolic congestive heart failure (HCC); Coronary artery disease involving [place] coronary artery of [place] heart without angina pectoris; History of coronary artery stent placement; Primary hypertension; Chronic respiratory failure with hypoxia, on home O2 therapy (HCC); History of GI bleed 10/12/2024 Telephone [facility] Cardiology [address] [place] [phone] Marla Mcmahon RN 10/12/2024 Orders Only [facility] Non-invasive Cardiac Diagnostic Testing [address] [place] [address] Fredi Moulton MD Severe aortic stenosis (Primary Dx) from Last 3 Months Surgical History Surgery Date Site/Laterality Comments ANGIOPLASTY 1999, 2004 CATARACT EXTRACTION 2014 HERNIA REPAIR CARDIAC CATHETERIZATION 10/27/2024 N/A Procedure: LEFT HEART CATHETERIZATION WITH CORONARY ANGIOGRAPHY AND WITH OR WITHOUT LEFT VENTRICULOGRAM 79029; Surgeon: Fredi Moulton MD; Location: CARDIAC FLIGHT OPERATION COORDINATOR; Service: Cardiovascular; Laterality: N/A; Medical devices from this surgery are in the Medical Devices section. CARDIAC CATHETERIZATION 10/27/2024 N/A Procedure: ULTRASOUND GUIDANCE FOR VASCULAR ACCESS S&I 35795; Surgeon: Fredi Moulton MD; Location: CARDIAC FLIGHT OPERATION COORDINATOR; Service: Cardiovascular; Laterality: N/A; Medical devices from this surgery are in the Medical Devices section. CARDIAC CATHETERIZATION 10/27/2024 N/A Procedure: PCI ZULY MAJOR CORONARY C9600 - 74812; Surgeon: Fredi Moulton MD; Location: CARDIAC FLIGHT OPERATION COORDINATOR; Service: Cardiovascular; Laterality: N/A; Medical devices from this surgery are in the Medical Devices section. CARDIAC CATHETERIZATION 10/27/2024 N/A Procedure: Percutaneous Coronary Lithotripsy W/ PCI (+) [id number]; Surgeon: Fredi Moulton MD; Location: CARDIAC FLIGHT OPERATION COORDINATOR; Service: Cardiovascular; Laterality: N/A; Medical devices from this surgery are in the Medical Devices section. CARDIAC CATHETERIZATION 10/27/2024 N/A Procedure: IVUS/OCT CORS OR GRAFTS, FIRST VESSEL (+) [id number]; Surgeon: Fredi Moulton MD; Location: CARDIAC FLIGHT OPERATION COORDINATOR; Service: Cardiovascular; Laterality: N/A; Medical devices from this surgery are in the Medical Devices section. COLONOSCOPY CARDIAC CATHETERIZATION 11/17/2024 Chest/N/A Procedure: TAVR; Surgeon: Fredi Moulton MD; Location: CARDIAC FLIGHT OPERATION COORDINATOR; Service: Cardiovascular; Laterality: N/A; Medical devices from this surgery are in the Medical Devices section. SMALL INTESTINE SURGERY small bleed 2024 Medical History Medical History Date Comments Hypertension Hypertension Adiposity Obesity GERD (gastroesophageal reflux disease) 2000 Depression 1975 Heart disease 1999 Sleep apnea 2013 Peptic ulceration ? Kidney stone 1970 Anemia 2021 Arrhythmia Lung disease COPD (chronic obstructive pu lmonary disease) (HCC) Cancer (HCC) skin cancer on n ose removed Severe aortic stenosis History of transfusion week of had 2 units of PRBC's Dizziness on standing states has been happening since early September 2024 Cataract 2018 Chronic bronchitis (HCC) 2016 Clotting disorder 2021 Family History Medical History Relation Name Comments Cancer Brother 2 Kg Heart disease Brother 2 Kg Other Brother 2 Kg Implantable Def ibrillator; Heart disease Brother 3 Don Heart disease Brother 4 Don Cancer Father [place] Hearing loss Father [place] Obesity Father [place] Diabetes Mother Marla Relation Name Status Comments Brother 1 Alive Brother 2 Kg Brother 3 Don Brother 4 Balwinder Alive Father [place] Alive Mother Marla Alive Social History Tobacco Use Types Packs/Day Years [...] on file Legal Sex 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 Gender Identity Male 03/10/2021 7:22 PM CDT [...] 12/20/2024 10:41 AM CDT Plan of Treatment Health Maintenance Due Date Last Done Comments Depression Screening 1940 Hepatitis B Screening 1957 Zoster Vaccine (1 of 2) 1989 Well Visit 65+ 2004 Influenza Vaccine (#1) 2025 0, 03/15/2019, 03/14/2019, Additional history exists Fall Risk Assessment 11/18/2025 11/18/2024 DTaP/Tdap/Td Vaccine (2 - Td or Tdap) 12/29/2027 12/28/2017 Pneumococcal vaccine 65+ Completed 019, 12/13/2018, 03/28/2015 Medical Devices Implanted Type Area It Help Desk Manager Device Identifier Shelf Expiration Date Model / Serial / Lot Ramirez Lifesciences Valve Aortic Trnscath Pramod 3 Ultra Resilia 23mm [id number] - [id number] - [id number] Implanted:Qty: 1 on 11/17/2024 by Fredi Moulton MD at [facility] Prosthetic Valve Ramirez [employer]iences 01/27/2027 [id number] / [id number] / Access Closure Inc Device 10ml 5fr Closure Mynx Control 2 Mode Balloon Catheter [id number] - [id number] Implanted:Qty: 1 on 11/17/2024 by Fredi Moulton MD at [facility] Vascular Closure Device Access Closure Inc 09/15/2026 [id number] / / [id number] Medtronic Card Vasc Surgery 3.0 X 15mm [place] Rx Coronary Stent [id number] - [id number] Implanted:Qty: 1 on 10/27/2024 by Fredi Moulton MD at [facility] Medtronic Card Vasc Surgery 02/21/2027 [id number] / / [id number] Medtronic Card Vasc Surgery 3.5 X 18mm Fisher [place] Rx Coronary Stent [id number] - [id number] Implanted:Qty: 1 on 10/27/2024 [facility] 06/25/2027 [id number] / / [id number] Reyna Vascular System Closure Repair Femoral Artery Suture Mediated Perclose Prostyle 46844-86 - [id number] Implanted:Qty: 1 on 11/17/2024 by Fredi Moulton MD at [facility] [employer] 09/12/2026 [id number] / / [id number] Reyna Vascular System Closure Repair Femoral Artery Suture Mediated Perclose Prostyle 81288-98 - [id number] Implanted:Qty: 1 on 11/17/2024 by Fredi Moulton MD at [facility] [employer] 09/12/2026 [id number] / / [id number] Reyna Vascular System Closure Repair Femoral Artery Suture Mediated Perclose Prostyle 86616-92 - [id number] Implanted:Qty: 1 on 11/17/2024 by Fredi Moulton MD at [facility] [employer] 09/12/2026 [id number] / / [id number] Procedures Procedure Name Priority Date/Time Associated Diagnosis [...] PCI ZULY STENT ADDTN'L COR BRANCH (+) [id number] Routine 10/27/2024 2:02 PM CDT Severe aortic stenosis CORONARY OCT, 1ST VESSEL Routine 10/27/2024 2:02 PM CDT Severe aortic stenosis PERCUTANEOUS CORONARY LITHROTRIPSY W/ PCI (+) [id number] Routine 10/27/2024 2:02 PM CDT Severe aortic [...] 9:45 AM CDT Coronary artery disease involving [place] coronary artery of [place] heart without angina pectoris ELECTROCARDIOGRAM REPORT Routine 10/12/2024 Severe aortic stenosis Acute on chronic diastolic congestive heart failure (HCC) History of coronary artery stent placement from Last 3 Months Results * ECG 12 lead (11/18/2024 10:12 AM CDT) 11/18/2024 10:1 2 AM CDT Narrative [facility] - 11/18/2024 12:21 PM CDT Vent Rate: 88 bpm RR Interval: 677 msec ND Interval: 190 msec QRS Duration: 88 msec QT Interval: 382 msec QTC Interval: 428 msec P-R-T [place]: 91 - -52 - 109 degrees IMPRESSION: SINUS RHYTHM LEFT ANTERIOR FASCICULAR BLOCK LEFT VENTRICULAR HYPERTROPHY AND ST-T CHANGE Electronically Signed By: Fredi Moulton MD, [facility] Fredi Moulton MD ECG ORDERABLES Edited Result - Final [facility] * X-ray chest 1 view (Portable) (11/18/2024 [...] LAB BLOOD ORDERABLES Final Resul t ARCHIE [address] Department [place] [address] * (ABNORMAL) Differential, auto (11/18/2024 3:44 AM CDT) Neutrophil abs 10.27(H) 1.50 - 6.50 K/cumm Imm gran abs 0.05 0.00 - 0.10 K/cumm [facility] Lymphocyte abs 1.10 0.80 - 3.30 K/cumm [facility] Monocyte abs 1.19(H) 0.20 - 0.80 K/cumm [facility] Eosinophil abs 0.17 0.00 - 0.50 K/cumm CERNER Basophil abs 0.04 0.00 - 0.10 K/cumm CERNER Neutrophil pct 80.1 % [facility] Comment: Interpretive Data Percent cell count reference ranges are not reported, since discordance with absolute values may lead to misinterpretation of CBC data. Current Interpretive Data was last revised on 2017. Imm gran pct 0.4 % CERNER Comment: Interpretive Data Percent cell count reference ranges are not reported, since discordance with absolute values may lead to misinterpretation of CBC data. Current Interpretive Data was last revised on 2017. Lymphocyte pct 8.6 % CERNER Comment: Interpretive Data Percent cell count reference ranges are not reported, since discordance with absolute values may lead to misinterpretation of CBC data. Current Interpretive Data was last revised on 2017. Monocyte pct 9.3 % [facility] Comment: Interpretive Data Percent cell count reference ranges are not reported, since discordance with absolute values may lead to misinterpretation of CBC data. Current Interpretive Data was last revised on 2017. Eosinophil pct 1.3 % CERNER Comment: Interpretive Data Percent cell count reference ranges are not reported, since discordance with absolute values may lead to misinterpretation of CBC data. Current Interpretive Data was last revised on 2017. Basophil pct 0.3 % [facility] Comment: Interpretive Data Percent cell count reference ranges are not reported, since discordance with absolute values may lead to misinterpretation of CBC data. Current Interpretive Data was last revised on 2017. Blood 11/18/2024 3:44 AM CDT 11/18/2024 5:11 AM CDT us Fredi Moulton MD LAB BLOOD ORDERABLES Final Resul t ARCHIE GONGORA [address] Department [place] [address] * (ABNORMAL) Pro B-type natriuretic peptide (11/18/2024 [...] ORDERABLES Final Resul t Performing Organization Address [facility] de Phone Number ARCHIE GONGORA [address] [place] [address] * (ABNORMAL) CBC with auto differential (11/18/2024 3:44 AM CDT) WBC 12.82(H) 3.80 - 9.90 K/cumm Hgb 10.9(L) 13.0 - 17.5 g/dL [facility] Hct 37.5(L) 38.9 - 50.3 % [facility] Plt 161 150 - 400 K/cumm [facility] MPV 10.4 9.1 - 12.3 fL [facility] RBC 3.90(L) 4.30 - 5.80 M/cumm [facility] MCV 96.2 81.3 - 96.4 fL [facility] MCH 27.9 27.1 - 33.3 pg [facility] MCHC 29.1(L) 32.3 - 35.7 g/dL [facility] CH RDW CV 14.2 11.1 - 14.9 % [facility] CH RDW SD 50.1(H) 35.7 - 48.1 fL [facility] NRBC abs 0.00 0.00 - 0.01 K/cumm [facility] Blood 11/18/2024 3:44 AM CDT 11/18/2024 5:11 AM CDT Fredi Moulton MD LAB BLOOD ORDERABLES Final Resul t Performing Organization Address [facility] Co de Phone Number ARCHIE GONGORA [address] [place] [address] * aPTT (11/18/2024 3:44 AM CDT) Pathologist [facility] aPTT 31 28 - 38 sec Comment: Interpretive Data Heparin therapeutic range: 66.0 - 100.0 seconds. Range based on correlation with therapeutic heparin activity range of 0.3 - 0.7 Units/mL. Current interpretive data was last revised on 2023. Blood 11/18/2024 3:44 AM CDT 11/18/2024 5:12 AM CDT Fredi Moulton MD LAB BLOOD ORDERABLES Final Resul t Performing Organization Address [facility] de Phone Number ARCHIE [address] [facility] [place] [address] * Protime-INR (11/18/2024 3:44 AM CDT) PT 11.8 9.7 - 13.0 sec INR 1.09 0.90 - 1.20 ARCHIE GONGORA Comment: Interpretive data Oral anticoagulant therapeutic ranges: Venous thromboembolism prophylaxis or treatment: 2.0-3.0 CARDIOLOGY Standard range: 2.0-3.0 High-intensity range: 2.5-3.5 Refer to indication-specific guidelines for appropriate target ranges for prosthetic heart valve replacement. Current interpretive data was last revised on 2019. Blood 11/18/2024 3:44 AM CDT 11/18/2024 5:12 AM CDT Fredi Moulton MD LAB BLOOD ORDERABLES Final Resul t Performing Organization Address [facility] de Phone Number VAMSIFELICIA GONGORA [address] [place] [address] * Magnesium (11/18/2024 3:44 AM CDT) Magnesium 1.7 1.4 - 2.5 mg/dL Blood 11/18/2024 3:44 AM CDT 11/18/2024 5:13 AM CDT Fredi Moulton MD LAB BLOOD ORDERABLES Final Resul t Performing Organization Address [facility] de Phone Number ARCHIE [address] [facility] [place] [address] * (ABNORMAL) Comprehensive metabolic panel (11/18/2024 3:44 [...] LAB BLOOD ORDERABLES Final Resul t ARCHIE [address] [place] [address] * TRANSTHORACIC ECHO (TTE) COMPLETE W DOPPLER/CF W CONTRAST (11/17/2024 3:49 PM CDT) EF Mod BP 67 % CONS SCIMAGE Anatomical Region Laterality Modality Ultrasound 11/17/2024 2:19 PM CDT Narrative 11/17/2024 9:27 [place] [address] Echocardiogram Report Patient Name: ZAHEER GODINEZ C : 1940 Study Date: 11/17/2024 2:19:39 PM Gender: M Tech: Location: [id number] [facility] Provider: FREDI MOULTON Height(Cm): 170 BSA: 2.22 [...] mmHg. Electronically Signed By: Fredi Moulton MD, [facility] 11/17/2024 9:27:03 PM CDT Procedure Note Fredi Moulton MD - 11/17/2024 [place] [address] Echocardiogram Report Patient Name: ZAHEER GODINEZ C : 1940 Study Date: 11/17/2024 2:19:39 PM Gender: M Tech: Location: [id number] Ref Provider: FREDI MOULTON Height(Cm): 170 BSA: [...] mmHg. Electronically Signed By: Fredi Moulton MD, [facility] 11/17/2024 9:27:03 PM CDT us Fredi Moulton [...] * POCT glucose (11/17/2024 11:27 AM CDT) Glucose, POC 121 70 - 199 mg/dL POC Performer [id number] ARCHIE GONGORA Blood 11/17/2024 11:2 7 AM CDT 11/17/2024 11:27 AM CDT Fredi Moulton MD LAB POCT ORDERABLES - DEVICE Fin al Result ARCHIE GONGORA [address] Department [place] [address] * TRANSCATHETER AORTIC VALVE REPLACEMENT (TAVR) OPEN [...] syndrome. Recent echo from 09/19/2024 performed at [facility] reportedly showed preserved LV systolic function, diastolic dysfunction, poorly visualized aortic valve with severe aortic stenosis, V max 5.81 m/sec, mean gradient 96 mmHg, JAVIER 0.7 cm2. He underwent pre AVR cardiac catheterization on 10/27/2024 which showed multivessel CAD with diffuse calcific stenosis proximal LAD; 100% ISR mid RCA with bridging and faint pifx-fq-xesht collaterals; status post PCI-IVUS, INSEAMER/stenting of proximal LAD using ZULY x2. Patient's [...] groin hematoma, retroperitoneal bleed, vessel perforation; periprocedural OR, stroke; cardiac arrhythmias including conduction abnormality requiring [...] informed consent, patient was brought to the quality lab technician and prepped and draped in the usual sterile manner. Time-out and immediate reassessment of the patient was performed. Patient was placed under MAC by the anesthesiologist team. Right common femoral artery access was taken with micropuncture needle under ultrasound guidance followed by insertion of a 6 Dutch sheath over a 0.035 inch wire. Left common femoral artery access was taken with micropuncture needle under ultrasound guidance followed by insertion of a 6 Dutch sheath over a 0.035 inch wire. Right common femoral venous access was taken with micropuncture needle under ultrasound guidance followed by insertion of a 5 Dutch long sheath. Access of the right common [...] guidance, followed by insertion of a 6 Dutch sheath over a stiff wire. After this, 2 Perclose devices were placed. A balloon tipped transvenous pacemaker was placed through the venous sheath under fluoroscopic guidance and was positioned in the right ventricle. Pacing thresholds were checked. The 5-Dutch pigtail catheter was then advanced into the aortic root through left common femoral arterial sheath. The pigtail catheter was placed in the non-coronary cusp for cusp isolation technique. An aortogram was performed in the coplanar view. Next, the 6-Dutch arterial sheath on the right femoral artery was removed and after serial dilations, a 14 Dutch Ramirez sheath was inserted into the abdominal aorta under fluoroscopic guidance. A 5 Dutch AL1 catheter was advanced over a 035 wire into the aortic root. The aortic valve was then crossed using a 0.35 straight-tipped wire. The AL1 catheter was advanced in the LV cavity, and then it was exchanged with a pigtail catheter. LVEDP was measured at 14 mmHg. Next, safari wire was introduced and pigtail catheter was taken [place]. [place] [address] units of heparin for procedural anticoagulation. ACT [...] iliac runoff was performed using the 5 Dutch pigtail catheter. The pelvic angiogram showed preserved flow in the iliac arteries without any angiographically visible dissection. A Mynx control vascular closure device was deployed at left common femoral arterial access site. The temporary pacemaker wire was taken out in the quality lab technician. Estimated blood loss minimal. All specimens removed. [...] was used to complete this document, therefore, extrusion utility worker variances may occur. Fredi Moulton MD, [facility] 11/17/24 Fredi Moulton MD CV CARDIAC CATH PROCEDURES Final Result * (ABNORMAL) POC Activated Clotting Time, High Range (11/17/2024 10:13 AM CDT) ACT 382(H) 87 - 138 sec POC Performer [id number] ARCHIE Blood 11/17/2024 10:1 3 AM CDT 11/17/2024 10:13 AM CDT Fredi Moulton MD LAB BLOOD ORDERABLES Final Resul t Performing Organization Address [facility]/ZIP Co de Phone Number ARCHIE GONGORA [address] [place] [address] * Type and screen (11/17/2024 7:15 AM CDT) Logan, indirect Negative ABO Rh A Positive [facility] Blood 11/17/2024 7:15 AM CDT 11/17/2024 7:37 AM CDT Narrative ARCHIE - 11/17/2024 8:26 AM CDT Has the patient had Daratumumab or Isatuximab in the past 6 months?->Unknown Fredi Moulton MD LAB BLOOD BANK TEST ORDERABLES F inal Result ARCHIE GONGORA [address] [place] [address] * Prepare RBC: 2 Units (11/17/2024 6:30 AM CDT) Pathologist [facility] Product code [id number] Unit Number [id number] 1-D [facility] Product Blood Type APOS [facility] Dispense Status RETURNED [facility] Product code [id number] [facility] Unit Number [id number] 2-V [facility] CH Product Blood Type APOS [facility] Dispense Status RETURNED [facility] Blood 11/17/2024 6:30 AM CDT Narrative [facility] - 11/21/2024 3:22 AM CDT Specify Procedure:->TAVR Are special requirements needed? (All products are leukoreduced and CMV- safe)- >No Date required:-[id number] LRRBC # of [id number] Reasons:-Hold for procedure (specify procedure)} Fredi Moulton MD BLOOD BANK PRODUCT ORDERABLES Fi nal Result [facility] [address] Department [place] [address] * (ABNORMAL) Differential, auto (11/15/2024 1:33 PM CDT) Pathologist [facility] [place] Neutrophil abs 6.45 1.50 - 6.50 K/cumm Imm gran abs 0.05 0.00 - 0.10 K/cumm [facility] Lymphocyte abs 1.53 0.80 - 3.30 K/cumm [facility] Monocyte abs 0.83(H) 0.20 - 0.80 K/cumm [facility] Eosinophil abs 0.30 0.00 - 0.50 K/cumm [facility] Basophil abs 0.07 0.00 - 0.10 K/cumm [facility] Neutrophil pct 69.8 % [facility] Comment: Interpretive Data Percent cell count reference ranges are not reported, since discordance with absolute values may lead to misinterpretation of CBC data. Current Interpretive Data was last revised on 2017. Imm gran pct 0.5 % [facility] Comment: Interpretive Data Percent cell count reference ranges are not reported, since discordance with absolute values may lead to misinterpretation of CBC data. Current Interpretive Data was last revised on 2017. Lymphocyte pct 16.6 % [facility] Comment: Interpretive Data Percent cell count reference ranges are not reported, since discordance with absolute values may lead to misinterpretation of CBC data. Current Interpretive Data was last revised on 2017. Monocyte pct 9.0 % [facility] Comment: Interpretive Data Percent cell count reference ranges are not reported, since discordance with absolute values may lead to misinterpretation of CBC data. Current Interpretive Data was last revised on 2017. Eosinophil pct 3.3 % [facility] Comment: Interpretive Data Percent cell count reference ranges are not reported, since discordance with absolute values may lead to misinterpretation of CBC data. Current Interpretive Data was last revised on 2017. Basophil pct 0.8 % [facility] Comment: Interpretive Data Percent cell count reference ranges are not reported, since discordance with absolute values may lead to misinterpretation of CBC data. Current Interpretive Data was last revised on 2017. Blood 11/15/2024 1:33 PM CDT 11/15/2024 1:33 PM CDT us Fredi Moulton MD LAB BLOOD ORDERABLES Final Resul t [facility] [address] Department [place] [address] * (ABNORMAL) CBC with auto differential (11/15/2024 1:33 PM CDT) WBC 9.23 3.80 - 9.90 K/cumm Hgb 11.9(L) 13.0 - 17.5 g/dL [facility] Hct 39.8 38.9 - 50.3 % [facility] Plt 212 150 - 400 K/cumm [facility] MPV 10.3 9.1 - 12.3 fL [facility] RBC 4.25(L) 4.30 - 5.80 M/cumm [facility] MCV 93.6 81.3 - 96.4 fL [facility] MCH 28.0 27.1 - 33.3 pg [facility] MCHC 29.9(L) 32.3 - 35.7 g/dL [facility] CH RDW CV 14.2 11.1 - 14.9 % [facility] RDW SD 48.7(H) 35.7 - 48.1 fL [facility] NRBC abs 0.00 0.00 - 0.01 K/cumm [facility] Blood 11/15/2024 1:33 PM CDT 11/15/2024 1:33 PM CDT Fredi Moulton MD LAB BLOOD ORDERABLES Final Resul t Performing Organization Address [facility] Co de Phone Number [facility] [address] [place] [address] * (ABNORMAL) eGFR (11/15/2024 1:32 PM CDT) eGFR 29(L) >=60 mL/min/1. 73 m2 Comment: [...] ORDERABLES Final Resul t Performing Organization Address City/[facility]/ZIP Co de Phone Number [facility] [address] [employer] [place], [place] [id number] * (ABNORMAL) Pro B-type natriuretic peptide (11/15/2024 [...] LAB BLOOD ORDERABLES Final Resul t [facility] OGNGORA [address] Department [place] [address] * aPTT (11/15/2024 1:32 PM CDT) aPTT [...] ORDERABLES Final Resul t Performing Organization Address [facility] de Phone Number [facility] [address] [place] [address] * Protime-INR (11/15/2024 1:32 PM CDT) [facility] PT 11.1 9.7 - 13.0 sec INR 1.03 0.90 - 1.20 [facility] Comment: Interpretive data Oral anticoagulant therapeutic ranges: Venous thromboembolism prophylaxis or treatment: 2.0-3.0 CARDIOLOGY Standard range: 2.0-3.0 High-intensity range: 2.5-3.5 Refer to indication-specific guidelines for appropriate target ranges for prosthetic heart valve replacement. Current interpretive data was last revised on 2019. Blood 11/15/2024 1:32 PM CDT 11/15/2024 1:32 PM CDT Fredi Moulton MD LAB BLOOD ORDERABLES Final Resul t Performing Organization Address [facility] de Phone Number ARCHIE [address] [facility] [employer] [place], [place] [id number] * (ABNORMAL) Comprehensive metabolic panel (11/15/2024 1:32 PM CDT) Pathologist [facility] [place] Sodium 144 135 - 145 mmol/L Potassium, pl 4.7 3.3 - 4.9 mmol/L [facility] Chloride 110 97 - 110 mmol/L [facility] CO2 23 22 - 32 mmol/L [facility] Anion gap 11 2 - 15 mmol/L [facility] BUN 26(H) 6 - 25 mg/dL [facility] [...] CH AST 25 10 - 50 Units/L [facility] Blood 11/15/2024 1:32 PM CDT 11/15/2024 1:32 PM CDT Fredi Moulton MD LAB BLOOD ORDERABLES Final Resul t [facility] [address] Department [place] [address] * Type and screen (11/15/2024 1:15 PM CDT) ABO Rh A Positive Logan, indirect Negative [facility] Blood 11/15/2024 1:15 PM CDT 11/15/2024 1:33 PM CDT Narrative [facility] - 11/15/2024 2:51 PM CDT Has the patient had Daratumumab or Isatuximab in the past 6 months?->Unknown Fredi Moulton MD LAB BLOOD BANK TEST ORDERABLES F inal Result Performing Organization Address [facility] de Phone Number ARCHIE GONGORA [address] [facility] Department [place] [address] * ECG 12 lead (11/15/2024 1:12 PM CDT) 11/15/2024 1:12 PM CDT Narrative [facility] - 11/15/2024 2:19 PM CDT Vent Rate: 70 bpm RR Interval: 855 msec ND Interval: 168 msec QRS Duration: 86 msec QT Interval: 414 msec QTC Interval: 434 msec P-R-T [place]: 30 - -44 - -3 degrees IMPRESSION: SINUS RHYTHM MARKED LEFT AXIS DEVIATION PATTERN CONSISTENT WITH PULMONARY DISEASE MODERATE VOLTAGE CRITERIA FOR LVH, CONSIDER NORMAL VARIANT ABNORMAL ECG Electronically Signed By: Tarik Cason MD Fredi Moulton MD ECG ORDERABLES Final Result Performing Organization Address [facility] Phone Number [facility] [address] [facility] * X-ray chest 2 views (11/15/2024 12:43 [...] Electronically signed by: Kg Waite II, D.O. Fredi Moulton MD IMG XR PROCEDURES Final Result * Pulmonary Function Test -[facility]; Complete/Full (11/03/2024 12:55 PM CDT) Anatomical Region Laterality Modality PFT Narrative 11/03/2024 3:18 PM CDT Mild obstructive ventilatory impairment with a severe reduction in the diffusing capacity. No evidence of an upper airway obstruction by flow volume loop. Clive Rinaldi MD [facility] Fredi Moulton MD PFT ORDERABLES Final Result [...] from annulus: 13 mm Deployment angle: 9 ESTONIAN, 5 Caudal Coronary Arteries: Anomalous coronary artery [...] from annulus: 13 mm Deployment angle: 9 ESTONIAN, 5 Caudal Coronary Arteries: Anomalous coronary artery [...] by: Johan Berg M.D. Fredi Moulton MD IM CT PROCEDURES Final Result * LEFT HEART CATHETERIZATION WITH CORONARY ANGIOGRAPHY AND WITH AND WITHOUT LEFT VENTRICULOGRAM, VASCULAR ACCESS US GUIDANCE, ZULY MAJOR CORONARY, PERCUTANEOUS CORONARY LITHROTRIPSY W/ PCI (+) [id number], CORONARY OCT, 1ST VESSEL, PCI ZULY STENT ADDTN'L COR BRANCH (+) [id number] (10/27/2024 2:02 PM CDT) Anatomical Region Laterality [...] syndrome. Recent echo from 09/19/2024 performed at [facility] reportedly showed preserved LV systolic function, diastolic [...] groin hematoma, retroperitoneal bleed, vessel perforation; periprocedural OR, cardiac arrhythmias, stroke, contrast induced nephropathy, and [...] using 3.0 x 15 mm Medtronic gallito North Powder zotarolimus eluting stents in a nonoverlapping fashion Moderate sedation-CPT code 37737 and beyond MODERATE SEDATION: Midazolam 0.5 mg , Fentanyl 25 mcg, start time 1225 stop time 1402, total direct pkgv-bh-mesv monitoring of conscious sedation 97 minutes (CPT 33588) TRAINED OBSERVER: Shantelle Hardy RN was trained observer for moderate sedation. ACCESS SITE: Right radial artery PROCEDURE: After obtaining informed consent, patient was brought to the quality lab technician and prepped and draped in the usual sterile manner. Time-out and immediate reassessment of the patient was performed. After local anesthesia with lidocaine, right radial artery access was taken with micropuncture needle under ultrasound guidance followed by insertion of a 6 Dutch sheath. 200 mcg of nitroglycerin and 2.5 [...] to the origin of the LPDA. Faint szcc-cd-owsjo collaterals are seen. 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 Faint jjkt-wj-emhmd collaterals were noted on left coronary angiogram. LEFT VENTRICULOGRAM: Not performed PELVIC ANGIOGRAM: Not performed HEMODYNAMIC ASSESSMENT: Opening pressure 120/80 mmHg, closing pressure 149/84 mmHg. INTERVENTION REPORT: Based on angiographic findings, we proceeded with a PCI on proximal and mid LAD. Left main was selectively engaged using 6 Dutch XB 3 guide catheter. Patient was given aspirin and loading dose of clopidogrel 600 mg in the quality lab technician. Bivalirudin used for procedural anticoagulation. The stenosis [...] this, 3.0 x 15 mm Medtronic gallito North Powder ZES was advanced in the mid segment , was placed just distal to the major diagonal branch and was deployed at a maximum of 16 atmospheres. After this, a 3.5 x 18 mm Medtronic gallito North Powder ZES was deployed in the proximal segment. [...] ISR mid RCA with bridging and faint adee-qm-jlhuk collaterals IVUS guided PCI- IVL (shockwave) of calcific stenosis in the proximal and mid LAD, followed by PTCA/stenting of proximal LAD using a 3.5 x 18 mm Medtronic gallito North Powder ZES, and 3.0 x 15 mm Medtronic gallito North Powder ZES in the mid segment. PLAN/RECOMMENDATIONS: Dual antiplatelet therapy with aspirin and clopidogrel, high-dose statin. CTA chest, abdomen and pelvis, heart team evaluation and followed by [facility] in near future. Voice recognition software was used to complete this document, therefore, extrusion utility worker variances may occur. Fredi Moulton MD, [facility] 10/27/24 Fredi Moulton MD CV CARDIAC CATH PROCEDURES Final Result * (ABNORMAL) Pro B-type natriuretic peptide (10/24/2024 12:46 PM CDT) Pathologist [facility] [place] proBNP 4,073(H) 0 - 486 pg/mL [facility] - 01 Comment: The following cut-points have [...] - 10/25/2024 8:11 AM CDT Performed at: [address] [id number] Property Maintenance Technician: Jordon Colvin PhD, Phone: [phone] Specimen Comment: A courtesy copy of this report has been sent to [phone] us Fredi Moulton MD LAB BLOOD ORDERABLES Final Resul t [facility] - 01 * (ABNORMAL) CBC with auto differential (10/24/2024 12:46 PM CDT) Pathologist [facility] [place] WBC 8.8 3.4 - 10.8 x10E3/uL [facility] [...] - 10/25/2024 7:09 AM CDT Performed at: - [facility] [id number] Property Maintenance Technician: Jordon Colvin PhD, Phone: [phone] us Fredi Moulton MD LAB BLOOD ORDERABLES Final Resul t [facility] * (ABNORMAL) Comprehensive metabolic panel (10/24/2024 12:46 PM CDT) [facility] Glucose 109(H) 70 - 99 mg/dL [facility] [...] - 10/25/2024 7:09 AM CDT Performed at: [address] [place] [id number] Property Maintenance Technician: Jordon Colvin PhD, Phone: [phone] us Fredi Moulton MD LAB BLOOD ORDERABLES Final Resul t [facility] - 01 * (ABNORMAL) POCT lipid panel (10/12/2024 9:45 AM CDT) [facility] Cholesterol, POC 120 <200 MG/DL HDL, POC [...] - Final from Last 3 Months Insurance [place] [employer] Advance Directives For more information, please contact: [phone] Documents on File Type Date Recorded Patient Oil Field Pipeline Supervisor Expl anation ADVANCE DIRECTIVE 11/21/2024 4:23 PM POWER OF REAL ESTATE DIRECTOR-MEDICAL ADVANCE DIRECTIVE 11/21/2024 4:23 PM LIVING WILL ADVANCE DIRECTIVE 11/21/2024 4:23 PM POWER OF REAL ESTATE DIRECTOR-MEDICAL ADVANCE DIRECTIVE 11/15/2024 1:16 PM Power of Sample Clerk-Medical Care Teams Shared Services And Outsourcing Manager Relationship Specialty Start Date End Date Pelon Maurer DO PCP - General Internal Medicine 12/16/23
--- OUTSIDE RECORDS SUMMARY | 2024-12-29 06:38 | XMS_ITS | Clinical Summary ---
Author Organization [facility] Address [address] [place] [address] Phone Care Team Providers Care Rf Microwave Engineer Name Role Phone Libertad[facility]elon Primary Care Provider [phone] Allergies No known active allergies Medications Lutein-Zeaxanth [...] Other bipolar disorder 07/25/2018 Coronary arteriosclerosis in [place] artery 07/25 Mixed hyperlipidemia 07/25/2018 Chronic diastolic [...] on file Legal Sex Male 8:31 AM [facility] Gender Identity Not on file Sexual Orientation [...] 11:23 AM CDT Height 172.7 cm (5' 8) 05/09/2019 9:50 AM WELFARE INTERVIEWER Body Mass Index 39.99 05/09/2019 9:50 AM WELFARE INTERVIEWER Plan of Treatment Health Maintenance Due Date Last Done Comments Pneumococcal PPSV23/PCV13 65 + Years / Low and Medium Risk (2 of 3 - PCV) 03/14/2020 03/14/2019 Influenza Vaccine (#1) 2025 Insurance MEDICARE [facility] [place] [address] Care Teams Rf Microwave Engineer Relationship Specialty Start Date End Date Pelon Maurer DO [address] [place] [id number] PCP - General Internal Medicine 03/24/22
--- OUTSIDE RECORDS SUMMARY | 2024-12-29 06:38 | XMS_ITS | Encounter Summary ---
Author Organization [facility] Healthcare Address [address] [place] [address] Care Team Providers Care Automotive Design Drafter Name Role Phone Pelon Maurer Primary Care Provider [phone] Encounter Details Date Type Department Care Team (Late st Contact Info) Description 11/02/2024 Results Follow-Up [facility] Medical Group Cardiology [address] [place] [address] Jelly Zhao RN MCT Mobile Cardiac Telemetry Event Monitor Social History Tobacco Use Types Packs/Day Years Used Date Smoking Tobacco: Former Cigarettes 2 34.6 0 1955 - 02/13/1990 Smokeless Tobacco: Never Alcohol Use Standard Drinks/Week Comments Yes 0 (1 standard drink = 0.6 oz pur e alcohol) AUDIT-C Answer Date Recorded Q1: How often do you have a drink containing alc ohol? Monthly or less 10/27/2024 Q2: How many drinks containi ng alcohol do you have on a typical day when you are drinking? 1 or 2 10/27/2024 Q3: How often do you have si x or more drinks on one occasion? Never 10/27/2024 Personal Safety Answer Date Recorded Have you ever been in or are you currently in a harmful physical or emotional relationship or is someone making you feel afraid or unsafe? Denies 10/27/2024 Sex and Gender Information Value Date Recorded Sex Assigned at Not on file Legal Sex Male 2:02 AM REAL ESTATE DEVELOPMENT MANAGER Gender Identity Male 03/10/2021 7:22 PM CDT Sexual Orientation Straight 03/10/2021 7: 22 PM CDT documented as of this encounter Plan of Treatment Not on file documented as of this encounter Visit Diagnoses Not on filedocumented in this encounter Care Teams Automotive Design Drafter Relationship Specialty Start Date End Date Pelon Maurer DO PCP - General Internal Medicine 12/16/23 documented as of this encounter
--- OUTSIDE RECORDS SUMMARY | 2024-12-29 06:38 | XMS_ITS | Encounter Summary ---
Author Organization [facility] Healthcare Address [address] [place] [address] Care Team Providers Care Repair Table Operator Name Role Phone Pelon Maurer DO Primary Care Provider [phone] Encounter Details Date Type Department Care Team (Late st Contact Info) Description 10/18/2024 Cardiology Conference Cardiology Loren Ott RN Social History Tobacco Use Types Packs/Day Years Used Date Smoking Tobacco: Former Cigarettes 2 34.6 0 1955 - 02/13/1990 Smokeless Tobacco: Never Alcohol Use Standard Drinks/Week Comments Yes 0 (1 standard drink = 0.6 oz pur e alcohol) Sex and Gender Information Value Date Recorded Sex Assigned at Not on file Legal Sex Male 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
== END 2024-12-29 06:36 | disposition home or self-care (01) ==
PROVIDERS: PCP Internal Medicine; Visit Provider Internal Medicine Nephrology
DX: N28.1 Cyst of kidney, acquired (principal); K86.2 Cyst of pancreas; N28.89 Other specified disorders of kidney and ureter
CPT/HCPCS: 74183; A9577

== ENCOUNTER 2025-01-26 08:27 | Outpatient (CLI) | payer OTHER, SELFPAY ==
--- OUTSIDE RECORDS SUMMARY | 2025-01-26 08:33 | XMS_ITS | Clinical Summary ---
Author Organization [facility] [address] Address [address] [place] [address] Care Team Providers Care Electronic Warfare Technical Name Role Phone LibertadPelon morales Primary Care Provider [phone] Allergies No known active allergies Medications albuterol (PROVENTIL,NICHOLAS CHRISS) 2.5 mg/0.5 mL solution for nebulization inhale 0.5 milliliter (2.5MG) by nebulization route 3 times every day 0 3 Active Additional Information Patient taking differently: 2.5 mg nebulization Every 8 hours PRN, Reported on 01/11/2025 atorvastatin (LIPITOR) 40 mg tablet take 1 tablet (40MG) by oral route every day 0 3 Active Additional Information Patient taking differently:40 mgoral Nightly, Reported on 01/11/2025 lamoTRIgine (LaMICtal) 25 mg tablet take 1 Tablet by oral route 2 times every day 0 0 4 Active Additional Information Patient taking differently: 50 mg oral Every morning, Reported on 01/11/2025 ARIPiprazole (ABILIFY) 2 mg tablet 2 mg. 0 7 Active Additional Information Patient taking differently:2 mgoral Nightly, Reported on 01/11/2025 guaiFENesin 1,200 mg tablet extended release 12hr [...] Patient taking differently:75 mg oralNightly, Reported on 01/11/2025 ketoconazole (NIZORAL) 2 % shampoo Apply topically once a week 5 Active hydrocortisone 2.5 % solution Apply 1 Application topically daily as needed Active aspirin 81 mg enteric coated tablet Take 1 tablet (81 mg total) by mouth daily 30 tablet 11 5 026 Active Additional Information Patient taking differently:81 mg oralEvery morning, Reported on 01/11/2025 lutein-zeaxanthi n 25-5 mg capsule Take 1 [...] disease 07/25/2018 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 09/09/2017 History of coronary artery stent placement 09/09 Presence of coronary angioplasty implant and gra ft 09/09/2017 Resolved Problems Problem Noted Date Diagnosed Date Resolved Date Morbid (severe) obesity due to excess calories 03/20/2022 04/02/2023 Encounters Date Type Department Care Team Description 01/11/2025 9:30 AM CDT Office Visit [facility] Medical [facility] Cardiology [address] [place] [address] Fredi Moulton MD S/P TAVR (transcatheter aortic valve replacement) (Primary Dx); 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; Status post angioplasty with stent; Chronic respiratory failure with hypoxia, on home O2 therapy ([facility]) 12/20/2024 10:45 AM CDT Office Visit [facility] Cardiology at [address] [place] [address] Johan Crane MD 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 (Primary Dx); History of coronary artery stent placement; S/P TAVR (transcatheter aortic valve replacement) 12/06/2024 [facility] Post Discharge Follow up phone call [address] [address] [place] 12/06/2024 [facility] Post Discharge Follow up phone call [address] [address] [place] 11/21/2024 Telephone [facility] Medical [facility] Cardiology [address] [place] [address] [address] YOBANY Gibson [phone] Fredi Moulton MD 11/17/2024 8:30 AM CDT - 11/17/2024 11:00 AM CDT Surgery [facility] [address] [place] [address] Fredi Moulton MD TAVR 11/17/2024 8:14 AM CDT Anesthesia Event [facility] [address] [place] [address] Cristel Pelayo MD 11/17/2024 8:03 AM CDT - 11/17/2024 11:59 PM CDT Hospital Encounter [facility] Non-invasive Cardiac Diagnostic Testing [address] [place] [address] Discharge Disposition: Discharge to home or self care 11/17/2024 6:14 AM CDT - 11/18/2024 12:53 [place] [address] Fredi Moulton MD Severe aortic stenosis Discharge Disposition: Discharge to home or self care 11/15/2024 12:25 PM CDT - 11/15/2024 11:59 PM CDT Hospital Encounter [facility] Diagnostic [facility] [address] [place] [address] Discharge Disposition: Discharge to home or self care 11/15/2024 12:15 PM CDT Pre-Admission Testing [facility] Pre Anesthesia Testing [address] [place] [address] Pre-operative exam (Primary Dx); Severe aortic stenosis; Chronic anticoagulation 11/10/2024 Documentation Cardiothoracic Surgery Loren Ott RN 11/09/2024 Orders Only [facility] Non-invasive Cardiac Diagnostic Testing [address] [place] [address] Fredi Moulton MD Severe aortic stenosis (Primary Dx) 11/09/2024 Orders Only [facility] [address] [place] [address] Fredi Moulton MD 11/03/2024 1:15 PM CDT Office Visit [facility] Surgery [address] [place] [phone] Tanvir Rosa MD Aortic valve stenosis, etiology of cardiac valve disease unspecified (Primary Dx); Nonrheumatic aortic valve stenosis 11/03/2024 11:58 AM CDT - 11/03/2024 11:59 PM CDT Hospital Encounter [facility] Respiratory [address] [place] [address] COPD (chronic obstructive pulmonary disease) (HCC); On home oxygen therapy; Pre-procedural examination Discharge Disposition: Discharge to home or self care 11/03/2024 10:30 AM CDT - 11/03/2024 11:59 PM CDT Hospital Encounter [facility] [address] [place] [address] Severe aortic stenosis Discharge Disposition: Discharge to home or self care 11/03/2024 Documentation Cardiothoracic Surgery Loren Ott RN 11/02/2024 Results Follow-Up [facility] Medical Group Cardiology [address] [place] [address] Jelly Zhao RN [facility] Mobile Cardiac Telemetry Event Monitor 10/27/2024 11:30 AM CDT - 10/27/2024 1:00 PM CDT Surgery [facility] [address] [place] [address] Fredi Moulton MD LEFT HEART CATHETERIZATION WITH CORONARY ANGIOGRAPHY AND WITH OR WITHOUT LEFT VENTRICULOGRAM [id number] 10/27/2024 9:04 AM CDT - 10/27/2024 5:55 PM CDT Hospital Encounter [facility] [address] [place] [address] Fredi Moulton MD Severe aortic stenosis Discharge Disposition: Discharge to home or self care from Last 3 Months Surgical History Surgery Date Site/Laterality Comments ANGIOPLASTY 1999, 2004 CATARACT EXTRACTION 2015 HERNIA REPAIR CARDIAC CATHETERIZATION 10/27/2024 N/A Procedure: LEFT HEART CATHETERIZATION WITH CORONARY ANGIOGRAPHY AND WITH OR WITHOUT LEFT VENTRICULOGRAM [id number]; Surgeon: Fredi Moulton MD; Location: CARDIAC DIESEL FITTER MECHANIC; Service: Cardiovascular; Laterality: N/A; Medical devices from this surgery are in the Medical Devices section. CARDIAC CATHETERIZATION 10/27/2024 N/A Procedure: ULTRASOUND GUIDANCE FOR VASCULAR ACCESS S&I [id number]; Surgeon: Fredi Moulton MD; Location: CARDIAC DIESEL FITTER MECHANIC; Service: Cardiovascular; Laterality: N/A; Medical devices from this surgery are in the Medical Devices section. CARDIAC CATHETERIZATION 10/27/2024 N/A Procedure: PCI ZULY MAJOR CORONARY C9600 - 99563; Surgeon: Fredi Moulton MD; Location: CARDIAC DIESEL FITTER MECHANIC; Service: Cardiovascular; Laterality: N/A; Medical devices from this surgery are in the Medical Devices section. CARDIAC CATHETERIZATION 10/27/2024 N/A Procedure: Percutaneous Coronary Lithotripsy W/ PCI (+) [id number]; Surgeon: Fredi Moulton MD; Location: CARDIAC DIESEL FITTER MECHANIC; Service: Cardiovascular; Laterality: N/A; Medical devices from this surgery are in the Medical Devices section. CARDIAC CATHETERIZATION 10/27/2024 N/A Procedure: IVUS/OCT CORS OR GRAFTS, FIRST VESSEL (+) [id number]; Surgeon: Fredi Moulton MD; Location: CARDIAC DIESEL FITTER MECHANIC; Service: Cardiovascular; Laterality: N/A; Medical devices from this surgery are in the Medical Devices section. COLONOSCOPY CARDIAC CATHETERIZATION 11/17/2024 Chest/N/A Procedure: TAVR; Surgeon: Fredi Moulton MD; Location: CARDIAC DIESEL FITTER MECHANIC; Service: Cardiovascular; Laterality: N/A; Medical devices from this surgery are in the Medical Devices section. SMALL INTESTINE SURGERY small bleed 2024 Medical History Medical History Date Comments Hypertension Hypertension Adiposity Obesity GERD (gastroesophageal reflux disease) 1999 Depression 1975 Heart disease 1999 Sleep apnea 2012 Peptic ulceration ? 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 Gender Identity Male 03/10/2021 7:22 PM CDT Sexual Orientation Straight 03/10/2021 7: 22 PM CDT Obstetrics History Last Filed Vital Signs Vital Sign Reading Time Taken Comments Blood Pressure 120/72 01/11/2025 9:39 AM CDT Pulse 83 01/11/2025 9:39 AM CDT Temperature 36.9 C (98.4 F) 11/18/2024 7:41 AM CDT Respiratory Rate 18 11/18/2024 7:41 AM CDT Oxygen Saturation 92% 01/11/2025 9:39 AM CDT Inhaled Oxygen Concentration - - Weight 107 kg (236 lb) 01/11/2025 9:39 AM CDT Height 172.7 cm (5' 8) 01/11/2025 9:39 AM CDT Body Mass Index 35.88 01/11/2025 9:39 AM CDT Plan of Treatment Health Maintenance [...] 12/13/2018, 03/28/2015 Medical Devices Implanted Type Area Commercial Accountant Device Identifier Shelf Expiration Date Model / Serial / Lot Ramirez Lifesciences Valve Aortic Trnscath Pramod 3 Ultra Resilia 23mm [id number] - [id number] - [id number] Implanted:Qty: 1 on 11/17/2024 by Fredi Moulton MD at [facility] Prosthetic Valve [employer] 01/27/2027 [id number] / [id number] / Access Closure Inc Device 10ml 5fr Closure Mynx Control 2 Mode Balloon Catheter [id number] - [id number] Implanted:Qty: 1 on 11/17/2024 by Fredi Moulton MD at [facility] Vascular Closure Device Access Closure Inc 09/15/2026 [id number] / / [id number] Medtronic Card Vasc Surgery 3.0 X 15mm [place] Rx Coronary Stent [id number] - [id number] Implanted:Qty: 1 on 10/27/2024 by Fredi Moulton MD at [facility] Medtronic Card Vasc Surgery 02/21/2027 [id number] 15UX / / [id number] Medtronic Card Vasc Surgery 3.5 X 18mm [place] Rx Coronary Stent [id number] - [id number] Implanted:Qty: 1 on 10/27/2024 by Fredi Moulton MD at [facility] Medtronic Card Vasc Surgery 06/25/2027 [id number] 18UX / / [id number] Reyna Vascular System Closure Repair Femoral Artery Suture Mediated Perclose Prostyle 14578-96 - [id number] Implanted:Qty: 1 on 11/17/2024 by Fredi Moulton MD at [facility] [employer] 09/12/2026 [id number] / / [id number] Reyna Vascular System Closure Repair Femoral Artery Suture Mediated Perclose Prostyle 26282-27 - [id number] Implanted:Qty: 1 on 11/17/2024 by Fredi Moulton MD at [facility] [employer] 09/12/2026 [id number] / / [id number] Reyna Vascular System Closure Repair Femoral Artery Suture Mediated Perclose Prostyle 62238-48 - [id number] Implanted:Qty: 1 on 11/17/2024 by Fredi Moulton MD at [facility] [employer] 09/12/2026 [id number] / / [id number] Procedures Procedure Name Priority Date/Time Associated Diagnosis Comments ECG 12-LEAD Routine 11/18/2024 10:12 AM CDT XR CHEST 1 VIEW Routine 11/18/2024 6:47 AM CDT EGFR Routine 11/18/2024 3:44 AM CDT DIFFERENTIAL AUTO Routine 11/18/2024 3:4 4 AM CDT APTT Routine 11/18/2024 3:44 AM [...] 6:30 AM CDT DIFFERENTIAL AUTO Routine 11/15/2024 1:3 3 PM CDT Pre-operative exam CBC WITH AUTO [...] PCI ZULY STENT ADDTN'L COR BRANCH (+) [id number] Routine 10/27/2024 2:02 PM CDT Severe aortic stenosis CORONARY OCT, 1ST VESSEL Routine 10/27/2024 2:02 PM CDT Severe aortic stenosis PERCUTANEOUS CORONARY LITHROTRIPSY W/ PCI (+) [id number] Routine 10/27/2024 2:02 PM CDT Severe aortic stenosis ZULY MAJOR CORONARY Routine 10/27/2024 2: 02 PM CDT Severe aortic stenosis VASCULAR ACCESS US GUIDANCE Routine 10/27/2024 2:02 PM CDT Severe aortic stenosis LEFT HEART CATHETERIZATION WITH CORONARY ANGIOGRAPHY AND WITH AND WITHOUT LEFT VENTRICULOGRAM Routine 10/27/2024 2:02 PM CDT Severe aortic stenosis MODERATE SEDATION 10/27/2024 12:07 PM CDT Severe aortic stenosis from Last 3 Months Results * ECG 12 lead (11/18/2024 10:12 AM CDT) 11/18/2024 10:1 2 AM CDT Narrative [facility] - 11/18/2024 12:21 PM CDT Vent Rate: 88 bpm RR Interval: 677 msec [place] Interval: 190 msec QRS Duration: 88 msec QT Interval: 382 msec QTC Interval: 428 msec P-R-T [place]: 91 - -52 - 109 degrees IMPRESSION: SINUS RHYTHM LEFT ANTERIOR FASCICULAR BLOCK LEFT VENTRICULAR HYPERTROPHY AND ST-T CHANGE Electronically Signed By: Fredi Moulton MD, [facility] us Fredi Moulton MD ECG ORDERABLES Edited Result - Final [facility] * X-ray chest 1 view (Portable) (11/18/2024 [...] congestion. Electronically signed by: Terry Reeves M.D. Fredi [...] MD LAB BLOOD ORDERABLES Final Resul t [facility] [address] Department [place] [address] * (ABNORMAL) Differential, auto (11/18/2024 3:44 AM CDT) Neutrophil abs 10.27(H) 1.50 - 6.50 K/cumm Imm gran abs 0.05 0.00 - 0.10 K/cumm [facility] Lymphocyte abs 1.10 0.80 - 3.30 K/cumm [facility] Monocyte abs 1.19(H) 0.20 - 0.80 K/cumm [facility] Eosinophil abs 0.17 0.00 - 0.50 K/cumm [facility] Basophil abs 0.04 0.00 - 0.10 K/cumm [facility] Neutrophil pct 80.1 % [facility] Comment: Interpretive Data Percent cell count reference ranges are not reported, since discordance with absolute values may lead to misinterpretation of CBC data. Current Interpretive Data was last revised on 2017. Imm gran pct 0.4 % [facility] Comment: Interpretive Data Percent cell count reference ranges are not reported, since discordance with absolute values may lead to misinterpretation of CBC data. Current Interpretive Data was last revised on 2017. Lymphocyte pct 8.6 % [facility] Comment: Interpretive Data Percent cell count reference ranges are not reported, since discordance with absolute values may lead to misinterpretation of CBC data. Current Interpretive Data was last revised on 2017. Monocyte pct 9.3 % [facility] Comment: Interpretive Data Percent cell count reference ranges are not reported, since discordance with absolute values may lead to misinterpretation of CBC data. Current Interpretive Data was last revised on 2017. Eosinophil pct 1.3 % [facility] Comment: Interpretive Data Percent cell count reference ranges are not reported, since discordance with absolute values may lead to misinterpretation of CBC data. Current Interpretive Data was last revised on 2017. Basophil pct 0.3 % [facility] Comment: Interpretive Data Percent cell count reference ranges are not reported, since discordance with absolute values may lead to misinterpretation of CBC data. Current Interpretive Data was last revised on 2017. Blood 11/18/2024 3:44 AM CDT 11/18/2024 5:11 AM CDT us Fredi Moulton MD LAB BLOOD ORDERABLES Final Resul t [facility] [address] Department [place] [address] * (ABNORMAL) Pro B-type natriuretic peptide (11/18/2024 [...] ORDERABLES Final Resul t Performing Organization Address City/[facility] Co de Phone Number ARCHIE [address] [place] [address] * (ABNORMAL) CBC with auto differential (11/18/2024 3:44 AM CDT) WBC 12.82(H) 3.80 - 9.90 K/cumm Hgb 10.9(L) 13.0 - 17.5 g/dL [facility] Hct 37.5(L) 38.9 - 50.3 % [facility] Plt 161 150 - 400 K/cumm [facility] MPV 10.4 9.1 - 12.3 fL [facility] RBC 3.90(L) 4.30 - 5.80 M/cumm [facility] MCV 96.2 81.3 - 96.4 fL [facility] MCH 27.9 27.1 - 33.3 pg [facility] MCHC 29.1(L) 32.3 - 35.7 g/dL [facility] CH RDW CV 14.2 11.1 - 14.9 % [facility] CH RDW SD 50.1(H) 35.7 - 48.1 fL [facility] NRBC abs 0.00 0.00 - 0.01 K/cumm [facility] Blood 11/18/2024 3:44 AM CDT 11/18/2024 5:11 AM CDT Fredi Moulton MD LAB BLOOD ORDERABLES Final Resul t Performing Organization Address City/[facility]/ZIP Co de Phone Number ARCHIE [address] [place] [address] * aPTT (11/18/2024 3:44 AM CDT) aPTT 31 28 - 38 sec Comment: Interpretive Data Heparin therapeutic range: 66.0 - 100.0 seconds. Range based on correlation with therapeutic heparin activity range of 0.3 - 0.7 Units/mL. Current interpretive data was last revised on 2023. Blood 11/18/2024 3:44 AM CDT 11/18/2024 5:12 AM CDT Fredi Moulton MD LAB BLOOD ORDERABLES Final Resul t [facility] [address] [facility] [place] [address] * Protime-INR (11/18/2024 3:44 AM CDT) PT 11.8 9.7 - 13.0 sec INR 1.09 0.90 - 1.20 [facility] Comment: Interpretive data [...] BLOOD ORDERABLES Final Resul t [facility] [address] [facility] [place] [address] * Magnesium (11/18/2024 3:44 AM CDT) Magnesium 1.7 1.4 - 2.5 mg/dL Blood 11/18/2024 3:44 AM CDT 11/18/2024 5:13 AM CDT Fredi Moulton MD LAB [place]LOOD [place] [address] [address] Department [place] [address] * (ABNORMAL) Comprehensive metabolic panel (11/18/2024 3:44 [...] LAB BLOOD ORDERABLES Final Resul t [facility] [address] [facility] [place] Department of Laboratories [place] [id number] * TRANSTHORACIC ECHO (TTE) COMPLETE W DOPPLER/CF W CONTRAST (11/17/2024 3:49 PM CDT) EF Mod BP 67 % CONS SCIMAGE Anatomical Region Laterality Modality Ultrasound 11/17/2024 2:19 PM CDT Narrative 11/17/2024 9:27 PM CDT [address] [address] Echocardiogram Report Patient Name: WESLEY GODINEZ C : 1940 Study Date: 11/17/2024 2:19:39 PM Gender: M Tech: Location: [id number] Ref Provider: FREDI MOULTON Height(Cm): 170 BSA: [...] RVSP 28 mmHg. Electronically Signed By: Fredi Moutlon MD, [facility] 11/17/2024 9:27:03 PM CDT Procedure Note Fredi Moulton MD - 11/17/2024 [place] [address] Echocardiogram Report Patient Name: WESLEY GODINEZ C : 1940 Study Date: 11/17/2024 2:19:39 PM Gender: M Tech: RF Location: [id number] Ref Provider: FREDI MOULTON Height(Cm): 170 BSA: [...] mmHg. Electronically Signed By: Fredi Moulton MD, [facility] 11/17/2024 9:27:03 PM CDT us Fredi Moulton [...] 121 70 - 199 mg/dL POC Performer [id number] [facility] Blood 11/17/2024 11:2 7 AM CDT 11/17/2024 11:27 AM CDT Fredi Moulton MD LAB POCT ORDERABLES - DEVICE Fin al Result [facility] [address] [facility] [place] Department [place] [address] * TRANSCATHETER AORTIC VALVE REPLACEMENT (TAVR) OPEN FEMORAL ART APPROACH (11/17/2024 10:41 AM CDT) Anatomical Region Laterality Modality X-Ray Angiograph y Narrative 11/17/2024 11:08 AM CDT TRANSCATHETER AORTIC VALVE REPLACEMENT (TAVR) REPORT DATE OF PROCEDURE: 11/17/24 INDICATION FOR PROCEDURE: Severe, symptomatic aortic stenosis with multiple comorbidities BRIEF CLINICAL HISTORY: Wesley Godinez is a 84 y.o. male with [...] syndrome. Recent echo from 09/19/2024 performed at [facility] reportedly showed preserved LV systolic function, diastolic dysfunction, poorly visualized aortic valve with severe aortic stenosis, V max 5.81 m/sec, mean gradient 96 mmHg, JAVIER 0.7 cm2. He underwent pre AVR cardiac catheterization on 10/27/2024 which showed multivessel CAD with diffuse calcific stenosis proximal LAD; 100% ISR mid RCA with bridging and faint [id number] collaterals; status post PCI-IVUS, TRAIN SYSTEM OPERATOR/stenting of proximal LAD using ZULY x2. Patient's [...] groin hematoma, retroperitoneal bleed, vessel perforation; periprocedural HI, stroke; cardiac arrhythmias including conduction abnormality requiring [...] informed consent, patient was brought to the cathode ray tube assembler and prepped and draped in the usual sterile manner. Time-out and immediate reassessment of the patient was performed. Patient was placed under MAC by the anesthesiologist team. Right common femoral artery access was taken with micropuncture needle under ultrasound guidance followed by insertion of a 6 Afghan sheath over a 0.035 inch wire. Left common femoral artery access was taken with micropuncture needle under ultrasound guidance followed by insertion of a 6 Afghan sheath over a 0.035 inch wire. Right common femoral venous access was taken with micropuncture needle under ultrasound guidance followed by insertion of a 5 Afghan long sheath. Access of the right common [...] guidance, followed by insertion of a 6 Afghan sheath over a stiff wire. After this, 2 Perclose devices were placed. A balloon tipped transvenous pacemaker was placed through the venous sheath under fluoroscopic guidance and was positioned in the right ventricle. Pacing thresholds were checked. The 5-Afghan pigtail catheter was then advanced into the aortic root through left common femoral arterial sheath. The pigtail catheter was placed in the non-coronary cusp for cusp isolation technique. An aortogram was performed in the coplanar view. Next, the 6-Afghan arterial sheath on the right femoral artery was removed and after serial dilations, a 14 Afghan Ramirez sheath was inserted into the abdominal aorta under fluoroscopic guidance. A 5 Afghan AL1 catheter was advanced over a 035 wire into the aortic root. The aortic valve was then crossed using a 0.35 straight-tipped wire. The AL1 catheter was advanced in the LV cavity, and then it was exchanged with a pigtail catheter. LVEDP was measured at 14 mmHg. Next, safari wire was introduced and pigtail catheter was [place]. [place] [address] units of heparin for procedural anticoagulation. ACT [...] iliac runoff was performed using the 5 Afghan pigtail catheter. The pelvic angiogram showed preserved flow in the iliac arteries without any angiographically visible dissection. A Mynx control vascular closure device was deployed at left common femoral arterial access site. The temporary pacemaker wire was taken out in the cathode ray tube assembler. Estimated blood loss minimal. All specimens removed. [...] was used to complete this document, therefore, office supervisor variances may occur. Fredi Moulton MD, [facility] 11/17/24 Fredi Moulton MD CV CARDIAC CATH PROCEDURES Final Result * (ABNORMAL) POC Activated Clotting Time, High Range (11/17/2024 10:13 AM CDT) Pathologist [facility] ACT 382(H) 87 - 138 sec POC Performer [id number] [facility] GONG[facility]A Blood 11/17/2024 10:1 3 AM CDT 11/17/2024 10:13 AM CDT Fredi Moulton MD LAB BLOOD ORDERABLES Final Resul t [facility] [address] Department [place] [address] * Type and screen (11/17/2024 7:15 AM CDT) Logan, indirect Negative ABO Rh A Positive [facility] Blood 11/17/2024 7:15 AM CDT 11/17/2024 7:37 AM CDT Narrative [facility] - 11/17/2024 8:26 AM CDT Has the patient had Daratumumab or Isatuximab in the past 6 months?->Unknown Fredi Moulton MD LAB BLOOD BANK TEST ORDERABLES F inal Result Performing Organization Address [facility] de Phone Number [facility] [address] [place], [place] [id number] * Prepare RBC: 2 Units (11/17/2024 6:30 AM CDT) Product code [id number] Unit Number [id number] 1-D C[facility]ER Product Blood Type APOS [facility] CH Dispense Status RETURNED CERNER Product code [id number] CERNER Unit Number [id number] 2-V CERNER Product Blood Type [facility] Status RETURNED [facility] Blood 11/17/2024 6:30 AM CDT Narrative [facility]CHIE - 11/21/2024 3:22 AM CDT Specify Procedure:->TAVR Are special requirements needed? (All products are leukoreduced and CMV- safe)- >No Date required:-[id number] LRRBC # of [id number] Reasons:-Hold for procedure (specify procedure)} Fredi Moulton MD BLOOD BANK PRODUCT ORDERABLES Fi nal Result Performing Organization Address [facility] de Phone Number [facility] [address] Department of [place], [place] [id number] * (ABNORMAL) Differential, auto (11/15/2024 1:33 PM CDT) Neutrophil abs 6.45 1.50 - 6.50 K/cumm Imm gran abs 0.05 0.00 - 0.10 K/cumm [facility] Lymphocyte abs 1.53 0.80 - 3.30 K/cumm [facility] Monocyte abs 0.83(H) 0.20 - 0.80 K/cumm [facility] Eosinophil abs 0.30 0.00 - 0.50 K/cumm [facility] Basophil abs 0.07 0.00 - 0.10 K/cumm [facility] Neutrophil pct 69.8 % [facility] Comment: Interpretive Data Percent cell count reference ranges are not reported, since discordance with absolute values may lead to misinterpretation of CBC data. Current Interpretive Data was last revised on 2017. Imm gran pct 0.5 % [facility] Comment: Interpretive Data Percent cell count reference ranges are not reported, since discordance with absolute values may lead to misinterpretation of CBC data. Current Interpretive Data was last revised on 2017. Lymphocyte pct 16.6 % [facility] Comment: Interpretive Data Percent cell count reference ranges are not reported, since discordance with absolute values may lead to misinterpretation of CBC data. Current Interpretive Data was last revised on 2017. Monocyte pct 9.0 % [facility] Comment: Interpretive Data Percent cell count reference ranges are not reported, since discordance with absolute values may lead to misinterpretation of CBC data. Current Interpretive Data was last revised on 2017. Eosinophil pct 3.3 % [facility] Comment: Interpretive Data Percent cell count reference ranges are not reported, since discordance with absolute values may lead to misinterpretation of CBC data. Current Interpretive Data was last revised on 2017. Basophil pct 0.8 % [facility] Comment: Interpretive Data Percent cell count reference ranges are not reported, since discordance with absolute values may lead to misinterpretation of CBC data. Current Interpretive Data was last revised on 2017. Blood 11/15/2024 1:33 PM CDT 11/15/2024 1:33 PM CDT us Fredi Moulton MD LAB BLOOD ORDERABLES Final Resul t [facility] [place] [address] Department [place] [address] * (ABNORMAL) CBC with auto differential (11/15/2024 1:33 PM CDT) WBC 9.23 3.80 - 9.90 K/cumm Hgb 11.9(L) 13.0 - 17.5 g/dL [facility] Hct 39.8 38.9 - 50.3 % [facility] Plt 212 150 - 400 K/cumm [facility] MPV 10.3 9.1 - 12.3 fL [facility] RBC 4.25(L) 4.30 - 5.80 M/cumm [facility] MCV 93.6 81.3 - 96.4 fL [facility] MCH 28.0 27.1 - 33.3 pg [facility] MCHC 29.9(L) 32.3 - 35.7 g/dL [facility] RDW CV 14.2 11.1 - 14.9 % [facility] RDW SD 48.7(H) 35.7 - 48.1 fL [facility] NRBC abs 0.00 0.00 - 0.01 K/cumm [facility] Blood 11/15/2024 1:33 PM CDT 11/15/2024 1:33 PM CDT us Fredi Moulton MD LAB BLOOD ORDERABLES Final Resul t [facility] [address] [place] [address] * (ABNORMAL) eGFR (11/15/2024 1:32 PM CDT) [...] ORDERABLES Final Resul t Performing Organization Address City/State/ZIP [place] Phone Number ARCHIE [address] Department [place] [address] * (ABNORMAL) Pro B-type natriuretic peptide (11/15/2024 [...] ORDERABLES Final Resul t Performing Organization Address [facility] Co de Phone Number [facility] [place] [address] [facility] [place] [address] * aPTT (11/15/2024 1:32 PM CDT) aPTT [...] ORDERABLES Final Resul t Performing Organization Address [facility] de Phone Number ARCHIE [address] [facility] [place] [address] * Protime-INR (11/15/2024 1:32 PM CDT) PT [...] ORDERABLES Final Resul t Performing Organization Address City/[facility] [place] [address] Department [place] [address] * (ABNORMAL) Comprehensive metabolic panel (11/15/2024 1:32 [...] LAB [place]LOOD [place] [address] [address] [place] [address] * Type and screen (11/15/2024 1:15 PM CDT) ABO Rh A Positive Logan, indirect Negative [facility] Blood 11/15/2024 1:15 PM CDT 11/15/2024 1:33 PM CDT Narrative [facility] - 11/15/2024 2:51 PM CDT Has the patient had Daratumumab or Isatuximab in the past 6 months?->Unknown Fredi Moulton MD LAB BLOOD BANK TEST ORDERABLES F inal Result Performing Organization Address City/[facility] Co de Phone Number AR[facility]IE [address] Department [place] [address] * ECG 12 lead (11/15/2024 1:12 PM CDT) 11/15/2024 1:12 PM CDT Narrative [facility] - 11/15/2024 2:19 PM CDT Vent Rate: 70 bpm RR Interval: 855 msec [place] Interval: 168 msec QRS Duration: 86 msec QT Interval: 414 msec QTC Interval: 434 msec P-R-T [place]: 30 - -44 - -3 degrees IMPRESSION: SINUS RHYTHM MARKED LEFT AXIS DEVIATION PATTERN CONSISTENT WITH PULMONARY DISEASE MODERATE VOLTAGE CRITERIA FOR LVH, CONSIDER NORMAL VARIANT ABNORMAL ECG Electronically Signed By: Tarik Cason MD Fredi Moulton MD ECG ORDERABLES Final Result Performing Organization Address [facility] de Phone Number [employer] [facility] * X-ray chest 2 views [...] PROCEDURES Final Result * Pulmonary Function Test -[facility]; Complete/Full (11/03/2024 12:55 PM CDT) Anatomical Region Laterality Modality PFT Narrative 11/03/2024 3:18 PM CDT Mild obstructive ventilatory impairment with a severe reduction in the diffusing capacity. No evidence of an upper airway obstruction by flow volume loop. Clive Rinaldi MD [facility] Fredi Moulton MD PFT ORDERABLES Final Result [...] from annulus: 13 mm Deployment angle: 9 ANGUILLAN, 5 Caudal Coronary Arteries: Anomalous coronary artery [...] from annulus: 13 mm Deployment angle: 9 ANGUILLAN, 5 Caudal Coronary Arteries: Anomalous coronary artery [...] by: Johan Berg M.D. Fredi Moulton MD [facility] CT PROCEDURES Final Result * LEFT HEART CATHETERIZATION WITH CORONARY ANGIOGRAPHY AND WITH AND WITHOUT LEFT VENTRICULOGRAM, VASCULAR ACCESS US GUIDANCE, ZULY MAJOR CORONARY, PERCUTANEOUS CORONARY LITHROTRIPSY W/ PCI (+) [id number], CORONARY OCT, 1ST VESSEL, PCI ZULY STENT ADDTN'L COR BRANCH (+) [id number] (10/27/2024 2:02 PM CDT) Anatomical Region Laterality Modality X-Ray Angiograph y Narrative 10/28/2024 7:29 AM CDT CARDIAC CATHETERIZATION AND INTERVENTION REPORT DATE OF PROCEDURE: 10/27/24 INDICATION FOR PROCEDURE: Severe aortic stenosis, preaortic valve replacement cardiac catheterization BRIEF CLINICAL HISTORY: Wesley Godinez is a 84 y.o. male with [...] syndrome. Recent echo from 09/19/2024 performed at [facility] reportedly showed preserved LV systolic function, diastolic [...] groin hematoma, retroperitoneal bleed, vessel perforation; periprocedural HI, cardiac arrhythmias, stroke, contrast induced nephropathy, and [...] using 3.0 x 15 mm Medtronic gallito [place]ud[place] zotarolimus eluting stents in a nonoverlapping fashion Moderate sedation-CPT code 61291 and beyond MODERATE SEDATION: Midazolam 0.5 mg , Fentanyl 25 mcg, start time 1225 stop time 1402, total direct wlfm-wy-ziux monitoring of conscious sedation 97 minutes (CPT 95173) TRAINED OBSERVER: Shantelle Hardy RN was trained observer for moderate sedation. ACCESS SITE: Right radial artery PROCEDURE: After obtaining informed consent, patient was brought to the cathode ray tube assembler and prepped and draped in the usual sterile manner. Time-out and immediate reassessment of the patient was performed. After local anesthesia with lidocaine, right radial artery access was taken with micropuncture needle under ultrasound guidance followed by insertion of a 6 Afghan sheath. 200 mcg of nitroglycerin and 2.5 [...] to the origin of the LPDA. Faint tqqg-vn-yphue collaterals are seen. 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 Faint zmbh-oc-ucoqa collaterals were noted on left coronary angiogram. LEFT VENTRICULOGRAM: Not performed PELVIC ANGIOGRAM: Not performed HEMODYNAMIC ASSESSMENT: Opening pressure 120/80 mmHg, closing pressure 149/84 mmHg. INTERVENTION REPORT: Based on angiographic findings, we proceeded with a PCI on proximal and mid LAD. Left main was selectively engaged using 6 Afghan XB 3 guide catheter. Patient was given aspirin and loading dose of clopidogrel 600 mg in the cathode ray tube assembler. Bivalirudin used for procedural anticoagulation. The stenosis [...] this, 3.0 x 15 mm Medtronic gallito [place]uderd[place] ZES was advanced in the mid segment , was placed just distal to the major diagonal branch and was deployed at a maximum of 16 atmospheres. After this, a 3.5 x 18 mm Medtronic gallito [place]uderd[place] ZES was deployed in the proximal segment. [...] ISR mid RCA with bridging and faint fnhv-se-cyxnp collaterals IVUS guided PCI- IVL (shockwave) of calcific stenosis in the proximal and mid LAD, followed by PTCA/stenting of proximal LAD using a 3.5 x 18 mm Medtronic gallito [place]uderd[place] ZES, and 3.0 x 15 mm Medtronic gallito [place]uderd[place] ZES in the mid segment. PLAN/RECOMMENDATIONS: Dual antiplatelet therapy with aspirin and clopidogrel, high-dose statin. CTA chest, abdomen and pelvis, heart team evaluation and followed by TAVR in near future. Voice recognition software was used to complete this document, therefore, office supervisor variances may occur. Fredi Moulton MD, [facility] 10/27/24 Fredi Moulton MD CV CARDIAC CATH PROCEDURES Final Result from Last 3 Months Insurance [employer] PPO [employer] P[employer] Advance Directives For more information, please contact: [phone] Documents on File Type Date Recorded Patient Track Broom Operator Expl anation ADVANCE DIRECTIVE 11/21/2024 4:23 PM POWER OF BLAST SETTER-MEDICAL ADVANCE DIRECTIVE 11/21/2024 4:23 PM LIVING WILL ADVANCE DIRECTIVE 11/21/2024 4:23 PM POWER OF BLAST SETTER-MEDICAL ADVANCE DIRECTIVE 11/15/2024 1:16 PM Power of Housing Counselor-Medical Care Teams Electronic Warfare Technical Relationship Specialty Start Date End Date Pelon Maurer DO PCP - General Internal Medicine 12/16/23
--- OUTSIDE RECORDS SUMMARY | 2025-01-26 08:33 | XMS_ITS | Encounter Summary ---
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
--- OUTSIDE RECORDS SUMMARY | 2025-01-26 08:34 | XMS_ITS | Clinical Summary ---
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 07/25 Mixed hyperlipidemia 07/25/2018 Chronic diastolic [...] on file Legal Sex Male 8:31 AM [facility] Gender Identity Not on file [...] 172.7 cm (5' 8) 05/09/2019 9:50 AM FIELD SUPERVISOR SEED PRODUCTION Body Mass Index 39.99 05/09/2019 9:50 AM FIELD SUPERVISOR SEED PRODUCTION Plan of Treatment Health Maintenance Due Date Last Done Comments Pneumococcal PPSV23/PCV13 65 + Years / Low and Medium Risk (2 of 3 - PCV) 03/14/2020 03/14/2019 Influenza Vaccine (#1) 2025 Insurance MEDICARE [facility] [place] [address] Care Teams Continuity Writer Relationship Specialty Start Date End Date Pelon Maurer DO [address] [place] [id number] PCP - General Internal Medicine 03/24/22
--- OUTSIDE RECORDS SUMMARY | 2025-01-26 08:34 | XMS_ITS | Encounter Summary ---
Author Organization [facility] Healthcare Address [address] [place] [address] Care Team Providers Care Fish Net Maker Name Role Phone Pelon Maurer DO Primary Care Provider [phone] Encounter Details Date Type Department Care Team (Late st Contact Info) Description 09/18/[address] 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
--- OUTSIDE RECORDS SUMMARY | 2025-01-26 08:34 | XMS_ITS | Clinical Summary ---
Author Organization [facility] Address [address] [place] [address] Care Team Providers Care Penal Officer Name Role Phone Unavailable Primary Care Provider [...]
--- OUTSIDE RECORDS SUMMARY | 2025-01-26 08:34 | XMS_ITS | Encounter Summary ---
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
--- OUTSIDE RECORDS SUMMARY | 2025-01-26 08:34 | XMS_ITS | Encounter Summary ---
Author Organization [facility] Healthcare Address [address] [place] [address] Care Team Providers Care Loading Unit Operator Powder Charging Name Role Phone Pelon Maurer DO Primary Care Provider [phone] Encounter Details Date Type Department Care Team (Late st Contact Info) Description 09/22/2024 Orders Only [facility] Health Information Management [address] [place] [address] Scanning, Provider Social History Tobacco Use Types Packs/Day Years Used Date Smoking Tobacco: Former Cigarettes 2 34.6 0 1955 - 02/13/1990 Smokeless Tobacco: Never Alcohol Use Standard Drinks/Week Comments Yes 0 (1 standard drink = 0.6 oz pur e alcohol) Sex and Gender Information Value Date Recorded Sex Assigned at Not on file Legal Sex Male 2:02 AM HOSPICE LIAISON Gender Identity Male 03/10/2021 7:22 PM CDT [...] on filedocumented in this encounter Care Teams Loading Unit Operator Powder Charging Relationship Specialty Start Date End Date Pelon Maurer DO PCP - General Internal Medicine 12/16/23 documented as of this encounter
--- OUTSIDE RECORDS SUMMARY | 2025-01-26 08:34 | XMS_ITS | Clinical Summary ---
Author Organization [facility] Address [address] [facility] [place] [address] Care Team Providers Care Principal Java Developer Name Role Phone Libertad Pelon Soto DO [...] by mouth. A ctive vit A,C and M-txfpzp-trpqxn ls (OCUVITE) 300 mcg-200 mg-27 mg-2 mg [...] Encounters Date Type Department Care Team Description 01/18/2025 External Device Data ST[facility] ABSTRACTION Provider, Abstract [...] PM CDT Legal Sex Male 3:21 PM CERTIFIED LEGAL INVESTIGATOR Gender Identity Male 10/11/2024 5:05 PM CDT [...] Description 01/31/2025 11:30 AM CDT Office Visit [facility] Oncology and Hematology [facility] [address] [facility] [address] [place] [address] Issa Khan MD [address] [facility] [address] [place] [address] Health Maintenance Due Date Last Done Comments DTAP/TDAP/TD VACCINES (1 - Tdap) 1958 ZOSTER VACCINE (1 of 2) 1989 RSV VACCINE (60+ or ) (1 - 1-dose 75+ series) 2014 PNEUMOCOCCAL VACCINE 50+ YEA RS (2 of 2 - PCV) 03/14/2020 03/14/2019, 12/13/2018 [place] ([place] Prev entative Visit/Annual Wellness Visit 06/15/2024 INFLUENZA VACCINE (#1) 2025 03/15/2019 [facility] Care Teams Principal Java Developer Relationship Specialty Start Date End Date Pelon Maurer DO [address] [facility] [address] [facility] [address] [place] [address] PCP - General Internal Medicine 02/23/24
--- OUTSIDE RECORDS SUMMARY | 2025-01-26 08:34 | XMS_ITS | Encounter Summary ---
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
--- OUTSIDE RECORDS SUMMARY | 2025-01-26 08:34 | XMS_ITS | Encounter Summary ---
Author Organization [facility] Healthcare Address [address] [place] [address] Care Team Providers Care Blood Bank Technologist Name Role Phone Pelon Maurer DO Primary Care Provider [phone] Encounter Details Date Type Department Care Team (Late st Contact Info) Description 09/21/2024 Orders Only [facility] Health Information Management [address] [place] [address] Scanning, Provider Social History Tobacco Use Types Packs/Day Years Used Date Smoking Tobacco: Former Cigarettes 2 34.6 0 1955 - 02/13/1990 Smokeless Tobacco: Never Alcohol Use Standard Drinks/Week Comments Yes 0 (1 standard drink = 0.6 oz pur e alcohol) Sex and Gender Information Value Date Recorded Sex Assigned at Not on file Legal Sex Male 2:02 AM DRAFTER ELECTRICAL Gender Identity Male 03/10/2021 7:22 PM CDT [...] on filedocumented in this encounter Care Teams Blood Bank Technologist Relationship Specialty Start Date End Date Pelon Maurer DO PCP - General Internal Medicine 12/16/23 documented as of this encounter
[2025-01-26 08:43] LABS: Hematocrit 41.4 % (42.0-52.0); Hemoglobin 13.0 g/dL (14.0-18.0); Mean Corpuscular HGB Conc 31.4 g/dl (32-36); Mean Corpuscular Hemoglobin 27.4 pg (26-34); Mean Corpuscular Volume 87.2 fl (80-100); Platelet Count Result 177 k/mm3 (150-375); Red Blood Count 4.75 M/mm3 (4.6-6.20); White Blood Count 7.9 K/mm3 (4.5-10.0)
[2025-01-26 15:12] LABS: Iron 118 ug/dL (49-181)
[2025-01-26 15:21] LABS: Percent Iron Saturation 39 % (20-50)
[2025-01-26 15:48] LABS: Ferritin 30.00 ng/mL (11.1-264)
== END 2025-01-26 08:28 | disposition home or self-care (01) ==
LOC: ANHLAB 08:28
PROVIDERS: PCP Internal Medicine; Visit Provider Internal Medicine Hematology & Oncology
DX: D64.9 Anemia, unspecified (principal)
CPT/HCPCS: 36415; 82728; 83540; 83550; 85027

== ENCOUNTER 2025-04-10 07:15 | Outpatient (RCR) | payer OTHER, SELFPAY | END 2025-05-02 11:01 | disposition home or self-care (01) | LOC: ANHCPREHAB 07:15 | PROVIDERS: PCP Internal Medicine; Visit Provider Specialist | DX: Z95.2 Presence of prosthetic heart valve (principal) | CPT/HCPCS: 93798 ==

== ENCOUNTER 2025-05-25 09:59 | Outpatient (CLI) | payer OTHER, SELFPAY ==
[2025-05-25 10:24] LABS: Hematocrit 43.4 % (42.0-52.0); Hemoglobin 13.5 g/dL (14.0-18.0); Mean Corpuscular HGB Conc 31.1 g/dl (32-36); Mean Corpuscular Hemoglobin 28.9 pg (26-34); Mean Corpuscular Volume 92.9 fl (80-100); Platelet Count Result 186 k/mm3 (150-375); Red Blood Count 4.67 M/mm3 (4.6-6.20); White Blood Count 13.5 K/mm3 (4.5-10.0)
[2025-05-25 16:20] LABS: Anion Gap 7 mmol/L (4-12); Blood Urea Nitrogen 21 mg/dL (9-20); Calcium 8.8 mg/dL (8.4-10.2); Carbon Dioxide 25 mmol/L (22-30); Chloride 110 mmol/L (98-107); Estimated Glomerular Filt Rate 29; Glucose 103 mg/dL (65-110); Sodium 142 mmol/L (137-145)
[2025-05-25 16:26] LABS: Iron 67 ug/dL (49-181)
[2025-05-25 16:31] LABS: Potassium 4.2 mmol/L (3.4-5.0)
[2025-05-25 16:36] LABS: Percent Iron Saturation 24 % (20-50)
[2025-05-25 17:07] LABS: Ferritin 37.10 ng/mL (11.1-264)
[2025-05-25 17:33] LABS: Vitamin B12 667.0 pg/mL (239-931)
== END 2025-05-25 10:00 | disposition home or self-care (01) ==
LOC: ANHLAB 09:59
PROVIDERS: PCP Internal Medicine; Visit Provider Internal Medicine Hematology & Oncology
DX: D64.9 Anemia, unspecified (principal)
CPT/HCPCS: 36415; 80048; 82607; 82728; 82746; 83540; 83550; 85027